=== PATIENT | female | born 1950 | race African-American/Black ===

== ENCOUNTER 2016-10-31 17:34 | Emergency (ER) | payer OTHER ==
[2016-10-31 17:48] VITALS: BMI 34.9
[2016-10-31] MEDS ORDERED: diphenhydrAMINE HCL 12.5 MG/5 ML UNIT-DOSE CUPS PO ONE (18:37)
[2016-10-31] MEDS ORDERED: LIDOCAINE VISCOUS 2% ORAL/TOP 20 ML UNIT-DOSE CUP MM ONE (18:37)
[2016-10-31] MEDS ORDERED: MAG HYDROX/AL HYDROX/SIMETH 30 ML UNIT-DOSE CUP PO ONE (18:37)
[2016-10-31] MEDS ORDERED: FAMOTIDINE 20 MG/50 ML IVPB 50 ML IVPB ONE ×3 (18:38→19:04)
--- NOTE | 2016-10-31 18:49 | PDOC ---
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 She states the burning was localized to the substernal region and denies radiation of the pain. She denies any pain at this time. She denies eating prior to the onset of her pain. She denies chest pain, shortness of breath, headache and dizziness. She denies fever, chills, nausea, vomit, diarrhea and constipation. She denies dysuria, frequency, urgency and hematuria. Allergies: NKDA <Parisa Jj - Last Filed: 10/31/16 19:05> - General Chief Complaint: Chest Pain Stated Complaint: FALL Time Seen by Provider: 10/31/16 17:38 Past History - Past Medical History COPD: Yes DVT: Yes (AND PE) Diabetes: Yes (border line) HTN: Yes Liver Disease: Yes (HEP C) Psychiatric Problems: Yes (anxiety, tremors) Suicide Attempt (Hx): No Seizures: Yes Thyroid Disease: Yes - Surgical History Cholecystectomy: Yes - Immunization History Immunization Up to Date: Yes - Psycho/Social/Smoking Cessation Hx Anxiety: No Suicidal Ideation: No Smoking Status: No Smoking History: Former smoker Have you smoked in the past 12 months: No Number of Cigarettes Smoked Daily: 0 If you are a former smoker, when did you quit?: 2003 Information on smoking cessation initiated: No 'Breaking Loose' booklet given: 09/06/13 Hx Alcohol Use: Yes Drug/Substance Use Hx: No Substance Use Type: None Hx Substance Use Treatment: Yes <Benny Duke - Last Filed: 10/31/16 18:49> <Parisa Jj - Last Filed: 10/31/16 19:05> - Past Medical History Allergies/Adverse Reactions: Allergies Allergy/AdvReac Type Severity Reaction Status Date / Time aspirin Allergy Hives Verified 10/31/16 17:48 Penicillins Allergy Hives Verified 10/31/16 17:48 Shellfish Allergy Hives Verified 10/31/16 17:48 venom-honey bee Allergy Verified 10/31/16 17:48 [bee venom (honey bee)] egg AdvReac Vomiting Verified 10/31/16 17:48 Home Medications: Ambulatory Orders Docusate Sodium [Colace -] 100 mg PO TID 04/03/14 Levothyroxine [Synthroid -] 125 mcg PO DAILY 04/03/14 Metformin HCl [Glucophage -] 500 mg PO BID 04/03/14 Albuterol Sulfate Inhaler - [Ventolin HFA Inhaler -] 2 inh PO Q4H PRN #1 inh 12/16 Budesonide/Formeterol Fumarate [SYMBICORT 160/4.5mcg -] 1 inh PO BID 08/08/14 Calcium 250Mg/Vit-D 125 Units [Oscal 250 mg+D -] 500 combo PO BID 08/08/14 Metoprolol Tartrate [Lopressor] 50 mg PO BID 08/08/14 Olanzapine [Zyprexa] 10 mg PO HS 08/08/14 Phenytoin Na Extended [Dilantin -] 300 mg PO HS 08/08/14 Trazodone HCl [Desyrel -] 50 mg PO HS 08/08/14 Ledipasvir/Sofosbuvir [Harvoni 90-400 mg Tablet] 1 each PO DAILY 08/14/15 Amlodipine Besylate 10 mg PO DAILY 01/16/16 Divalproex *ER* [Depakote *ER* -] 1,000 mg PO HS 01/16/16 Gabapentin Enacarbil [Horizant] 600 mg PO DAILY 01/16/16 Nebivolol HCl [Bystolic] 10 mg PO DAILY 01/16/16 Venlafaxine HCl ER [Effexor Xr -] 150 mg PO DAILY 01/16/16 Divalproex [Depakote -] 250 mg PO BID #28 tablet.ec 03/09/16 Albuterol Sulfate Inhaler - [Ventolin Hfa Inhaler -] 1 - 2 inh PO Q4H #1 inhaler 05/07/16 Methylprednisolone [Medrol Dose Dennys] 4 mg PO ASDIR #21 tablet 05/07/16 Review of Systems - Review of Systems Able to Perform ROS?: Yes Comments:: 10/31/16 19:04 GENERAL/CONSTITUTIONAL: No fever or chills. No weakness. HEAD, EYES, EARS, NOSE AND THROAT: No change in vision. No ear pain or discharge. No sore throat. CARDIOVASCULAR: No chest pain or shortness of breath. RESPIRATORY: No cough, wheezing, or hemoptysis. GASTROINTESTINAL: (+) substernal burning. No nausea, vomiting, diarrhea or constipation. GENITOURINARY: No dysuria, frequency, or change in urination. MUSCULOSKELETAL: No joint or muscle swelling or pain. No neck or back pain. SKIN: No rash NEUROLOGIC: No headache, vertigo, loss of consciousness, or change in strength/ sensation. ENDOCRINE: No increased thirst. No abnormal weight change. HEMATOLOGIC/LYMPHATIC: No anemia, easy bleeding, or history of blood clots. ALLERGIC/IMMUNOLOGIC: No hives or skin allergy. <Parisa Jj - Last Filed: 10/31/16 19:05> *Physical Exam - Vital Signs Last Vital Signs Temp Pulse Resp BP Pulse Ox 97.9 F 85 20 136/96 95 10/31/16 17:44 10/31/16 17:44 10/31/16 17:44 10/31/16 17:44 10/31/16 17:44 <Benny Duke - Last Filed: 10/31/16 18:49> - Vital Signs Last Vital Signs Temp Pulse Resp BP Pulse Ox 97.9 F 85 20 136/96 95 10/31/16 17:44 10/31/16 17:44 10/31/16 17:44 10/31/16 17:44 10/31/16 17:44 - Physical Exam Comments: 10/31/16 19:04 GENERAL: Awake, alert, and fully oriented, in no acute distress HEAD: No signs of trauma EYES: PERRLA, EOMI, sclera anicteric, conjunctiva clear ENT: Auricles normal inspection, hearing grossly normal, nares patent, oropharynx clear without exudates. Moist mucosa NECK: Normal ROM, supple, no lymphadenopathy, JVD, or masses LUNGS: Breath sounds equal, clear to auscultation bilaterally. No wheezes, and no crackles HEART: Regular rate and rhythm, normal S1 and S2, no murmurs, rubs or gallops ABDOMEN: Soft, nontender, normoactive bowel sounds. No guarding, no rebound. No masses EXTREMITIES: Normal range of motion, no edema. No clubbing or cyanosis. No cords, erythema, or tenderness NEUROLOGICAL: Cranial nerves II through XII grossly intact. Normal speech, normal gait SKIN: Warm, Dry, normal turgor, no rashes or lesions noted. <Parisa Jj - Last Filed: 10/31/16 19:05> Heart Score/ECG Review - ECG Intrepretation Comment:: 10/31/16 19:04 EKG was read by Dr. Duke at 17:53 Impression: Normal sinus rhythm. Possible left atrial enlargement. <Parisa Jj - Last Filed: 10/31/16 19:05> ED Treatment Course - RADIOLOGY Radiology Studies Ordered: Category Date Time Status CHEST X-RAY PORTABLE* [RAD] Stat Radiology 10/31/16 18:36 Ordered <Benny Duke - Last Filed: 10/31/16 18:49> Medical Decision Making - Medical Decision Making 10/31/16 19:03 The patient is a 66 year old female who presents to the ED with substernal burning which lasted 5 minutes today. The patient has a significant past medical history of liver cirrhosis (20 years , alcohol induced), hypertension, hyperlipidemia, diabetes, and post-Hepatitis C (s/p Harvoni treatment). <Parisa Jj - Last Filed: 10/31/16 19:05> *DC/Admit/Observation/Transfer - Attestations Physician Attestion: 10/31/16 18:49 I, Dr. Benny Dkue, attest that this document has been prepared under my direction and personally reviewed by me in its entirety. I further attest, that it accurately reflects all work, treatment, procedures and medical decision -making performed by me. <Benny Duke - Last Filed: 10/31/16 18:49> - Attestations Scribe Attestion: 10/31/16 19:05 Documentation prepared by Parisa Jj, acting as director medical science for Benny Duke DO <Parisa Jj - Last Filed: 10/31/16 19:05> - Referrals Referrals: Reuben Esparza MD [Primary Care Provider] -
[2016-10-31 19:48] LABS: BASOPHIL 0.4 % (0-2.0); EOSINOPHIL 3.2 % (0-4.5); MCH 28.8 pg (25.7-33.7); MCHC 32.2 g/dl (32.0-36.0); MEAN CELL VOLUME 89.5 fl (80-96); PLATELET COUNT 171 K/MM3 (134-434); RDW 13.1 % (11.6-15.6); WHITE BLOOD COUNT 6.2 K/mm3 (4.0-10.0)
[2016-10-31 20:09] LABS: INR 1.07 (0.82-1.09); PROTHROMBIN TIME (PATIENT) 11.8 SEC (9.98-11.88)
[2016-10-31 20:21] LABS: ALBUMIN 3.3 g/dl (3.4-5.0); ANION GAP 9 (8-16); CALCIUM 8.4 mg/dL (8.5-10.1); CO2 26 mmol/L (21-32); CREATININE 0.8 mg/dL (0.55-1.02); GLUCOSE,RANDOM 89 mg/dL (74-106); SGOT/AST 50 U/L (15-37); SGPT/ALT 65 U/L (12-78)
[2016-10-31] MEDS ORDERED: diphenhydrAMINE HCL 25 MG CAPSULE (FP) PO ONE (20:23)
[2016-10-31] MEDS ORDERED: MAG HYDROX/AL HYDROX/SIMETH 30 ML UNIT-DOSE CUP ONE (20:24)
[2016-10-31 20:26] LABS: ALK PHOS 127 U/L (45-117); BILIRUBIN,TOTAL 0.1 mg/dL (0.2-1.0); TOT PROT 7.1 g/dl (6.4-8.2); TROPONIN I < 0.02 ng/ml (0.00-0.05)
--- NOTE | 2016-10-31 23:28 | PDOC ---
*Physical Exam - Vital Signs Last Vital Signs Temp Pulse Resp BP Pulse Ox 97.9 F 85 20 136/96 96 10/31/16 17:44 10/31/16 17:44 10/31/16 17:44 10/31/16 17:44 10/31/16 19:20 ED Treatment Course - LABORATORY CBC & Chemistry Diagram: 10/31/16 18:33 10/31/16 18:33 - ADDITIONAL ORDERS Additional order review: Laboratory Results 10/31/16 10/31/16 10/31/16 18:50 18:50 18:33 INR Sodium Potassium Chloride Carbon Dioxide Anion Gap BUN Creatinine Creat Clearance w eGFR Random Glucose Lactic Acid 1.0 Calcium Total Bilirubin AST ALT Alkaline Phosphatase Ammonia 43.09 H Creatine Kinase Troponin I Total Protein Albumin Lipase 227 10/31/16 10/31/16 18:33 18:33 INR 1.07 Sodium 140 Potassium 4.3 Chloride 105 Carbon Dioxide 26 Anion Gap 9 BUN 17 Creatinine 0.8 Creat Clearance w eGFR > 60 Random Glucose 89 Lactic Acid Calcium 8.4 L Total Bilirubin 0.1 L AST 50 H ALT 65 D Alkaline Phosphatase 127 H Ammonia Creatine Kinase 104 Troponin I < 0.02 Total Protein 7.1 Albumin 3.3 L Lipase 10/31/16 18:33 RBC 3.86 MCV 89.5 MCHC 32.2 RDW 13.1 MPV 9.0 D Neutrophils % 51.0 Lymphocytes % 38.3 D Monocytes % 7.1 Eosinophils % 3.2 Basophils % 0.4 - Medications Given in the ED: ED Medications Discontinued Medications Generic Name Dose Route Start Last Admin Trade Name Freq PRN Reason Stop Dose Admin Al Hydroxide/Mg Hydroxide 30 ml 10/31/16 18:37 10/31/16 19:35 Mylanta Oral Suspension - PO 10/31/16 18:38 30 ml ONCE ONE Administration Diphenhydramine HCl 25 mg 10/31/16 18:37 10/31/16 19:35 Benadryl Oral Solution - PO 10/31/16 18:38 25 mg ONCE ONE Administration Famotidine/Sodium Chloride 50 mls @ 100 mls/hr 10/31/16 18:38 10/31/16 19:06 Pepcid 20 Mg Premixed Ivpb - IVPB 10/31/16 19:07 100 mls/hr ONCE ONE Administration Lidocaine HCl 20 ml 10/31/16 18:37 10/31/16 19:30 Xylocaine 2% Viscous Oral - MM 10/31/16 18:38 20 ml ONCE ONE Administration Medical Decision Making - Medical Decision Making 10/31/16 23:30 Abd/pelvis CT scan shows signs of cirrhosis, however no other overt pathology. Pt to follow up with her pcp and her scheduled appointments. *DC/Admit/Observation/Transfer Diagnosis at time of Disposition: Cirrhosis Qualifiers: Hepatic cirrhosis type: unspecified hepatic cirrhosis Ascites presence: without ascites Qualified Code(s): K74.60 - Unspecified cirrhosis of liver - Discharge Dispostion Disposition: HOME Condition at time of disposition: Stable Admit: No - Referrals Referrals: Reuben Esparza MD [Primary Care Provider] - - Patient Instructions Printed Discharge Instructions: DI for Cirrhosis Additional Instructions: Don't take your Metformin for one day. Follow up with your doctor and your other scheduled appointments. - Post Discharge Activity
[2016-10-31 23:43] VITALS: BP 128/89; PULSE 80; TEMP 98
--- NOTE | 2016-11-01 12:15 | EKG ---
Test Reason : Blood Pressure : / mmHG Vent. Rate : 080 BPM Atrial Rate : 080 BPM P-R Int : 192 ms QRS Dur : 084 ms QT Int : 360 ms P-R-T Axes : 067 -01 049 degrees QTc Int : 415 ms POOR DATA QUALITY, INTERPRETATION MAY BE ADVERSELY AFFECTED NORMAL SINUS RHYTHM POSSIBLE LEFT ATRIAL ENLARGEMENT LEFT VENTRICULAR HYPERTROPHY ABNORMAL ECG WHEN COMPARED WITH ECG OF 09-MAR-2016 16:05, NO SIGNIFICANT CHANGE WAS FOUND Confirmed by DWAIN WISEMAN MD ([id number]) on 11/01/2016 12:14:31 PM Referred By: Confirmed By:DWAIN WISEMAN MD
== END 2016-10-31 23:44 | disposition home or self-care (01) ==
LOC: JER 17:34
PROC: 3E033GC Introduction of Other Therapeutic Substance into Peripheral Vein, Percutaneous Approach (ICD-10-PCS; principal; 2016-10-31)
DX: K70.30 Alcoholic cirrhosis of liver without ascites (principal); I10 Essential (primary) hypertension; E78.00 Pure hypercholesterolemia, unspecified; E11.9 Type 2 diabetes mellitus without complications; Z79.84 Long term (current) use of oral hypoglycemic drugs; Z86.718 Personal history of other venous thrombosis and embolism; Z86.711 Personal history of pulmonary embolism
CPT/HCPCS: 36415; 71010-TC; 71260-TC; 74177-TC; 80053; 82140; 82550; 83605; 83690; 84484; 85025; 85610; 93005; 93010; 96365; 99285-25

== ENCOUNTER 2016-12-21 11:31 | Emergency (ER) | payer OTHER ==
[2016-12-21 12:04] VITALS: BMI 36.6
--- NOTE | 2016-12-21 13:31 | PDOC ---
History of Present Illness - General Chief Complaint: Weakness Stated Complaint: FALL/ TREMORS Time Seen by Provider: 12/21/16 12:59 History Source: Patient Exam Limitations: No Limitations - History of Present Illness Initial Comments: 12/21/16 13:24 This is a 66 yo female with h/o HCV cirrhosis (treated in 2016 with Radu), Parkinson's disease (dx about 4 months ago), NIDDM, HTN, and HLD who presents with generalized weakness, dyspnea on exertion, urinary urgency, foot swelling, and multiple falls from bed over the past two weeks. She notes that the course of her symptoms actually started two weeks ago with cough, sore throat, and runny nose which required her sister to her home to care for her at that time. She began having episodes of falling from bed while sleeping during the night at this time, and cannot count the number of episodes. She describes shortness of breath on exertion as inability to walk even one block without stopping, which is worse for her in the past month. She additionally notes awakening gasping for air in the middle of the night which is new for her. She has always used 2-3 pillows at night without any recent change. She notes foot swelling worsening over the past month, and also notes significant weight gain recently ( went from size 16 to size 20 in the past year). Past History - Past Medical History Allergies/Adverse Reactions: Allergies Allergy/AdvReac Type Severity Reaction Status Date / Time aspirin Allergy Hives Verified 12/21/16 12:04 Penicillins Allergy Hives Verified 12/21/16 12:04 Shellfish Allergy Hives Verified 12/21/16 12:04 venom-honey bee Allergy Verified 12/21/16 12:04 [bee venom (honey bee)] egg AdvReac Vomiting Verified 12/21/16 12:04 Home Medications: Ambulatory Orders Levothyroxine [Synthroid -] 175 mcg PO DAILY 04/03/14 Metformin HCl [Glucophage -] 500 mg PO DAILY 04/03/14 Metoprolol Tartrate [Lopressor] 25 mg PO DAILY 08/08/14 Olanzapine [Zyprexa] 10 mg PO HS 08/08/14 Phenytoin Na Extended [Dilantin -] 300 mg PO HS 08/08/14 Amlodipine Besylate 10 mg PO DAILY 01/16/16 Gabapentin Enacarbil [Horizant] 300 mg PO TID 01/16/16 Divalproex [Depakote -] 500 mg PO HS 12/21/16 Tramadol HCl 50 mg PO PRN PRN #20 tablet MDD 4 12/21/16 COPD: Yes DVT: Yes (AND PE) Diabetes: Yes (border line) HTN: Yes Liver Disease: Yes (HEP C) Psychiatric Problems: Yes (anxiety, tremors) Suicide Attempt (Hx): No Seizures: Yes Thyroid Disease: Yes - Surgical History Cholecystectomy: Yes - Immunization History Immunization Up to Date: Yes - Psycho/Social/Smoking Cessation Hx Anxiety: No Suicidal Ideation: No Smoking Status: No Smoking History: Never smoked Have you smoked in the past 12 months: No Number of Cigarettes Smoked Daily: 0 If you are a former smoker, when did you quit?: 2003 Information on smoking cessation initiated: No 'Breaking Loose' booklet given: 09/06/13 Hx Alcohol Use: No Drug/Substance Use Hx: No Substance Use Type: None Hx Substance Use Treatment: Yes Review of Systems - Review of Systems Able to Perform ROS?: Yes Is the patient limited [place] proficient: Yes Constitutional: Yes: Other (weight gain). No: Chills, Fever HEENTM: Yes: Nose Congestion, Throat Pain Respiratory: Yes: Cough, SOB with Exertion. No: Orthopnea, SOB at Rest Cardiac (ROS): Yes: Edema. No: Chest Pain, Palpitations ABD/GI: No: Constipated, Diarrhea, Nausea, Vomiting : Yes: Urgency. No: Burning, Dysuria Musculoskeletal: Yes: Muscle Pain (right thigh and hip). No: Back Pain, Neck Pain Integumentary: Yes: Other (right abdominal mild bruising). No: Bruising, Rash Neurological: Yes: Tremors, Unsteady Gait. No: Headache, Numbness, Tingling, Weakness, Dizziness Endocrine: Yes: Unexplained Weight Gain. No: Unexplained Weight Loss *Physical Exam - Vital Signs Last Vital Signs Temp Pulse Resp BP Pulse Ox 76 F L 77 18 114/75 99 12/21/16 12:02 12/21/16 12:02 12/21/16 12:02 12/21/16 12:12/21/16 12:02 - Physical Exam General Appearance: Yes: Nourished, Appropriately Dressed, Other (nontoxic, alert, oriented, conversive, obvious resting tremor BUE and mandible). No: Apparent Distress HEENT: positive: EOMI, Normal Voice, Hearing Grossly Normal. negative: Scleral Icterus (R), Scleral Icterus (L) Neck: positive: Trachea midline, Supple. negative: Tender, Rigid Respiratory/Chest: positive: Lungs Clear, Normal Breath Sounds. negative: Respiratory Distress, Crackles, Rhonchi, Stridor, Wheezing Cardiovascular: positive: Regular Rhythm, Regular Rate, Edema (trace pedal). negative: Murmur Gastrointestinal/Abdominal: positive: Normal Bowel Sounds, Protuberent, Other ( old ecchymoses to right quadrants which appear to be healing well). negative: Tender, Organomegaly, Pulsatile Mass, Guarding Musculoskeletal: positive: Normal Inspection. negative: Decreased Range of Motion, Vertebral Tenderness Extremity: positive: Normal Capillary Refill, Normal Inspection, Normal Range of Motion, Tender (right lateral hip and right thigh in the distribution of the IT band, but no focal tenderness, normal ROM hip and knee, no medial hip tenderness), Pelvis Stable, Pedal Edema. negative: Coldness, Cyanosis, Delayed Capillary Refill, Calf Tenderness, Erythema, Inflammation Integumentary: positive: Normal Color, Dry, Warm. negative: Erythema, Rash, Bruising Neurologic: positive: compliance engineer products II-XII NML intact, Fully Oriented, Alert, Normal Mood/ Affect, Normal Response, Motor Strength 5/5 ED Treatment Course - LABORATORY CBC & Chemistry Diagram: 12/21/16 14:00 12/21/16 14:00 - ADDITIONAL ORDERS Additional order review: X-ray hip/pelvic right - no e/o fracture, acute bony abnormalities, dislocation , join effusion, or other deformity. X-ray knee right - possible e/o CPPD but no acute fracture, bony abnormality, dislocation, or other deformity. Medical Decision Making - Medical Decision Making 12/21/16 13:59 66 yo female with h/o cirrhosis, NIDDM, HTN, HLD, new dx Parkinsons who presents c/o HICKS and generalizes weakness. Considered on the ddx are CHF exacerbation, PNA, UTI, ACS. Workup is ordered including CBC, CMP, BNP, UA with culture, CXR, EKG. Workup is non-directive, no acute cardiopulmonary processes on CXR. BNP is wnl and CXR without e/o CHF exacerbation or PNA, lung exam wnl. UA without e/o UTI, no abdominal tenderness to palpation. EKG without ischemic changes and troponin is negative, cardiac exam unremarkable. On hip and LE exam after patient is moved into a private room, she has tenderness from lateral right hip to knee. Xray right hip/pelvis and right knee are not suggestive for bony pathology or other cause of pain. Her pain is well-controlled here in the ED. She is comfortable with discharge home with Rx for Tramadol and with outpatient f/u with PCP and Neuro. *DC/Admit/Observation/Transfer Diagnosis at time of Disposition: Fall from bed Qualifiers: Encounter type: initial encounter Qualified Code(s): W06.XXXA - Fall from bed, initial encounter Hip pain Qualifiers: Laterality: right Qualified Code(s): M25.551 - Pain in right hip - Discharge Dispostion Disposition: HOME Condition at time of disposition: Stable Admit: No - Prescriptions Prescriptions: Tramadol HCl 50 mg PO PRN PRN #20 tablet MDD 4 PRN Reason: Pain - Referrals Referrals: Reuben Esparza MD [Primary Care Provider] - - Patient Instructions Printed Discharge Instructions: Help for Hip Pain, DI for Leg Pain Additional Instructions: You were seen in the ED today for right hip pain and right thigh pain. We did an x-ray of the hip/pelvis which was negative, and an x-ray of the knee which did not show any fractures or obvious injuries. You also have been having generalized weakness. We checked a chest x-ray to make sure your bronchitis had not turned into pneumonia. The chest x-ray showed no signs of pneumonia. Your lab work was not concerning, and your urine did not show signs of infection. Please take tramadol for your hip and leg pain if you need it. This is a prescription that we sent to your pharmacy. It is important that you follow up with your regular doctor and also with your neurologist to discuss your Parkinson's disease. That may be contributing to your weakness and your recent falls. Please return to the ED for any further emergency concerns. - Attestations Physician Attestion: I, Dr. Yudith Chau, attest that this document has been prepared under my direction and personally reviewed by me in its entirety. I further attest, that it accurately reflects all work, treatment, procedures and medical decision -making performed by me.
--- NOTE | 2016-12-21 13:57 | PDOC ---
Attending Attestation - Resident Resident Name: Yudith Chau - ED Attending Attestation I have performed the following: I have examined & evaluated the patient, The case was reviewed & discussed with the resident, I agree w/resident's findings & plan, Exceptions are as noted - HPI HPI: 12/21/16 17:03 66 yo F presenting to the ER with a complaint of 2 weeks of cough and weakness No fevers or chills No nausea or vomiting or diarrhea No chest pain Pt reports generalized weakness - Physicial Exam PE: 12/21/16 17:04 RRR CTA B/L No abd tenderness to palpation Thigh pain and tenderness - Medical Decision Making 12/21/16 17:05 Will do labs Will do EKG Will do CXR Will re assess Laboratory Tests 12/21/16 12/21/16 12/21/16 14:00 14:00 16:00 WBC 6.4 Hgb 12.5 D Hct 38.3 Plt Count 215 D Creatine Kinase 179 D CK-MB (CK-2) < 1.000 Troponin I < 0.02 B-Natriuretic Peptide 30.26 Urine Nitrite Negative Ur Leukocyte Esterase Negative CXR: nml Will discharge to home Follow up with your pmd Return to the ER for any other concerns or complaints Heart Score/ECG Review #1 ECG reviewed & interpreted by me at: 17:05 General ECG Interpretation: Sinus Rhythm, Normal Rate, Normal Intervals, No acute ischemic changes
[2016-12-21 14:48] LABS: BASOPHIL 0.7 % (0-2.0); MCH 29.2 pg (25.7-33.7); MCHC 32.6 g/dl (32.0-36.0); MEAN CELL VOLUME 89.4 fl (80-96); MEAN PLT VOLUME 8.2 fl (7.5-11.1); NEUTROPHILS 50.8 % (42.8-82.8); PLATELET COUNT 215 K/MM3 (134-434); RDW 13.8 % (11.6-15.6); WHITE BLOOD COUNT 6.4 K/mm3 (4.0-10.0)
[2016-12-21 15:14] LABS: ALBUMIN 3.6 g/dl (3.4-5.0); ANION GAP 8 (8-16); BILIRUBIN,TOTAL 0.3 mg/dL (0.2-1.0); CALCIUM 8.7 mg/dL (8.5-10.1); CO2 26 mmol/L (21-32); CREATININE 0.9 mg/dL (0.55-1.02); GLUCOSE,RANDOM 80 mg/dL (74-106); SGPT/ALT 67 U/L (12-78)
[2016-12-21 15:17] LABS: ALK PHOS 128 U/L (45-117); TROPONIN I < 0.02 ng/ml (0.00-0.05)
[2016-12-21 15:18] LABS: SGOT/AST 62 U/L (15-37)
[2016-12-21 16:20] LABS: URINE APPEARANCE CLEAR; URINE BILIRUBIN NEGATIVE (NEGATIVE); URINE BLOOD NEGATIVE (NEGATIVE); URINE COLOR YELLOW; URINE GLUCOSE (UA) NEGATIVE (NEGATIVE); URINE KETONE NEGATIVE (NEGATIVE); URINE LEUK ESTERASE NEGATIVE (NEGATIVE); URINE NITRITE NEGATIVE (NEGATIVE); URINE PROTEIN NEGATIVE (NEGATIVE); URINE UROBILINOGEN NEGATIVE mg/dL (0.2-1.0)
[2016-12-21 18:51] VITALS: BP 157/98; PULSE 96
[2016-12-21 18:55] VITALS: TEMP 97.9
--- NOTE | 2016-12-22 10:19 | EKG ---
Test Reason : Blood Pressure : / mmHG Vent. Rate : 075 BPM Atrial Rate : 075 BPM P-R Int : 194 ms QRS Dur : 082 ms QT Int : 390 ms P-R-T Axes : 082 004 029 degrees QTc Int : 435 ms NORMAL SINUS RHYTHM NORMAL ECG Confirmed by MD ANDRIA, YULISA ([id number]) on 12/22/2016 10:19:16 AM Referred By: Confirmed By:YULISA AYERS MD
== END 2016-12-21 18:59 | disposition home or self-care (01) ==
LOC: JER 11:31
DX: M25.551 Pain in right hip (principal); W06.XXXA Fall from bed, initial encounter; Z91.81 History of falling; Y93.89 Activity, other specified; Y92.032 Bedroom in apartment as the place of occurrence of the external cause; Y99.8 Other external cause status; I10 Essential (primary) hypertension; E11.9 Type 2 diabetes mellitus without complications; Z79.84 Long term (current) use of oral hypoglycemic drugs; E78.5 Hyperlipidemia, unspecified; E78.00 Pure hypercholesterolemia, unspecified; J44.9 Chronic obstructive pulmonary disease, unspecified; E03.9 Hypothyroidism, unspecified; F41.9 Anxiety disorder, unspecified; G20 Parkinson's disease; Z86.19 Personal history of other infectious and parasitic diseases; Z86.718 Personal history of other venous thrombosis and embolism; Z86.711 Personal history of pulmonary embolism
CPT/HCPCS: 36415; 71010-TC; 73523-TC; 73562-TC-RT; 80053; 81003; 82550; 82553; 83880; 84484; 85025; 87086; 93005; 93010; 99283-25

== ENCOUNTER 2017-02-22 01:07 | Emergency (ER) | payer OTHER ==
[2017-02-22 01:31] VITALS: BP 151/100; PULSE 96; TEMP 98.2; BMI 32.5
--- NOTE | 2017-02-22 01:41 | PDOC ---
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 Patient states she was awake when she thought she was having a seizure. Patient reports everything was foggy. Patient denies any focal weakness, headache or neurological deficits. She denies chest pain, headache or dizziness. She denies fever, chills, abdominal pain, nausea, vomit, diarrhea or constipation. She denies dysuria, frequency, urgency or hematuria. . <Heather Morgan - Last Filed: 02/22/17 01:52> - General History Source: Patient <Darshan Blue - Last Filed: 02/22/17 04:30> - General Chief Complaint: Seizure Stated Complaint: POSSIBLE SEIZURE Time Seen by Provider: 02/22/17 01:37 Past History <Heather Morgan - Last Filed: 02/22/17 01:52> - Past Medical History COPD: Yes DVT: Yes (AND PE) Diabetes: Yes (border line) HTN: Yes Liver Disease: Yes (HEP C) Psychiatric Problems: Yes (anxiety, tremors) Seizures: Yes Thyroid Disease: Yes - Surgical History Cholecystectomy: Yes - Immunization History Immunization Up to Date: Yes - Suicide/Smoking/Psychosocial Hx Smoking Status: No Smoking History: Never smoked Have you smoked in the past 12 months: No Number of Cigarettes Smoked Daily: 0 If you are a former smoker, when did you quit?: 2003 Information on smoking cessation initiated: No 'Breaking Loose' booklet given: 09/06/13 Hx Alcohol Use: No Drug/Substance Use Hx: No Substance Use Type: None Hx Substance Use Treatment: Yes <Darshan Blue - Last Filed: 02/22/17 04:30> - Past Medical History Allergies/Adverse Reactions: Allergies Allergy/AdvReac Type Severity Reaction Status Date / Time aspirin Allergy Hives Verified 02/22/17 01:26 Penicillins Allergy Hives Verified 02/22/17 01:26 Shellfish Allergy Hives Verified 02/22/17 01:26 venom-honey bee Allergy Verified 02/22/17 01:26 [bee venom (honey bee)] egg AdvReac Vomiting Verified 02/22/17 01:26 Home Medications: Ambulatory Orders Levothyroxine [Synthroid -] 175 mcg PO DAILY 04/03/14 Metformin HCl [Glucophage -] 500 mg PO DAILY 04/03/14 Metoprolol Tartrate [Lopressor] 25 mg PO DAILY 08/08/14 Olanzapine [Zyprexa] 10 mg PO HS 08/08/14 Phenytoin Na Extended [Dilantin -] 300 mg PO HS 08/08/14 Amlodipine Besylate 10 mg PO DAILY 01/16/16 Gabapentin Enacarbil [Horizant] 300 mg PO TID 01/16/16 Divalproex [Depakote -] 500 mg PO HS 12/21/16 Tramadol HCl 50 mg PO PRN PRN #20 tablet MDD 4 12/21/16 Review of Systems - Review of Systems Able to Perform ROS?: Yes Comments:: 02/22/17 01:52 GENERAL/CONSTITUTIONAL: No fever or chills. No weakness. HEAD, EYES, EARS, NOSE AND THROAT: No change in vision. No ear pain or discharge. No sore throat. GASTROINTESTINAL: No nausea, vomiting, diarrhea or constipation. GENITOURINARY: No dysuria, frequency, or change in urination. CARDIOVASCULAR: No chest pain or shortness of breath. RESPIRATORY: No cough, wheezing, or hemoptysis. MUSCULOSKELETAL: No joint or muscle swelling or pain. No neck or back pain. SKIN: No rash NEUROLOGIC: No headache, vertigo, loss of consciousness, or change in strength/ sensation. ENDOCRINE: No increased thirst. No abnormal weight change. HEMATOLOGIC/LYMPHATIC: No anemia, easy bleeding, or history of blood clots. ALLERGIC/IMMUNOLOGIC: No hives or skin allergy. <Heather Morgan - Last Filed: 02/22/17 01:52> *Physical Exam - Vital Signs Last Vital Signs Temp Pulse Resp BP Pulse Ox 98.2 F 96 H 14 151/100 96 02/22/17 01:26 02/22/17 01:26 02/22/17 01:26 02/22/17 01:02/22/17 01:26 - Physical Exam Comments: 02/22/17 01:53 GENERAL: Awake, alert, and fully oriented, in no acute distress HEAD: No signs of trauma EYES: PERRLA, EOMI, sclera anicteric, conjunctiva clear ENT: Auricles normal inspection, hearing grossly normal, nares patent, oropharynx clear without exudates. Moist mucosa NECK: Normal ROM, supple, no lymphadenopathy, JVD, or masses LUNGS: Breath sounds equal, clear to auscultation bilaterally. No wheezes, and no crackles HEART: Regular rate and rhythm, normal S1 and S2, no murmurs, rubs or gallops ABDOMEN: +Obese. Soft, nontender, normoactive bowel sounds. No guarding, no rebound. No masses EXTREMITIES: Normal range of motion, no edema. No clubbing or cyanosis. No cords, erythema, or tenderness NEUROLOGICAL: Cranial nerves II through XII grossly intact. Normal speech, normal gait SKIN: Warm, Dry, normal turgor, no rashes or lesions noted. <Heather Morgan - Last Filed: 02/22/17 01:52> - Vital Signs Last Vital Signs Temp Pulse Resp BP Pulse Ox 98.2 F 96 H 14 151/100 96 02/22/17 01:26 02/22/17 01:26 02/22/17 01:26 02/22/17 01:26 02/22/17 01:26 <Darshan Blue - Last Filed: 02/22/17 04:30> ED Treatment Course - LABORATORY CBC & Chemistry Diagram: 02/22/17 02:23 02/22/17 02:23 <Darshan Blue - Last Filed: 02/22/17 04:30> Medical Decision Making - Medical Decision Making 02/22/17 04:29 Dr. Blue: The scribe's documentation has been prepared under my direction and personally reviewed by me in its entirery. I confirm that the note above accurately reflects all work, treatment, procedures, and medical decision making performed by me. <Darshan Blue - Last Filed: 02/22/17 04:30> *DC/Admit/Observation/Transfer - Attestations Scribe Attestion: 02/22/17 01:53 Documentation prepared by Heather Morgan, acting as medical data analyst for Darshan Blue DO. <Heather Morgan - Last Filed: 02/22/17 01:52> - Discharge Dispostion Admit: No <Darshan Blue - Last Filed: 02/22/17 04:30> Diagnosis at time of Disposition: Seizure disorder - Discharge Dispostion Disposition: HOME Condition at time of disposition: Stable - Referrals Referrals: Reuben Esparza MD [Primary Care Provider] - - Patient Instructions Printed Discharge Instructions: DI for Seizure Disorder -- Adult Additional Instructions: Please follow up with [facility] neurologist as soon as possible
[2017-02-22 02:29] LABS: BASOPHIL 0.4 % (0-2.0); EOSINOPHIL 4.4 % (0-4.5); MCH 29.2 pg (25.7-33.7); MEAN CELL VOLUME 88.3 fl (80-96); MEAN PLT VOLUME 7.7 fl (7.5-11.1); NEUTROPHILS 45.9 % (42.8-82.8); PLATELET COUNT 175 K/MM3 (134-434); RDW 13.7 % (11.6-15.6); WHITE BLOOD COUNT 6.4 K/mm3 (4.0-10.0)
[2017-02-22 02:42] LABS: INR 1.07 (0.82-1.09); PROTHROMBIN TIME (PATIENT) 11.8 SEC (9.98-11.88)
[2017-02-22 02:52] LABS: ALBUMIN 3.3 g/dl (3.4-5.0); ANION GAP 10 (8-16); CALCIUM 8.6 mg/dL (8.5-10.1); CO2 27 mmol/L (21-32); CREATININE 0.9 mg/dL (0.55-1.02); GLUCOSE,RANDOM 92 mg/dL (74-106); MAGNESIUM 2.4 mg/dL (1.8-2.4); SGOT/AST 37 U/L (15-37); SGPT/ALT 65 U/L (12-78); TOT PROT 7.3 g/dl (6.4-8.2)
[2017-02-22 02:53] LABS: ALK PHOS 113 U/L (45-117); BILIRUBIN,TOTAL 0.4 mg/dL (0.2-1.0)
--- NOTE | 2017-02-22 10:25 | EKG ---
Test Reason : Blood Pressure : / mmHG Vent. Rate : 093 BPM Atrial Rate : 093 BPM P-R Int : 186 ms QRS Dur : 074 ms QT Int : 346 ms P-R-T Axes : 066 004 003 degrees QTc Int : 430 ms POOR DATA QUALITY, INTERPRETATION MAY BE ADVERSELY AFFECTED NORMAL SINUS RHYTHM MINIMAL VOLTAGE CRITERIA FOR LVH, MAY BE NORMAL VARIANT CANNOT RULE OUT ANTERIOR INFARCT , AGE UNDETERMINED ABNORMAL ECG WHEN COMPARED WITH ECG OF 21-DEC-2016 15:35, NO SIGNIFICANT CHANGE WAS FOUND Confirmed by STEPHANIE GONCALVES MD ([id number]) on 02/22/2017 10:25:29 AM Referred By: Confirmed By:STEPHANIE GONCALEVS MD
== END 2017-02-22 04:33 | disposition home or self-care (01) ==
LOC: JER 01:07
DX: G40.909 Epilepsy, unspecified, not intractable, without status epilepticus (principal); I10 Essential (primary) hypertension; E11.9 Type 2 diabetes mellitus without complications; Z79.84 Long term (current) use of oral hypoglycemic drugs; E78.00 Pure hypercholesterolemia, unspecified; K70.30 Alcoholic cirrhosis of liver without ascites; G20 Parkinson's disease; E03.9 Hypothyroidism, unspecified; Z86.19 Personal history of other infectious and parasitic diseases
CPT/HCPCS: 36415; 70450-TC; 71010-TC; 80053; 83735; 85025; 85610; 86850; 86900; 86901; 93005; 93010; 99282-25

== ENCOUNTER 2017-06-27 17:10 | Emergency (ER) | payer OTHER ==
[2017-06-27 17:21] VITALS: TEMP 98.3; BMI 39.9
--- NOTE | 2017-06-27 17:22 | PDOC ---
Rapid Medical Evaluation Time Seen by Provider: 06/27/17 17:17 Medical Evaluation: Allergies Allergy/AdvReac Type Severity Reaction Status Date / Time aspirin Allergy Hives Verified 02/22/17 01:26 Penicillins Allergy Hives Verified 02/22/17 01:26 Shellfish Allergy Hives Verified 02/22/17 01:26 venom-honey bee Allergy Verified 02/22/17 01:26 [bee venom (honey bee)] egg AdvReac Vomiting Verified 02/22/17 01:26 I have performed a brief in-person evaluation of this patient. The patient presents with a chief complaint of: high BP; slight headache. Dr. Esparza sent her in. Pt is compliant with her BP meds. Pertinent physical exam findings: BP 198/92 I have ordered the following: labs, EKG The patient will proceed to the ED for further evaluation.
[2017-06-27 18:09] LABS: BASO % 0.2 % (0-2.0); EOS % 2.6 % (0-4.5); HEMOGLOBIN 12.6 GM/dL (10.7-15.3); LYMPH % 29.2 % (8-40); MCH 29.2 pg (25.7-33.7); MCHC 33.1 g/dl (32.0-36.0); MEAN CELL VOLUME 88.3 fl (80-96); MONO % 5.8 % (3.8-10.2); NEUT % 62.2 % (42.8-82.8); PLATELET COUNT 226 K/MM3 (134-434); RBC 4.31 M/mm3 (3.60-5.2); WHITE BLOOD COUNT 10.5 K/mm3 (4.0-10.0)
[2017-06-27 19:29] LABS: ALBUMIN 3.6 g/dl (3.4-5.0); ANION GAP 10 (8-16); BILIRUBIN,TOTAL 0.3 mg/dL (0.2-1.0); BLOOD UREA NITROGEN 13 mg/dL (7-18); CALCIUM 8.3 mg/dL (8.5-10.1); CHLORIDE 104 mmol/L (98-107); CO2 25 mmol/L (21-32); CREATININE 0.9 mg/dL (0.55-1.02); GLUCOSE,RANDOM 88 mg/dL (74-106); POTASSIUM 4.2 mmol/L (3.5-5.1); SGOT/AST 27 U/L (15-37); SGPT/ALT 55 U/L (12-78); SODIUM 139 mmol/L (136-145); TOT PROT 8.1 g/dl (6.4-8.2)
[2017-06-27 19:33] LABS: ALK PHOS 94 U/L (45-117)
--- NOTE | 2017-06-27 19:52 | PDOC ---
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 Patient states that she has been feeling short of breath, having headaches and nasal congestion since yesterday. She also reports that she has been coughing up phlegm. Patient states she has been using a nasal spray to help with the congestion that has been prescribed for her allergies. She denies chest pain or dizziness. She denies fever, chills, abdominal pain, nausea, vomit, diarrhea or constipation. She denies dysuria, frequency, urgency or hematuria. PCP: Reuben Esparza Allergies: penicillins, aspirin. <Charlotte Batista - Last Filed: 06/27/17 20:44> - General History Source: Patient <Darshan Blue - Last Filed: 06/27/17 22:37> - General Chief Complaint: Blood Pressure Problem Stated Complaint: HIGH BP Time Seen by Provider: 06/27/17 17:17 Past History <Charlotte Batista - Last Filed: 06/27/17 20:44> - Past Medical History COPD: Yes DVT: Yes (AND PE) Diabetes: Yes (border line) HTN: Yes Liver Disease: Yes (HEP C) Psychiatric Problems: Yes (anxiety, tremors) Seizures: Yes Thyroid Disease: Yes - Surgical History Cholecystectomy: Yes - Immunization History Immunization Up to Date: Yes - Suicide/Smoking/Psychosocial Hx Smoking Status: No Smoking History: Never smoked Have you smoked in the past 12 months: No Number of Cigarettes Smoked Daily: 0 If you are a former smoker, when did you quit?: 2003 Information on smoking cessation initiated: No 'Breaking Loose' booklet given: 09/06/13 Hx Alcohol Use: No Drug/Substance Use Hx: No Substance Use Type: None Hx Substance Use Treatment: Yes <Darshan Blue - Last Filed: 06/27/17 22:37> - Past Medical History Allergies/Adverse Reactions: Allergies Allergy/AdvReac Type Severity Reaction Status Date / Time aspirin Allergy Hives Verified 06/27/17 17:21 Penicillins Allergy Hives Verified 06/27/17 17:21 Shellfish Allergy Hives Verified 06/27/17 17:21 venom-honey bee Allergy Verified 06/27/17 17:21 [bee venom (honey bee)] egg AdvReac Vomiting Verified 06/27/17 17:21 Home Medications: Ambulatory Orders Levothyroxine [Synthroid -] 125 mcg PO DAILY 04/03/14 Metformin HCl [Glucophage -] 500 mg PO DAILY 04/03/14 Metoprolol Tartrate [Lopressor] 25 mg PO DAILY 08/08/14 Olanzapine [Zyprexa] 10 mg PO HS 08/08/14 Phenytoin Na Extended [Dilantin -] 300 mg PO HS 08/08/14 Divalproex [Depakote -] 500 mg PO HS 12/21/16 Famotidine [Pepcid -] 40 mg PO HS 06/27/17 Pantoprazole Sodium 40 mg PO DAILY 06/27/17 Venlafaxine HCl ER [Effexor Xr -] 150 mg PO DAILY 06/27/17 Review of Systems - Review of Systems Comments:: 06/27/17 20:04 CONSTITUTIONAL: Present: headache Absent: fever, no chills, no fatigue EYES: Absent: visual changes ENT: Present: nasal congestion Absent: ear pain, no sore throat CARDIOVASCULAR: Absent: chest pain, no palpitations RESPIRATORY: Present: productive cough, SOB GI: Absent: abdominal pain, no nausea, no vomiting, no constipation, no diarrhea GENITOURINARY: Absent: dysuria, no frequency, no hematuria MUSCULOSKELETAL: Absent: back pain, no arthralgia, no myalgia SKIN: Absent: rash <Charlotte Batista - Last Filed: 06/27/17 20:44> *Physical Exam - Vital Signs Last Vital Signs Temp Pulse Resp BP Pulse Ox 98.3 F 80 16 166/90 97 06/27/17 17:17 06/27/17 20:01 06/27/17 19:12 06/27/17 20:01 06/27/17 20:01 - Physical Exam Comments: 06/27/17 20:04 GENERAL: Well-appearing, well-nourished. No apparent distress. Morbidly obese. HEENT: Normocephalic, atraumatic. PERRL, EOM intact. CARDIOVASCULAR: Normal S1, S2. Regular rate and rhythm. PULMONARY: Clear to auscultation bilaterally. ABDOMEN: Soft, non-distended, non-tender. EXTREMITIES: Normal ROM in all four extremities. No gross deformities. SKIN: Warm, dry. No rash NEUROLOGICAL: No focal neurological deficits. <Charlotte Batista - Last Filed: 06/27/17 20:44> - Vital Signs Last Vital Signs Temp Pulse Resp BP Pulse Ox 98.3 F 83 16 169/96 96 06/27/17 17:17 06/27/17 19:12 06/27/17 19:12 06/27/17 19:12 06/27/17 19:12 <Darshan Blue - Last Filed: 06/27/17 22:37> Heart Score/ECG Review - ECG Impressions Comment:: 06/27/17 20:45 EKG Interpretation: Normal sinus rhythm Moderate voltage criteria for LVH, may be normal variant Vent. rate: 79 bpm <Charlotte Batista - Last Filed: 06/27/17 20:44> ED Treatment Course - LABORATORY CBC & Chemistry Diagram: 06/27/17 17:44 06/27/17 17:43 - ADDITIONAL ORDERS Additional order review: 06/27/17 17:44 RBC 4.31 MCV 88.3 MCHC 33.1 RDW 14.0 MPV 8.0 Neutrophils % 62.2 D Lymphocytes % 29.2 D Monocytes % 5.8 Eosinophils % 2.6 Basophils % 0.2 <Charlotte Batista - Last Filed: 06/27/17 20:44> - LABORATORY CBC & Chemistry Diagram: 06/27/17 17:44 06/27/17 17:43 - ADDITIONAL ORDERS Additional order review: 06/27/17 17:44 RBC 4.31 MCV 88.3 MCHC 33.1 RDW 14.0 MPV 8.0 Neutrophils % 62.2 D Lymphocytes % 29.2 D Monocytes % 5.8 Eosinophils % 2.6 Basophils % 0.2 <Darshan Blue - Last Filed: 06/27/17 22:37> Medical Decision Making - Medical Decision Making 06/27/17 22:35 Dr. Blue: The scribe's documentation has been prepared under my direction and personally reviewed by me in its entirery. I confirm that the note above accurately reflects all work, treatment, procedures, and medical decision making performed by me. Patient feeling better despite blood pressure still being elevated. Pt will go to her scheduled appointment tomorrow. Advised to continue taking her own medication. <Darshan Blue - Last Filed: 06/27/17 22:37> *DC/Admit/Observation/Transfer - Attestations Scribe Attestion: 06/27/17 20:05 Documentation prepared by Charlotte Batista, acting as medical data analyst for Darshan Blue MD. <Charlotte Batista - Last Filed: 06/27/17 20:44> - Discharge Dispostion Admit: No <Darshan Blue - Last Filed: 06/27/17 22:37> Diagnosis at time of Disposition: Hypertension - Discharge Dispostion Disposition: HOME Condition at time of disposition: Stable - Referrals Referrals: Reuben Esparza MD [Primary Care Provider] - - Patient Instructions Printed Discharge Instructions: DI for High Blood Pressure, How to Monitor Your Blood Pressure at Home Additional Instructions: Please follow up with your scheduled appointment tomorrow morning. Continue taking your medication as usual. REturn if any problems. - Post Discharge Activity
[2017-06-27 20:08] LABS: URINE APPEARANCE SLCLOUDY; URINE BILIRUBIN NEGATIVE (NEGATIVE); URINE BLOOD NEGATIVE (NEGATIVE); URINE COLOR YELLOW; URINE GLUCOSE (UA) NEGATIVE (NEGATIVE); URINE KETONE TRACE (NEGATIVE); URINE LEUK ESTERASE TRACE (NEGATIVE); URINE NITRITE NEGATIVE (NEGATIVE)
[2017-06-27] MEDS ORDERED: hydrALAZINE HCL 20 MG/ML VIAL IVPUSH ONE (20:11)
[2017-06-27 20:12] LABS: URINE PROTEIN 1+ (NEGATIVE)
[2017-06-27 20:13] LABS: EPI CELLS MODERATE /HPF (FEW); URINE BACTERIA MODERATE /hpf (NONE SEEN); URINE HYALINE CAST 1 /lpf; URINE MUCUS RARE
[2017-06-27] MEDS ORDERED: hydrALAZINE HCL 20 MG/ML VIAL ONE (20:24)
[2017-06-27] MEDS ORDERED: hydrALAZINE HCL 10 MG TABLET PO ONE (20:31)
[2017-06-27 22:20] VITALS: BP 176/92; PULSE 86
--- NOTE | 2017-06-28 10:33 | EKG ---
Test Reason : Blood Pressure : / mmHG Vent. Rate : 079 BPM Atrial Rate : 079 BPM P-R Int : 192 ms QRS Dur : 080 ms QT Int : 376 ms P-R-T Axes : 064 -10 028 degrees QTc Int : 431 ms NORMAL SINUS RHYTHM MODERATE VOLTAGE CRITERIA FOR LVH, MAY BE NORMAL VARIANT BORDERLINE ECG WHEN COMPARED WITH ECG OF 22-FEB-2017 01:45, NONSPECIFIC T WAVE ABNORMALITY NO LONGER EVIDENT IN ANTERIOR LEADS Confirmed by IVANNA MALDONADO, STEPHANIE ([id number]) on 06/28/2017 10:32:49 AM Referred By: Confirmed By:STEPHANIE GONCALVES MD
== END 2017-06-27 23:01 | disposition home or self-care (01) ==
LOC: JER 17:10
DX: I10 Essential (primary) hypertension (principal); Z79.84 Long term (current) use of oral hypoglycemic drugs
CPT/HCPCS: 36415; 80053; 81003; 81015; 82550; 84484; 85025; 93005; 93010; 99283-25

== ENCOUNTER 2017-07-12 14:56 | Inpatient (IN) | payer OTHER ==
--- NOTE | 2017-07-12 16:28 | PDOC ---
History of Present Illness - General History Source: Patient Exam Limitations: No Limitations - History of Present Illness Initial Comments: 07/12/17 17:07 The patient is a 66 year old female with a significant PMH of HTN, seizures, COPD, borderline diabetes, and depression who presents to the emergency department with dizziness and headache that began approximately 2 weeks ago. The patient states the headache was of sudden onset and is worsened by loud sounds. The patient denies any photophobia. The patient reports she has not taken any medications for her headache. The patient reports her dizziness is worsened when standing. The patient states she is experiencing generalized fatigue but denies shortness of breath or palpitations. The patient was seen at our facility on 06/27/17 but had a negative workup at the time. The patient followed up with her PCP who increased the metaprolol to 50mg BID and placed her on amlodipine. The patient denies chest pain and shortness of breath. Denies fever, chills, nausea, vomit, diarrhea and constipation. Denies dysuria, frequency, urgency and hematuria. Allergies: NKA Past surgical history: None reported. Social history: No reported alcohol, cigarette or drug use. PCP: Dr. Jones <Elodia Rubin - Last Filed: 07/12/17 17:07> <Angely Hoffman - Last Filed: 07/12/17 21:41> - General Chief Complaint: Blood Pressure Problem Stated Complaint: Blood Pressure Problem Time Seen by Provider: 07/12/17 16:07 Past History <Elodia Rubin - Last Filed: 07/12/17 17:07> - Past Medical History COPD: Yes DVT: Yes (AND PE) Diabetes: Yes (border line) HTN: Yes Liver Disease: Yes (HEP C) Psychiatric Problems: Yes (anxiety, tremors) Seizures: Yes Thyroid Disease: Yes - Surgical History Cholecystectomy: Yes - Immunization History Immunization Up to Date: Yes - Suicide/Smoking/Psychosocial Hx Smoking Status: No Smoking History: Former smoker Have you smoked in the past 12 months: No Number of Cigarettes Smoked Daily: 0 If you are a former smoker, when did you quit?: 2003 Information on smoking cessation initiated: No 'Breaking Loose' booklet given: 09/06/13 Hx Alcohol Use: No Drug/Substance Use Hx: No Substance Use Type: None Hx Substance Use Treatment: Yes <Angely Hoffman - Last Filed: 07/12/17 21:41> - Past Medical History Allergies/Adverse Reactions: Allergies Allergy/AdvReac Type Severity Reaction Status Date / Time aspirin Allergy Hives Verified 07/12/17 15:26 Penicillins Allergy Hives Verified 07/12/17 15:26 Shellfish Allergy Hives Verified 07/12/17 15:26 venom-honey bee Allergy Verified 07/12/17 15:26 [bee venom (honey bee)] egg AdvReac Vomiting Verified 07/12/17 15:26 Home Medications: Ambulatory Orders Levothyroxine [Synthroid -] 125 mcg PO DAILY 04/03/14 metFORMIN HCL [Glucophage -] 500 mg PO DAILY 04/03/14 Metoprolol Tartrate [Lopressor] 50 mg PO BID 08/08/14 Olanzapine [Zyprexa] 10 mg PO HS 08/08/14 Phenytoin Na Extended [Dilantin -] 300 mg PO HS 08/08/14 Divalproex [Depakote -] 500 mg PO HS 12/21/16 Famotidine [Pepcid -] 40 mg PO HS 06/27/17 Pantoprazole Sodium 40 mg PO DAILY 06/27/17 Venlafaxine HCl ER [Effexor Xr -] 150 mg PO DAILY 06/27/17 Amlodipine Besylate [Norvasc -] 10 mg PO DAILY 07/12/17 Review of Systems - Review of Systems Able to Perform ROS?: Yes Comments:: 07/12/17 17:43 Constitutional: Awake, alert, oriented. No acute distress. Head: Normocephalic. Atraumatic Eyes: PERRL. EOMI. Conjunctivae are not pale. ENT: Mucous membranes are moist and intact. Posterior pharynx without exudates or erythema. Uvula midline. Neck: Supple. Full ROM. No lymphadenopathy. Cardiovascular: Regular rate. Regular rhythm. S1, S2 regular. Distal pulses are 2+ and symmetric. Pulmonary/Chest: No evidence of respiratory distress. Clear to auscultation bilaterally No wheezing, rales or rhonchi. Abdominal: Soft and non-distended. There is no tenderness. No rebound, guarding or rigidity. No organomegaly. No palpable masses. Good bowel sounds. Back: No CVA tenderness. Musculoskeletal: No edema. No cyanosis. No clubbing. Full range of motion in all extremities. Nocalf tenderness. Radial/pedal pulses are intact and 2+ bilaterally Skin: Skin is warm and dry. No petechiae. No purpura. Neurological: (+) Dizziness. (+) Headache. Alert and oriented to person, place, and time. Cranial nerves II-XII are grossly intact. Normal speech. Strength is grossly symmetric. No sensory deficits. Psychiatric: Good eye contact. Normal interaction, affect and behavior. <Elodia Rubin - Last Filed: 07/12/17 17:07> *Physical Exam - Vital Signs Last Vital Signs Temp Pulse Resp BP Pulse Ox 98.3 F 71 20 190/91 97 07/12/17 15:27 07/12/17 15:27 07/12/17 15:27 07/12/17 15:27 07/12/17 15:27 - Physical Exam Comments: 07/12/17 17:40 Constitutional: (+) Sleepy but arousable. Alert and oriented. No acute distress. Head: Normocephalic. Atraumatic Eyes: PERRL. EOMI. Conjunctivae are not pale. ENT: Mucous membranes are moist and intact. Posterior pharynx without exudates or erythema. Uvula midline. Neck: Supple. Full ROM. No lymphadenopathy. Cardiovascular: Regular rate. Regular rhythm. S1, S2 regular. Distal pulses are 2+ and symmetric. Pulmonary/Chest: (+) Diminished breath sounds bilaterally. No evidence of respiratory distress. No wheezing, rales or rhonchi. Abdominal: Soft and non-distended. There is no tenderness. No rebound, guarding or rigidity. No organomegaly. No palpable masses. Good bowel sounds. Back: No CVA tenderness. Musculoskeletal: (+) Trace edema bilaterally. No cyanosis. No clubbing. Full range of motion in all extremities. No calf tenderness. Radial/pedal pulses are intact and 2+ bilaterally Skin: Skin is warm and dry. No petechiae. No purpura. Neurological: Alert and oriented to person, place, and time. Cranial nerves II -XII are grossly intact. Normal speech. Strength is grossly symmetric. No sensory deficits. Psychiatric: Good eye contact. Normal interaction, affect and behavior. <Elodia Rubin - Last Filed: 07/12/17 17:07> - Vital Signs Last Vital Signs Temp Pulse Resp BP Pulse Ox 98.3 F 71 20 190/91 97 07/12/17 15:27 07/12/17 15:27 07/12/17 15:27 07/12/17 15:27 07/12/17 15:27 <Angely Hoffman - Last Filed: 07/12/17 21:41> ED Treatment Course - LABORATORY CBC & Chemistry Diagram: 07/12/17 17:30 07/12/17 17:05 <Angely Hoffman - Last Filed: 07/12/17 21:41> Medical Decision Making - Medical Decision Making 07/12/17 17:46 a/p: 66yo female with elevated bp and hayes/lightheadedness -hayes x 2 weeks hasn't tried meds at home last ED visit - told she had elevated bp, PMD increased metoprolol to 50bid and norvasc 5 daily still with elevated bp saw pmd yesterday - no change in meds today frontal hayes and lightheaded will check labs, ekg, cxr, head ct meds for hayes and pain control will monitor and reassess no focal neuro deficits ambulatory with a slow steady gait 07/12/17 20:10 re-eval: still with hayes discussed lab and imaging results will remedicate and monitor and reassess repeat bp 160/90 07/12/17 21:[address] Mcallister pt still with a hayes despite meds will keep in obs will place consult to Dr. Johnson 07/12/17 21:41 pt up-dated on the plan and agrees to stay for further eval <Angely Hoffman - Last Filed: 07/12/17 21:41> *DC/Admit/Observation/Transfer - Attestations Scribe Attestion: 07/12/17 17:43 Documentation prepared by Elodia Rubin, acting as medical office asst for Angely Hoffman DO. <Elodia Rubin - Last Filed: 07/12/17 17:07> - Discharge Dispostion Admit: Yes - Attestations Physician Attestion: 07/12/17 21:28 I, Dr. Angely Hoffman DO, attest that this document has been prepared under my direction and personally reviewed by me in its entirety. I further attest, that it accurately reflects all work, treatment, procedures and medical decision -making performed by me. <Angely Hoffman - Last Filed: 07/12/17 21:41> Diagnosis at time of Disposition: Asthma exacerbation, Intractable headache - Discharge Dispostion Condition at time of disposition: Fair - Referrals Referrals: Anup Jones MD [Non Staff, Medical] - - Patient Instructions - Post Discharge Activity
[2017-07-12] MEDS ORDERED: METOCLOPRAMIDE HCL INJECTION 10 MG/2 ML VIAL IVPUSH ONE (16:48)
[2017-07-12] MEDS ORDERED: SODIUM CHLORIDE 0.9% 1000 ML INFUS.BAG IV ONE (16:48)
[2017-07-12] MEDS ORDERED: ALBUTEROL SO4 2.5/IPRATROPIUM 0.5 INH SOL 3 ML VIAL.NEB. NEB ONE ×2 (16:59→18:02)
[2017-07-12 17:43] LABS: BASO % 0.4 % (0-2.0); EOS % 4.5 % (0-4.5); HEMATOCRIT 35.9 % (32.4-45.2); HEMOGLOBIN 11.7 GM/dL (10.7-15.3); LYMPH % 48.5 % (8-40); MCH 29.1 pg (25.7-33.7); MCHC 32.6 g/dl (32.0-36.0); MEAN CELL VOLUME 89.2 fl (80-96); MEAN PLT VOLUME 7.8 fl (7.5-11.1); NEUT % 40.6 % (42.8-82.8); PLATELET COUNT 205 K/MM3 (134-434); RBC 4.02 M/mm3 (3.60-5.2)
[2017-07-12 17:50] LABS: VENOUS PC02 33.3 mmHg (38-52); VENOUS PH 7.48 (7.32-7.42)
[2017-07-12] MEDS ORDERED: METOCLOPRAMIDE HCL INJECTION 10 MG/2 ML VIAL ONE (18:02)
[2017-07-12 18:05] LABS: ARTERIAL BLD GAS O2 SATURATION 98.3 % (90-98.9); ARTERIAL BLOOD GAS BASE EXCESS 2.3 meq/l (-2-2); ARTERIAL BLOOD GAS pH 7.41 (7.35-7.45); CARBOXYHEMOGLOBIN 0.9 gm% (0.5-2.0)
[2017-07-12 18:06] LABS: ALLENS TEST POSITIVE
[2017-07-12 18:08] LABS: ALBUMIN 3.3 g/dl (3.4-5.0); ANION GAP 9 (8-16); BILIRUBIN,TOTAL 0.1 mg/dL (0.2-1.0); BLOOD UREA NITROGEN 11 mg/dL (7-18); CALCIUM 7.7 mg/dL (8.5-10.1); CHLORIDE 106 mmol/L (98-107); CO2 26 mmol/L (21-32); CREATININE 0.8 mg/dL (0.55-1.02); GLUCOSE,RANDOM 78 mg/dL (74-106); MAGNESIUM 1.9 mg/dL (1.8-2.4); POTASSIUM 3.9 mmol/L (3.5-5.1); SGOT/AST 25 U/L (15-37); SGPT/ALT 53 U/L (12-78); SODIUM 141 mmol/L (136-145); TOT PROT 7.5 g/dl (6.4-8.2)
[2017-07-12 18:11] LABS: ALK PHOS 85 U/L (45-117)
[2017-07-12] MEDS ORDERED: ACETAMINOPHEN 325 MG TABLET (FP) PO ONE (20:09)
[2017-07-12] MEDS ORDERED: KETOROLAC TROMETHAMINE 15 MG/ML VIAL IVPUSH ONE (20:09)
[2017-07-12] MEDS ORDERED: DEXAMETHASONE SOD PHOSPHATE 10 MG/1 ML VIAL IVPUSH ONE (20:10)
[2017-07-12] MEDS ORDERED: METOPROLOL TARTRATE 50 MG TABLET (FP) PO ONE (20:11)
[2017-07-12] MEDS ORDERED: MAGNESIUM SULF 50% (8.12 MEQ/2 ML-1 GM VIAL) IVPB ONE (20:12)
[2017-07-12] MEDS ORDERED: DEXAMETHASONE SOD PHOSPHATE 10 MG/1 ML VIAL ONE (20:19)
[2017-07-12] MEDS ORDERED: METOPROLOL TARTRATE 50 MG TABLET (FP) ONE (20:19)
[2017-07-12] MEDS ORDERED: KETOROLAC TROMETHAMINE 15 MG/ML VIAL ONE (20:19)
[2017-07-12] MEDS ORDERED: MAGNESIUM SULF 50% (8.12 MEQ/2 ML-1 GM VIAL) ONE (20:19)
[2017-07-12] MEDS ORDERED: ACETAMINOPHEN 325 MG TABLET (FP) ONE (20:19)
[2017-07-12] MEDS: HEPARIN NA (PORCINE) 5,000 UNITS/ML 1ML VIAL SQ SCH (23:45)
--- NOTE | 2017-07-12 23:52 | PN ---
Teaching Attending Note Name of Resident: Luis Torres ATTENDING PHYSICIAN STATEMENT I saw and evaluated the patient. I reviewed the resident's note and discussed the case with the resident. I agree with the resident's findings and plan as documented. SUBJECTIVE: This is a 66 year old woman with a history of HTN, seizures, hepatitis C, COPD, cirrhosis, alcohol abuse, depression, anxiety who was sent to the ED by Dr. Menjivar for evaluation of uncontrolled HTN. She reports having frontal headaches with blurred vision over the last month. During this time, she has been found to have SBP in 190s several times. On arrival to the ED , BP was 190/91 and she was treated with Lopressor, magnesium, Reglan, Decadron , Toradol, Tylenol without improvement. OBJECTIVE: Vital Signs Period Temp Pulse Resp BP Sys/Thornton Pulse Ox Last 24 Hr 98.3 F-98.6 F 68-78 16-20 159-190/63-91 97-100 HEART: S1S2, RRR LUNGS: Clear ABDOMEN: Obese, soft, non-tender, non-distended, normal BS EXTREMITIES: Trace edema NEUROLOGICAL: Alert, oriented, CN intact, (+) resting tremor Laboratory Tests 07/12/17 07/12/17 07/12/17 17:05 17:05 17:05 WBC RBC Hgb Hct MCV MCH MCHC RDW Plt Count MPV Neutrophils % Lymphocytes % Monocytes % Eosinophils % Basophils % Anticoagulation Therapy Puncture Site ABG pH ABG pCO2 at Pt Temp ABG pO2 at Pt Temp ABG HCO3 ABG O2 Sat (Measured) ABG O2 Content ABG Base Excess Bang Test VBG pH 7.48 H POC VBG pCO2 33.3 L POC VBG pO2 191.0 H* Mixed VBG HCO3 25.0 Carboxyhemoglobin Methemoglobin O2 Delivery Device Oxygen Flow Rate Vent Mode Vent Rate Mechanical Rate Pressure Support Vent Sodium 141 Potassium 3.9 Chloride 106 Carbon Dioxide 26 Anion Gap 9 BUN 11 Creatinine 0.8 Creat Clearance w eGFR > 60 Random Glucose 78 Calcium 7.7 L Magnesium 1.9 Total Bilirubin 0.1 L D AST 25 ALT 53 Alkaline Phosphatase 85 Creatine Kinase 382 H Creatine Kinase Index 0.3 CK-MB (CK-2) 1.178 Troponin I < 0.02 B-Natriuretic Peptide Total Protein 7.5 Albumin 3.3 L TSH Phenytoin 7.9 L D 0207/12/17 07/12/17 17:05 17:30 17:30 WBC 6.0 D RBC 4.02 Hgb 11.7 Hct 35.9 MCV 89.2 MCH 29.1 MCHC 32.6 RDW 14.0 Plt Count 205 MPV 7.8 Neutrophils % 40.6 L D Lymphocytes % 48.5 H D Monocytes % 6.0 Eosinophils % 4.5 Basophils % 0.4 Anticoagulation Therapy Puncture Site ABG pH ABG pCO2 at Pt Temp ABG pO2 at Pt Temp ABG HCO3 ABG O2 Sat (Measured) ABG O2 Content ABG Base Excess Bang Test VBG pH POC VBG pCO2 POC VBG pO2 Mixed VBG HCO3 Carboxyhemoglobin Methemoglobin O2 Delivery Device Oxygen Flow Rate Vent Mode Vent Rate Mechanical Rate Pressure Support Vent Sodium Potassium Chloride Carbon Dioxide Anion Gap BUN Creatinine Creat Clearance w eGFR Random Glucose Calcium Magnesium Total Bilirubin AST ALT Alkaline Phosphatase Creatine Kinase Creatine Kinase Index CK-MB (CK-2) Troponin I B-Natriuretic Peptide 105.60 Total Protein Albumin TSH 4.79 H Phenytoin 07/12/17 17:30 WBC RBC Hgb Hct MCV MCH MCHC RDW Plt Count MPV Neutrophils % Lymphocytes % Monocytes % Eosinophils % Basophils % Anticoagulation Therapy No Result Required. Puncture Site Left radial ABG pH 7.41 ABG pCO2 at Pt Temp 43.0 ABG pO2 at Pt Temp 112.0 H ABG HCO3 26.7 H ABG O2 Sat (Measured) 98.3 ABG O2 Content 16.3 ABG Base Excess 2.3 H Bang Test Positive VBG pH POC VBG pCO2 POC VBG pO2 Mixed VBG HCO3 Carboxyhemoglobin 0.9 Methemoglobin 0.9 O2 Delivery Device No Result Required. Oxygen Flow Rate None Vent Mode No Result Required. Vent Rate No Result Required. Mechanical Rate No Result Required. Pressure Support Vent No Result Required. Sodium Potassium Chloride Carbon Dioxide Anion Gap BUN Creatinine Creat Clearance w eGFR Random Glucose Calcium Magnesium Total Bilirubin AST ALT Alkaline Phosphatase Creatine Kinase Creatine Kinase Index CK-MB (CK-2) Troponin I B-Natriuretic Peptide Total Protein Albumin TSH Phenytoin Home Medications Medication Instructions Recorded Levothyroxine [Synthroid -] 125 mcg PO DAILY 04/03/14 metFORMIN HCL [Glucophage -] 500 mg PO DAILY 04/03/14 Metoprolol Tartrate [Lopressor] 50 mg PO BID 08/08/14 Olanzapine [Zyprexa] 10 mg PO HS 08/08/14 Phenytoin Na Extended [Dilantin -] 300 mg PO HS 08/08/14 Divalproex [Depakote -] 500 mg PO HS 12/21/16 Famotidine [Pepcid -] 40 mg PO HS 06/27/17 Pantoprazole Sodium 40 mg PO DAILY 06/27/17 Venlafaxine HCl ER [Effexor Xr -] 150 mg PO DAILY 06/27/17 Amlodipine Besylate [Norvasc -] 10 mg PO DAILY 07/12/17 ASSESSMENT AND PLAN: This is a 66 year old woman with a history of HTN, seizures, hepatitis C, COPD, cirrhosis, alcohol abuse, depression, anxiety, hypothyroidism who was sent to the ED by Dr. Menjivar for evaluation of uncontrolled HTN. 1. Headache - Possible secondary to hypertensive urgency/uncontrolled HTN - BP control - Resume Elvira Mitchell - Neurology consult 2. Hypertensive urgency/uncontrolled HTN - BP improved with Elvira in ED - Continue Stephen Felix 3. Seizure disorder - Continue Dilantin, Depakote 4. Hypothyroidism - Continue Synthroid - TSH is high so will check T4 5. COPD - Stable 6. Cirrhosis secondary to alcohol abuse, hepatitis C 7. Depression/anxiety - Continue Effexor
--- NOTE | 2017-07-13 00:14 | HP ---
CHIEF COMPLAINT: Headache, dizziness PCP: Seth Neuro: Alex Pulm: Patrick Psych: Savani HISTORY OF PRESENT ILLNESS: Pt accompanied by sister who aided in giving history. Pt is a 66 y/o F with PMH HTN, seizures, Depression Anxiety, Tremors, thyroid disorder who presented to ED sent from Dr. Nguyen's office because of high blood pressure. Pt states she has been having symptoms for the last few weeks. She has been having episodes of frontal pounding headache associated with blurry vision, difficulty moving alleviated only by sleep. Sister states that pt 's BP has been in the 190's over the same time period at multiple office visits. Pt also describes decreased appetite without notable weight loss over the last few weeks. She also has longstanding dyspnea on exertion which has been worse over the same time period. In addition, pt has been having urinary urgency and pilo urinary incontinence without burning or blood in the urine. Pt states that today, she was at Dr. Nguyen's office and developed a sever headache like the ones she's been having but was having difficulty moving. Dr. Nguyen became concerned and called 911 to transport pt to hospital. Pt has a known history of seizures for which she sees Dr. Johnson. In the past the seizures have consistently involved generalized body shaking and have been preceded by an aura. Pt did not feel any aura today, and sister denies that the pt had any shaking. Pt denies history brain bleed or infection. Pt denies photophobia, phonophobia, fever, chills, nausea, vomiting, diarrhea, bloody stools. Note that pt has numerous hospital visits for similar complaints of headache and blurry vision with several head CTs. ER course was notable for: (1) initial BP 190/91 reduced to 163/61, TSH 4.79, Phenytoin 7.9 (2) head CT showing hydrocephalus (chronic), CXR unremarkabl (3) tylenol, decadron, reglan, toradol, mag sulfate, duoneb, lopressor Recent Travel: denies PAST MEDICAL HISTORY: HTN, seizures, Dpression Anxiety, Tremors, thyroid disorder, Cirrhosis 2/2 EtOH , Hep C (completed course of meds), COPD PAST SURGICAL HISTORY: Social History: Smoking: former smoker. 1.5ppd from age 18. Quit 11 years ago Alcohol: 4-5 drinks daily since 5 years old. Stopped at 26. Drugs: denies Family History: Aortic dissection 2/2 HTN in mother Allergies aspirin Allergy (Verified 07/12/17 15:26) Hives Penicillins Allergy (Verified 07/12/17 15:26) Hives Shellfish Allergy (Verified 07/12/17 15:) Hives venom-honey bee [bee venom (honey bee)] Allergy (Verified 07/12/17 15:) egg Adverse Reaction (Verified 07/12/17 15:) Vomiting HOME MEDICATIONS: Home Medications Medication Instructions Recorded Levothyroxine [Synthroid -] 125 mcg PO DAILY 04/03/14 metFORMIN HCL [Glucophage -] 500 mg PO DAILY 04/03/14 Metoprolol Tartrate [Lopressor] 50 mg PO BID 08/08/14 Olanzapine [Zyprexa] 10 mg PO HS 08/08/14 Phenytoin Na Extended [Dilantin -] 300 mg PO HS 08/08/14 Divalproex [Depakote -] 500 mg PO HS 12/21/16 Famotidine [Pepcid -] 40 mg PO HS 06/27/17 Pantoprazole Sodium 40 mg PO DAILY 06/27/17 Venlafaxine HCl ER [Effexor Xr -] 150 mg PO DAILY 06/27/17 Amlodipine Besylate [Norvasc -] 10 mg PO DAILY 07/12/17 REVIEW OF SYSTEMS CONSTITUTIONAL: loss of appetite Absent: fever, chills, diaphoresis, generalized weakness, malaise, , weight change HEENT: visual changes Absent: rhinorrhea, nasal congestion, throat pain, throat swelling, difficulty swallowing, mouth swelling, ear pain, eye pain, CARDIOVASCULAR: lightheadedness Absent: chest pain, syncope, palpitations, irregular heart rate, , peripheral edema RESPIRATORY: Absent: cough, shortness of breath, dyspnea with exertion, orthopnea, wheezing, stridor, hemoptysis GASTROINTESTINAL: Absent: abdominal pain, abdominal distension, nausea, vomiting, diarrhea, constipation, melena, hematochezia GENITOURINARY: Absent: dysuria, frequency, urgency, hesitancy, hematuria, flank pain, genital pain MUSCULOSKELETAL: Absent: myalgia, arthralgia, joint swelling, back pain, neck pain SKIN: Absent: rash, itching, pallor HEMATOLOGIC/IMMUNOLOGIC: Absent: easy bleeding, easy bruising, lymphadenopathy, frequent infections ENDOCRINE: Absent: unexplained weight gain, unexplained weight loss, heat intolerance, cold intolerance NEUROLOGIC: headache, dizziness, seizure, focal weakness Absent: or paresthesias, unsteady gait, mental status changes, bladder or bowel incontinence PSYCHIATRIC: anxiety, depression Absent: , suicidal or homicidal ideation, hallucinations. PHYSICAL EXAMINATION Vital Signs - 24 hr 07/12/17 07/12/17 07/12/17 15:27 16:29 19:00 Temperature 98.3 F 98.3 F 98.6 F Pulse Rate 71 68 Pulse Rate [ 78 73 Left Apical] Respiratory 20 16 16 Rate Blood Pressure 190/91 Blood Pressure 159/83 163/63 [Right Arm] O2 Sat by Pulse 97 98 100 Oximetry (%) GENERAL: Awake, alert, and fully oriented, in no acute distress. HEAD: Normal with no signs of trauma. EYES: Pupils equal, round and reactive to light, extraocular movements intact very mild nystagmus with left horizontal gaze, sclera anicteric, conjunctiva clear. No lid lag. EARS, NOSE, THROAT: oropharynx clear without exudates. Moist mucous membranes. NECK: Normal range of motion, supple without lymphadenopathy, JVD, or masses. LUNGS: Breath sounds equal, clear to auscultation bilaterally. No wheezes, and no crackles. No accessory muscle use. HEART: Regular rate and rhythm, normal S1 and S2 with 3/6 cresc-decresc murmur at LUSB, no rub or gallop. ABDOMEN: Soft, nontender, not distended, normoactive bowel sounds, no guarding, no rebound, no masses. No hepatomegaly or splenomegaly. MUSCULOSKELETAL: Normal range of motion at all joints. No bony deformities or tenderness. No CVA tenderness. UPPER EXTREMITIES: 2+ pulses, warm, well-perfused. No cyanosis. No clubbing. No peripheral edema. LOWER EXTREMITIES: 2+ pulses, warm, well-perfused. No calf tenderness. 1+ peripheral edema. NEUROLOGICAL: Cranial nerves II-XII intact. Normal slow speech. resting tremor b/l hands and feet. Strength 5/5 throughout. decreased sensation LLE up to the level of the upper thigh. No pronator drift. finger to nose intact. PSYCHIATRIC: Cooperative. Good eye contact. Appropriate mood and affect. SKIN: Warm, dry, normal turgor, no rashes or lesions noted, normal capillary refill. Laboratory Results - last 24 hr 07/12/17 07/12/17 07/12/17 17:05 17:05 17:05 WBC RBC Hgb Hct MCV MCH MCHC RDW Plt Count MPV Neutrophils % Lymphocytes % Monocytes % Eosinophils % Basophils % Anticoagulation Therapy Puncture Site ABG pH ABG pCO2 at Pt Temp ABG pO2 at Pt Temp ABG HCO3 ABG O2 Sat (Measured) ABG O2 Content ABG Base Excess Bang Test VBG pH 7.48 H POC VBG pCO2 33.3 L POC VBG pO2 191.0 H* Mixed VBG HCO3 25.0 Carboxyhemoglobin Methemoglobin O2 Delivery Device Oxygen Flow Rate Vent Mode Vent Rate Mechanical Rate Pressure Support Vent Sodium 141 Potassium 3.9 Chloride 106 Carbon Dioxide 26 Anion Gap 9 BUN 11 Creatinine 0.8 Creat Clearance w eGFR > 60 Random Glucose 78 Calcium 7.7 L Magnesium 1.9 Total Bilirubin 0.1 L D AST 25 ALT 53 Alkaline Phosphatase 85 Creatine Kinase 382 H Creatine Kinase Index 0.3 CK-MB (CK-2) 1.178 Troponin I < 0.02 B-Natriuretic Peptide Total Protein 7.5 Albumin 3.3 L TSH Phenytoin 7.9 L D 07/12/17 07/12/17 07/12/17 17:05 17:30 17:30 WBC 6.0 D RBC 4.02 Hgb 11.7 Hct 35.9 MCV 89.2 MCH 29.1 MCHC 32.6 RDW 14.0 Plt Count 205 MPV 7.8 Neutrophils % 40.6 L D Lymphocytes % 48.5 H D Monocytes % 6.0 Eosinophils % 4.5 Basophils % 0.4 Anticoagulation Therapy Puncture Site ABG pH ABG pCO2 at Pt Temp ABG pO2 at Pt Temp ABG HCO3 ABG O2 Sat (Measured) ABG O2 Content ABG Base Excess Bang Test VBG pH POC VBG pCO2 POC VBG pO2 Mixed VBG HCO3 Carboxyhemoglobin Methemoglobin O2 Delivery Device Oxygen Flow Rate Vent Mode Vent Rate Mechanical Rate Pressure Support Vent Sodium Potassium Chloride Carbon Dioxide Anion Gap BUN Creatinine Creat Clearance w eGFR Random Glucose Calcium Magnesium Total Bilirubin AST ALT Alkaline Phosphatase Creatine Kinase Creatine Kinase Index CK-MB (CK-2) Troponin I B-Natriuretic Peptide 105.60 Total Protein Albumin TSH 4.79 H Phenytoin 02/08/18 17:30 WBC RBC Hgb Hct MCV MCH MCHC RDW Plt Count MPV Neutrophils % Lymphocytes % Monocytes % Eosinophils % Basophils % Anticoagulation Therapy No Result Required. Puncture Site Left radial ABG pH 7.41 ABG pCO2 at Pt Temp 43.0 ABG pO2 at Pt Temp 112.0 H ABG HCO3 26.7 H ABG O2 Sat (Measured) 98.3 ABG O2 Content 16.3 ABG Base Excess 2.3 H Bang Test Positive VBG pH POC VBG pCO2 POC VBG pO2 Mixed VBG HCO3 Carboxyhemoglobin 0.9 Methemoglobin 0.9 O2 Delivery Device No Result Required. Oxygen Flow Rate None Vent Mode No Result Required. Vent Rate No Result Required. Mechanical Rate No Result Required. Pressure Support Vent No Result Required. Sodium Potassium Chloride Carbon Dioxide Anion Gap BUN Creatinine Creat Clearance w eGFR Random Glucose Calcium Magnesium Total Bilirubin AST ALT Alkaline Phosphatase Creatine Kinase Creatine Kinase Index CK-MB (CK-2) Troponin I B-Natriuretic Peptide Total Protein Albumin TSH Phenytoin ASSESSMENT/PLAN: PT is a 66 y/o F with PMH HTN, seizures, hydrocephalus (on prior and current CTs ) who presented to ED with complaint of 3 weeks of high blood pressure, headache , urinary frequency/incontinence. Pt is being admitted for hypertensive urgency. #Hypertensive urgency w/ headache -BP controlled in ED with Lopressor -Resume home meds in am -target BP in 160s overnight -will give labetalol or lopressor IV for HTN overnigh -headache controlled currently -hydrocephalus -Neuro consult (Dr. Johnson) #Seizures -denies seizure like activity this episode -Phenytoin level low 7.9 -resume home dose in am -to be seen by Neuro #COPD -nebs in ED -currently controlled #Depression/Anxiety -c/w effexor #hypothyroid -TSH 4.79 -Synthroid -may need dose adjustment as out pt #FEN -not on fluid -lytes wnl -DM Na controlled diet #PPx -Hep Sub Q #Dispo -Med/Surg for hypertensive urgency Luis Torres MD PGY-1 IM Visit type - Emergency Visit Emergency Visit: Yes ED Registration Date: 07/12/17 Care time: The patient presented to the Emergency Department on the above date and was hospitalized for further evaluation of their emergent condition. - New Patient This patient is new to me today: Yes Date on this admission: 07/13/17 - Critical Care Critical Care patient: No
[2017-07-13 01:06] VITALS: BMI 37.8
[2017-07-13] MEDS: metFORMIN HCL 500 MG TABLET (FP) PO SCH (06:07)
[2017-07-13] MEDS: LEVOTHYROXINE NA 125 MCG TABLET (FP) PO SCH (06:07)
[2017-07-13] MEDS: HEPARIN NA (PORCINE) 5,000 UNITS/ML 1ML VIAL SQ SCH ×3 (06:07→22:24)
[2017-07-13 08:10] LABS: ALBUMIN 3.1 g/dl (3.4-5.0); ANION GAP 7 (8-16); BASO % 0.2 % (0-2.0); BLOOD UREA NITROGEN 16 mg/dL (7-18); CALCIUM 7.8 mg/dL (8.5-10.1); CHLORIDE 107 mmol/L (98-107); CO2 27 mmol/L (21-32); CREATININE 0.9 mg/dL (0.55-1.02); EOS % 0.4 % (0-4.5); GLUCOSE,RANDOM 109 mg/dL (74-106); HEMATOCRIT 36.5 % (32.4-45.2); HEMOGLOBIN 11.7 GM/dL (10.7-15.3); LYMPH % 27.9 % (8-40); MCH 28.8 pg (25.7-33.7); MCHC 32.1 g/dl (32.0-36.0); MEAN CELL VOLUME 89.5 fl (80-96); MONO % 4.3 % (3.8-10.2); NEUT % 67.2 % (42.8-82.8); PHOSPHOROUS 3.5 mg/dL (2.5-4.9); PLATELET COUNT 210 K/MM3 (134-434); POTASSIUM 4.3 mmol/L (3.5-5.1); RBC 4.07 M/mm3 (3.60-5.2); RDW 14.3 % (11.6-15.6); SGOT/AST 24 U/L (15-37); SGPT/ALT 48 U/L (12-78); SODIUM 141 mmol/L (136-145); WHITE BLOOD COUNT 5.3 K/mm3 (4.0-10.0)
[2017-07-13 08:12] LABS: ALK PHOS 82 U/L (45-117); BILIRUBIN,TOTAL 0.5 mg/dL (0.2-1.0)
[2017-07-13] MEDS ORDERED: PT OWN MED DRAWER 7, Y5N ONE ×2 (09:26→14:26)
[2017-07-13] MEDS: PANTOPRAZOLE 40 MG TABLET (FP) PO SCH (09:30)
[2017-07-13] MEDS ORDERED: METOPROLOL TARTRATE 50 MG TABLET (FP) PO SCH (10:00)
[2017-07-13] MEDS ORDERED: amLODIPine BESYLATE 10 MG TABLET (FP) PO SCH (10:00)
--- NOTE | 2017-07-13 11:06 | CONSULT ---
Consult - text type - Consultation Consultation Note: NEUROLOGY CONSULTATION is greatly appreciated: This 66 yo RH woman with h/o HTN, DM, Hypothyroidism and Schizophrenia is well- known to me over many years for the treatment of seizures, migraine headaches and neuroleptic-induced Parkinsonism. She is maintained on amlodipine, L-thyroxin, metoprolol (50 BID), metformin, olanzepine (10 mg), phenytoin (300 mg), famotidine, venlofaxine and depakote for migraine prophylaxis (500 mg BID, but is apparently taking only qd). Last seen by me 07/05/17 and had c/o headache 2-3/week but was unsure if she was taking depakote. BP was 170/100 at that time but patient had run out of amlodipine. Now admitted after 2-3 of recurrent throbbing MIRAMONTES with nausea and photophobia. Now resolved. CT of head (reviewed): moderate, difuse atrophy with ex vaxcuo hydrocephalus and diffuse microvascular changes. AWAIS: Obese. Neck supple. No bruits. Cor reg NEURO: Awake, alert. Ox3. Sl hypophonic, sparse speech. CN II_XII: masked facies. Gag OK Motor: Coarse, B/L rest tremors. Normal strength. ++Cogwheel rigidity. Normal reflexes except absent AJ's. Toes downgoing. Coord: No FTN dystaxia Sensory: Decreased vibration in feet. IMP: Non-focal exam. 1. 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 2. Diabetic peripheral neuropathy. 3. Seizure [id number]. 4. Migraine headaches, Status migrainosis. Suggest: Increase depakote ER to 500 mg BID Increase metoprolol ER to 100 BID Reduce Olanzapine to 7.5 mg QHS Resume amlodipine. Continue Dilantin 300 q hS, gabapentine 300 TID. Neuro f/u as out patient. Thank you very much, Edinson Johnson MD
--- NOTE | 2017-07-13 14:16 | EKG ---
Test Reason : Blood Pressure : / mmHG Vent. Rate : 068 BPM Atrial Rate : 068 BPM P-R Int : 212 ms QRS Dur : 084 ms QT Int : 408 ms P-R-T Axes : 069 -03 028 degrees QTc Int : 433 ms SINUS RHYTHM WITH 1ST DEGREE A-V BLOCK POSSIBLE LEFT ATRIAL ENLARGEMENT LEFT VENTRICULAR HYPERTROPHY ABNORMAL ECG WHEN COMPARED WITH ECG OF 27-JUN-2017 19:51, NONSPECIFIC T WAVE ABNORMALITY NOW EVIDENT IN ANTERIOR LEADS Confirmed by ARMIDA WHITNEY MD ([id number]) on 07/13/2017 2:15:53 PM Referred By: Confirmed By:ARMIDA WHITNEY MD
[2017-07-13] MEDS: VENLAFAXINE HCL 75 MG E.R. CAPSULES (FP) PO SCH (14:31)
[2017-07-13] MEDS ORDERED: ACETAMINOPHEN 325 MG TABLET (FP) PO PRN (15:05)
--- NOTE | 2017-07-13 15:15 | PN ---
Physical Exam: SUBJECTIVE: Patient seen and examined at bedside. headache has improved with pain meds. blood pressure better controlled. denies any headache, blurry vision , N/V/D/C. she reports lightheadedness when she stand up. she denies nay chest pain or sob. no urinary symptoms. OBJECTIVE: Vital Signs Period Temp Pulse Resp BP Sys/Thornton Pulse Ox Last 24 Hr 97.6 F-98.6 F 68-80 16-20 144-190/63-91 97-100 GENERAL: AAOx3 in NAD , obese, with resting tremor in hand and face . HEAD: NC/AT EYES: PERRL,EOMI, , sclera anicteric, conjunctiva clear. No ptosis. ENT: Ears normal, nares patent, oropharynx clear without exudates, moist mucous membranes. NECK: Trachea midline, full range of motion, supple. no JVD LUNGS: Breath sounds equal, clear to auscultation bilaterally, no wheezes, no crackles, no accessory muscle use. HEART: Regular rate and rhythm, S1, S2 without murmur, rub or gallop. ABDOMEN: Obese, Soft, nontender, nondistended, normoactive bowel sounds, no guarding, no rebound, EXTREMITIES: 2+ pulses, warm, well-perfused, no edema. NEUROLOGICAL: masked face,Coarse, B/L rest tremors,++Cogwheel rigidity, Normal reflexes, Toes downgoing.Cranial nerves II through XII grossly intact. slow slurry homophonic spare speech, steady gait. Upper EXT : strength 5/5 B/L , sensation decreased in left arm LE : stregth 5/5 in LE , sensation decreased in left leg B/L peripheral neuropathy mainly in the big toes of the feet. no dystaxia. PSYCH: Normal mood, normal affect. SKIN: Warm, dry, normal turgor, Laboratory Results - last 24 hr 07/12/17 07/12/17 07/12/17 17:05 17:05 17:05 WBC RBC Hgb Hct MCV MCH MCHC RDW Plt Count MPV Neutrophils % Lymphocytes % Monocytes % Eosinophils % Basophils % Anticoagulation Therapy Puncture Site ABG pH ABG pCO2 at Pt Temp ABG pO2 at Pt Temp ABG HCO3 ABG O2 Sat (Measured) ABG O2 Content ABG Base Excess Bang Test VBG pH 7.48 H POC VBG pCO2 33.3 L POC VBG pO2 191.0 H* Mixed VBG HCO3 25.0 Carboxyhemoglobin Methemoglobin O2 Delivery Device Oxygen Flow Rate Vent Mode Vent Rate Mechanical Rate Pressure Support Vent Sodium 141 Potassium 3.9 Chloride 106 Carbon Dioxide 26 Anion Gap 9 BUN 11 Creatinine 0.8 Creat Clearance w eGFR > 60 POC Glucometer Random Glucose 78 Calcium 7.7 L Phosphorus Magnesium 1.9 Total Bilirubin 0.1 L D AST 25 ALT 53 Alkaline Phosphatase 85 Creatine Kinase 382 H Creatine Kinase Index 0.3 CK-MB (CK-2) 1.178 Troponin I < 0.02 B-Natriuretic Peptide Total Protein 7.5 Albumin 3.3 L TSH Free T4 Phenytoin 7.9 L D 07/12/17 07/12/17 07/12/17 17:05 17:30 17:30 WBC 6.0 D RBC 4.02 Hgb 11.7 Hct 35.9 MCV 89.2 MCH 29.1 MCHC 32.6 RDW 14.0 Plt Count 205 MPV 7.8 Neutrophils % 40.6 L D Lymphocytes % 48.5 H D Monocytes % 6.0 Eosinophils % 4.5 Basophils % 0.4 Anticoagulation Therapy Puncture Site ABG pH ABG pCO2 at Pt Temp ABG pO2 at Pt Temp ABG HCO3 ABG O2 Sat (Measured) ABG O2 Content ABG Base Excess Bang Test VBG pH POC VBG pCO2 POC VBG pO2 Mixed VBG HCO3 Carboxyhemoglobin Methemoglobin O2 Delivery Device Oxygen Flow Rate Vent Mode Vent Rate Mechanical Rate Pressure Support Vent Sodium Potassium Chloride Carbon Dioxide Anion Gap BUN Creatinine Creat Clearance w eGFR POC Glucometer Random Glucose Calcium Phosphorus Magnesium Total Bilirubin AST ALT Alkaline Phosphatase Creatine Kinase Creatine Kinase Index CK-MB (CK-2) Troponin I B-Natriuretic Peptide 105.60 Total Protein Albumin TSH 4.79 H Free T4 Phenytoin 07/12/17 07/13/17 07/13/17 17:30 01:23 05:49 WBC RBC Hgb Hct MCV MCH MCHC RDW Plt Count MPV Neutrophils % Lymphocytes % Monocytes % Eosinophils % Basophils % Anticoagulation Therapy No Result Required. Puncture Site Left radial ABG pH 7.41 ABG pCO2 at Pt Temp 43.0 ABG pO2 at Pt Temp 112.0 H ABG HCO3 26.7 H ABG O2 Sat (Measured) 98.3 ABG O2 Content 16.3 ABG Base Excess 2.3 H Bang Test Positive VBG pH POC VBG pCO2 POC VBG pO2 Mixed VBG HCO3 Carboxyhemoglobin 0.9 Methemoglobin 0.9 O2 Delivery Device No Result Required. Oxygen Flow Rate None Vent Mode No Result Required. Vent Rate No Result Required. Mechanical Rate No Result Required. Pressure Support Vent No Result Required. Sodium Potassium Chloride Carbon Dioxide Anion Gap BUN Creatinine Creat Clearance w eGFR POC Glucometer 120 95 Random Glucose Calcium Phosphorus Magnesium Total Bilirubin AST ALT Alkaline Phosphatase Creatine Kinase Creatine Kinase Index CK-MB (CK-2) Troponin I B-Natriuretic Peptide Total Protein Albumin TSH Free T4 Phenytoin 07/13/17 07/13/17 07/13/17 06:30 06:30 06:30 WBC 5.3 RBC 4.07 Hgb 11.7 Hct 36.5 MCV 89.5 MCH 28.8 MCHC 32.1 RDW 14.3 Plt Count 210 MPV 8.0 Neutrophils % 67.2 D Lymphocytes % 27.9 D Monocytes % 4.3 Eosinophils % 0.4 D Basophils % 0.2 Anticoagulation Therapy Puncture Site ABG pH ABG pCO2 at Pt Temp ABG pO2 at Pt Temp ABG HCO3 ABG O2 Sat (Measured) ABG O2 Content ABG Base Excess Bang Test VBG pH POC VBG pCO2 POC VBG pO2 Mixed VBG HCO3 Carboxyhemoglobin Methemoglobin O2 Delivery Device Oxygen Flow Rate Vent Mode Vent Rate Mechanical Rate Pressure Support Vent Sodium 141 Potassium 4.3 Chloride 107 Carbon Dioxide 27 Anion Gap 7 L BUN 16 Creatinine 0.9 Creat Clearance w eGFR > 60 POC Glucometer Random Glucose 109 H Calcium 7.8 L Phosphorus 3.5 Magnesium 2.0 Total Bilirubin 0.5 D AST 24 ALT 48 Alkaline Phosphatase 82 Creatine Kinase Creatine Kinase Index CK-MB (CK-2) Troponin I B-Natriuretic Peptide Total Protein 7.0 Albumin 3.1 L TSH Free T4 0.96 Phenytoin 07/13/17 12:09 WBC RBC Hgb Hct MCV MCH MCHC RDW Plt Count MPV Neutrophils % Lymphocytes % Monocytes % Eosinophils % Basophils % Anticoagulation Therapy Puncture Site ABG pH ABG pCO2 at Pt Temp ABG pO2 at Pt Temp ABG HCO3 ABG O2 Sat (Measured) ABG O2 Content ABG Base Excess Bang Test VBG pH POC VBG pCO2 POC VBG pO2 Mixed VBG HCO3 Carboxyhemoglobin Methemoglobin O2 Delivery Device Oxygen Flow Rate Vent Mode Vent Rate Mechanical Rate Pressure Support Vent Sodium Potassium Chloride Carbon Dioxide Anion Gap BUN Creatinine Creat Clearance w eGFR POC Glucometer 74 Random Glucose Calcium Phosphorus Magnesium Total Bilirubin AST ALT Alkaline Phosphatase Creatine Kinase Creatine Kinase Index CK-MB (CK-2) Troponin I B-Natriuretic Peptide Total Protein Albumin TSH Free T4 Phenytoin Home Medications Medication Instructions Recorded Levothyroxine [Synthroid -] 125 mcg PO DAILY 04/03/14 metFORMIN HCL [Glucophage -] 500 mg PO DAILY 04/03/14 Metoprolol Tartrate [Lopressor] 50 mg PO BID 08/08/14 Olanzapine [Zyprexa] 10 mg PO HS 08/08/14 Phenytoin Na Extended [Dilantin -] 300 mg PO HS 08/08/14 Divalproex [Depakote -] 500 mg PO HS 12/21/16 Famotidine [Pepcid -] 40 mg PO HS 06/27/17 Pantoprazole Sodium 40 mg PO DAILY 06/27/17 Venlafaxine HCl ER [Effexor Xr -] 150 mg PO DAILY 06/27/17 Amlodipine Besylate [Norvasc -] 5 mg PO DAILY 07/12/17 Gabapentin [Neurontin] 300 mg PO TID 07/13/17 Active Medications Generic Name Dose Route Start Last Admin Trade Name Freq PRN Reason Stop Dose Admin Acetaminophen 650 mg 07/13/17 15:05 Tylenol - PO Q4H PRN HEADACHE Amlodipine Besylate 5 mg 07/13/17 15:12 Norvasc - PO DAILY ZENY Divalproex Sodium 500 mg 07/13/17 22:00 Depakote *Er* - PO BID [facility] Heparin Sodium (Porcine) 5,000 unit 07/12/17 23:30 07/13/17 14:31 Heparin - SQ 5,000 unit TID ZENY Administration Levothyroxine Sodium 125 mcg 07/13/17 07:00 07/13/17 06:07 Synthroid - PO 125 mcg DAILY@0700 ZENY Administration Metformin HCl 500 mg 07/13/17 07:00 07/13/17 06:07 Glucophage - PO 500 mg DAILY@0700 ZENY Administration Metoprolol Succinate 100 mg 07/13/17 22:00 Toprol Xl - PO BID [facility] Olanzapine 7.5 mg 07/13/17 22:00 Zyprexa - PO HS ZENY Pantoprazole Sodium 40 mg 07/13/17 10:00 07/13/17 09:30 Protonix - PO 40 mg DAILY ZENY Administration Phenytoin Sodium 300 mg 07/13/17 22:00 Dilantin - PO HS ZENY Ranitidine HCl 150 mg 07/13/17 22:00 Zantac - PO HS ZENY Venlafaxine HCl 150 mg 07/13/17 10:00 07/13/17 14:31 Effexor Xr - PO 150 mg DAILY ZENY Administration CBC, BMP 07/13/17 06:30 07/13/17 06:30 CT of head : moderate, difuse atrophy with ex vaxcuo hydrocephalus and diffuse microvascular changes. ASSESSMENT/PLAN: PT is a 66 y/o F with PMH HTN, seizures, hydrocephalus (on prior and current CTs ) who presented to ED with complaint of 3 weeks of high blood pressure, headache , urinary frequency/incontinence. Pt is being admitted for hypertensive urgency. #Hypertensive urgency, resolved * BP controlled in ED with Lopressor * resume home meds norvasc 5 mg po daily ,Increase metoprolol ER to 100 BID help BP and migraine headache # Migrain headache , status Migrainosis * headache controlled currently. pt was non compliant with her meds * Tylenol 650 mg po q6hr for pain * Neuro consult (Dr. 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 * continue BB with new dose * F/U out pt #COPD, stable * in no acute exacerbation * Duoneb as needed #Depression/Anxiety/ * Reduce Olanzapine to 7.5 mg QHS * effexor 150 mg po daily # Peripheral diabetic neuropathy * continu gababentin 300 mg po TID * HgA1c * resume Metformin 500 mg po daily * diabetic diet , pt education #hypothyroid * TSH 4.79, FT4 0.96 * Synthroid 125 mcg po daily * f/u as out pt #FEN * not on fluid * lytes wnl * DM ,Na controlled diet #PPx * DVT: Hep SQ TID * GI: Ranitidine 150 mg po HS , protonix 40 mg po daily #Dispo * Med/Surg * F/U brain MRI w/contrast in AM Visit type - Emergency Visit Emergency Visit: Yes ED Registration Date: 07/12/17 Care time: The patient presented to the Emergency Department on the above date and was hospitalized for further evaluation of their emergent condition. - New Patient This patient is new to me today: Yes Date on this admission: 07/13/17 - Critical Care Critical Care patient: No
--- NOTE | 2017-07-13 17:57 | PN ---
Teaching Attending Note Name of Resident: Nicholas Lang ATTENDING PHYSICIAN STATEMENT I saw and evaluated the patient. I reviewed the resident's note and discussed the case with the resident. I agree with the resident's findings and plan as documented. SUBJECTIVE: No fever or chills , has no abd pain , when seen at 10:30 am was still having MIRAMONTES . No visual changes. she told me MIRAMONTES started 2 days ago, but told the resident the MIRAMONTES was there for days-week OBJECTIVE: NAD , arcus senalis b/l, no facial droop, MMM. mandible tremor Cv: RRR, Lungs: CTAB ext: no edema , or erythema , resting tremor in hands and shoulders Neuro: EOMi, round equal pupils , reactive to light , no facial droop, strength 5/5 in upper and lower ext proximally and distally . sensatio to light touch decreases in plantar aspect of the feet , L dorsal foot and RUE . reflexes 2+ knee jerk, biceps and triceps b/l . nose to finger Nl. gait steady . ASSESSMENT AND PLAN: 66 y/o lady with h/o DM , HTN, seizure, Hep C, cirrhosis , h/o alcohol abuse, anxiety and migraine who presented with worsening MIRAMONTES. She was found to have HTN urgency . 1- HTN urgency :resolvd . - placd back on her norvasc . - metoprolol was increased for migraine prophylaxis and it will help with BP 2- MIRAMONTES : appreciate Neuro help. status migrainosis or form HTN urgency this afternoon MIRAMONTES has resolved . - meds changes for her migrin prophylaxis : depakote to 500 BID ( was taking it once daily instead of BID ) toprol to 100 BID cont venlafaxine decrease olanzapine f/u with neuro as outpt 3- h/o Seizure . cont dilantin 300 daily ( level low but no seizure in 1 yr ). no dose change recommended by neuro 4- Numbness in feet: likely diabetic neuropathy decreased sensation in RUE , will obtain MRI unless Neuro recommends against it Dispo :pending MRI .
[2017-07-13] MEDS ORDERED: LISINOPRIL 10 MG TABLET (FP) PO ONE (18:36)
[2017-07-13] MEDS ORDERED: OLANZapine 10 MG TABLET PO SCH (22:00)
[2017-07-13] MEDS ORDERED: DIVALPROEX SODIUM 500 MG TABLET E.C. PO SCH (22:00)
[2017-07-13] MEDS: DIVALPROEX NA *ER* EXTEND REL 500 MG TABLET.SA (FP) PO SCH (22:23)
[2017-07-13] MEDS: PHENYTOIN NA EXTENDED 100 MG CAPSULE (FP) PO SCH (22:24)
[2017-07-13] MEDS: RANITIDINE HCL 150 MG TABLET (FP) PO SCH (22:25)
[2017-07-13] MEDS: OLANZapine 7.5 MG TABLET PO SCH (22:25)
[2017-07-14] MEDS: metFORMIN HCL 500 MG TABLET (FP) PO SCH (06:12)
[2017-07-14] MEDS: HEPARIN NA (PORCINE) 5,000 UNITS/ML 1ML VIAL SQ SCH ×3 (06:12→22:34)
[2017-07-14] MEDS ORDERED: PT OWN MED DRAWER 7, Y5N ONE ×2 (06:15→10:55)
[2017-07-14] MEDS: LEVOTHYROXINE NA 125 MCG TABLET (FP) PO SCH (06:16)
--- NOTE | 2017-07-14 08:37 | PN ---
Physical Exam: SUBJECTIVE: Patient seen and examined at bedside, denies any headache or blurry vision, blood pressure elevated this morning 182/92 , will increased norvasc to 10 mg po daily.pending MRI official reading. denies any N/V/D/C. OBJECTIVE: Vital Signs Period Temp Pulse Resp BP Sys/Thornton Pulse Ox Last 24 Hr 97.6 F-98.4 F 66-84 18-20 144-175/75-92 99 GENERAL: AAOx3 in NAD , obese, with resting tremor in hand and face . HEAD: NC/AT EYES: PERRL,EOMI, , sclera anicteric, conjunctiva clear. No ptosis. ENT: Ears normal, nares patent, oropharynx clear without exudates, moist mucous membranes. NECK: Trachea midline, full range of motion, supple. no JVD LUNGS: Breath sounds equal, clear to auscultation bilaterally, no wheezes, no crackles, no accessory muscle use. HEART: Regular rate and rhythm, S1, S2 without murmur, rub or gallop. ABDOMEN: Obese, Soft, nontender, nondistended, normoactive bowel sounds, no guarding, no rebound, EXTREMITIES: 2+ pulses, warm, well-perfused, no edema. NEUROLOGICAL: masked face,Coarse, B/L rest tremors,++Cogwheel rigidity, Normal reflexes, Toes downgoing.Cranial nerves II through XII grossly intact. slow slurry homophonic spare speech, steady gait. Upper EXT : strength 5/5 B/L , sensation decreased in left arm LE : stregth 5/5 in LE , sensation decreased in left leg B/L peripheral neuropathy mainly in the big toes of the feet. no dystaxia. PSYCH: Normal mood, normal affect. SKIN: Warm, dry, normal turgor, Laboratory Results - last 24 hr 07/13/17 07/13/17 07/13/17 12:09 16:20 22:22 POC Glucometer 74 82 93 07/14/17 06:10 POC Glucometer 87 Active Medications Generic Name Dose Route Start Last Admin Trade Name Freq PRN Reason Stop Dose Admin Acetaminophen 650 mg 07/13/17 15:05 07/13/17 19:23 Tylenol - PO 650 mg Q4H PRN Administration HEADACHE Amlodipine Besylate 5 mg 07/14/17 10:00 Norvasc - PO DAILY ZENY Divalproex Sodium 500 mg 07/13/17 22:00 07/13/17 22:23 Depakote *Er* - PO 500 mg BID ZENY Administration Heparin Sodium (Porcine) 5,000 unit 07/12/17 23:30 07/14/17 06:12 Heparin - SQ 5,000 unit TID ZENY Administration Levothyroxine Sodium 125 mcg 07/13/17 07:00 07/14/17 06:16 Synthroid - PO 125 mcg DAILY@0700 ZENY Administration Lisinopril 10 mg 07/14/17 08:36 Prinivil PO 07/14/17 08:37 ONCE ONE Metformin HCl 500 mg 07/13/17 07:00 07/14/17 06:12 Glucophage - PO 500 mg DAILY@0700 ZENY Administration Metoprolol Succinate 100 mg 07/14/17 10:00 Toprol Xl - PO BID ZENY Olanzapine 7.5 mg 07/13/17 22:00 07/13/17 22:25 Zyprexa - PO 7.5 mg HS ZENY Administration Pantoprazole Sodium 40 mg 07/13/17 10:00 07/13/17 09:30 Protonix - PO 40 mg DAILY ZENY Administration Phenytoin Sodium 300 mg 07/13/17 22:00 07/13/17 22:24 Dilantin - PO 300 mg HS ZENY Administration Ranitidine HCl 150 mg 07/13/17 22:00 07/13/17 22:25 Zantac - PO 150 mg HS ZENY Administration Venlafaxine HCl 150 mg 07/13/17 10:00 07/13/17 14:31 Effexor Xr - PO 150 mg DAILY ZENY Administration CBC, BMP 07/14/17 07:45 07/14/17 07:45 CT of head : moderate, difuse atrophy with ex vaxcuo hydrocephalus and diffuse microvascular changes. ASSESSMENT/PLAN: PT is a 66 y/o F with PMH HTN, seizures, hydrocephalus (on prior and current CTs ) who presented to ED with complaint of 3 weeks of high blood pressure, headache , urinary frequency/incontinence. Pt is being admitted for hypertensive urgency. #Hypertensive urgency, resolved * BP controlled in ED with Lopressor * elevated this morning 182/92 and had one levation last night * increased home meds norvasc to 10 mg po daily ,Increase metoprolol ER to 100 BID help BP and migraine headache * continue to monitor # Migrain headache , status Migrainosis * headache controlled currently. pt was non compliant with her meds * Tylenol 650 mg po q6hr for pain * Neuro consult (Dr. 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 * continue BB with new dose * F/U out pt #COPD, stable * in no acute exacerbation * Duoneb as needed #Depression/Anxiety/ * Reduce Olanzapine to 7.5 mg QHS * effexor 150 mg po daily # Peripheral diabetic neuropathy * continue gababentin 300 mg po TID * HgA1c 6 % * resume Metformin 500 ER mg po daily * diabetic diet , pt education * asymmetric loss of sensation in UE and LE , MRI ordered pending official reading. #hypothyroid , chronic * TSH 4.79, FT4 0.96 * continue Synthroid 125 mcg po daily * f/u as out pt #FEN * not on fluid * lytes wnl * DM ,Na controlled diet #PPx * DVT: Hep SQ TID * GI: Ranitidine 150 mg po HS , protonix 40 mg po daily #Dispo * Med/Surg * F/U brain MRI w/contrast in AM pending official reading Visit type - Emergency Visit Emergency Visit: Yes ED Registration Date: 07/12/17 Care time: The patient presented to the Emergency Department on the above date and was hospitalized for further evaluation of their emergent condition. - New Patient This patient is new to me today: No - Critical Care Critical Care patient: No - Discharge Referral Referred to [facility] Med P.C.: No
[2017-07-14] MEDS ORDERED: LISINOPRIL 10 MG TABLET (FP) PO ONE (08:45)
[2017-07-14 08:48] LABS: HEMATOCRIT 35.1 % (32.4-45.2); HEMOGLOBIN 11.1 GM/dL (10.7-15.3); MCH 28.5 pg (25.7-33.7); MCHC 31.7 g/dl (32.0-36.0); MEAN CELL VOLUME 89.8 fl (80-96); MEAN PLT VOLUME 7.9 fl (7.5-11.1); PLATELET COUNT 195 K/MM3 (134-434); RBC 3.91 M/mm3 (3.60-5.2); WHITE BLOOD COUNT 5.6 K/mm3 (4.0-10.0)
[2017-07-14 08:50] LABS: CHLORIDE 106 mmol/L (98-107); SODIUM 143 mmol/L (136-145)
[2017-07-14 08:56] LABS: ALBUMIN 3.1 g/dl (3.4-5.0); ALK PHOS 73 U/L (45-117); ANION GAP 7 (8-16); BILIRUBIN,TOTAL 0.1 mg/dL (0.2-1.0); BLOOD UREA NITROGEN 15 mg/dL (7-18); CALCIUM 8.8 mg/dL (8.5-10.1); CO2 30 mmol/L (21-32); CREATININE 0.8 mg/dL (0.55-1.02); GLUCOSE,RANDOM 88 mg/dL (74-106); SGOT/AST 30 U/L (15-37); SGPT/ALT 51 U/L (12-78); TOT PROT 6.9 g/dl (6.4-8.2)
[2017-07-14] MEDS ORDERED: amLODIPine BESYLATE 5 MG TABLET (FP) PO SCH ×2 (10:00→13:46)
[2017-07-14 10:09] LABS: PLATELET ESTIMATE ADEQUATE
[2017-07-14] MEDS: PANTOPRAZOLE 40 MG TABLET (FP) PO SCH (11:00)
[2017-07-14] MEDS: DIVALPROEX NA *ER* EXTEND REL 500 MG TABLET.SA (FP) PO SCH ×2 (11:01→22:36)
[2017-07-14] MEDS: VENLAFAXINE HCL 75 MG E.R. CAPSULES (FP) PO SCH (11:01)
--- NOTE | 2017-07-14 17:43 | PN ---
Teaching Attending Note Name of Resident: Nicholas Lang ATTENDING PHYSICIAN STATEMENT I saw and evaluated the patient. I reviewed the resident's note and discussed the case with the resident. I agree with the resident's findings and plan as documented. SUBJECTIVE: mild MIRAMONTES , no visual changes , has no fever or chills. has no pain . no weakness OBJECTIVE: NAD , arcus senalis b/l, no facial droop, MMM. mandible tremor Cv: RRR, Lungs: CTAB ext: no edema , or erythema , resting tremor in hands and shoulders Neuro: EOMi, round equal pupils , reactive to light , no facial droop, strength 5/5 in upper and lower ext proximally and distally . sensation to light touch decreases in plantar aspect of the feet , L dorsal foot and today LUE and whole RLE reflexes 2+ knee jerk, biceps and triceps b/l . nose to finger Nl. ASSESSMENT AND PLAN: 66 y/o lady with h/o DM , HTN, seizure, Hep C, cirrhosis , h/o alcohol abuse, anxiety and migraine who presented with worsening MIRAMONTES. She was found to have HTN urgency . 1- HTN urgency :Bp is not controlled yet with MIRAMONTES . - received a dose of lisinopril this am . - for tomorrow , increase norvasc to 10 daily - cont increased dose of metoprolol 2- MIRAMONTES : appreciate Neuro help. depakote 500 BID toprol 100 BID cont venlafaxine cont dereased dose olanzapine f/u with neuro as outpt MRI of brain done pending read 3- h/o Seizure . cont dilantin 300 daily ( level low but no seizure in 1 yr ). no dose change recommended by neuro 4- Numbness in feet: likely diabetic neuropathy . Neuro exam findings have changed today MRI pending Dispo :BP is not controlled . possible dc tomorrow
[2017-07-14] MEDS: RANITIDINE HCL 150 MG TABLET (FP) PO SCH (22:36)
[2017-07-14] MEDS: PHENYTOIN NA EXTENDED 100 MG CAPSULE (FP) PO SCH (22:36)
[2017-07-14] MEDS: OLANZapine 7.5 MG TABLET PO SCH (22:37)
[2017-07-15] MEDS: HEPARIN NA (PORCINE) 5,000 UNITS/ML 1ML VIAL SQ SCH (06:13)
[2017-07-15] MEDS: LEVOTHYROXINE NA 125 MCG TABLET (FP) PO SCH (06:14)
[2017-07-15] MEDS: metFORMIN HCL 500 MG TABLET (FP) PO SCH (06:14)
[2017-07-15 08:29] VITALS: TEMP 98.2
[2017-07-15] MEDS: VENLAFAXINE HCL 75 MG E.R. CAPSULES (FP) PO SCH (10:12)
[2017-07-15] MEDS: PANTOPRAZOLE 40 MG TABLET (FP) PO SCH (10:12)
[2017-07-15] MEDS: DIVALPROEX NA *ER* EXTEND REL 500 MG TABLET.SA (FP) PO SCH (10:13)
[2017-07-15 12:49] VITALS: BP 137/86; PULSE 74
--- NOTE | 2017-07-15 13:06 | PN ---
Progress Note (short form) - Note Progress Note: Subjective: no fever or chills, has no abd pain. no weakness, NO MIRAMONTES . no events over night Objective: Vital Signs: Last Vital Signs Temp Pulse Resp BP Pulse Ox 98.2 F 74 20 137/86 97 07/15/17 08:28 07/15/17 12:49 07/15/17 08:28 07/15/17 12:49 07/15/17 09:00 Laboratory Results - last 24 hr 07/14/17 07/14/17 07/15/17 11:20 16:58 06:12 POC Glucometer 98 114 101 Physical Exam: NAD , arcus senalis b/l, no facial droop, MMM. mandible tremor Cv: RRR, Lungs: CTAB ext: no edema , or erythema , resting tremor in hands and shoulders Neuro: EOMI, round equal pupils , reactive to light , no facial droop, strength 5/5 in upper and lower ext proximally and distally. sensation to light touch decreases in plantar aspect of the feet , L dorsal foot and LUE and LLE reflexes 2+ knee jerk, biceps and triceps b/l . nose to finger Nl. ASSESSMENT AND PLAN: 66 y/o lady with h/o DM , HTN, seizure, Hep C, cirrhosis , h/o alcohol abuse, anxiety and migraine who presented with worsening MIRAMONTES. She was found to have HTN urgency . 1- HTN urgency :BP is better controlled today - today staretd new dose of norvasc ( 10 mg ) and cont increased dose of lopressor 100 BID . -cont same dose 2- MIRAMONTES : appreciate Neuro help. depakote 500 BID toprol 100 BID cont venlafaxine cont dereased dose olanzapine f/u with neuro as outpt MRI of brain with no acute findings . hydrocephalus ex cavcu seen on CT scan , and Dr. Johnson aware 3- h/o Seizure . cont dilantin 300 daily ( level low but no seizure in 1 yr ). no dose change recommended by neuro 4- Numbness in feet: likely diabetic neuropathy . Neuro exam sensory findings change every day . ? true MRI as above Dispo :ia home with VNS Visit type - Emergency Visit Emergency Visit: Yes ED Registration Date: 07/12/17 Care time: The patient presented to the Emergency Department on the above date and was hospitalized for further evaluation of their emergent condition. - New Patient This patient is new to me today: No - Critical Care Critical Care patient: No
--- NOTE | 2017-07-15 16:19 | DS ---
Physical Exam: SUBJECTIVE: Patient seen and examined at bed side. denies any headach, BP better controlled , hemodynamicaly stable and asking to go home. OBJECTIVE: Vital Signs Period Temp Pulse Resp BP Sys/Thornton Pulse Ox Last 24 Hr 97.4 F-98.8 F 61-74 18-20 134-185/70-88 97 PHYSICAL EXAM GENERAL: AAOx3 in NAD , obese, with resting tremor in hand and face . HEAD: NC/AT EYES: PERRL,EOMI, , sclera anicteric, conjunctiva clear. No ptosis. ENT: Ears normal, nares patent, oropharynx clear without exudates, moist mucous membranes. NECK: Trachea midline, full range of motion, supple. no JVD LUNGS: Breath sounds equal, clear to auscultation bilaterally, no wheezes, no crackles, no accessory muscle use. HEART: Regular rate and rhythm, S1, S2 without murmur, rub or gallop. ABDOMEN: Obese, Soft, nontender, nondistended, normoactive bowel sounds, no guarding, no rebound, EXTREMITIES: 2+ pulses, warm, well-perfused, no edema. NEUROLOGICAL: masked face,Coarse, B/L rest tremors,++Cogwheel rigidity, Normal reflexes, Toes downgoing.Cranial nerves II through XII grossly intact. slow slurry homophonic spare speech, steady gait. Upper EXT : strength 5/5 B/L , sensation decreased in left arm LE : stregth 5/5 in LE , sensation decreased in left leg B/L peripheral neuropathy mainly in the big toes of the feet. no dystaxia. PSYCH: Normal mood, normal affect. SKIN: Warm, dry, normal turgor, LABS Laboratory Results - last 24 hr 07/14/17 07/14/17 07/15/17 11:20 16:58 06:12 POC Glucometer [address] of head : moderate, difuse atrophy with ex vaxcuo hydrocephalus and diffuse microvascular changes. MRI brain : 1. No evidence of acute infarction, extra-axial collection or intracranial mass. No abnormal intracranial enhancement. 2. Moderate ventriculomegaly of the lateral and third ventricles is most likely exvacuo, rather than a mild communicating hydrocephalus. 3. Otherwise, age-appropriate volume loss with mild chronic microvascular ischemic changes in the cerebral white matter as above. HOSPITAL COURSE: Date of Admission:07/12/17 Date of Discharge: 07/15/17 is a 66 y/o F with PMH HTN, seizures, hydrocephalus (on prior and current CTs) who presented to ED with complaint of 3 weeks of high blood pressure, headache, urinary frequency/incontinence. Pt is being admitted for hypertensive urgency. for Hypertensive urgency, resolved ,BP controlled in ED with Lopressor. home meds was increased to norvasc to 10 mg po daily ,Increase metoprolol ER to 100 BID help BP and migraine headache.pt has Migrain headache/ status Migrainosis ,headache controlled with meds, pt was non compliant with her meds , she can use Tylenol 650 mg po q6hr for pain Neurology was consulted (Dr. Johnson) recommended:Increase metoprolol ER to 100 BID, Continue Dilantin 300 q hS , head MRI was performed was negative for acute pathology. pt has a h.o Seizures disorder, well controlled ,last seizure one year ago tonic clonic generalized ,Phenytoin level low 7.9,Neurologist recommend Increase depakote ER to 500 mg BID.Continue Dilantin 300qhs and F/U with neurology as out pt. for Parkinson presumed due to chronic neuroleptic exposure.continue BB with new dose and F/U out pt pt has COPD, stable ,in no acute exacerbation can use Duoneb as needed. for Depression/Anxiety Reduce Olanzapine to 7.5 mg QHS, cont effexor 150 mg po daily pt has Peripheral diabetic neuropathy continue gababentin 300 mg po TID,HgA1c was 6 %, will resume Metformin 500 ER mg po daily , follow diabetic diet , pt was educated about diet and life style modification.in term of hypothyroid , chronic ,TSH 4.79, FT4 0.96,continue Synthroid 125 mcg po daily and f/u as out pt. Minutes to complete discharge: 40 Discharge Summary Reason For Visit: INTRACTABLE HEADACHE Condition: Improved - Instructions Diet, Activity, Other Instructions: - please follow with your primary care doctor in 1 week - follow with your neurologist, Dr. Johnson in 2 weeks - some change were done to you medications : norvasc( amlodipine ) was increased to 10 mg daily metoprolol was increased to 100 mg twice daily depakote increased to 500 twice a day olanzapine dose was decreased to 7.5 mg - continue the rest of your medications as prescribed. - prescriptions were sent to your pharmacy - use your walker all the time while walking - report any severe headaches , fever , chills, weakness or other complaints to your doctors Referrals: Edinson Johnson MD [Staff Physician] - 2 Weeks Anup Jones MD [Non Staff, Medical] - 1 Week Disposition: VNS/HOME HEALTH CARE - Home Medications Comprehensive Discharge Medication List: Ambulatory Orders Levothyroxine [Synthroid -] 125 mcg PO DAILY 04/03/14 metFORMIN HCL [Glucophage -] 500 mg PO DAILY 04/03/14 Phenytoin Na Extended [Dilantin -] 300 mg PO HS 08/08/14 Pantoprazole Sodium 40 mg PO DAILY 06/27/17 Venlafaxine HCl ER [Effexor Xr -] 150 mg PO DAILY 06/27/17 Gabapentin [Neurontin] 300 mg PO TID 07/13/17 Amlodipine Besylate [Norvasc -] 10 mg PO DAILY #30 tablet 07/15/17 Divalproex *ER* [Depakote *ER* -] 500 mg PO BID #60 tablet.sa 07/15/17 Metoprolol Succinate [Toprol XL -] 100 mg PO BID #60 tab.sr.24h 07/15/17 Olanzapine [Zyprexa -] 7.5 mg PO HS #60 tablet 07/15/17 This patient is new to me today: No Emergency Visit: Yes ED Registration Date: 07/12/17 Care time: The patient presented to the Emergency Department on the above date and was hospitalized for further evaluation of their emergent condition. Critical Care patient: No - Discharge Referral Referred to [facility] Med P.C.: No
== END 2017-07-15 15:07 | disposition home health service (06) | DRG 199 ==
LOC: JER 14:56 → JERBED 21:28 → OBSVTOIN 23:26 → J7W 07-13 00:53
PROVIDERS: ADMIT Internal Medicine; ATTEND Internal Medicine
DX: I16.0 Hypertensive urgency (principal); J44.9 Chronic obstructive pulmonary disease, unspecified; F41.8 Other specified anxiety disorders; G91.8 Other hydrocephalus; E11.42 Type 2 diabetes mellitus with diabetic polyneuropathy; B18.2 Chronic viral hepatitis C; G40.802 Other epilepsy, not intractable, without status epilepticus; G43.901 Migraine, unspecified, not intractable, with status migrainosus; N39.498 Other specified urinary incontinence; G21.11 Neuroleptic induced parkinsonism; K70.30 Alcoholic cirrhosis of liver without ascites; F20.89 Other schizophrenia; H53.149 Visual discomfort, unspecified; E66.8 Other obesity; Z68.37 Body mass index [BMI] 37.0-37.9, adult; E03.9 Hypothyroidism, unspecified; Z87.891 Personal history of nicotine dependence; Z86.711 Personal history of pulmonary embolism; Z86.718 Personal history of other venous thrombosis and embolism
CPT/HCPCS: 36415; 36600; 70450-TC; 70552-TC; 71045-TC; 80053; 80185; 82375; 82550; 82553; 82803; 82962; 83036; 83050; 83735; 83880; 84100; 84436; 84439; 84443; 84484; 85025; 93005; 93010; 99285-25; G0378; J1100; J1644

== ENCOUNTER 2017-08-10 10:24 | Emergency (ER) | payer OTHER ==
[2017-08-10 10:31] VITALS: BMI 35.2
--- NOTE | 2017-08-10 11:07 | PDOC ---
History of Present Illness - General Chief Complaint: Lightheaded Stated Complaint: FALL Time Seen by Provider: 08/10/17 11:01 - History of Present Illness Initial Comments: 08/10/17 12:30 The patient is a 66 year old female with a history of HTN, HLD, DM, who presents for evaluation of dizziness and a fall. The patient reports that she became dizzy yesterday evening resulting in a fall where she struck her head against a wall. She states that her dizziness has continued into this morning with associated headache prompting her presentation to the ED for evaluation. She describes her dizziness as the room moving around herself. She otherwise denies fevers, chills, vision changes, SOB, chest pain, nausea, vomiting, abdominal pain, or changes with urination or bowel movements. Past History - Past Medical History Allergies/Adverse Reactions: Allergies Allergy/AdvReac Type Severity Reaction Status Date / Time aspirin Allergy Hives Verified 08/10/17 10:44 Penicillins Allergy Hives Verified 08/10/17 10:44 Shellfish Allergy Hives Verified 08/10/17 10:44 venom-honey bee Allergy Verified 08/10/17 10:44 [bee venom (honey bee)] egg AdvReac Vomiting Verified 08/10/17 10:44 Home Medications: Ambulatory Orders Levothyroxine [Synthroid -] 125 mcg PO DAILY 04/03/14 metFORMIN HCL [Glucophage -] 500 mg PO DAILY 04/03/14 Phenytoin Na Extended [Dilantin -] 300 mg PO HS 08/08/14 Pantoprazole Sodium 40 mg PO DAILY 06/27/17 Venlafaxine HCl ER [Effexor Xr -] 75 mg PO DAILY 06/27/17 Gabapentin [Neurontin] 300 mg PO TID 07/13/17 Amlodipine Besylate [Norvasc -] 10 mg PO DAILY #30 tablet 07/15/17 Divalproex *ER* [Depakote *ER* -] 500 mg PO BID #60 tablet.sa 07/15/17 Metoprolol Tartrate [Lopressor] 100 mg PO BID 08/10/17 Olanzapine [Zyprexa -] 5 mg PO HS 08/10/17 Sulfamethoxazole/Trimethoprim [Bactrim Ds -] 1 tab PO BID #14 tablet 08/10/17 Cancer: No CVA: No COPD: Yes DVT: Yes (AND PE) Diabetes: Yes (border line) HTN: Yes Hypercholesterolemia: Yes Liver Disease: Yes (HEP C) Psychiatric Problems: Yes (anxiety, tremors) Seizures: Yes Thyroid Disease: Yes - Surgical History Cholecystectomy: Yes - Immunization History Immunization Up to Date: Yes - Suicide/Smoking/Psychosocial Hx Smoking Status: No Smoking History: Former smoker Have you smoked in the past 12 months: No Number of Cigarettes Smoked Daily: 0 If you are a former smoker, when did you quit?: 2003 Information on smoking cessation initiated: No 'Breaking Loose' booklet given: 09/06/13 Hx Alcohol Use: No Drug/Substance Use Hx: No Substance Use Type: None Hx Substance Use Treatment: Yes Review of Systems - Review of Systems Comments:: 08/10/17 12:34 Constitutional: No fevers, chills, fatigue, malaise HEENT: Neck pain. No Rhinorrhea, nasal congestion, visual changes Cardiovascular: No chest pain, syncope, palpitations, lightheadedness Respiratory: No Cough, SOB, Hemoptysis, Gastrointestinal: No Abdominal pain, Nausea, Vomiting, Constipation, Diarrhea, Melena Genitourinary: No Dysuria, Frequency, Urgency, Hesitancy, Hematuria, Flank pain Musculoskeletal: No Myalgia, arthralgia Skin: No rashes, itching, bruising, pallor Neurologic: Headache, Dizziness No Numbness, Weakness, or Tingling Psychiatric: No Hallucinations. No SI or HI *Physical Exam - Vital Signs Last Vital Signs Temp Pulse Resp BP Pulse Ox 98.6 F 66 20 158/79 95 08/10/17 10:29 08/10/17 10:29 08/10/17 10:29 08/10/17 10:29 08/10/17 10:29 - Physical Exam Comments: 08/10/17 12:34 General Appearance: Nourished. No Apparent Distress HEENT: EOMI, MARCUS. No Pharyngeal Erythema, Tonsillar Exudate, Tonsillar Erythema Neck: No Cervical Lymphadenopathy Respiratory/Chest: Lungs Clear, Normal Breath Sounds. No Crackles, Rales, Rhonchi, Wheezing Cardiovascular: Regular Rhythm, Regular Rate. No Murmur, Gallops, Rubs Gastrointestinal/Abdominal: Normal Bowel Sounds, Soft. No Guarding, Rebound, Tenderness Musculoskeletal: No CVA Tenderness Extremity: Normal Capillary Refill Integumentary: Normal Color, Dry, Warm Neurologic: automobile sales consultant II-XII NML intact, Fully Oriented, Alert, Normal Mood/Affect, Normal Response, Motor Strength 5/5. Normal Finger to Nose and Heel to Baxter Heart Score/ECG Review #1 ECG reviewed & interpreted by me at: 11:41 (1st Degree AV Block) General ECG Interpretation: Sinus Rhythm, Normal Rate, No acute ischemic changes ED Treatment Course - LABORATORY CBC & Chemistry Diagram: 08/10/17 11:44 08/10/17 14:50 Medical Decision Making - Medical Decision Making 08/10/17 12:35 The patient is a 66 year old female with a history of HTN, HLD, DM, who presents for evaluation of dizziness and a fall. Differential includes but is not limited to: Vertigo, ACS, Arrhythmia, Intracranial process, infectious, metabolic derangement. Given the patient's history and physical exam, it is likely her dizziness is due to a peripheral vertigo. It is less likely that an intracranial process is occurring given her normal neurological exam. However, we will obtain a cbc, cmp, troponin, ekg, head and neck ct to evaluate further. We will treat with meclazine in the meantime and continue to monitor and reassess. 08/10/17 17:13 CBC, cmp, troponin are unremarkable. Head CT is unremarkable as read by our radiologist. UA demonstrates positive leak esterase with wbc concerning for a UTI. The patient reports improvement in her symptoms at this time. We are comfortable discharging the patient home at this time on antibiotics with primary care provider follow up. We discussed the results and the plan with the patient who voiced understanding and is agreeable with the plan. *DC/Admit/Observation/Transfer Diagnosis at time of Disposition: UTI (urinary tract infection) Qualifiers: Urinary tract infection type: site unspecified Hematuria presence: without hematuria Qualified Code(s): N39.0 - Urinary tract infection, site not specified - Discharge Dispostion Disposition: HOME Condition at time of disposition: Good Admit: No - Prescriptions Prescriptions: Sulfamethoxazole/Trimethoprim [Bactrim Ds -] 1 tab PO BID #14 tablet - Referrals Referrals: Reuben Esparza MD [Primary Care Provider] - - Patient Instructions Printed Discharge Instructions: DI for Urinary Tract Infection (UTI) Additional Instructions: Please return to the ER if you experience concerning or worsening symptoms including worsening dizziness, fevers, vomiting, or chest pain. Your lab results showed a urinary tract infection today. We have sent a prescription for an antibiotic to your pharmacy that you should take twice a day for the next 7 days. Please call to schedule a follow up appointment with your primary care provider within 2-3 days to further discuss management of your symptoms. - Post Discharge Activity
[2017-08-10] MEDS ORDERED: MECLIZINE HCL 25 MG TABLET (FP) PO ONE (11:12)
--- NOTE | 2017-08-10 11:15 | PDOC ---
Attending Attestation - HPI HPI: 08/10/17 12:40 The patient is a 66 year old female with history of hypertension, hyperlipidemia , DM who presents to the ED for 1 day of dizziness. She states she fell and hit her head yesterday prior to the onset of her symptoms. Since then she has been experiencing persistent dizziness. She also complains of mild neck pain. No LOC. No headache, numbness or tingling. No chest pain or shortness of breath. Documentation prepared by Rosa Myles, acting as biomedical service engineer for Cristiane Celaya MD, /DO. <Rosa Myles - Last Filed: 08/10/17 12:40> - Resident Resident Name: Eddie Geronimo - ED Attending Attestation I have performed the following: I have examined & evaluated the patient, The case was reviewed & discussed with the resident, I agree w/resident's findings & plan, Exceptions are as noted - Physicial Exam PE: GENERAL: Awake, alert, and fully oriented, in no acute distress HEAD: No signs of trauma EYES: PERRLA, EOMI, sclera anicteric, conjunctiva clear ENT: Auricles normal inspection, hearing grossly normal, nares patent, oropharynx clear without exudates. Moist mucosa NECK: Normal ROM, supple, no lymphadenopathy, JVD, or masses LUNGS: Breath sounds equal, clear to auscultation bilaterally. No wheezes, and no crackles HEART: Regular rate and rhythm, normal S1 and S2, no murmurs, rubs or gallops ABDOMEN: Soft, nontender, normoactive bowel sounds. No guarding, no rebound. No masses EXTREMITIES: Normal range of motion, no edema. No clubbing or cyanosis. No cords, erythema, or tenderness NEUROLOGICAL: Cranial nerves II through XII grossly intact. Normal speech, normal gait. Motor and sensation intact. SKIN: Warm, Dry, normal turgor, no rashes or lesions noted. - Medical Decision Making Pt presents with dizziness, fall yesterday. Will obtain labs including basics and CE, CTH/c-spine (due to fall), and UA to r/o UTI. PT is well-appearing, potential DC home. <Cristiane Celaya - Last Filed: 08/12/17 09:53>
[2017-08-10] MEDS ORDERED: MECLIZINE HCL 25 MG TABLET (FP) ONE (11:36)
[2017-08-10 11:54] LABS: BASO % 0.4 % (0-2.0); EOS % 4.5 % (0-4.5); HEMATOCRIT 35.9 % (32.4-45.2); HEMOGLOBIN 12.2 GM/dL (10.7-15.3); LYMPH % 35.8 % (8-40); MCH 30.6 pg (25.7-33.7); MCHC 33.9 g/dl (32.0-36.0); MEAN CELL VOLUME 90.3 fl (80-96); MEAN PLT VOLUME 7.6 fl (7.5-11.1); MONO % 8.4 % (3.8-10.2); NEUT % 50.9 % (42.8-82.8); PLATELET COUNT 183 K/MM3 (134-434); RBC 3.98 M/mm3 (3.60-5.2); RDW 13.9 % (11.6-15.6); WHITE BLOOD COUNT 5.1 K/mm3 (4.0-10.0)
--- NOTE | 2017-08-10 14:04 | EKG ---
Test Reason : Blood Pressure : / mmHG Vent. Rate : 063 BPM Atrial Rate : 063 BPM P-R Int : 214 ms QRS Dur : 080 ms QT Int : 426 ms P-R-T Axes : 063 001 -01 degrees QTc Int : 435 ms SINUS RHYTHM WITH 1ST DEGREE A-V BLOCK MINIMAL VOLTAGE CRITERIA FOR LVH, MAY BE NORMAL VARIANT CANNOT RULE OUT ANTERIOR INFARCT , AGE UNDETERMINED ABNORMAL ECG WHEN COMPARED WITH ECG OF 12-JUL-2017 15:40, NONSPECIFIC T WAVE ABNORMALITY NOW EVIDENT IN LATERAL LEADS Confirmed by BOWEN MALDONADO, DWAIN ([id number]) on 08/10/2017 2:04:13 PM Referred By: Confirmed By:DWAIN WISEMAN MD
[2017-08-10 15:32] LABS: ALBUMIN 3.5 g/dl (3.4-5.0); ANION GAP 8 (8-16); BLOOD UREA NITROGEN 11 mg/dL (7-18); CALCIUM 8.2 mg/dL (8.5-10.1); CHLORIDE 106 mmol/L (98-107); CO2 26 mmol/L (21-32); GLUCOSE,RANDOM 88 mg/dL (74-106); POTASSIUM 4.1 mmol/L (3.5-5.1); SODIUM 140 mmol/L (136-145)
[2017-08-10 15:38] LABS: ALK PHOS 85 U/L (45-117); BILIRUBIN,TOTAL 0.3 mg/dL (0.2-1.0); CREATININE 0.8 mg/dL (0.55-1.02); SGOT/AST 31 U/L (15-37); SGPT/ALT 68 U/L (12-78); TOT PROT 7.8 g/dl (6.4-8.2)
[2017-08-10 16:38] LABS: URINE APPEARANCE CLEAR; URINE BILIRUBIN NEGATIVE (NEGATIVE); URINE BLOOD NEGATIVE (NEGATIVE); URINE COLOR STRAW; URINE GLUCOSE (UA) NEGATIVE (NEGATIVE); URINE KETONE NEGATIVE (NEGATIVE); URINE NITRITE NEGATIVE (NEGATIVE); URINE PROTEIN NEGATIVE (NEGATIVE); URINE UROBILINOGEN NEGATIVE mg/dL (0.2-1.0)
[2017-08-10 16:55] LABS: URINE LEUK ESTERASE 1+ (NEGATIVE)
[2017-08-10 17:02] LABS: EPI CELLS RARE /HPF (FEW); URINE MUCUS RARE
[2017-08-10 17:32] VITALS: BP 138/72; PULSE 68; TEMP 98.8
== END 2017-08-10 17:33 | disposition home or self-care (01) ==
LOC: JER 10:24
DX: N39.0 Urinary tract infection, site not specified (principal); W01.198A Fall on same level from slipping, tripping and stumbling with subsequent striking against other object, initial encounter; Y93.89 Activity, other specified; Y92.018 Other place in single-family (private) house as the place of occurrence of the external cause; I10 Essential (primary) hypertension; E78.00 Pure hypercholesterolemia, unspecified; E11.9 Type 2 diabetes mellitus without complications; E03.9 Hypothyroidism, unspecified; F41.8 Other specified anxiety disorders; B18.2 Chronic viral hepatitis C; Z86.711 Personal history of pulmonary embolism; Z86.718 Personal history of other venous thrombosis and embolism; Z87.891 Personal history of nicotine dependence
CPT/HCPCS: 36415; 70450-TC; 72125-TC; 80053; 81003; 81015; 82550; 82553; 84484; 85025; 87086; 93005; 93010; 99283-25

== ENCOUNTER 2017-09-08 20:07 | Emergency (ER) | payer OTHER ==
--- NOTE | 2017-09-08 20:12 | PDOC ---
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 Patient reports one week of an intermittent non productive cough. She states she has difficulty swallowing and holding down her food secondary to cough. Patient also reports shortness of breath and redness in her left eye secondary to her cough. She also reports a week of subjective fever, loss of appetite, cold sweats, sore throat, nausea, headache, and myalgia. Patient states 3 days ago she was walking at home when she suddenly became weak and fell onto her right side. She reports right sided knee pain and right hip pain after her fall. Patient notes her right hip pain wakes her up from her sleep at night. Patient comes into the ED tonight secondary to an onset of coughing and choking while she was eating dinner. She reports taking cough syrup and tylenol with slight relief of present symptoms earlier today. Patient walks with a walker at baseline. Denies abdominal pain, vomiting or diarrhea. Denies chest pain or palpitations. Denies dysuria or changes in urinary output. Denies any other symptoms. <Maynor Reeves - Last Filed: 09/08/17 22:35> <Nora Jacques - Last Filed: 09/09/17 22:39> - General Stated Complaint: FLU SYMPTOMS Time Seen by Provider: 09/08/17 20:12 Past History <Maynor Reeves - Last Filed: 09/08/17 22:35> - Past Medical History Cancer: No CVA: No COPD: Yes DVT: Yes (AND PE) Diabetes: Yes (border line) HTN: Yes Hypercholesterolemia: Yes Liver Disease: Yes (HEP C) Psychiatric Problems: Yes (anxiety, tremors) Seizures: Yes Thyroid Disease: Yes - Surgical History Cholecystectomy: Yes - Immunization History Immunization Up to Date: Yes - Suicide/Smoking/Psychosocial Hx Smoking Status: No Smoking History: Former smoker Have you smoked in the past 12 months: No Number of Cigarettes Smoked Daily: 0 If you are a former smoker, when did you quit?: 2003 'Breaking Loose' booklet given: 09/06/13 Hx Alcohol Use: No Drug/Substance Use Hx: No Substance Use Type: None Hx Substance Use Treatment: Yes <Nora Jacques - Last Filed: 09/09/17 22:39> - Past Medical History Allergies/Adverse Reactions: Allergies Allergy/AdvReac Type Severity Reaction Status Date / Time aspirin Allergy Hives Verified 09/08/17 20:36 Penicillins Allergy Hives Verified 09/08/17 20:36 Shellfish Allergy Hives Verified 09/08/17 20:36 venom-honey bee Allergy Verified 09/08/17 20:36 [bee venom (honey bee)] egg AdvReac Vomiting Verified 09/08/17 20:36 Home Medications: Ambulatory Orders Levothyroxine [Synthroid -] 125 mcg PO DAILY 04/03/14 metFORMIN HCL [Glucophage -] 500 mg PO DAILY 04/03/14 Phenytoin Na Extended [Dilantin -] 300 mg PO HS 08/08/14 Pantoprazole Sodium 40 mg PO DAILY 06/27/17 Venlafaxine HCl ER [Effexor Xr -] 75 mg PO DAILY 06/27/17 Gabapentin [Neurontin] 300 mg PO TID 07/13/17 Amlodipine Besylate [Norvasc -] 10 mg PO DAILY #30 tablet 07/15/17 Divalproex *ER* [Depakote *ER* -] 500 mg PO BID #60 tablet.sa 07/15/17 Metoprolol Tartrate [Lopressor] 100 mg PO BID 08/10/17 Olanzapine [Zyprexa -] 5 mg PO HS 08/10/17 Sulfamethoxazole/Trimethoprim [Bactrim Ds -] 1 tab PO BID #14 tablet 08/10/17 Azithromycin [Zithromax Tri-Dennys (3 DAYS) -] 500 mg PO DAILY #3 tablet 09/08/17 Review of Systems - Review of Systems Able to Perform ROS?: Yes Comments:: 09/08/17 22:35 CONSTITUTIONAL: + fever, malaise, generalized weakness, loss of appetite, cold sweats. HEENT: + throat pain Absent: rhinorrhea, nasal congestion, throat swelling, mouth swelling, ear pain , eye pain, visual Changes CARDIOVASCULAR: Absent: chest pain, syncope, palpitations, irregular heart rate, lightheadedness , peripheral edema RESPIRATORY: + cough, shortness of breath Absent: dyspnea with exertion, orthopnea, wheezing, stridor, hemoptysis GASTROINTESTINAL: + nausea Absent: abdominal pain, abdominal distension, vomiting, diarrhea, constipation, melena, hematochezia GENITOURINARY: Absent: dysuria, frequency, urgency, hesitancy, hematuria, flank pain, genital pain MUSCULOSKELETAL: + myalgia, knee pain, hip Absent: arthralgia SKIN: Absent: rash, itching, pallor HEMATOLOGIC/IMMUNOLOGIC: Absent: easy bleeding, easy bruising, lymphadenopathy, frequent infections ENDOCRINE: Absent: unexplained weight gain, unexplained weight loss, heat intolerance, cold intolerance NEUROLOGIC: + headache Absent: focal weakness or paresthesias, dizziness, unsteady gait, seizure, mental status changes, bladder or bowel incontinence PSYCHIATRIC: Absent: anxiety, depression, suicidal or homicidal ideation, hallucinations. All Other Systems: Reviewed and Negative <Maynor Reeves - Last Filed: 09/08/17 22:35> *Physical Exam - Vital Signs Last Vital Signs Temp Pulse Resp BP Pulse Ox 98.1 F 67 22 151/75 97 09/08/17 20:31 09/08/17 20:31 09/08/17 20:31 09/08/17 20:31 09/08/17 20:31 - Physical Exam Comments: 09/08/17 22:35 GENERAL: Well developed, well nourished. Awake and alert. No acute distress. HEENT:+ right sided pharyngeal erythema, sore throat redness in left eye Normocephalic, atraumatic. PERRLA, EOMI. No conjunctival pallor. Sclera are non- icteric. Moist mucous membranes. Oropharynx is clear. NECK: Supple. Full ROM. No JVD. Carotid pulses 2+ and symmetric, without bruits. No thyromegaly. NCo lymphadenopathy. CARDIOVASCULAR: Regular rate and rhythm. No murmurs, rubs, or gallops. Distal pulses are 2+ and symmetric. PULMONARY: + Right base, wheezing vs rales. Lungs clear to auscultation bilaterally. No rhonchi. ABDOMINAL: Soft. Non-tender. Non-distended. No rebound or guarding. No organomegaly. Normoactive bowel sounds. MUSCULOSKELETAL Normal range of motion at all joints. No bony deformities or tenderness. No CVA tenderness. EXTREMITIES: + abrasion on left knee and minimal swelling on right knee No cyanosis. No clubbing. No calf tenderness. SKIN: Warm and dry. Normal capillary refill. No rashes. No jaundice. NEUROLOGICAL: Alert, awake, appropriate. Cranial nerves 2-12 intact. No deficits to light touch and temperature in face, upper extremities and lower extremities. No motor deficits in the in face, upper extremities and lower extremities. Normoreflexic in the upper and lower extremities. Normal speech. Toes are down- going bilaterally. Gait is normal without ataxia. PSYCHIATRIC: Cooperative. Good eye contact. Appropriate mood and affect. <Maynor Reeves - Last Filed: 09/08/17 22:35> ED Treatment Course - LABORATORY CBC & Chemistry Diagram: 09/08/17 22:27 09/08/17 22:27 <Maynor Reeves - Last Filed: 09/08/17 22:35> - LABORATORY CBC & Chemistry Diagram: 09/08/17 22:27 09/08/17 22:27 <Nora Jacques - Last Filed: 09/09/17 22:39> Medical Decision Making - Medical Decision Making 09/09/17 22:37 Pt comes with complaints of weakness and feeling unwell. She was feverish and lightheaded at home. 09/09/17 22:38 Pt found to have strp throat. Labs normal. Ammonia 51. It has been elevated to mid 40s in the past. Pt has a known hx of hepatitis. <Nora Jacques - Last Filed: 09/09/17 22:39> *DC/Admit/Observation/Transfer - Attestations Scribe Attestion: 09/08/17 22:36 Documentation prepared by Maynor Reeves, acting as medical laboratory technician for Nora Jacques MD <Maynor Reeves - Last Filed: 09/08/17 22:35> - Discharge Dispostion Admit: No <Nora Jacques - Last Filed: 09/09/17 22:39> Diagnosis at time of Disposition: Strep throat - Discharge Dispostion Disposition: HOME Condition at time of disposition: Improved - Prescriptions Prescriptions: Azithromycin [Zithromax Tri-Dennys (3 DAYS) -] 500 mg PO DAILY #3 tablet - Patient Instructions Printed Discharge Instructions: DI for Strep Throat
[2017-09-08 21:43] VITALS: BP 151/75; PULSE 67; TEMP 98.1; BMI 46.5
[2017-09-08] MEDS ORDERED: AZITHROMYCIN 250 MG TABLET PO ONE (22:29)
[2017-09-08 22:38] LABS: BASO % 0.4 % (0-2.0); EOS % 5.4 % (0-4.5); HEMATOCRIT 35.3 % (32.4-45.2); HEMOGLOBIN 11.7 GM/dL (10.7-15.3); LYMPH % 34.9 % (8-40); MCH 29.7 pg (25.7-33.7); MCHC 33.1 g/dl (32.0-36.0); MEAN CELL VOLUME 89.8 fl (80-96); MEAN PLT VOLUME 7.3 fl (7.5-11.1); MONO % 9.3 % (3.8-10.2); PLATELET COUNT 264 K/MM3 (134-434); RBC 3.93 M/mm3 (3.60-5.2); RDW 13.7 % (11.6-15.6); WHITE BLOOD COUNT 6.8 K/mm3 (4.0-10.0)
[2017-09-08 23:01] LABS: ALBUMIN 3.2 g/dl (3.4-5.0); ANION GAP 9 (8-16); BLOOD UREA NITROGEN 6 mg/dL (7-18); CALCIUM 8.4 mg/dL (8.5-10.1); CHLORIDE 108 mmol/L (98-107); CO2 26 mmol/L (21-32); CREATININE 0.8 mg/dL (0.55-1.02); GLUCOSE,RANDOM 82 mg/dL (74-106); POTASSIUM 3.8 mmol/L (3.5-5.1); SGOT/AST 35 U/L (15-37); SGPT/ALT 55 U/L (12-78); SODIUM 143 mmol/L (136-145)
[2017-09-08 23:03] LABS: ALK PHOS 97 U/L (45-117); TOT PROT 7.9 g/dl (6.4-8.2)
[2017-09-08 23:06] LABS: BILIRUBIN,TOTAL < 0.1 mg/dL (0.2-1.0)
[2017-09-09] MEDS ORDERED: GENTAMICIN SULFATE 0.3% OPHTHALMIC (EYE DROPS) 5ML BOTTLE OS ONE (00:08)
== END 2017-09-08 23:55 | disposition home or self-care (01) ==
LOC: JER 20:07
DX: J02.0 Streptococcal pharyngitis (principal); B95.5 Unspecified streptococcus as the cause of diseases classified elsewhere; I10 Essential (primary) hypertension; E78.5 Hyperlipidemia, unspecified; E11.9 Type 2 diabetes mellitus without complications; F69 Unspecified disorder of adult personality and behavior; F41.9 Anxiety disorder, unspecified; K70.30 Alcoholic cirrhosis of liver without ascites; Z87.891 Personal history of nicotine dependence; Z86.718 Personal history of other venous thrombosis and embolism; Z86.711 Personal history of pulmonary embolism; Z79.84 Long term (current) use of oral hypoglycemic drugs
CPT/HCPCS: 36415; 80053; 80164; 82140; 85025; 87040; 87070; 87430; 99283-25

== ENCOUNTER 2018-02-06 21:01 | Inpatient (IN) | payer OTHER ==
--- NOTE | 2018-02-06 21:50 | PDOC ---
History of Present Illness - General Chief Complaint: Injury Stated Complaint: FALL Time Seen by Provider: 02/06/18 21:12 History Source: Patient Exam Limitations: No Limitations - History of Present Illness Initial Comments: 02/06/18 21:49 Pt is a 67yo F with PMH of Parkinson's, seizures, htn, hld, dm, copd, hypothyroid BIBA to ED s/p fall 1 hour prior to arrival. Pt said she was using her walker when she tripped and fell. She thinks she lost consciousness because she does not recall the fall and is unsure whether she hit her head or not. She felt confused after the episode. Fall was unwitnessed. She did not lose bowel/ bladder control. Last seizure was 1 week ago. She admits to R forearm pain. She denies chest pain, SOB, headache, dizziness, lightheadedness, abdominal pain , n/v/d. PMH: see hpi PSH: Meds: Gabapentin 300, Effexor 150, Effexor 75, Depakote 500, Depakote 250, Zyprexa 25, Zyprexa 5, Levothyroxine 175, Celebrex 200, Dilantin 100, Metoprolol Allergies: OCN, ASA Social: quit tobacco 12 years ago. PCP: Vilma Neurologist: Alex Past History - Past Medical History Allergies/Adverse Reactions: Allergies Allergy/AdvReac Type Severity Reaction Status Date / Time aspirin Allergy Hives Verified 02/06/18 21:34 Penicillins Allergy Hives Verified 02/06/18 21:34 Shellfish Allergy Hives Verified 02/06/18 21:34 venom-honey bee Allergy Verified 02/06/18 21:34 [bee venom (honey bee)] egg AdvReac Vomiting Verified 02/06/18 21:34 Home Medications: Ambulatory Orders Levothyroxine [Synthroid -] 175 mcg PO DAILY 04/03/14 Phenytoin Na Extended [Dilantin -] 400 mg PO HS 08/08/14 Venlafaxine HCl ER [Effexor Xr -] 75 mg PO DAILY 06/27/17 Gabapentin [Neurontin] 300 mg PO TID 07/13/17 Metoprolol Tartrate [Lopressor] 100 mg PO DAILY 08/10/17 Olanzapine [Zyprexa -] 5 mg PO HS 03/09/18 Celecoxib 200 mg PO DAILY 12/10/17 Divalproex *ER* [Depakote *ER* -] 1,000 mg PO HS 12/10/17 Phenytoin Na Extended [Dilantin -] 200 mg PO BID #28 capsule 01/17/18 Divalproex *ER* [Depakote *ER* -] 1,250 mg PO BID 02/07/18 Olanzapine 2.5 mg PO DAILY 02/07/18 Venlafaxine HCl ER [Effexor Xr -] 150 mg PO DAILY 02/07/18 Anemia: No Asthma: No Cancer: No Cardiac Disorders: No CVA: No COPD: Yes CHF: No DVT: Yes (AND PE) Dementia: No Diabetes: Yes (border line) Dialysis: No GI Disorders: No Disorders: No HTN: Yes Hypercholesterolemia: Yes Liver Disease: Yes (HEP C, TREATED NATALYA KELLER, CURED 2017) Psychiatric Problems: Yes (anxiety, tremors) Seizures: Yes (GRAND MAL, LAST SEIZURE 1 YEAR AGO) Thyroid Disease: Yes (HYPOACTIVE) - Surgical History Abdominal Surgery: No Appendectomy: No Cardiac Surgery: No Cholecystectomy: Yes Lung Surgery: No Neurologic Surgery: No Orthopedic Surgery: No - Immunization History Immunization Up to Date: Yes - Suicide/Smoking/Psychosocial Hx Smoking Status: No Smoking History: Never smoked Have you smoked in the past 12 months: No Number of Cigarettes Smoked Daily: 0 If you are a former smoker, when did you quit?: 2003 Information on smoking cessation initiated: No 'Breaking Loose' booklet given: 09/06/13 Hx Alcohol Use: No Drug/Substance Use Hx: No Substance Use Type: None Hx Substance Use Treatment: Yes Review of Systems - Review of Systems Constitutional: No: Chills, Fever HEENTM: No: Recent change in vision Respiratory: Yes: Cough. No: Shortness of Breath Cardiac (ROS): Yes: Syncope. No: Chest Pain, Palpitations ABD/GI: No: Constipated, Diarrhea, Nausea, Vomiting, Abdominal cramping : Yes: Burning. No: Dysuria Musculoskeletal: Yes: Other (R forearm pain) Neurological: No: Headache, Numbness, Tingling, Tremors *Physical Exam - Vital Signs Last Vital Signs Temp Pulse Resp BP Pulse Ox 98.1 F 94 H 19 153/88 100 02/06/18 21:05 02/06/18 21:05 02/06/18 21:05 02/06/18 21:05 02/06/18 21:05 - Physical Exam General Appearance: Yes: Nourished, Appropriately Dressed. No: Apparent Distress HEENT: positive: EOMI, MARCUS, Scleral Icterus (R), Scleral Icterus (L), Hearing Grossly Normal. negative: Pale Conjunctivae, Pharyngeal Erythema Neck: positive: Trachea midline, Supple. negative: Tender, Carotid bruit, Lymphadenopathy (R), Lymphadenopathy (L) Respiratory/Chest: positive: Lungs Clear, Normal Breath Sounds. negative: Crackles, Rales, Rhonchi, Stridor Cardiovascular: positive: Regular Rhythm, Regular Rate, S1, S2. negative: JVD, Murmur Vascular Pulses: Carotid (R): 2+, Carotid (L): 2+, Dorsalis-Pedis (R): 2+, Doralis-Pedis (L): 2+ Gastrointestinal/Abdominal: positive: Normal Bowel Sounds, Soft, Protuberent. negative: Guarding, Rebound, Tenderness Musculoskeletal: positive: Other (Full ROM of forearm, wrist, fingers). negative: CVA Tenderness, Decreased Range of Motion Extremity: positive: Normal Capillary Refill. negative: Coldness, Cyanosis, Pedal Edema, Swelling, Calf Tenderness Integumentary: positive: Normal Color, Dry, Warm. negative: Ecchymosis Neurologic: positive: maintenance machinist II-XII NML intact, Fully Oriented, Alert, Normal Mood/ Affect, Normal Response, Motor Strength 5/5, Sensory Deficit (Chronic sensory deficit in left extremities. No new deficit. ), Finger to Nose, Other (pill rolling tremor and mouth tremor). negative: Numbness, Confused ED Treatment Course - LABORATORY CBC & Chemistry Diagram: 02/06/18 23:08 02/06/18 23:08 - RADIOLOGY Radiology Studies Ordered: Category Date Time Status HEAD CT WITHOUT CONTRAST [CT] Stat CT Scan 02/06/18 21:40 Ordered CHEST X-RAY PORTABLE* [RAD] Stat Radiology 02/06/18 21:38 Ordered Medical Decision Making - Medical Decision Making 02/06/18 21:49 -most likely mechanical fall because pt states she lost her balance. However she does not recall the fall and felt confused afterward. Syncope v. seizure v. stroke. No bowel/bladder incontinence, no tongue biting. lower suspicion for seizure. -labs, ekg, ct, cxr, xray R forearm, wrist. (Full rom of forearm, wrist and digits, tender to palpation in wrist and along forearm) neurovascularly intact. previous depakote and phenytoin levels low. will reorder. 02/06/18 23:[address] Hoffman, pt revealed 7 falls within the past. Labs: wnl. phenytoin and depakote levels therapeutic. low suspicion for seizure. UA revelaed UTI. Pt started on Cipro. CT head negative for acute changes. CXR no acute changes. Will admit for syncope and uti *DC/Admit/Observation/Transfer Diagnosis at time of Disposition: Syncope Qualifiers: Syncope type: unspecified Qualified Code(s): R55 - Syncope and collapse UTI (urinary tract infection) Qualifiers: Urinary tract infection type: site unspecified Hematuria presence: without hematuria Qualified Code(s): N39.0 - Urinary tract infection, site not specified - Discharge Dispostion Condition at time of disposition: Fair Decision to Admit order: Yes - Referrals - Patient Instructions - Post Discharge Activity
[2018-02-06 23:16] LABS: BASO % 0.1 % (0-2.0); EOS % 4.5 % (0-4.5); HEMATOCRIT 35.6 % (32.4-45.2); HEMOGLOBIN 11.7 GM/dL (10.7-15.3); LYMPH % 40.5 % (8-40); MCH 29.7 pg (25.7-33.7); MCHC 32.8 g/dl (32.0-36.0); MEAN CELL VOLUME 90.5 fl (80-96); MEAN PLT VOLUME 7.8 fl (7.5-11.1); MONO % 7.3 % (3.8-10.2); NEUT % 47.6 % (42.8-82.8); PLATELET COUNT 187 K/MM3 (134-434); RBC 3.94 M/mm3 (3.60-5.2); RDW 14.1 % (11.6-15.6); WHITE BLOOD COUNT 4.9 K/mm3 (4.0-10.0)
--- NOTE | 2018-02-06 23:22 | PDOC ---
Attending Attestation - [facility] HPI: 02/06/18 23:24 The patient is a 67 year old female brought via EMS, with a significant past medical history of Parkinson's, seizures (last seizure 1 week ago), htn, hld, dm , copd, hypothyroid, who presents to the ED with right forearm pain after a fall an hour prior to arriving to the ED. She notes that she was ambulating with her walker when she tripped and fell. She notes that she is not aware if she hit her head and is also not sure if she lost consciousness. The fall itself was unwitnessed. She denies any other kinds of injuries. The patient denies chest pain, shortness of breath, headache and dizziness. Denies fever, chills, nausea, vomiting, diarrhea or constipation. Denies dysuria , frequency, urgency and hematuria. Allergies: Aspirin, penicillin, shellfish, egg Past surgical history: Cholecystectomy Social History: Former smoker. No alcohol ot drug use reported PCP: Vilma Neurologist: Alex - Physicial Exam PE: 02/06/18 23:24 Constitutional: Awake, alert, oriented. No acute distress. Head: Normocephalic. Atraumatic Eyes: PERRL. EOMI. Conjunctivae are not pale. ENT: Mucous membranes are moist and intact. Posterior pharynx without exudates or erythema. Uvula midline. Neck: Supple. Full ROM. No lymphadenopathy. Cardiovascular: Regular rate. Regular rhythm. S1, S2 regular. Distal pulses are 2+ and symmetric. Pulmonary/Chest: No evidence of respiratory distress. Clear to auscultation bilaterally No wheezing, rales or rhonchi. Abdominal: Soft and non-distended. There is no tenderness. No rebound, guarding or rigidity. No organomegaly. No palpable masses. Good bowel sounds. Back: No CVA tenderness. Musculoskeletal: No edema. No cyanosis. No clubbing. Full range of motion in all extremities. Nocalf tenderness. Radial/pedal pulses are intact and 2+ bilaterally Skin: Skin is warm and dry. No petechiae. No purpura. Neurological: (+) Right upper and lower extremity weakness (old). (+) Tremor of the tongue. Alert and oriented to person, place, and time. Cranial nerves II -XII are grossly intact. Normal speech. No sensory deficits. Psychiatric: Good eye contact. Normal interaction, affect and behavior. <Darshan Marquez - Last Filed: 02/06/18 23:24> - Resident Resident Name: Kamila Yao - ED Attending Attestation I have performed the following: I have examined & evaluated the patient, The case was reviewed & discussed with the resident, I agree w/resident's findings & plan, Exceptions are as noted - Medical Decision Making 02/06/18 23:22 I, Dr. Angely Hoffman, DO, attest that this document has been prepared under my direction and personally reviewed by me in its entirety. I further attest, that it accurately reflects all work, treatment, procedures and medical decision -making performed by me. 02/06/18 23:22 a/p: 67yo female with multiple falls over the last few weeks -hx of parkinsons, walks with a walker -pt with hx of seizures -unwitnessed fall today - unsure if she had LOC -no loss of control of bowel or bladder, no shaking, no tongue biting -concern for poss syncope today -pt confused after the episode, concern for closed head injury -will send labs, ekg, cxr, head ct -pt also with dysuria - will send UA -will most likely require obs placement for syncope eval and freq falls 02/07/18 00:59 pt with a UTI - will start iv abx resident discussed the case with ERIC who accepts pt to service <Angely Hoffman - Last Filed: 02/07/18 00:59> Heart Score/ECG Review - ECG Intrepretation Comment:: 02/07/18 00:03 sinus at 84, nl axis, nl interval, q waves septally that are age indeterminate, no acute st/t wave findings <Angely Hoffman - Last Filed: 02/07/18 00:59>
[2018-02-06 23:26] LABS: INR 1.06 (0.83-1.09)
[2018-02-06 23:36] LABS: PHOSPHOROUS 3.8 mg/dL (2.5-4.9)
[2018-02-06 23:37] LABS: URINE APPEARANCE CLOUDY; URINE BILIRUBIN NEGATIVE (<2.0 mg/dL); URINE COLOR DKYELLOW; URINE GLUCOSE (UA) NEGATIVE (NEGATIVE); URINE KETONE TRACE (NEGATIVE); URINE NITRITE POSITIVE (NEGATIVE); URINE UROBILINOGEN NEGATIVE mg/dL (0.2-1.0)
[2018-02-06 23:38] LABS: PHENYTOIN (DILANTIN) 16.6 ug/ml (10.0-20.0); VALPROIC ACID DEPAKOTE DEPAKAN 78.7 ug/ml (50-100)
[2018-02-06 23:39] LABS: ALBUMIN 3.5 g/dl (3.4-5.0); ALK PHOS 64 U/L (45-117); ANION GAP 6 MMOL/L (8-16); BILIRUBIN,TOTAL 0.1 mg/dL (0.2-1.0); BLOOD UREA NITROGEN 21 mg/dL (7-18); CALCIUM 8.5 mg/dL (8.5-10.1); CHLORIDE 108 mmol/L (98-107); CO2 32 mmol/L (21-32); GLUCOSE,RANDOM 87 mg/dL (74-106); POTASSIUM 4.2 mmol/L (3.5-5.1); SGOT/AST 20 U/L (15-37); SGPT/ALT 30 U/L (12-78); SODIUM 146 mmol/L (136-145); TOT PROT 7.3 g/dl (6.4-8.2)
[2018-02-06 23:57] LABS: URINE LEUK ESTERASE 3+ (NEGATIVE); URINE PROTEIN 2+ (NEGATIVE)
[2018-02-06 23:59] LABS: EPI CELLS RARE /HPF (FEW); URINE BACTERIA RARE /hpf (NONE SEEN); URINE HYALINE CAST 2 /lpf; URINE MUCUS RARE
[2018-02-07] MEDS ORDERED: CIPROFLOXACIN 400 MG/D5W 400 MG/200 ML IVPB IVPB ONE (00:25)
--- NOTE | 2018-02-07 01:23 | HP ---
CHIEF COMPLAINT: Syncope PCP: Dr. Alvarado Neuro: Dr. Johnson HISTORY OF PRESENT ILLNESS: 67 y/o F with PMHx of Parkinsons Disease, Grand Mal Seizures, HTN, HLD, NIDDM, COPD, SUSANA on Home CPAP, Hypothyroidism, DVT & PE, Hepatitis C and Anxiety presents s/p unwitnessed mechanical fall today. Patient says she was home alone and began walking with her walker from her bed and tripped over her feet. She tried break her fall by trying to reach for her couch with her right hand but was not successful and ended up hitting her head. She then remembers waking up, confused, and on her right side. She was unsure of how long she was unconscious. While on the floor, she called EMS from her cell phone. She denies any biting of her tongue, loss of bowel or bladder control. Currently she denies any pain when laying still. Patient has a hx of multiple falls, her most recent of which is 1 week ago. Patient visited [facility] on 01/[address] for a witnessed seizure. Dr. Johnson suggested adjusting her Dilantin and Depakote doses and patient was discharged from the ED. She admits to decreased PO Intake today, with her last meal being dinner on 02/05. She additionally complains of dysuria shes experienced for the past 2 weeks and feelings of extensive thirst. She has also been experiencing watery, brown diarrhea (multiple times daily) for the past 1 week; She does not note any cramping abdominal pain nor odd stool smells. 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, due to ) Hepatitis C Anxiety PAST SURGICAL HISTORY: Cholecystectomy Tubal Ligation Social History: Smokin-1.5 ppd x 38 years (Quit in 2005) Alcohol: Stopped 25 years ago, Heavy Drinker prior to Drugs: Stoppped 25 years ago, "Did Everything" prior to Occupation: Unemployed Residence: Lives at home alone Ambulates: With Walker Worship: [employer] Family History: Allergies aspirin Allergy (Verified 02/06/18 21:34) Hives Penicillins Allergy (Verified 02/06/18 21:34) Hives Shellfish Allergy (Verified 02/06/18 21:34) Hives venom-honey bee [bee venom (honey bee)] Allergy (Verified 02/06/18 21:34) SWELLING egg Adverse Reaction (Verified 02/06/18 21:34) Vomiting HOME MEDICATIONS: Home Medications Medication Instructions Recorded Levothyroxine [Synthroid -] 175 mcg PO DAILY 04/03/14 Phenytoin Na Extended [Dilantin -] 300 mg PO HS 08/08/14 Venlafaxine HCl ER [Effexor Xr -] 75 mg PO DAILY 06/27/17 Gabapentin [Neurontin] 300 mg PO TID 07/13/17 Amlodipine Besylate [Norvasc -] 10 mg PO DAILY #30 tablet 07/15/17 Metoprolol Tartrate [Lopressor] 100 mg PO BID 08/10/17 Olanzapine [Zyprexa -] 5 mg PO HS 08/10/17 Celecoxib 200 mg PO DAILY 12/10/17 Divalproex *ER* [Depakote *ER* -] 1,000 mg PO HS 12/10/17 Divalproex *ER* [Depakote *ER* -] 1,250 mg PO BID 30 Days #28 01/17/18 tablet.sa Phenytoin Na Extended [Dilantin -] 200 mg PO BID #28 capsule 01/17/18 REVIEW OF SYSTEMS CONSTITUTIONAL: Absent: fever, chills, diaphoresis, generalized weakness, malaise, loss of appetite, weight change HEENT: Absent: rhinorrhea, nasal congestion, throat pain, throat swelling, difficulty swallowing, mouth swelling, ear pain, eye pain, visual changes CARDIOVASCULAR: Present: lightheadedness Absent: chest pain, syncope, palpitations, irregular heart rate, peripheral edema RESPIRATORY: Present: Cough Absent: shortness of breath, dyspnea with exertion, orthopnea, wheezing, stridor , hemoptysis GASTROINTESTINAL: Present: diarrhea, Absent: abdominal pain, abdominal distension, nausea, vomiting, constipation, melena, hematochezia GENITOURINARY: Present: Dysuria Absent: frequency, urgency, hesitancy, hematuria, flank pain, genital pain MUSCULOSKELETAL: Absent: myalgia, arthralgia, joint swelling, back pain, neck pain SKIN: Absent: rash, itching, pallor HEMATOLOGIC/IMMUNOLOGIC: Absent: easy bleeding, easy bruising, lymphadenopathy, frequent infections ENDOCRINE: Absent: unexplained weight gain, unexplained weight loss, heat intolerance, cold intolerance NEUROLOGIC: Absent: headache, focal weakness or paresthesias, dizziness, unsteady gait, seizure, mental status changes, bladder or bowel incontinence PSYCHIATRIC: Absent: anxiety, depression, suicidal or homicidal ideation, hallucinations. PHYSICAL EXAMINATION Vital Signs - 24 hr 02/06/18 21:05 Temperature 98.1 F Pulse Rate 94 H Respiratory 19 Rate Blood Pressure 153/88 O2 Sat by Pulse 100 Oximetry (%) Orthostatic BP: Supine 156/75 HR 92, Sitting 144/83 HR 94 GENERAL: Awake, alert, and fully oriented, in no acute distress. HEAD: NCAT EYES: PERRL, EOMI THROAT: Oropharynx clear without exudates. Moist mucous membranes. NECK: No JVD LUNGS: Breath sounds equal, clear to auscultation bilaterally. No wheezes, and no crackles. HEART: Regular rate and rhythm, normal S1 and S2 without murmur ABDOMEN: Soft, nontender, Distended, Tympanic normoactive bowel sounds, no guarding BACK: No Sacral decubitus ulcers present, Tenderness to palpation at the Paraspinal Lower Thoracic Spine MUSCULOSKELETAL: Normal range of motion at all joints. No bony deformities or tenderness. UPPER EXTREMITIES: 2+ pulses, warm, Tender to palpation of the Right shoulder and Right wrist, 5/5 Muscle strength to Elbow flexion/extension, Gross Sensation intact LOWER EXTREMITIES: 2+ pulses, Trace peripheral edema. 5/5 Muscle strength to Hip flexion/extension, Gross Sensation intact NEUROLOGICAL: Cranial nerves II-XII intact. Tremor present in all 4 extremities and tongue Laboratory Results - last 24 hr 02/06/18 02/06/18 02/06/18 23:08 23:08 23:08 WBC 4.9 RBC 3.94 Hgb 11.7 Hct 35.6 MCV 90.5 MCH 29.7 MCHC 32.8 RDW 14.1 Plt Count 187 MPV 7.8 D Absolute Neuts (auto) 2.3 Neutrophils % 47.6 Lymphocytes % 40.5 H Monocytes % 7.3 Eosinophils % 4.5 Basophils % 0.1 Nucleated RBC % 0 PT with INR INR Sodium 146 H Potassium 4.2 Chloride 108 H Carbon Dioxide 32 Anion Gap 6 L BUN 21 H Creatinine 1.0 Creat Clearance w eGFR 55.30 Random Glucose 87 Calcium 8.5 Phosphorus 3.8 Magnesium 2.0 Total Bilirubin 0.1 L AST 20 ALT 30 Alkaline Phosphatase 64 D Troponin I Total Protein 7.3 Albumin 3.5 Urine Color Urine Appearance Urine pH Ur Specific [place] Urine Protein Urine Glucose (UA) Urine Ketones Urine Blood Urine Nitrite Urine Bilirubin Urine Urobilinogen Ur Leukocyte Esterase Urine WBC (Auto) Urine RBC (Auto) Ur Epithelial Cells Urine Bacteria Hyaline Casts Urine Mucus Phenytoin Valproic Acid 02/06/18 02/06/18 02/06/18 23:08 23:08 23:08 WBC RBC Hgb Hct MCV MCH MCHC RDW Plt Count MPV Absolute Neuts (auto) Neutrophils % Lymphocytes % Monocytes % Eosinophils % Basophils % Nucleated RBC % PT with INR 12.00 INR 1.06 Sodium Potassium Chloride Carbon Dioxide Anion Gap BUN Creatinine Creat Clearance w eGFR Random Glucose Calcium Phosphorus Magnesium Total Bilirubin AST ALT Alkaline Phosphatase Troponin I 0.02 Total Protein Albumin Urine Color Urine Appearance Urine pH Ur Specific [place] Urine Protein Urine Glucose (UA) Urine Ketones Urine Blood Urine Nitrite Urine Bilirubin Urine Urobilinogen Ur Leukocyte Esterase Urine WBC (Auto) Urine RBC (Auto) Ur Epithelial Cells Urine Bacteria Hyaline Casts Urine Mucus Phenytoin 16.6 D Valproic Acid 78.7 02/06/18 23:29 WBC RBC Hgb Hct MCV MCH MCHC RDW Plt Count MPV Absolute Neuts (auto) Neutrophils % Lymphocytes % Monocytes % Eosinophils % Basophils % Nucleated RBC % PT with INR INR Sodium Potassium Chloride Carbon Dioxide Anion Gap BUN Creatinine Creat Clearance w eGFR Random Glucose Calcium Phosphorus Magnesium Total Bilirubin AST ALT Alkaline Phosphatase Troponin I Total Protein Albumin Urine Color Dkyellow Urine Appearance Cloudy Urine pH 5.0 Ur Specific [place] 1.026 Urine Protein 2+ H Urine Glucose (UA) Negative Urine Ketones Trace H Urine Blood 1+ H Urine Nitrite Positive Urine Bilirubin Negative Urine Urobilinogen Negative Ur Leukocyte Esterase 3+ H Urine WBC (Auto) 540 Urine RBC (Auto) 6 Ur Epithelial Cells Rare Urine Bacteria Rare Hyaline Casts 2 Urine Mucus Rare Phenytoin Valproic Acid ASSESSMENT/PLAN: 67 y/o F with PMHx of Parkinsons Disease, Grand Mal Seizures, HTN, HLD, NIDDM, COPD, SUSANA on Home CPAP, Hypothyroidism, DVT & PE, Hepatitis C and Anxiety presents s/p unwitnessed mechanical Fall today and was found to have UTI will be observed on Tele. 1. UTI - Complains of Dysuria x 2 weeks - UA: Positive Nitrites, 3+ Leukocyte Esterase, 540 WBCs - Given one dose Cipro 400mg IV - Will Start Levaquin 750mg PO Daily x 3 days 2. S/p Unwitnessed Mechanical fall - Likely due to decreased mobility, Instability, dehydration; Less likely syncope - CT Head, R Forearm and R Wrist plain films pending official read - Fall Precautions, BRP and Shower with Assist - PT Requested - Echo ordered for today - Can restart her home meds once reconciled 3. FEN - PO Fluids - Continue to monitor, replete as needed - Diabetic, Low sodium, low cholesterol diet 4. PPx - DVT: Heparin TID Dispo: Tele Obs Visit type - Emergency Visit Emergency Visit: Yes ED Registration Date: 02/07/18 Care time: The patient presented to the Emergency Department on the above date and was hospitalized for further evaluation of their emergent condition. - New Patient This patient is new to me today: Yes Date on this admission: 02/07/18 - Critical Care Critical Care patient: No Hospitalist Screening - Colonoscopy Questionnaire Colonoscopy Questionnaire: Colonoscopy Questionnaire - Patient: 50 - 75 years old and never had a screening colonoscopy: Unknown History of colon or rectal polyps, or CA: Unknown History of IBD, Crohn's disease or UC: Unknown History of abdominal radiation therapy as a child: Unknown - Relative: 1 with colon or rectal CA, or polyps at age 60 or younger: Unknown Colon or rectal CA diagnosed at age 45 or younger: Unknown Multiple relatives with colon or rectal CA: Unknown - Outcome: Screening Result: Negative Screen
--- NOTE | 2018-02-07 03:17 | PN ---
Teaching Attending Note Name of Resident: Anel Lee ATTENDING PHYSICIAN STATEMENT I saw and evaluated the patient. Chart, data, imaging reviewed. I reviewed the resident's note and discussed the case with the resident. I agree with the resident's findings and plan as documented. SUBJECTIVE: 67 y/o F with PMHx of Parkinsons Dz, seizure d/o, HTN, HLD, NIDDM, COPD, SUSANA, Hypothyroidism, DVT & PE, Hep C and anxiety was brought to hospital after unwitnessed mechanical fall on 02/06 when she was walking with her walker. Patient recalls falling on right arm and possibly hitting her head. She lost consciousness for uncertain period of time. No tongue biting, convulsions, loss of bladder, or bowel control was reported. Pt currently with no complaints. OBJECTIVE: Last Vital Signs Temp Pulse Resp BP Pulse Ox 98.5 F 89 19 165/85 100 02/07/18 02:50 02/07/18 02:50 02/07/18 02:50 02/07/18 02:50 02/06/18 21:05 general - nad, aaox3 heent -no signs of trauma, EOMI neck - no posterior tenderness cv -s1+s2+ rrr chest -cta b/l abdomen -soft, nt, bs+ ext -no major areas of tenderness Abnormal Lab Results 02/06/18 02/06/18 02/06/18 23:08 23:08 23:29 Lymphocytes % 40.5 H Sodium 146 H Chloride 108 H Anion Gap 6 L BUN 21 H Total Bilirubin 0.1 L Urine Protein 2+ H Urine Ketones Trace H Urine Blood 1+ H Ur Leukocyte Esterase 3+ H Head CT reviewed, no acute fractures or bleeds right forearm xray reviewed, pending official read ekg -nsr ASSESSMENT AND PLAN: 67yo woman w/ multiple comorbidities including Parkinson dz and seizure d/o s/p mechanical fall with syncope likely from trauma to head. History is not suggestive of breakthrough seizure. Physical exam is benign. Head CT neg. -tele-observation -bed rest -fall precautions -orthostatics -f/u official read of right wrist/ forearm xray - physical therapy -transthoracic echo -Vitamin D level -restart home medications -heparin sc for dvt ppx -see resident note for details
[2018-02-07 05:28] VITALS: BMI 42.6
[2018-02-07] MEDS ORDERED: LEVOTHYROXINE NA 100 MCG TABLET (FP) ONE (06:03)
[2018-02-07] MEDS ORDERED: LEVOTHYROXINE NA 75 MCG TABLET (FP) ONE (06:03)
[2018-02-07] MEDS: LEVOTHYROXINE 100 MCG, LEVOTHYROXINE 75 MCG PO SCH (06:06)
[2018-02-07] MEDS: GABAPENTIN 300 MG CAPSULE (FP) PO SCH ×3 (06:06→21:09)
[2018-02-07] MEDS ORDERED: INSULIN SLIDING SCALE (NOVOLOG) 1 VIAL SQ SCH (07:00)
[2018-02-07] MEDS ORDERED: PT OWN MED DRAWER 7, Y5N ONE (09:29)
[2018-02-07 09:57] LABS: BASO % 0.4 % (0-2.0); EOS % 5.9 % (0-4.5); HEMATOCRIT 34.1 % (32.4-45.2); LYMPH % 45.9 % (8-40); MCH 29.3 pg (25.7-33.7); MCHC 32.2 g/dl (32.0-36.0); MEAN CELL VOLUME 90.7 fl (80-96); MONO % 7.6 % (3.8-10.2); NEUT % 40.2 % (42.8-82.8); PLATELET COUNT 170 K/MM3 (134-434); RBC 3.76 M/mm3 (3.60-5.2); RDW 14.1 % (11.6-15.6); WHITE BLOOD COUNT 5.1 K/mm3 (4.0-10.0)
[2018-02-07] MEDS ORDERED: PHENYTOIN NA EXTENDED 100 MG CAPSULE (FP) PO SCH ×2 (10:00→22:00)
[2018-02-07] MEDS ORDERED: ENOXAPARIN NA (PORCINE) 40 MG/0.4 ML DISP.SYRIN SQ SCH (10:00)
[2018-02-07] MEDS ORDERED: DIVALPROEX NA *ER* EXTEND REL 500 MG TABLET.SA (FP) PO SCH ×2 (10:00→22:00)
[2018-02-07] MEDS ORDERED: VENLAFAXINE HCL 150 MG E.R. CAPSULE PO SCH ×2 (10:00)
[2018-02-07] MEDS ORDERED: LEVOTHYROXINE NA 125 MCG TABLET (FP) PO SCH (10:00)
[2018-02-07] MEDS ORDERED: OLANZapine 2.5 MG TABLET PO SCH (10:00)
[2018-02-07] MEDS: CELECOXIB 200 MG CAPSULE PO SCH (10:11)
[2018-02-07] MEDS: METOPROLOL TARTRATE 50 MG TABLET (FP) PO SCH (10:11)
[2018-02-07 11:06] LABS: ALBUMIN 3.1 g/dl (3.4-5.0); ANION GAP 9 MMOL/L (8-16); BILIRUBIN,TOTAL 0.3 mg/dL (0.2-1.0); BLOOD UREA NITROGEN 20 mg/dL (7-18); CALCIUM 8.3 mg/dL (8.5-10.1); CHLORIDE 109 mmol/L (98-107); CO2 28 mmol/L (21-32); CREATININE 0.9 mg/dL (0.55-1.02); GLUCOSE,RANDOM 122 mg/dL (74-106); MAGNESIUM 2.1 mg/dL (1.8-2.4); PHOSPHOROUS 4.2 mg/dL (2.5-4.9); POTASSIUM 3.8 mmol/L (3.5-5.1); SGOT/AST 19 U/L (15-37); SGPT/ALT 27 U/L (12-78); SODIUM 146 mmol/L (136-145); TOT PROT 6.5 g/dl (6.4-8.2)
[2018-02-07 11:07] LABS: ALK PHOS 57 U/L (45-117)
--- NOTE | 2018-02-07 11:25 | ECHO ---
Name: TINO SEVERINO Exam:Adult Echocardiogram Study Date: 02/07/2018 07:45 AM Age: 67 yrs Reason For Study: R/O SYNCOPE Height: 59 in Weight: 150 lb BSA: 1.6 m2 MMode/2D Measurements & Calculations IVSd: 1.5 cm Ao root diam: 2.7 cm LVIDd: 3.7 cm LA dimension: 2.5 cm LVIDs: 2.3 cm LVPWd: 1.2 cm EDV(Teich): 58.4 ml ESV(Teich): 17.9 ml Doppler Measurements & Calculations MV E max joshua: 64.0 cm/sec TR max joshua: 223.3 cm/sec MV A max joshua: 107.2 cm/sec TR max P.9 mmHg MV E/A: 0.60 MV dec time: 0.20 sec Med Peak E' Joshua: 7.5 cm/sec Med E/e': 8.5 Lat Peak E' Joshua: 7.3 cm/sec Lat E/e': 8.8 Procedure A complete two-dimensional transthoracic echocardiogram was performed (2D, M-mode, Doppler and color flow Doppler). Left Ventricle There is mild concentric left ventricular hypertrophy. The left ventricular ejection fraction is norm al. Ejection Fraction = 60-65%. The left ventricular wall motion is normal. Right Ventricle The right ventricle is normal in size and function. Atria Normal left and right atrial size and function. Mitral Valve There is no mitral regurgitation noted. Tricuspid Valve There is trace tricuspid regurgitation. There was insufficient TR detected to calculate RV systolic p ressure. Aortic Valve No hemodynamically significant valvular aortic stenosis. No aortic regurgitation is present. Pulmonic Valve There is no pulmonic valvular regurgitation. Great Vessels The aortic root is normal size. Pericardium/Pleura There is no pericardial effusion. Interpretation Summary There is mild concentric left ventricular hypertrophy. The left ventricular ejection fraction is normal. The right ventricle is normal in size and function. There is trace tricuspid regurgitation. MD Emmett Mcmahon 02/07/2018 11:24 AM
[2018-02-07] MEDS: INSULIN SLIDING SCALE (NOVOLOG) 1 VIAL SQ SCH ×3 (13:07→21:17)
--- NOTE | 2018-02-07 13:44 | EKG ---
Test Reason : Blood Pressure : / mmHG Vent. Rate : 084 BPM Atrial Rate : 084 BPM P-R Int : 178 ms QRS Dur : 080 ms QT Int : 382 ms P-R-T Axes : 074 -07 026 degrees QTc Int : 451 ms NORMAL SINUS RHYTHM POSSIBLE LEFT ATRIAL ENLARGEMENT BORDERLINE ECG WHEN COMPARED WITH ECG OF 17-JAN-2018 12:53, NO SIGNIFICANT CHANGE WAS FOUND Confirmed by STEPHANIE GONCALVES MD ([id number]) on 02/07/2018 1:44:19 PM Referred By: Confirmed By:STEPHANIE GONCALVES MD
[2018-02-07] MEDS: HEPARIN NA (PORCINE) 5,000 UNITS/ML 1ML VIAL SQ SCH ×3 (14:22→21:10)
--- NOTE | 2018-02-07 17:16 | PN ---
Teaching Attending Note Name of Resident: iKa Clement ATTENDING PHYSICIAN STATEMENT I saw and evaluated the patient. I reviewed the resident's note and discussed the case with the resident. I agree with the resident's findings and plan as documented. SUBJECTIVE:asymptomatic. denies Cp, SOb, fever, chills, N/V/C/D OBJECTIVE: Last Vital Signs Temp Pulse Resp BP Pulse Ox 98.1 F 78 20 140/79 98 02/07/18 15:15 02/07/18 15:15 02/07/18 15:15 02/07/18 15:15 02/07/18 11:06 General NAD CV S1 S2 + abdomen soft NT/ND obese ASSESSMENT AND PLAN: 67yo F wtih PMH parkinson, seizure, HTN, dyslipidemia, DM, COPD, SUSANA and hypothyroid presented to the ER after mechanical fall. was found to be dehydrated with a UTI on presentation 1. mechanical fall- unwitnessed. denies LOC. Head CT and XR negative for acute pathology. PT assessment 2. UTI- +symptomatic. start levaquin 500mg. (PCN allergy noted). f/u cx 3. Dehydration- now resolved. tolerating diet. d/c IVF 4. spoke with SW about [facility]. spoke with and patient at bedside. agreeable to [facility]
--- NOTE | 2018-02-07 17:17 | PN ---
Physical Exam: SUBJECTIVE: Patient seen and examined at bedside this morning. Patient has no new complaints. No acute events overnight. OBJECTIVE: Vital Signs Period Temp Pulse Resp BP Sys/Thornton Pulse Ox Last 24 Hr 98 F-98.5 F 78-94 19-20 136-165/70-88 98-100 GENERAL: The patient is awake, alert, and fully oriented, in no acute distress. HEAD: Normal with no signs of trauma. EYES: PERRLA, EOMI, sclera anicteric, conjunctiva clear. ENT: Ears normal, nares patent, oropharynx clear without exudates, moist mucous membranes. NECK: Trachea midline, full range of motion, supple. LUNGS: Breath sounds equal, clear to auscultation bilaterally. HEART: Regular rate and rhythm, S1, S2 without murmur, rub or gallop. ABDOMEN: Soft, nontender, nondistended, normoactive bowel sounds. EXTREMITIES: 2+ pulses, warm, well-perfused, no edema. NEUROLOGICAL: Cranial nerves II through XII grossly intact. Normal speech, gait not observed. PSYCH: Normal mood, normal affect. SKIN: Warm, dry, normal turgor, no rashes or lesions noted Laboratory Results - last 24 hr 02/06/18 02/06/18 02/06/18 23:08 23:08 23:08 WBC 4.9 RBC 3.94 Hgb 11.7 Hct 35.6 MCV 90.5 MCH 29.7 MCHC 32.8 RDW 14.1 Plt Count 187 MPV 7.8 D Absolute Neuts (auto) 2.3 Neutrophils % 47.6 Lymphocytes % 40.5 H Monocytes % 7.3 Eosinophils % 4.5 Basophils % 0.1 Nucleated RBC % 0 PT with INR INR Sodium 146 H Potassium 4.2 Chloride 108 H Carbon Dioxide 32 Anion Gap 6 L BUN 21 H Creatinine 1.0 Creat Clearance w eGFR 55.30 POC Glucometer Random Glucose 87 Calcium 8.5 Phosphorus 3.8 Magnesium 2.0 Total Bilirubin 0.1 L AST 20 ALT 30 Alkaline Phosphatase 64 D Troponin I Total Protein 7.3 Albumin 3.5 Urine Color Urine Appearance Urine pH Ur Specific [place] Urine Protein Urine Glucose (UA) Urine Ketones Urine Blood Urine Nitrite Urine Bilirubin Urine Urobilinogen Ur Leukocyte Esterase Urine WBC (Auto) Urine RBC (Auto) Ur Epithelial Cells Urine Bacteria Hyaline Casts Urine Mucus Phenytoin Valproic Acid 02/06/18 02/06/18 02/06/18 23:08 23:08 23:08 WBC RBC Hgb Hct MCV MCH MCHC RDW Plt Count MPV Absolute Neuts (auto) Neutrophils % Lymphocytes % Monocytes % Eosinophils % Basophils % Nucleated RBC % PT with INR 12.00 INR 1.06 Sodium Potassium Chloride Carbon Dioxide Anion Gap BUN Creatinine Creat Clearance w eGFR POC Glucometer Random Glucose Calcium Phosphorus Magnesium Total Bilirubin AST ALT Alkaline Phosphatase Troponin I 0.02 Total Protein Albumin Urine Color Urine Appearance Urine pH Ur Specific [place] Urine Protein Urine Glucose (UA) Urine Ketones Urine Blood Urine Nitrite Urine Bilirubin Urine Urobilinogen Ur Leukocyte Esterase Urine WBC (Auto) Urine RBC (Auto) Ur Epithelial Cells Urine Bacteria Hyaline Casts Urine Mucus Phenytoin 16.6 D Valproic Acid 78.7 02/06/18 02/07/18 02/07/18 23:29 06:04 09:30 WBC 5.1 RBC 3.76 Hgb 11.0 Hct 34.1 MCV 90.7 MCH 29.3 MCHC 32.2 RDW 14.1 Plt Count 170 MPV 8.0 Absolute Neuts (auto) 2.1 Neutrophils % 40.2 L Lymphocytes % 45.9 H Monocytes % 7.6 Eosinophils % 5.9 H Basophils % 0.4 D Nucleated RBC % 0 PT with INR INR Sodium Potassium Chloride Carbon Dioxide Anion Gap BUN Creatinine Creat Clearance w eGFR POC Glucometer 96 Random Glucose Calcium Phosphorus Magnesium Total Bilirubin AST ALT Alkaline Phosphatase Troponin I Total Protein Albumin Urine Color Dkyellow Urine Appearance Cloudy Urine pH 5.0 Ur Specific [place] 1.026 Urine Protein 2+ H Urine Glucose (UA) Negative Urine Ketones Trace H Urine Blood 1+ H Urine Nitrite Positive Urine Bilirubin Negative Urine Urobilinogen Negative Ur Leukocyte Esterase 3+ H Urine WBC (Auto) 540 Urine RBC (Auto) 6 Ur Epithelial Cells Rare Urine Bacteria Rare Hyaline Casts 2 Urine Mucus Rare Phenytoin Valproic Acid 02/07/18 02/07/18 09:30 12:15 WBC RBC Hgb Hct MCV MCH MCHC RDW Plt Count MPV Absolute Neuts (auto) Neutrophils % Lymphocytes % Monocytes % Eosinophils % Basophils % Nucleated RBC % PT with INR INR Sodium 146 H Potassium 3.8 Chloride 109 H Carbon Dioxide 28 Anion Gap 9 BUN 20 H Creatinine 0.9 Creat Clearance w eGFR > 60 POC Glucometer 86 Random Glucose 122 H Calcium 8.3 L Phosphorus 4.2 Magnesium 2.1 Total Bilirubin 0.3 AST 19 ALT 27 Alkaline Phosphatase 57 Troponin I Total Protein 6.5 Albumin 3.1 L Urine Color Urine Appearance Urine pH Ur Specific [place] Urine Protein Urine Glucose (UA) Urine Ketones Urine Blood Urine Nitrite Urine Bilirubin Urine Urobilinogen Ur Leukocyte Esterase Urine WBC (Auto) Urine RBC (Auto) Ur Epithelial Cells Urine Bacteria Hyaline Casts Urine Mucus Phenytoin Valproic Acid Active Medications Generic Name Dose Route Start Last Admin Trade Name Jim PRN Reason Stop Dose Admin Celecoxib 200 mg 02/07/18 10:00 02/07/18 10:11 Celebrex - PO 200 mg DAILY ZENY Administration Gabapentin 300 mg 02/07/18 06:00 02/07/18 14:38 Neurontin - PO 300 mg TID ZENY Administration Heparin Sodium (Porcine) 5,000 unit 02/07/18 06:45 02/07/18 14:38 Heparin - SQ 5,000 unit TID ZENY Administration Insulin Aspart 1 vial 02/07/18 11:00 02/07/18 13:07 Novolog Vial Sliding Scale - SQ Not Given ACHS [facility] Protocol Levofloxacin 500 mg 02/07/18 10:00 02/07/18 10:11 Levaquin - PO 500 mg DAILY@0600 [facility] Administration Levothyroxine Sodium 100 mcg/ 175 mcg 02/07/18 07:00 02/07/18 06:06 Levothyroxine Sodium 75 mcg PO 175 mcg DAILY@0700 [facility] Administration Metoprolol Tartrate 100 mg 02/07/18 10:00 02/07/18 10:11 Lopressor - PO 100 mg DAILY ZENY Administration Imaging CXR - No acute pathology. No significant change. Xray of right forearm - No acute bony abnormalities seen. Head CT -No evidence of acute intracranial hemorrhage, edema, midline shift, mass effect, or skull fracture Echo -There is mild concentric left ventricular hypertrophy. LVEF is normal. The right ventricle is normal in size and function. There is trace tricuspid regurgitation. ASSESSMENT/PLAN: 67 y/o F with PMHx of Parkinsons Disease, Grand Mal Seizures, HTN, HLD, NIDDM, COPD, SUSANA on Home CPAP, Hypothyroidism, DVT & PE, Hepatitis C and Anxiety presents s/p unwitnessed mechanical Fall. #UTI - Complains of Dysuria x 2 weeks - UA: Positive Nitrites, 3+ Leukocyte Esterase, 540 WBCs - urine culture pending - Given one dose Cipro 400mg IV at the ED - Levaquin 500mg daily on day 1 #S/p Unwitnessed Mechanical fall - Likely due to decreased mobility, Instability, dehydration - CT Head revealed no evidence of acute intracranial hemorrhage, edema, midline shift, mass effect, or skull fracture. - R Forearm and R Wrist plain films revealed no acute bony abnormalities - Fall Precautions, BRP and Shower with Assist - Echo revealed trace tricuspid regurgitation - Restarted home medications - PT evaluation and assessment. #FEN - Not on any standing fluids - Encourage increased oral fluid intake - Continue to monitor, replete as needed - Diabetic, Low sodium, low cholesterol diet #PPx - DVT: Heparin TID #Dispo: - admit to med-surg - pt and agreeable for discharge to [facility]. Visit type - Emergency Visit Emergency Visit: Yes ED Registration Date: 02/07/18 Care time: The patient presented to the Emergency Department on the above date and was hospitalized for further evaluation of their emergent condition. - New Patient This patient is new to me today: Yes Date on this admission: 02/07/18 - Critical Care Critical Care patient: No
[2018-02-07] MEDS ORDERED: OLANZapine 7.5 MG TABLET PO SCH (22:00)
[2018-02-08] MEDS ORDERED: METOPROLOL TARTRATE 5 MG/5 ML VIAL IVPUSH ONE (02:00)
[2018-02-08] MEDS ORDERED: LISINOPRIL 10 MG TABLET (FP) PO ONE (03:07)
[2018-02-08 06:17] LABS: BASO % 0.3 % (0-2.0); EOS % 5.6 % (0-4.5); HEMATOCRIT 32.5 % (32.4-45.2); HEMOGLOBIN 10.7 GM/dL (10.7-15.3); LYMPH % 56.3 % (8-40); MCH 29.7 pg (25.7-33.7); MCHC 32.9 g/dl (32.0-36.0); MEAN CELL VOLUME 90.4 fl (80-96); MEAN PLT VOLUME 8.1 fl (7.5-11.1); MONO % 7.8 % (3.8-10.2); PLATELET COUNT 173 K/MM3 (134-434); RDW 13.6 % (11.6-15.6); WHITE BLOOD COUNT 5.6 K/mm3 (4.0-10.0)
[2018-02-08] MEDS ORDERED: LEVOTHYROXINE NA 75 MCG TABLET (FP) ONE (06:30)
[2018-02-08] MEDS ORDERED: LEVOTHYROXINE NA 100 MCG TABLET (FP) ONE (06:30)
[2018-02-08] MEDS: GABAPENTIN 300 MG CAPSULE (FP) PO SCH ×3 (06:40→21:24)
[2018-02-08] MEDS: LEVOTHYROXINE 100 MCG, LEVOTHYROXINE 75 MCG PO SCH (06:40)
[2018-02-08] MEDS: HEPARIN NA (PORCINE) 5,000 UNITS/ML 1ML VIAL SQ SCH ×3 (06:41→21:28)
[2018-02-08] MEDS: INSULIN SLIDING SCALE (NOVOLOG) 1 VIAL SQ SCH (06:41)
[2018-02-08 06:47] LABS: ALBUMIN 2.9 g/dl (3.4-5.0); ANION GAP 6 MMOL/L (8-16); BLOOD UREA NITROGEN 22 mg/dL (7-18); CHLORIDE 107 mmol/L (98-107); CO2 29 mmol/L (21-32); CREATININE 0.9 mg/dL (0.55-1.02); GLUCOSE,RANDOM 81 mg/dL (74-106); SGOT/AST 21 U/L (15-37); SGPT/ALT 26 U/L (12-78); SODIUM 142 mmol/L (136-145)
[2018-02-08 06:49] LABS: ALK PHOS 54 U/L (45-117); BILIRUBIN,TOTAL 0.1 mg/dL (0.2-1.0); TOT PROT 6.3 g/dl (6.4-8.2)
[2018-02-08] MEDS ORDERED: amLODIPine BESYLATE 2.5 MG TABLET (FP) PO SCH (10:00)
[2018-02-08] MEDS: CELECOXIB 200 MG CAPSULE PO SCH (10:29)
[2018-02-08] MEDS: METOPROLOL TARTRATE 50 MG TABLET (FP) PO SCH ×2 (10:29→21:24)
[2018-02-08] MEDS ORDERED: DIVALPROEX NA *ER* EXTEND REL 500 MG TABLET.SA (FP) PO ONE (10:53)
--- NOTE | 2018-02-08 11:03 | PN ---
Teaching Attending Note Name of Resident: Kia Clement ATTENDING PHYSICIAN STATEMENT I saw and evaluated the patient. I reviewed the resident's note and discussed the case with the resident. I agree with the resident's findings and plan as documented. SUBJECTIVE:asymptomatic. denies Cp, SOB, fever, chills, N/v/C/D OBJECTIVE: Last Vital Signs Temp Pulse Resp BP Pulse Ox 98 F 78 18 141/72 98 02/08/18 08:56 02/08/18 08:56 02/08/18 08:56 02/08/18 08:56 02/07/18 21:00 General NAD CV S1 S2 + abdomen soft NT/ND obese ASSESSMENT AND PLAN: 67yo F wtih PMH parkinson, seizure, HTN, dyslipidemia, DM, COPD, SUSANA and hypothyroid presented to the ER after mechanical fall. was found to be dehydrated with a UTI on presentation 1. mechanical fall- unwitnessed. denies LOC. Head CT and XR negative for acute pathology. only ambulated 25Ft with PT. agreeable to [facility] 2. UTI- +symptomatic. cont levaquin day 2. (PCN allergy noted). f/u cx 3. Dehydration- now resolved. tolerating diet. 4. DM- controlled. can resume metformin on discharge. cont iss and bgm 5. HTN- above goal. will start norvasc. titrate to optimize control. 6. Seizure- no seizure like activity. cont home medications 7. Parkinsons 8. DVT ppx- hep sq 9. Awaiting insurance auth for [facility] placement
[2018-02-08] MEDS ORDERED: amLODIPine BESYLATE 10 MG TABLET (FP) PO ONE (11:38)
[2018-02-08] MEDS ORDERED: AMLODIPINE BESYLATE 5 MG, AMLODIPINE BESYLATE 2.5 MG PO ONE (12:00)
[2018-02-08] MEDS ORDERED: amLODIPine BESYLATE 5 MG TABLET (FP) ONE (12:48)
[2018-02-08] MEDS ORDERED: amLODIPine BESYLATE 2.5 MG TABLET (FP) ONE (12:48)
[2018-02-08] MEDS: VENLAFAXINE HCL 75 MG E.R. CAPSULES (FP) PO SCH (13:54)
--- NOTE | 2018-02-08 16:32 | PN ---
Physical Exam: SUBJECTIVE: Patient seen and examined at bedside this morning. No acute events overnight. Patient has no new complaints. OBJECTIVE: Vital Signs Period Temp Pulse Resp BP Sys/Thornton Pulse Ox Last 24 Hr 97.8 F-98.7 F 70-78 18-20 129-183/64-87 98 GENERAL: The patient is awake, alert, and fully oriented, in no acute distress. HEAD: Normal with no signs of trauma. EYES: PERRLA, extraocular movements intact, sclera anicteric, conjunctiva clear. NECK: Trachea midline, full range of motion, supple. LUNGS: Breath sounds equal, clear to auscultation bilaterally. HEART: Regular rate and rhythm, S1, S2 without murmur, rub or gallop. ABDOMEN: Soft, nontender, nondistended, normoactive bowel sounds. EXTREMITIES: 2+ pulses, warm, well-perfused, no edema. NEUROLOGICAL: Cranial nerves II through XII grossly intact. PSYCH: Normal mood, normal affect. SKIN: Warm, dry, normal turgor, no rashes or lesions noted Laboratory Results - last 24 hr 02/07/18 02/07/18 02/08/18 16:42 20:48 05:30 WBC 5.6 RBC 3.60 Hgb 10.7 Hct 32.5 MCV 90.4 MCH 29.7 MCHC 32.9 RDW 13.6 Plt Count 173 MPV 8.1 Absolute Neuts (auto) 1.7 Neutrophils % 30.0 L D Lymphocytes % 56.3 H D Monocytes % 7.8 Eosinophils % 5.6 H Basophils % 0.3 Nucleated RBC % 0 Sodium Potassium Chloride Carbon Dioxide Anion Gap BUN Creatinine Creat Clearance w eGFR POC Glucometer 107 148 Random Glucose Calcium Total Bilirubin AST ALT Alkaline Phosphatase Total Protein Albumin 02/08/18 02/08/18 05:30 06:39 WBC RBC Hgb Hct MCV MCH MCHC RDW Plt Count MPV Absolute Neuts (auto) Neutrophils % Lymphocytes % Monocytes % Eosinophils % Basophils % Nucleated RBC % Sodium 142 Potassium 4.0 Chloride 107 Carbon Dioxide 29 Anion Gap 6 L BUN 22 H Creatinine 0.9 Creat Clearance w eGFR > 60 POC Glucometer 81 Random Glucose 81 Calcium 8.0 L Total Bilirubin 0.1 L AST 21 ALT 26 Alkaline Phosphatase 54 Total Protein 6.3 L Albumin 2.9 L Active Medications Generic Name Dose Route Start Last Admin Trade Name Freq PRN Reason Stop Dose Admin Amlodipine Besylate 10 mg 02/09/18 10:00 Norvasc - PO DAILY ZENY Celecoxib 200 mg 02/07/18 10:00 02/08/18 10:29 Celebrex - PO 200 mg DAILY ZENY Administration Divalproex Sodium 1,000 mg/ 1,250 mg 02/08/18 22:00 Divalproex Sodium 250 mg PO HS ZENY Gabapentin 300 mg 02/07/18 06:00 02/08/18 13:55 Neurontin - PO 300 mg TID ZENY Administration Heparin Sodium (Porcine) 5,000 unit 02/07/18 06:45 02/08/18 13:54 Heparin - SQ 5,000 unit TID ZENY Administration Levofloxacin 500 mg 02/07/18 10:00 02/08/18 06:41 Levaquin - PO 500 mg DAILY@0600 ZENY Administration Levothyroxine Sodium 100 mcg/ 175 mcg 02/07/18 07:00 02/08/18 06:40 Levothyroxine Sodium 75 mcg PO 175 mcg DAILY@0700 [facility] Administration Metoprolol Tartrate 100 mg 02/08/18 22:00 Lopressor - PO BID ZENY Olanzapine 5 mg 02/08/18 22:00 Zyprexa - PO HS ZENY Phenytoin Sodium 400 mg 02/08/18 22:00 Dilantin - PO HS ZENY Venlafaxine HCl 75 mg 02/08/18 11:00 02/08/18 13:54 Effexor Xr - PO 75 mg DAILY ZENY Administration ASSESSMENT/PLAN: Imaging CXR - No acute pathology. No significant change. Xray of right forearm - No acute bony abnormalities seen. Head CT -No evidence of acute intracranial hemorrhage, edema, midline shift, mass effect, or skull fracture Echo -There is mild concentric left ventricular hypertrophy. LVEF is normal. The right ventricle is normal in size and function. There is trace tricuspid regurgitation. ASSESSMENT/PLAN: 67 y/o F with PMHx of Parkinsons Disease, Grand Mal Seizures, HTN, HLD, NIDDM, COPD, SUSANA on Home CPAP, Hypothyroidism, DVT & PE, Hepatitis C and Anxiety presents s/p unwitnessed mechanical Fall. #UTI - UA: Positie Nitrites, 3+ Leukocyte Esterase, 540 WBCs - urine culture - Lactose fermenting gram negative bacilli - Given one dose Cipro 400mg IV at the ED - Levaquin 500mg daily on day 2 #S/p Unwitnessed Mechanical fall - Likely due to decreased mobility, Instability, dehydration - CT Head revealed no evidence of acute intracranial hemorrhage, edema, midline shift, mass effect, or skull fracture. - R Forearm and R Wrist plain films revealed no acute bony abnormalities - Fall Precautions, BRP and Shower with Assist - Echo revealed trace tricuspid regurgitation - Restarted home medications - PT evaluation and assessment. #FEN - Not on any standing fluids - Encourage increased oral fluid intake - Continue to monitor, replete as needed - Diabetic, Low sodium, low cholesterol diet #PPx - DVT: Heparin TID #Dispo: - admit to med-surg - pending SNF placement Visit type - Emergency Visit Emergency Visit: Yes ED Registration Date: 02/07/18 Care time: The patient presented to the Emergency Department on the above date and was hospitalized for further evaluation of their emergent condition. - New Patient This patient is new to me today: Yes Date on this admission: 02/08/18 - Critical Care Critical Care patient: No - Discharge Referral Referred to [facility] Med P.C.: No
[2018-02-08] MEDS: OLANZapine 5 MG TABLET PO SCH (21:25)
[2018-02-08] MEDS: DIVALPROEX PO SCH (21:25)
[2018-02-08] MEDS: PHENYTOIN NA EXTENDED 100 MG CAPSULE (FP) PO SCH (21:27)
[2018-02-09] MEDS: HEPARIN NA (PORCINE) 5,000 UNITS/ML 1ML VIAL SQ SCH ×3 (05:38→22:07)
[2018-02-09] MEDS: GABAPENTIN 300 MG CAPSULE (FP) PO SCH ×3 (05:39→22:07)
[2018-02-09] MEDS ORDERED: LEVOTHYROXINE NA 75 MCG TABLET (FP) ONE (07:42)
[2018-02-09] MEDS ORDERED: LEVOTHYROXINE NA 100 MCG TABLET (FP) ONE (07:42)
[2018-02-09] MEDS: LEVOTHYROXINE 100 MCG, LEVOTHYROXINE 75 MCG PO SCH (07:48)
[2018-02-09] MEDS ORDERED: PT OWN MED DRAWER 7, Y5N ONE ×2 (09:22→21:19)
[2018-02-09] MEDS: CELECOXIB 200 MG CAPSULE PO SCH (09:58)
[2018-02-09] MEDS: amLODIPine BESYLATE 10 MG TABLET (FP) PO SCH (09:58)
[2018-02-09] MEDS: METOPROLOL TARTRATE 50 MG TABLET (FP) PO SCH ×2 (09:58→22:07)
--- NOTE | 2018-02-09 11:37 | PN ---
Progress Note (short form) - Note Progress Note: asymptomatic. denies Cp, SOB, fever, chills, N/V/C/D Current Medications Generic Name Dose Route Start Last Admin Trade Name Jim PRN Reason Stop Dose Admin Amlodipine Besylate 10 mg 02/09/18 10:00 02/09/18 09:58 Norvasc - PO 10 mg DAILY ZENY Administration Celecoxib 200 mg 02/07/18 10:00 02/09/18 09:58 Celebrex - PO 200 mg DAILY ZENY Administration Divalproex Sodium 1,000 mg/ 1,250 mg 02/08/18 22:00 02/08/18 21:25 Divalproex Sodium 250 mg PO 1,250 mg HS ZENY Administration Gabapentin 300 mg 02/07/18 06:00 02/09/18 05:39 Neurontin - PO 300 mg TID ZENY Administration Heparin Sodium (Porcine) 5,000 unit 02/07/18 06:45 02/09/18 05:38 Heparin - SQ 5,000 unit TID ZENY Administration Levofloxacin 500 mg 02/07/18 10:00 02/09/18 05:39 Levaquin - PO 500 mg DAILY@0600 ZENY Administration Levothyroxine Sodium 100 mcg/ 175 mcg 02/07/18 07:00 02/09/18 07:48 Levothyroxine Sodium 75 mcg PO 175 mcg DAILY@0700 ZENY Administration Metoprolol Tartrate 100 mg 02/08/18 22:00 02/09/18 09:58 Lopressor - PO 100 mg BID ZENY Administration Olanzapine 5 mg 02/08/18 22:00 02/08/18 21:25 Zyprexa - PO 5 mg HS ZENY Administration Phenytoin Sodium 400 mg 02/08/18 22:00 02/08/18 21:27 Dilantin - PO 400 mg HS ZENY Administration Venlafaxine HCl 75 mg 02/08/18 11:00 02/08/18 13:54 Effexor Xr - PO 75 mg DAILY ZENY Administration Last Vital Signs Temp Pulse Resp BP Pulse Ox 97.5 F L 63 18 144/79 99 02/09/18 10:00 02/09/18 10:00 02/09/18 10:00 02/09/18 10:00 02/09/18 09:00 General NAD CV S1 S2 + abdomen soft NT/ND obese Microbiology 02/07/18 00:40 Urine Culture - Preliminary Urine - Urine Clean Catch Lactose Fermenting Neg Bacilli ASSESSMENT AND PLAN: 67yo F wtih PMH parkinson, seizure, HTN, dyslipidemia, DM, COPD, SUSANA and hypothyroid presented to the ER after mechanical fall. was found to be dehydrated with a UTI on presentation 1. mechanical fall- unwitnessed. denies LOC. Head CT and XR negative for acute pathology. only ambulated 25Ft with PT. agreeable to [facility] 2. UTI- +symptomatic. cont levaquin day 3. (PCN allergy noted). fCX with GNR. await official cx report 3. Dehydration- now resolved. tolerating diet. 4. DM- controlled. can resume metformin on discharge. cont iss and bgm 5. HTN- improved. cont current management 6. Seizure- no seizure like activity. cont home medications 7. Parkinsons 8. DVT ppx- hep sq 9. Awaiting insurance auth for [facility] placement Visit type - Emergency Visit Emergency Visit: Yes ED Registration Date: 02/07/18 Care time: The patient presented to the Emergency Department on the above date and was hospitalized for further evaluation of their emergent condition. - New Patient This patient is new to me today: No - Critical Care Critical Care patient: No - Discharge Referral Referred to [facility] Med P.C.: No
[2018-02-09] MEDS: VENLAFAXINE HCL 75 MG E.R. CAPSULES (FP) PO SCH (11:48)
[2018-02-09] MEDS ORDERED: SENNOSIDES/DOCUSATE COMBO (SENNA PLUS) TABLET (UD) PO PRN (21:07)
[2018-02-09] MEDS: DIVALPROEX PO SCH (22:06)
[2018-02-09] MEDS: OLANZapine 5 MG TABLET PO SCH (22:06)
[2018-02-09] MEDS: PHENYTOIN NA EXTENDED 100 MG CAPSULE (FP) PO SCH (22:06)
[2018-02-10] MEDS ORDERED: LEVOTHYROXINE NA 100 MCG TABLET (FP) ONE (05:58)
[2018-02-10] MEDS ORDERED: LEVOTHYROXINE NA 75 MCG TABLET (FP) ONE (05:59)
[2018-02-10] MEDS: LEVOTHYROXINE 100 MCG, LEVOTHYROXINE 75 MCG PO SCH (06:13)
[2018-02-10] MEDS: GABAPENTIN 300 MG CAPSULE (FP) PO SCH ×3 (06:13→21:12)
[2018-02-10] MEDS: HEPARIN NA (PORCINE) 5,000 UNITS/ML 1ML VIAL SQ SCH ×3 (06:13→21:12)
--- NOTE | 2018-02-10 09:07 | PN ---
Teaching Attending Note Name of Resident: Luis Torres ATTENDING PHYSICIAN STATEMENT I saw and evaluated the patient. I reviewed the resident's note and discussed the case with the resident. I agree with the resident's findings and plan as documented. SUBJECTIVE:asymptomatic. denies CP, SOB, fever, chills, N/V/C/D OBJECTIVE: Last Vital Signs Temp Pulse Resp BP Pulse Ox 97.7 F 62 20 156/90 95 02/10/18 06:30 02/10/18 06:30 02/10/18 06:30 02/10/18 06:30 02/09/18 20:27 General NAD CV S1 S2 + abdomen soft NT/ND obese ASSESSMENT AND PLAN: 67yo F wtih PMH parkinson, seizure, HTN, dyslipidemia, DM, COPD, SUSANA and hypothyroid presented to the ER after mechanical fall. was found to be dehydrated with a UTI on presentation 1. mechanical fall- unwitnessed. denies LOC. Head CT and XR negative for acute pathology. only ambulated 25Ft with PT. agreeable to [facility]ON[facility] 2. E. Coli UTI- pansensitive. cont levaquin day 4. (PCN allergy noted). 3. Dehydration- now resolved. tolerating diet. 4. DM- controlled. can resume metformin on discharge. cont iss and bgm 5. HTN- above goal. will start lisinopril 5mg. titrate to optimize control 6. Seizure- no seizure like activity. cont home medications 7. Parkinsons 8. DVT ppx- hep sq 9. Awaiting insurance auth for [facility] placement
[2018-02-10] MEDS ORDERED: PT OWN MED DRAWER 7, Y5N ONE ×3 (09:10→21:01)
[2018-02-10] MEDS: CELECOXIB 200 MG CAPSULE PO SCH (09:23)
[2018-02-10] MEDS: METOPROLOL TARTRATE 50 MG TABLET (FP) PO SCH ×2 (09:23→21:12)
[2018-02-10] MEDS: amLODIPine BESYLATE 10 MG TABLET (FP) PO SCH (09:23)
[2018-02-10] MEDS: VENLAFAXINE HCL 75 MG E.R. CAPSULES (FP) PO SCH (09:23)
[2018-02-10] MEDS: LISINOPRIL 5 MG TABLET (FP) PO SCH (11:28)
--- NOTE | 2018-02-10 12:44 | PN ---
Physical Exam: SUBJECTIVE: Patient seen and examined at bedside. Ate breakfast. No complaints OBJECTIVE: Vital Signs Period Temp Pulse Resp BP Sys/Thornton Pulse Ox Last 24 Hr 97.6 F-98.7 F 62-71 18-20 141-160/77-90 95-97 GENERAL: The patient is awake, alert, in no acute distress. HEAD: Normal with no signs of trauma. EYES: extraocular movements intact, sclera anicteric, conjunctiva clear. No ptosis. ENT: oropharynx clear without exudates, moist mucous membranes. NECK: Trachea midline, full range of motion, supple. LUNGS: Breath sounds equal, clear to auscultation bilaterally HEART: Regular rate and rhythm, S1, S2 without murmur, rub or gallop. ABDOMEN: Soft, nontender, nondistended, normoactive bowel sounds, no guarding, no rebound, no hepatosplenomegaly, no masses. EXTREMITIES: 2+ pulses, warm, well-perfused, no edema. Active Medications Generic Name Dose Route Start Last Admin Trade Name Joeq PRN Reason Stop Dose Admin Amlodipine Besylate 10 mg 02/09/18 10:00 02/10/18 09:23 Norvasc - PO 10 mg DAILY ZENY Administration Celecoxib 200 mg 02/07/18 10:00 02/10/18 09:23 Celebrex - PO 200 mg DAILY ZENY Administration Divalproex Sodium 1,000 mg/ 1,250 mg 02/08/18 22:00 02/09/18 22:06 Divalproex Sodium 250 mg PO 1,250 mg HS ZENY Administration Gabapentin 300 mg 02/07/18 06:00 02/10/18 06:13 Neurontin - PO 300 mg TID ZENY Administration Heparin Sodium (Porcine) 5,000 unit 02/07/18 06:45 02/10/18 06:13 Heparin - SQ 5,000 unit TID ZENY Administration Levothyroxine Sodium 100 mcg/ 175 mcg 02/07/18 07:00 02/10/18 06:13 Levothyroxine Sodium 75 mcg PO 175 mcg DAILY@0700 ZENY Administration Lisinopril 5 mg 02/10/18 10:00 02/10/18 11:28 Prinivil PO 5 mg DAILY ZENY Administration Metoprolol Tartrate 100 mg 02/08/18 22:00 02/10/18 09:23 Lopressor - PO 100 mg BID ZENY Administration Olanzapine 5 mg 02/08/18 22:00 02/09/18 22:06 Zyprexa - PO 5 mg HS ZENY Administration Phenytoin Sodium 400 mg 02/08/18 22:00 02/09/18 22:06 Dilantin - PO 400 mg HS ZENY Administration Senna/Docusate Sodium 2 tablet 02/09/18 21:07 02/09/18 22:07 Pericolace - PO 2 tablet HS PRN Administration CONSTIPATION Venlafaxine HCl 75 mg 02/08/18 11:00 02/10/18 09:23 Effexor Xr - PO 75 mg DAILY ZENY Administration Imaging CXR - No acute pathology. No significant change. Xray of right forearm - No acute bony abnormalities seen. Head CT -No evidence of acute intracranial hemorrhage, edema, midline shift, mass effect, or skull fracture Echo -There is mild concentric left ventricular hypertrophy. LVEF is normal. The right ventricle is normal in size and function. There is trace tricuspid regurgitation. ASSESSMENT/PLAN: 67 y/o F with PMHx of Parkinsons Disease, Grand Mal Seizures, HTN, HLD, NIDDM, COPD, SUSANA on Home CPAP, Hypothyroidism, DVT & PE, Hepatitis C and Anxiety presents s/p unwitnessed mechanical Fall. #UTI - UA: Positie Nitrites, 3+ Leukocyte Esterase, 540 WBCs - urine culture - Morrissey sensitive E. coli - Given one dose Cipro 400mg IV at the ED - Levaquin 500mg daily on from 02/07/2018. To complete 5 day course #S/p Unwitnessed Mechanical fall - Likely due to decreased mobility, Instability, dehydration - CT Head revealed no evidence of acute intracranial hemorrhage, edema, midline shift, mass effect, or skull fracture. - R Forearm and R Wrist plain films revealed no acute bony abnormalities - Fall Precautions, BRP and Shower with Assist - Echo revealed trace tricuspid regurgitation - Restarted home medications - PT evaluation and assessment. #FEN - Not on any standing fluids - Encourage increased oral fluid intake - Continue to monitor, replete as needed - Diabetic, Low sodium, low cholesterol diet #PPx - DVT: Heparin TID #Dispo: - admit to med-surg - pending SNF placement Luis Torres MD PGY-2 IM Visit type - Emergency Visit Emergency Visit: No - New Patient This patient is new to me today: No - Critical Care Critical Care patient: No - Discharge Referral Referred to [facility] Med P.C.: No
[2018-02-10] MEDS: DIVALPROEX PO SCH (21:11)
[2018-02-10] MEDS: PHENYTOIN NA EXTENDED 100 MG CAPSULE (FP) PO SCH (21:12)
[2018-02-10] MEDS: OLANZapine 5 MG TABLET PO SCH (21:12)
[2018-02-11] MEDS ORDERED: LEVOTHYROXINE NA 100 MCG TABLET (FP) ONE (06:21)
[2018-02-11] MEDS ORDERED: LEVOTHYROXINE NA 75 MCG TABLET (FP) ONE (06:22)
[2018-02-11] MEDS: GABAPENTIN 300 MG CAPSULE (FP) PO SCH ×3 (06:26→22:26)
[2018-02-11] MEDS: HEPARIN NA (PORCINE) 5,000 UNITS/ML 1ML VIAL SQ SCH ×3 (06:26→22:26)
[2018-02-11] MEDS: LEVOTHYROXINE 100 MCG, LEVOTHYROXINE 75 MCG PO SCH (06:26)
[2018-02-11] MEDS: amLODIPine BESYLATE 10 MG TABLET (FP) PO SCH (10:17)
[2018-02-11] MEDS: METOPROLOL TARTRATE 50 MG TABLET (FP) PO SCH ×2 (10:17→22:26)
[2018-02-11] MEDS: CELECOXIB 200 MG CAPSULE PO SCH (10:17)
[2018-02-11] MEDS: LISINOPRIL 5 MG TABLET (FP) PO SCH (10:17)
[2018-02-11] MEDS: VENLAFAXINE HCL 75 MG E.R. CAPSULES (FP) PO SCH (10:18)
--- NOTE | 2018-02-11 11:17 | PN ---
Teaching Attending Note Name of Resident: Kia Clement ATTENDING PHYSICIAN STATEMENT I saw and evaluated the patient. I reviewed the resident's note and discussed the case with the resident. I agree with the resident's findings and plan as documented. SUBJECTIVE:asymptomatic. denies Cp, SOB, fever, cihlls, n/V/C/D OBJECTIVE: Last Vital Signs Temp Pulse Resp BP Pulse Ox 98 F 60 18 148/73 96 02/11/18 05:16 02/11/18 05:16 02/11/18 05:16 02/11/18 05:16 02/10/18 20:27 General NAD ASSESSMENT AND PLAN: 67yo F wtih PMH parkinson, seizure, HTN, dyslipidemia, DM, COPD, SUSANA and hypothyroid presented to the ER after mechanical fall. was found to be dehydrated with a UTI on presentation 1. mechanical fall- unwitnessed. denies LOC. Head CT and XR negative for acute pathology. only ambulated 25Ft with PT. agreeable to [facility] 2. E. Coli UTI- pansensitive. cont levaquin day 5. will d/c after todays dose ( PCN allergy noted). 3. Dehydration- now resolved. tolerating diet. 4. DM- controlled. can resume metformin on discharge. cont iss and bgm 5. HTN- improved. cont lisinopril. titrate to optimize control 6. Seizure- no seizure like activity. cont home medications 7. Parkinsons 8. DVT ppx- hep sq 9. Awaiting insurance auth for [facility] placement. will f/u with SW today for placement
--- NOTE | 2018-02-11 16:35 | PN ---
Physical Exam: SUBJECTIVE: Patient seen and examined OBJECTIVE: Vital Signs Period Temp Pulse Resp BP Sys/Thornton Pulse Ox Last 24 Hr 97.8 F-98.5 F 60-72 18-20 117-148/53-78 96-96 GENERAL: The patient is awake, alert, and fully oriented, in no acute distress. HEAD: Normal with no signs of trauma. EYES: PERRL, extraocular movements intact, sclera anicteric, conjunctiva clear. No ptosis. ENT: Ears normal, nares patent, oropharynx clear without exudates, moist mucous membranes. NECK: Trachea midline, full range of motion, supple. LUNGS: Breath sounds equal, clear to auscultation bilaterally, no wheezes, no crackles, no accessory muscle use. HEART: Regular rate and rhythm, S1, S2 without murmur, rub or gallop. ABDOMEN: Soft, nontender, nondistended, normoactive bowel sounds, no guarding, no rebound, no hepatosplenomegaly, no masses. EXTREMITIES: 2+ pulses, warm, well-perfused, no edema. NEUROLOGICAL: Cranial nerves II through XII grossly intact. Normal speech, gait not observed. PSYCH: Normal mood, normal affect. SKIN: Warm, dry, normal turgor, no rashes or lesions noted Active Medications Generic Name Dose Route Start Last Admin Trade Name Jim PRN Reason Stop Dose Admin Amlodipine Besylate 10 mg 02/09/18 10:00 02/11/18 10:17 Norvasc - PO 10 mg DAILY ZENY Administration Celecoxib 200 mg 02/07/18 10:00 02/11/18 10:17 Celebrex - PO 200 mg DAILY ZENY Administration Divalproex Sodium 1,000 mg/ 1,250 mg 02/08/18 22:00 02/10/18 21:11 Divalproex Sodium 250 mg PO 1,250 mg HS ZENY Administration Gabapentin 300 mg 02/07/18 06:00 02/11/18 14:52 Neurontin - PO 300 mg TID ZENY Administration Heparin Sodium (Porcine) 5,000 unit 02/07/18 06:45 02/11/18 14:52 Heparin - SQ 5,000 unit TID ZENY Administration Levothyroxine Sodium 100 mcg/ 175 mcg 02/07/18 07:00 02/11/18 06:26 Levothyroxine Sodium 75 mcg PO 175 mcg DAILY@0700 ZENY Administration Lisinopril 5 mg 02/10/18 10:00 02/11/18 10:17 Prinivil PO 5 mg DAILY ZENY Administration Metoprolol Tartrate 100 mg 02/08/18 22:00 02/11/18 10:17 Lopressor - PO 100 mg BID ZENY Administration Olanzapine 5 mg 02/08/18 22:00 02/10/18 21:12 Zyprexa - PO 5 mg HS ZENY Administration Phenytoin Sodium 400 mg 02/08/18 22:00 02/10/18 21:12 Dilantin - PO 400 mg HS ZENY Administration Senna/Docusate Sodium 2 tablet 02/09/18 21:07 02/09/18 22:07 Pericolace - PO 2 tablet HS PRN Administration CONSTIPATION Venlafaxine HCl 75 mg 02/08/18 11:00 02/11/18 10:18 Effexor Xr - PO 75 mg DAILY ZENY Administration Imaging CXR - No acute pathology. No significant change. Xray of right forearm - No acute bony abnormalities seen. Head CT -No evidence of acute intracranial hemorrhage, edema, midline shift, mass effect, or skull fracture Echo -There is mild concentric left ventricular hypertrophy. LVEF is normal. The right ventricle is normal in size and function. There is trace tricuspid regurgitation. ASSESSMENT/PLAN: 67 y/o F with PMHx of Parkinsons Disease, Grand Mal Seizures, HTN, HLD, NIDDM, COPD, SUSANA on Home CPAP, Hypothyroidism, DVT & PE, Hepatitis C and Anxiety presents s/p unwitnessed mechanical Fall. #UTI - UA: Positie Nitrites, 3+ Leukocyte Esterase, 540 WBCs - urine culture - Morrissey-sensitive E. coli - Given one dose Cipro 400mg IV at the ED - Discontinued Levaquin 500mg daily - completed for 5 days. #S/p Unwitnessed Mechanical fall - Likely due to decreased mobility, Instability, dehydration - CT Head revealed no evidence of acute intracranial hemorrhage, edema, midline shift, mass effect, or skull fracture. - R Forearm and R Wrist plain films revealed no acute bony abnormalities - Fall Precautions, BRP and Shower with Assist - Echo revealed trace tricuspid regurgitation - Restarted home medications - PT evaluation and assessment. #Hypertension: chronic -Patient on Amlodipine 10mg daily, Lopressor 100mg BID -Lisinopril 5mg daily added. BP controlled. -will continue Lisinopril at home. #FEN - Not on any standing fluids - Encourage increased oral fluid intake - Continue to monitor, replete as needed - Diabetic, Low sodium, low cholesterol diet #PPx - DVT: Heparin TID #Dispo: - admit to med-surg - pending SNF placement Visit type - Emergency Visit Emergency Visit: Yes ED Registration Date: 02/07/18 Care time: The patient presented to the Emergency Department on the above date and was hospitalized for further evaluation of their emergent condition. - New Patient This patient is new to me today: Yes Date on this admission: 02/11/18 - Critical Care Critical Care patient: No
[2018-02-11] MEDS ORDERED: PT OWN MED DRAWER 7, Y5N ONE (22:13)
[2018-02-11] MEDS: PHENYTOIN NA EXTENDED 100 MG CAPSULE (FP) PO SCH (22:24)
[2018-02-11] MEDS: DIVALPROEX PO SCH (22:25)
[2018-02-11] MEDS: OLANZapine 5 MG TABLET PO SCH (22:27)
[2018-02-12] MEDS ORDERED: ACETAMINOPHEN 325 MG TABLET (FP) PO PRN (01:21)
[2018-02-12] MEDS ORDERED: LEVOTHYROXINE NA 100 MCG TABLET (FP) ONE (05:07)
[2018-02-12] MEDS ORDERED: LEVOTHYROXINE NA 75 MCG TABLET (FP) ONE (05:08)
[2018-02-12] MEDS: HEPARIN NA (PORCINE) 5,000 UNITS/ML 1ML VIAL SQ SCH (05:21)
[2018-02-12] MEDS: GABAPENTIN 300 MG CAPSULE (FP) PO SCH (05:22)
[2018-02-12] MEDS: LEVOTHYROXINE 100 MCG, LEVOTHYROXINE 75 MCG PO SCH (06:10)
--- NOTE | 2018-02-12 08:27 | PN ---
Teaching Attending Note Name of Resident: Kia Clement ATTENDING PHYSICIAN STATEMENT I saw and evaluated the patient. I reviewed the resident's note and discussed the case with the resident. I agree with the resident's findings and plan as documented with exceptions below. SUBJECTIVE: Patient seen and examined. Still with some dysuria, no complaints otherwise. OBJECTIVE: Vital Signs Period Temp Pulse Resp BP Sys/Thornton Pulse Ox Last 24 Hr 97.8 F-98.4 F 62-73 18-20 117-155/55-95 96-96 Intake & Output 02/09/18 02/10/18 02/11/18 02/12/18 23:59 23:59 23:59 23:59 Intake Total 600 750 750 Balance 600 750 750 Weight 211 lb General: sitting in bed in no acute distress Chest: CTAB, no rales or wheezing Abdomen: soft, obese, NT, no suprapubic or CVA tenderness Extremities: no edema Home Medications Medication Instructions Recorded Levothyroxine [Synthroid -] 175 mcg PO DAILY 04/03/14 Phenytoin Na Extended [Dilantin -] 400 mg PO HS 08/08/14 Venlafaxine HCl ER [Effexor Xr -] 75 mg PO DAILY 06/27/17 Gabapentin [Neurontin] 300 mg PO TID 07/13/17 Olanzapine [Zyprexa -] 5 mg PO HS 08/10/17 Celecoxib 200 mg PO DAILY 12/10/17 Divalproex *ER* [Depakote *ER* -] 1,250 mg PO BID 02/07/18 Olanzapine 2.5 mg PO DAILY 02/07/18 Amlodipine Besylate [Norvasc -] 10 mg PO DAILY tablet 02/08/18 Metoprolol Tartrate [Lopressor -] 100 mg PO BID tablet 02/08/18 metFORMIN HCL [Metformin HCl] 500 mg PO BID 02/08/18 Lisinopril [Prinivil] 5 mg PO DAILY tablet 02/11/18 Sennosides/Docusate Sodium 2 tablet PO HS PRN tablet 02/11/18 [Pericolace -] Active Medications Acetaminophen (Tylenol -) 650 mg PO Q6H PRN PRN Reason: Fever Or Pain 1-5 Amlodipine Besylate (Norvasc -) 10 mg PO DAILY ZENY Last Admin: 02/11/18 10:17 Dose: 10 mg Celecoxib (Celebrex -) 200 mg PO DAILY [facility] Divalproex Sodium 1,000 mg/ (Divalproex Sodium 250 mg) 1,250 mg PO [facility] Last Admin: 02/11/18 22:25 Dose: 1,250 mg Gabapentin (Neurontin -) 300 mg PO TID [facility] Heparin Sodium (Porcine) (Heparin -) 5,000 unit SQ TID [facility] Levothyroxine Sodium 100 mcg/ (Levothyroxine Sodium 75 mcg) 175 mcg PO DAILY@ 0700 [facility] Lisinopril (Prinivil) 5 mg PO DAILY [facility] Last Admin: 02/11/18 10:17 Dose: 5 mg Metoprolol Tartrate (Lopressor -) 100 mg PO BID [facility] Last Admin: 02/11/18 22:26 Dose: 100 mg Olanzapine (Zyprexa -) 5 mg PO HS [facility] Last Admin: 02/11/18 22:27 Dose: 5 mg Phenytoin Sodium (Dilantin -) 400 mg PO [facility] Last Admin: 02/11/18 22:24 Dose: 400 mg Senna/Docusate Sodium (Pericolace -) 2 tablet PO HS PRN PRN Reason: CONSTIPATION Last Admin: 02/09/18 22:07 Dose: 2 tablet Venlafaxine HCl (Effexor Xr -) 75 mg PO DAILY [facility] Last Admin: 02/11/18 10:18 Dose: 75 mg Microbiology 02/07/18 00:40 Urine - Urine Clean Catch Urine Culture - Final Escherichia Coli ASSESSMENT AND PLAN: 67yo F wtih PMH parkinson, seizure, HTN, dyslipidemia, DM, COPD, SUSANA and hypothyroid presented to the ER after unwitnessed mechanical fall. was found to be dehydrated with a UTI on presentation -Mechanical fall, unwitnessed -E. Coli UTI -Dehydration -NIDDM -HTN -Seizure disorder -Parkinson's disease Plan: Trauma w/u in ED neg. 2D echo noted. PT eval noted, agreable to [facility]. s/p 5 days of levaquin, will finish 7-8 day course as still with symptoms. OFf IVF, tolerating diet. Resume metformin on d.c Continue lisinopril/metoprolol/Amlodipine. COntinue home seizure medications DVTPPx heparin Dispo D/c to [facility] today. PLan discussed with patient and all questions answered.
[2018-02-12] MEDS ORDERED: PT OWN MED DRAWER 7, Y5N ONE (09:10)
[2018-02-12] MEDS: amLODIPine BESYLATE 10 MG TABLET (FP) PO SCH (09:30)
[2018-02-12] MEDS: LISINOPRIL 5 MG TABLET (FP) PO SCH (09:30)
[2018-02-12] MEDS: METOPROLOL TARTRATE 50 MG TABLET (FP) PO SCH (09:31)
[2018-02-12] MEDS: VENLAFAXINE HCL 75 MG E.R. CAPSULES (FP) PO SCH (09:32)
[2018-02-12] MEDS ORDERED: CELECOXIB 200 MG CAPSULE PO SCH (10:00)
[2018-02-12] MEDS ORDERED: levoFLOXacin 750 MG TABLET PO SCH (12:15)
[2018-02-12] MEDS ORDERED: GABAPENTIN 300 MG CAPSULE (FP) PO SCH (14:00)
[2018-02-12] MEDS ORDERED: HEPARIN NA (PORCINE) 5,000 UNITS/ML 1ML VIAL SQ SCH (14:00)
[2018-02-12 14:53] VITALS: BP 144/85; PULSE 73; TEMP 98.3
--- NOTE | 2018-02-12 22:07 | DS ---
Physical Exam: SUBJECTIVE: Patient seen and examined at bedside this morning. No acute events overnight. Patient as no new complaints. OBJECTIVE: Vital Signs Period Temp Pulse Resp BP Sys/Thornton Pulse Ox Last 24 Hr 97.8 F-98.4 F 62-73 18-20 123-152/65-85 97 PHYSICAL EXAM GENERAL: The patient is awake, alert, and fully oriented, in no acute distress. HEAD: Normal with no signs of trauma. EYES: PERRLA, EOMI, sclera anicteric, conjunctiva clear. NECK: Trachea midline, full range of motion, supple. LUNGS: Breath sounds equal, clear to auscultation bilaterally. HEART: Regular rate and rhythm, S1, S2 without murmur, rub or gallop. ABDOMEN: Soft, nontender, nondistended, normoactive bowel sounds. EXTREMITIES: 2+ pulses, warm, well-perfused, no edema. SKIN: Warm, dry, normal turgor, no rashes or lesions noted. LABS CBC,CMP WBC 5.6 K/mm3 (4.0-10.0) 02/08/18 05:30 RBC 3.60 M/mm3 (3.60-5.2) 02/08/18 05:30 Hgb 10.7 GM/dL (10.7-15.3) 02/08/18 05:30 Hct 32.5 % (32.4-45.2) 02/08/18 05:30 MCV 90.4 fl (80-96) 02/08/18 05:30 MCH 29.7 pg (25.7-33.7) 02/08/18 05:30 MCHC 32.9 g/dl (32.0-36.0) 02/08/18 05:30 RDW 13.6 % (11.6-15.6) 02/08/18 05:30 Plt Count 173 K/MM3 (134-434) 02/08/18 05:30 MPV 8.1 fl (7.5-11.1) 02/08/18 05:30 Absolute Neuts (auto) 1.7 K/mm3 (1.5-8.0) 02/08/18 05:30 Neutrophils % 30.0 % (42.8-82.8) L D 02/08/18 05:30 Lymphocytes % 56.3 % (8-40) H D 02/08/18 05:30 Monocytes % 7.8 % (3.8-10.2) 02/08/18 05:30 Eosinophils % 5.6 % (0-4.5) H 02/08/18 05:30 Basophils % 0.3 % (0-2.0) 02/08/18 05:30 Nucleated RBC % 0 % (0-0) 02/08/18 05:30 Sodium 142 mmol/L (136-145) 02/08/18 05:30 Potassium 4.0 mmol/L (3.5-5.1) 02/08/18 05:30 Chloride 107 mmol/L (98-107) 02/08/18 05:30 Carbon Dioxide 29 mmol/L (21-32) 02/08/18 05:30 Anion Gap 6 MMOL/L (8-16) L 02/08/18 05:30 BUN 22 mg/dL (7-18) H 02/08/18 05:30 Creatinine 0.9 mg/dL (0.55-1.02) 02/08/18 05:30 Creat Clearance w eGFR > 60 (>60) 02/08/18 05:30 POC Glucometer 81 UNITS (80-120) 02/08/18 06:39 Random Glucose 81 mg/dL (74-106) 02/08/18 05:30 Calcium 8.0 mg/dL (8.5-10.1) L 02/08/18 05:30 Phosphorus 4.2 mg/dL (2.5-4.9) 02/07/18 09:30 Magnesium 2.1 mg/dL (1.8-2.4) 02/07/18 09:30 Total Bilirubin 0.1 mg/dL (0.2-1.0) L 02/08/18 05:30 AST 21 U/L (15-37) 02/08/18 05:30 ALT 26 U/L (12-78) 02/08/18 05:30 Alkaline Phosphatase 54 U/L (45-117) 02/08/18 05:30 Troponin I 0.02 ng/ml (0.00-0.05) 02/06/18 23:08 Total Protein 6.3 g/dl (6.4-8.2) L 02/08/18 05:30 Albumin 2.9 g/dl (3.4-5.0) L 02/08/18 05:30 Imaging CXR - No acute pathology. No significant change. Xray of right forearm - No acute bony abnormalities seen. Head CT -No evidence of acute intracranial hemorrhage, edema, midline shift, mass effect, or skull fracture Echo -There is mild concentric left ventricular hypertrophy. LVEF is normal. The right ventricle is normal in size and function. There is trace tricuspid regurgitation. HOSPITAL COURSE: Date of Admission:02/07/18 Date of Discharge: 02/12/18 Patient is 67 y/o F with PMHx of Parkinsons Disease, Grand Mal Seizures, HTN, HLD, NIDDM, COPD, SUSANA on Home CPAP, Hypothyroidism, DVT & PE, Hepatitis C and Anxiety presents s/p unwitnessed mechanical fall today. Patient says she was home alone and began walking with her walker from her bed and tripped over her feet. She tried break her fall by trying to reach for her couch with her right hand but was not successful and ended up hitting her head. She then remembers waking up, confused, and on her right side. She was unsure of how long she was unconscious. While on the floor, she called EMS from her cell phone. She denies any biting of her tongue, loss of bowel or bladder control. Patient was admitted for further evaluation of fall. Head CT done revealed no evidence of acute intracranial pathology. X-ray of right forearm showed no fractures. Urinalysis revealed UTI. Patient was started on Levaquin 500mg daily to complete for 8 days. Patient was also noted to have elevated blood pressure. Lisinopril 5mg was added to her medications, which showed improvement of BP. Physical therapy was requested and it was noted that patient would need further rehab. She was discharged to SNF. Minutes to complete discharge: 45 Discharge Summary Reason For Visit: URINARY TRACT INFECTION,RECURRENT FALLS Condition: Stable - Instructions Diet, Activity, Other Instructions: You were admitted because you had an unwitnessed fall. You also complained of pain while urinating. CT scan of the head was done which did not reveal any bleeding and Xray of your right arm and hand did not show any fractures. On urinalysis, you were found to have a Urinary tract infection. You were treated with Levaquin for the UTI. You are advised additional 2 days of levaquin starting tomorrow. You were also noted to have elevated blood pressure. Lisinopril 5mg daily was added and your BP has been controlled. You will continue taking this medication at home. Continue the rest of your medications as prescribed. Use your walker at all times while walking. Please follow up with your primary care doctor in 1 week. You will be sent to a detention to continue with rehab. Please call 911 or go to the ED if you have any headaches, fever, chills, or weakness or any new concerns noted. Disposition: [facility] FACILITY - Home Medications Comprehensive Discharge Medication List: Ambulatory Orders Levothyroxine [Synthroid -] 175 mcg PO DAILY 04/03/14 Phenytoin Na Extended [Dilantin -] 400 mg PO HS 08/08/14 Venlafaxine HCl ER [Effexor Xr -] 75 mg PO DAILY 06/27/17 Gabapentin [Neurontin] 300 mg PO TID 07/13/17 Olanzapine [Zyprexa -] 5 mg PO HS 08/10/17 Celecoxib 200 mg PO DAILY 12/10/17 Divalproex *ER* [Depakote *ER* -] 1,250 mg PO BID 02/07/18 Olanzapine 2.5 mg PO DAILY 02/07/18 Amlodipine Besylate [Norvasc -] 10 mg PO DAILY tablet 02/08/18 Metoprolol Tartrate [Lopressor -] 100 mg PO BID tablet 02/08/18 metFORMIN HCL [Metformin HCl] 500 mg PO BID 02/08/18 Lisinopril [Prinivil] 5 mg PO DAILY tablet 02/11/18 Sennosides/Docusate Sodium [Pericolace -] 2 tablet PO HS PRN tablet 02/11/18 Acetaminophen [Tylenol .Regular Strength -] 650 mg PO Q6H PRN tablet 02/12/18 Levofloxacin [Levaquin] 500 mg PO DAILY #2 tablet 02/12/18 This patient is new to me today: Yes Date on this admission: 02/13/18 Emergency Visit: Yes ED Registration Date: 02/07/18 Care time: The patient presented to the Emergency Department on the above date and was hospitalized for further evaluation of their emergent condition. Critical Care patient: No - Discharge Referral Referred to [facility] Med P.C.: No
[2018-02-13] MEDS ORDERED: LEVOTHYROXINE 100 MCG, LEVOTHYROXINE 75 MCG PO SCH (07:00)
== END 2018-02-12 17:50 | DRG 463 ==
LOC: JER 21:01 → JERBED 02-07 00:33 → J5S 02-07 03:41 → J4W 02-07 04:58 → OBSVTOIN 02-07 15:17 → J7W 02-09 06:43
PROVIDERS: ADMIT Internal Medicine; ATTEND Hospitalist
DX: N39.0 Urinary tract infection, site not specified (principal); R55 Syncope and collapse; G20 Parkinson's disease; I10 Essential (primary) hypertension; E03.9 Hypothyroidism, unspecified; E11.9 Type 2 diabetes mellitus without complications; J44.9 Chronic obstructive pulmonary disease, unspecified; E78.5 Hyperlipidemia, unspecified; B96.20 Unspecified Escherichia coli [E. coli] as the cause of diseases classified elsewhere; R56.9 Unspecified convulsions; F41.9 Anxiety disorder, unspecified; E66.9 Obesity, unspecified; G47.33 Obstructive sleep apnea (adult) (pediatric); E86.0 Dehydration; R29.6 Repeated falls; W01.0XXA Fall on same level from slipping, tripping and stumbling without subsequent striking against object, initial encounter; Y92.098 Other place in other non-institutional residence as the place of occurrence of the external cause; Z88.0 Allergy status to penicillin; Z86.718 Personal history of other venous thrombosis and embolism; Z86.711 Personal history of pulmonary embolism; Z86.19 Personal history of other infectious and parasitic diseases; Z68.41 Body mass index [BMI] 40.0-44.9, adult
CPT/HCPCS: 36415; 70450-TC; 71045-TC-FY; 73090-TC-RT-FY; 73110-TC-RT-FY; 73130-TC-RT-FY; 80053; 80164; 80185; 81003; 81015; 82962; 83735; 84100; 84484; 85025; 85610; 87086; 87186; 93005; 93010; 93306-TC; 97116-GP; 97161-GP; 99283-25; G0378; J1644

== ENCOUNTER 2018-04-25 10:22 | Emergency (ER) | payer OTHER ==
[2018-04-25 10:33] VITALS: TEMP 98.3; BMI 43.6
--- NOTE | 2018-04-25 11:23 | PDOC ---
Attending Attestation - Resident Resident Name: Kia Clement - ED Attending Attestation I have performed the following: I have examined & evaluated the patient, The case was reviewed & discussed with the resident, I agree w/resident's findings & plan, Exceptions are as noted - HPI HPI: 04/25/18 11:23 67 yo F h/o HIV/ hep C copd, htn here s/p fall. c/o loss of consciousness, lives alone. states fell out of bed. was at the residential and was getting up to go to the bathroom and fell. states she hit her head. denies seizure or any other complaints. pt is poor historian, son at bedside provides addtional history. 04/25/18 11:59 - Physicial Exam PE: 04/25/18 12:01 awake alert head is atraumatic. lungs clear bilaterally heart rrr no mrg abd soft nt nd. ext atraumatic . skin intact. - Medical Decision Making 04/25/18 12:[address] head r/o traumatic injury from fall. labs ua r/o uti as pt has had similar presentation in the past with uti. tyelenol for pain. 04/25/18 14:36 ct head unremarkable. ua with mild uti, review last ecoli, sensitive to all. given bactrim. pt difficult stick, multiple attempts including us guided, unsuccessful. pt refusing further attempts. will dc to [facility] for bactrim afebrile in ed. Heart Score/ECG Review #1 General ECG Interpretation: Sinus Rhythm, Normal Rate (87), Normal Intervals, No acute ischemic changes
[2018-04-25] MEDS ORDERED: ACETAMINOPHEN 1000 MG/100 ML VIAL (NON FORMULARY) IVPB ONE (11:26)
--- NOTE | 2018-04-25 11:52 | PDOC ---
History of Present Illness - General Chief Complaint: Injury Stated Complaint: FALL Time Seen by Provider: 04/25/18 10:40 History Source: Patient - History of Present Illness Initial Comments: 04/25/18 11:53 Patient is 67 year old female with past medical history of Parkinsons Disease, Grand Mal Seizures, HTN, HLD, NIDDM, COPD, SUSANA on Home CPAP, Hypothyroidism, DVT & PE, Hepatitis C and Anxiety presents with unwitnessed mechanical fall today. Patient says she was at home with her son and tried to get out of bed to go the bathroom. She then reported to fall down the bed, hitting her head and lost consciousness. She reports waking up confused with EMS trying to wake her up on the floor. Patient reports headache, denies any biting of her tongue, loss of bowel or bladder control. Denies chest pain, SOB, palpitations, abdominal pain, or urinary symptoms. Past History - Past Medical History Allergies/Adverse Reactions: Allergies Allergy/AdvReac Type Severity Reaction Status Date / Time aspirin Allergy Hives Verified 04/25/18 10:33 milk Allergy Verified 04/25/18 10:33 Penicillins Allergy Hives Verified 04/25/18 10:33 procaine Allergy Verified 04/25/18 10:33 Shellfish Allergy Hives Verified 04/25/18 10:33 venom-honey bee Allergy Verified 04/25/18 10:33 [bee venom (honey bee)] egg AdvReac Vomiting Verified 04/25/18 10:33 Home Medications: Ambulatory Orders Levothyroxine [Synthroid -] 175 mcg PO DAILY 04/03/14 Phenytoin Na Extended [Dilantin -] 300 mg PO HS 08/08/14 Venlafaxine HCl ER [Effexor Xr -] 75 mg PO DAILY 06/27/17 Gabapentin [Neurontin] 300 mg PO TID 07/13/17 Olanzapine [Zyprexa -] 2.5 mg PO HS 08/10/17 Celecoxib 200 mg PO DAILY 12/10/17 Divalproex *ER* [Depakote *ER* -] 1,000 mg PO BID 02/07/18 Amlodipine Besylate [Norvasc -] 10 mg PO DAILY tablet 02/08/18 Metoprolol Tartrate [Lopressor -] 100 mg PO BID tablet 02/08/18 metFORMIN HCL [Metformin HCl] 500 mg PO BID 02/08/18 Lisinopril [Prinivil] 5 mg PO DAILY tablet 02/11/18 Sennosides/Docusate Sodium [Pericolace -] 2 tablet PO HS PRN tablet 02/11/18 Acetaminophen [Tylenol .Regular Strength -] 650 mg PO Q6H PRN tablet 02/12/18 Sulfamethoxazole/Trimethoprim [Bactrim Ds Tablet] 1 each PO BID 3 Days #6 tablet 04/25/18 Anemia: No Asthma: No Cancer: No Cardiac Disorders: No CVA: No COPD: Yes CHF: No DVT: Yes (AND PE) Dementia: No Diabetes: Yes (border line) Dialysis: No GI Disorders: No Disorders: No HTN: Yes Hypercholesterolemia: Yes Liver Disease: Yes (HEP C, TREATED NATALYA KELLER, CURED 2017) Psychiatric Problems: Yes (anxiety, tremors) Seizures: Yes (GRAND MAL, LAST SEIZURE 1 YEAR AGO) Thyroid Disease: Yes (HYPOACTIVE) Lung CA: Yes (bipolar, depression) - Surgical History Abdominal Surgery: No Appendectomy: No Cardiac Surgery: No Cholecystectomy: Yes Lung Surgery: No Neurologic Surgery: No Orthopedic Surgery: No - Immunization History Immunization Up to Date: Yes - Suicide/Smoking/Psychosocial Hx Smoking Status: No Smoking History: Unknown if ever smoked Have you smoked in the past 12 months: No Number of Cigarettes Smoked Daily: 0 If you are a former smoker, when did you quit?: 2003 'Breaking Loose' booklet given: 09/06/13 Hx Alcohol Use: No Drug/Substance Use Hx: No Substance Use Type: None Hx Substance Use Treatment: Yes Review of Systems - Review of Systems Constitutional: No: Chills, Fever, Weakness HEENTM: No: Blurred Vision, Double Vision Respiratory: No: Cough, Shortness of Breath Cardiac (ROS): No: Chest Pain, Edema, Lightheadedness ABD/GI: No: Abdominal Distended, Constipated, Diarrhea : No: Burning, Dysuria, Discharge Neurological: Yes: Headache. No: Numbness, Tingling, Weakness *Physical Exam - Vital Signs Last Vital Signs Temp Pulse Resp BP Pulse Ox 98.3 F 61 16 114/75 96 04/25/18 10:31 04/25/18 10:31 04/25/18 10:31 04/25/18 10:31 04/25/18 10:31 - Physical Exam General Appearance: Yes: Nourished, Appropriately Dressed HEENT: positive: EOMI, MARCUS, Normal ENT Inspection, Symmetrical, Pharynx Normal Neck: positive: Trachea midline, Normal Thyroid, Supple Respiratory/Chest: positive: Lungs Clear, Normal Breath Sounds Cardiovascular: positive: Regular Rhythm, Regular Rate, S1, S2. negative: Murmur Gastrointestinal/Abdominal: positive: Normal Bowel Sounds, Soft. 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 Patient says she was at home with her son and tried to get out of bed to go the bathroom. She then reported to fall down the bed, hitting her head and lost consciousness. She reports waking up confused with EMS trying to wake her up on the floor. Patient reports headache, denies any biting of her tongue, loss of bowel or bladder control. General: awake, alert, oriented x3, not in acute distress HEENT: PERRLA, EOMI, sclerae anicteric, no nasal discharge, no oral wounds/ bleeding, moist mucous membranes Neck: supple, trachea midline Lungs: clear to auscultation bilaterally Heart: regular rate and rhythm, normal S1/S2, no m,r,g Abdomen: soft, nontender, nondistended, NABS Ext: +2 pulses, warm, CBC, CMP UA Head CT *DC/Admit/Observation/Transfer Diagnosis at time of Disposition: UTI (urinary tract infection) Qualifiers: Urinary tract infection type: site unspecified Hematuria presence: without hematuria Qualified Code(s): N39.0 - Urinary tract infection, site not specified - Discharge Dispostion Disposition: [facility] Condition at time of disposition: Stable Decision to Admit order: No - Prescriptions Prescriptions: Sulfamethoxazole/Trimethoprim [Bactrim Ds Tablet] 1 each PO BID 3 Days #6 tablet - Referrals Referrals: Benson Dao MD [Primary Care Provider] - - Patient Instructions Printed Discharge Instructions: DI for Urinary Tract Infection (UTI), How to Prevent Falls Additional Instructions: You were seen because you had a fall. CAT scan of head did not show any bleeding. You were also noted to have a urinary tract infection on urinalysis. You will be sent back to [facility] with an antibiotic, Bactrim DS, which you will take twice a day for 3 days. Use your walker at all times while walking. Please follow up with your primary care doctor. Call 911 or go to the ED if with any headaches, confusion, weakness, SOB, fever , chills, or any new concerns noted. - Post Discharge Activity
[2018-04-25 13:27] VITALS: PULSE 74
[2018-04-25 13:33] LABS: URINE APPEARANCE CLEAR; URINE BILIRUBIN NEGATIVE (<2.0 mg/dL); URINE COLOR STRAW; URINE GLUCOSE (UA) NEGATIVE (NEGATIVE); URINE KETONE TRACE (NEGATIVE); URINE LEUK ESTERASE 2+ (NEGATIVE); URINE NITRITE NEGATIVE (NEGATIVE); URINE PROTEIN NEGATIVE (NEGATIVE); URINE UROBILINOGEN NEGATIVE mg/dL (0.2-1.0)
[2018-04-25 13:55] LABS: EPI CELLS RARE /HPF (FEW); URINE BACTERIA RARE /hpf (NONE SEEN)
[2018-04-25 18:03] VITALS: BP 122/68
--- NOTE | 2018-04-27 12:10 | EKG ---
Test Reason : Blood Pressure : / mmHG Vent. Rate : 087 BPM Atrial Rate : 087 BPM P-R Int : 160 ms QRS Dur : 070 ms QT Int : 364 ms P-R-T Axes : 077 -06 035 degrees QTc Int : 438 ms POOR DATA QUALITY, INTERPRETATION MAY BE ADVERSELY AFFECTED SINUS RHYTHM WITH FUSION COMPLEXES POSSIBLE LEFT ATRIAL ENLARGEMENT LEFT VENTRICULAR HYPERTROPHY NONSPECIFIC T WAVE ABNORMALITY ABNORMAL ECG WHEN COMPARED WITH ECG OF 06-FEB-2018 23:50, FUSION COMPLEXES ARE NOW PRESENT NONSPECIFIC T WAVE ABNORMALITY, WORSE IN LATERAL LEADS Confirmed by KRIS GUSMAN MD ([id number]) on 04/27/2018 12:09:58 PM Referred By: Confirmed By:KRIS GUSMAN MD
== END 2018-04-25 18:03 | disposition home or self-care (01) ==
LOC: JER 10:22
DX: R55 Syncope and collapse (principal); S09.8XXA Other specified injuries of head, initial encounter; R51 Headache; W06.XXXA Fall from bed, initial encounter; Y93.89 Activity, other specified; Y92.031 Bathroom in apartment as the place of occurrence of the external cause; Y99.8 Other external cause status; I10 Essential (primary) hypertension; E11.9 Type 2 diabetes mellitus without complications; Z79.84 Long term (current) use of oral hypoglycemic drugs; G40.909 Epilepsy, unspecified, not intractable, without status epilepticus; J44.9 Chronic obstructive pulmonary disease, unspecified; G20 Parkinson's disease; E03.9 Hypothyroidism, unspecified; F41.9 Anxiety disorder, unspecified; F31.9 Bipolar disorder, unspecified; Z86.711 Personal history of pulmonary embolism; Z86.718 Personal history of other venous thrombosis and embolism; G47.33 Obstructive sleep apnea (adult) (pediatric); Z99.89 Dependence on other enabling machines and devices; B18.2 Chronic viral hepatitis C
CPT/HCPCS: 70450-TC; 81003; 81015; 87086; 87186; 93005; 93010; 99283-25

== ENCOUNTER 2018-07-08 16:46 | Observation (INO) | payer OTHER ==
[2018-07-08 17:17] VITALS: BMI 48.4
[2018-07-08 19:40] LABS: URINE APPEARANCE SLCLOUDY; URINE BILIRUBIN NEGATIVE (<2.0 mg/dL); URINE COLOR YELLOW; URINE GLUCOSE (UA) NEGATIVE (NEGATIVE); URINE KETONE NEGATIVE (NEGATIVE); URINE LEUK ESTERASE TRACE (NEGATIVE); URINE NITRITE POSITIVE (NEGATIVE); URINE PROTEIN NEGATIVE (NEGATIVE); URINE UROBILINOGEN NEGATIVE mg/dL (0.2-1.0)
[2018-07-08 19:48] LABS: EPI CELLS RARE /HPF (FEW); URINE BACTERIA RARE /hpf (NONE SEEN); URINE MUCUS RARE
--- NOTE | 2018-07-08 19:51 | PDOC ---
History of Present Illness - General Chief Complaint: Pain Stated Complaint: Pain Time Seen by Provider: 07/08/18 18:41 History Source: Patient, Spouse Exam Limitations: No Limitations - History of Present Illness Initial Comments: 07/08/18 19:48 The patient is a 67F with a PMH of Parkinsons Disease, Grand Mal Seizures, HTN, HLD, NIDDM, COPD, SUSANA on Home CPAP, Hypothyroidism, DVT & PE, Hepatitis C and Anxiety who presents to the ER for abdominal pain. The patient states that she "feels woozy" but cannot describe any other sensation. She states that it started this morning, is not associated with abdominal pain, nausea, vomiting, fever, chills, CP, SOB, dysuria, hematuria, hematochezia, melena. Past History - Past Medical History Allergies/Adverse Reactions: Allergies Allergy/AdvReac Type Severity Reaction Status Date / Time aspirin Allergy Hives Verified 04/25/18 10:33 milk Allergy Verified 04/25/18 10:33 Penicillins Allergy Hives Verified 04/25/18 10:33 procaine Allergy Verified 04/25/18 10:33 Shellfish Allergy Hives Verified 04/25/18 10:33 venom-honey bee Allergy Verified 04/25/18 10:33 [bee venom (honey bee)] egg AdvReac Vomiting Verified 04/25/18 10:33 Home Medications: Ambulatory Orders RX: Levothyroxine [Synthroid -] 175 mcg PO DAILY 04/03/14 RX: Phenytoin Na Extended [Dilantin -] 300 mg PO HS 08/08/14 RX: Venlafaxine HCl ER [Effexor Xr -] 75 mg PO DAILY 06/27/17 RX: Gabapentin [Neurontin] 300 mg PO TID 07/13/17 RX: Olanzapine [Zyprexa -] 2.5 mg PO HS 08/10/17 RX: Celecoxib 200 mg PO DAILY 12/10/17 RX: Divalproex *ER* [Depakote *ER* -] 1,000 mg PO BID 02/07/18 RX: Amlodipine Besylate [Norvasc -] 10 mg PO DAILY tablet 02/08/18 RX: Metoprolol Tartrate [Lopressor -] 100 mg PO BID tablet 02/08/18 RX: metFORMIN HCL [Metformin HCl] 500 mg PO BID 02/08/18 RX: Lisinopril [Prinivil] 5 mg PO DAILY tablet 02/11/18 RX: Sennosides/Docusate Sodium [Pericolace -] 2 tablet PO HS PRN tablet RX: Acetaminophen [Tylenol .Regular Strength -] 650 mg PO Q6H PRN tablet Sulfamethoxazole/Trimethoprim [Bactrim Ds Tablet] 1 each PO BID 3 Days #6 tablet 04/25/18 Anemia: No Asthma: No Cancer: No Cardiac Disorders: No CVA: No COPD: Yes CHF: No DVT: Yes (AND PE) Dementia: No Diabetes: Yes (border line) Dialysis: No GI Disorders: No Disorders: No HTN: Yes Hypercholesterolemia: Yes Liver Disease: Yes (HEP C, TREATED NATALYA KELLER, CURED 2017) Psychiatric Problems: Yes (anxiety, tremors) Seizures: Yes (GRAND MAL, LAST SEIZURE 1 YEAR AGO) Thyroid Disease: Yes (HYPOACTIVE) Lung CA: Yes (bipolar, depression) - Surgical History Abdominal Surgery: No Appendectomy: No Cardiac Surgery: No Cholecystectomy: Yes Lung Surgery: No Neurologic Surgery: No Orthopedic Surgery: No - Immunization History Immunization Up to Date: Yes - Suicide/Smoking/Psychosocial Hx Smoking Status: No Smoking History: Never smoked Have you smoked in the past 12 months: No Number of Cigarettes Smoked Daily: 0 If you are a former smoker, when did you quit?: 2003 Information on smoking cessation initiated: No 'Breaking Loose' booklet given: 09/06/13 Hx Alcohol Use: No Drug/Substance Use Hx: No Substance Use Type: None Hx Substance Use Treatment: Yes Review of Systems - Review of Systems Able to Perform ROS?: Yes Comments:: 07/08/18 19:51 GENERAL/CONSTITUTIONAL: No fever or chills. No weakness. HEAD, EYES, EARS, NOSE AND THROAT: No change in vision. No ear pain or discharge. No sore throat. CARDIOVASCULAR: No chest pain, palpitations, or lightheadedness. RESPIRATORY: No cough, wheezing, shortness of breath, or hemoptysis. GASTROINTESTINAL: Positive for "feeling woozy". No nausea, vomiting, diarrhea, constipation, or abdominal pain. GENITOURINARY: No dysuria, frequency, hematuria, or change in urination. MUSCULOSKELETAL: No joint or muscle swelling or pain. No neck or back pain. SKIN: No rash or lesions. NEUROLOGIC: No headache, numbness, tingling, focal weakness, loss of consciousness, or change in strength/sensation. Is the patient limited Turkish proficient: No *Physical Exam - Vital Signs Last Vital Signs Temp Pulse Resp BP Pulse Ox 98.3 F 90 16 131/68 94 L 07/08/18 17:00 07/08/18 17:00 07/08/18 17:00 07/08/18 17:00 07/08/18 17:00 - Physical Exam Comments: 07/08/18 20:16 GENERAL: Well developed, well nourished. Awake and alert. No acute distress. HEENT: Normocephalic, atraumatic. Hearing grossly normal. Moist mucous membranes. PERRLA, EOMI. No conjunctival pallor. Sclera are non-icteric. NECK: Supple. Full ROM. No JVD. CARDIOVASCULAR: Regular rate and rhythm. No murmurs, rubs, or gallops. PULMONARY: No evidence of respiratory distress. Lungs clear to auscultation bilaterally. No wheezing, rales or rhonchi. ABDOMINAL: Soft. Non-tender. Non-distended. No rebound or guarding. GENITOURINARY: L CVA tenderness. MUSCULOSKELETAL: Normal range of motion at all joints. No bony deformities or tenderness. EXTREMITIES: No cyanosis. No clubbing. No edema. No calf tenderness or swelling. SKIN: Warm and dry. Normal capillary refill. No rashes. No jaundice. NEUROLOGICAL: Alert, awake, appropriate. Cranial nerves 2-12 grossly intact. Normal speech. PSYCHIATRIC: Cooperative. Good eye contact. Appropriate mood and affect. Moderate Sedation - Procedure Monitoring Vital Signs: Procedure Monitoring Vital Signs Temperature 98.3 F 07/08/18 17:00 Pulse Rate 90 07/08/18 17:00 Respiratory Rate 16 07/08/18 17:00 Blood Pressure 131/68 07/08/18 17:00 O2 Sat by Pulse Oximetry (%) 94 L 07/08/18 17:00 ED Treatment Course - LABORATORY CBC & Chemistry Diagram: 07/08/18 20:09 07/08/18 20:09 - ADDITIONAL ORDERS Additional order review: Laboratory Results 07/08/18 19:20 Urine Color Yellow Urine Appearance Slcloudy Urine pH 6.0 Ur Specific Wilson 1.012 Urine Protein Negative Urine Glucose (UA) Negative Urine Ketones Negative Urine Blood Negative Urine Nitrite Positive Urine Bilirubin Negative Urine Urobilinogen Negative Ur Leukocyte Esterase Trace Medical Decision Making - Medical Decision Making 07/08/18 20:17 The patient is a 67F with MMP who presents to the ER with 1 day of "feeling woozy" with L CVA tenderness concerning for UTI vs pyelo. UA indicates UTI, in combination with L flank pain, concerning for pyelo. Due to her MMP, will give IV abx after EKG and admit for IV abx. 07/08/18 21:06 Contact information for : [phone] Omero Velez 07/08/18 21:12 CBC, CMP WNL. Hospitalist microblogged for admission. 07/08/18 22:18 I have endorsed the patient to Dr. Bennett for admission under Dr. Crowder. *DC/Admit/Observation/Transfer Diagnosis at time of Disposition: UTI (urinary tract infection) Qualifiers: Urinary tract infection type: site unspecified Hematuria presence: without hematuria Qualified Code(s): N39.0 - Urinary tract infection, site not specified - Discharge Dispostion Condition at time of disposition: Guarded Decision to Admit order: Yes - Referrals Referrals: Reuben Esparza MD [Primary Care Provider] - - Patient Instructions - Post Discharge Activity
--- NOTE | 2018-07-08 20:22 | PDOC ---
Attending Attestation - HPI HPI: 07/08/18 20:22 The patient is a 67F with a PMH of Parkinsons Disease, Grand Mal Seizures, HTN, HLD, NIDDM, COPD, SUSANA on Home CPAP, Hypothyroidism, DVT & PE, Hepatitis C and anxiety who presents to the ER complaining that she feels woozy," tired and fatigued. Patient is unable to describe her symptoms in any further details. Patient is a poor historian and unable to provide any further history. Patient denies vertigo, cp, sob, abd pain, N/V/D/C, urinary or bowel problems. Allergies: NKA Past surgical history: None reported. Social history: No reported alcohol, drug or cigarette use. PCP: Dr. Esparza <Elodia Rubin - Last Filed: 07/08/18 20:22> - Resident Resident Name: Jamie Fowler - ED Attending Attestation I have performed the following: I have examined & evaluated the patient, The case was reviewed & discussed with the resident, I agree w/resident's findings & plan, Exceptions are as noted - Physicial Exam PE: 07/08/18 20:19 awake alert lungs clear bilaterally heart rrr no mrg abd soft mild suprapubic ttp . ext wwp no edema. no calf nuero alert oriented x 3. - Medical Decision Making 07/08/18 20:20 67 yo F with h/o copd parkinsons, siezures, prior dvt/ pe multiple uti, DM here with c/o feeling blah. poor historian. denies vomiting but nauseas, fatigued and tired. denies cp or sob. differential infection such as uti or pna, atypical acs, anemia, renal failure, dehydration. plan labs ekg cxr ua. cardiac workup. ua positive for uti, will admit. pt pcn allergic, h/o staph in urine, plan vanco and levaquin. <Christy Ruth - Last Filed: 07/08/18 22:51> Heart Score/ECG Review #1 General ECG Interpretation: Sinus Rhythm, Normal Rate (87), Normal Intervals, No acute ischemic changes <hCristy Ruth - Last Filed: 07/08/18 22:51>
[2018-07-08 20:25] LABS: RBC 3.74 M/mm3 (3.60-5.2); WHITE BLOOD COUNT 7.8 K/mm3 (4.0-10.0)
[2018-07-08 20:26] LABS: BASO % 0.2 % (0-2.0); EOS % 2.9 % (0-4.5); HEMATOCRIT 35.2 % (32.4-45.2); LYMPH % 22.5 % (8-40); MCH 32.2 pg (25.7-33.7); MCHC 34.1 g/dl (32.0-36.0); MEAN CELL VOLUME 94.2 fl (80-96); MEAN PLT VOLUME 8.6 fl (7.5-11.1); MONO % 5.6 % (3.8-10.2); NEUT % 68.8 % (42.8-82.8); PLATELET COUNT 179 K/MM3 (134-434); RDW 12.7 % (11.6-15.6)
[2018-07-08 20:59] LABS: ALBUMIN 3.2 g/dl (3.4-5.0); ALK PHOS 61 U/L (45-117); ANION GAP 10 MMOL/L (8-16); BILIRUBIN,TOTAL 0.2 mg/dL (0.2-1); BLOOD UREA NITROGEN 23 mg/dL (7-18); CALCIUM 9.1 mg/dL (8.5-10.1); CHLORIDE 105 mmol/L (98-107); CO2 26 mmol/L (21-32); CREATININE 0.9 mg/dL (0.55-1.3); GLUCOSE,RANDOM 94 mg/dL (74-106); POTASSIUM 4.2 mmol/L (3.5-5.1); SGOT/AST 17 U/L (15-37); SGPT/ALT 24 U/L (13-61); SODIUM 140 mmol/L (136-145)
--- NOTE | 2018-07-08 21:50 | PN ---
Teaching Attending Note Name of Resident: Salome Chacon ATTENDING PHYSICIAN STATEMENT I saw and evaluated the patient. I reviewed the resident's note and discussed the case with the resident. I agree with the resident's findings and plan as documented. SUBJECTIVE: Patient is a 67 year old woman with a PMH of Parkinsons Disease, Grand Mal Seizures, HTN, HLD, NIDDM, COPD, SUSANA on Home CPAP, Hypothyroidism, DVT & PE, Hepatitis C, penicilin allergy and anxiety who presents to the ER complaining that she feels woozy," tired and fatigued. Has nausea and dysuria. Patient is unable to describe her symptoms in any further details. Patient is a poor historian and unable to provide any further history. Patient denies vertigo, chest pain, SOB, vomiting or changes in bowel habits. OBJECTIVE: Alert, not orthostatic Vital Signs Period Temp Pulse Resp BP Sys/Thornton Pulse Ox Last 24 Hr 98.3 F 90 16 131/68 94 HEENT: No Jaundice, eye redness or discharge, PERRLA, EOMI. Normocephalic, atraumatic. External ears are normal and hearing is grossly intact. No nasal discharge. Neck: Supple, nontender. No palpable adenopathy or thyromegaly. No JVD Chest: Good effort. Clear to auscultation and percussion. Heart: Regular. No S3, rub or murmur Abdomen: Not distended, soft, suprapubic tenderness and left CVAT; no HSM. No rebound or guarding. Normoactive bowel sounds. Ext: Peripheral pulses intact. No leg edema. Skin: Warm and dry. No petechiae, rash or ecchymosis. Neuro: Alert. Oriented x3. sluggish and withdrawn; CN 2-12 grossly intact. Sensation grossly intact in all four extremities and DTR are symmetric. Very poor gait - unable to ambulate without her walker. Current Medications Generic Name Dose Route Start Last Admin Trade Name Freq PRN Reason Stop Dose Admin Levofloxacin 500 mg in 100 mls @ 100 mls/hr 07/08/18 21:16 Levaquin 500 Mg Premixed Ivpb - IVPB 07/08/18 22:15 ONCE ONE Protocol Home Medications Medication Instructions Recorded Levothyroxine [Synthroid -] 175 mcg PO DAILY 04/03/14 Phenytoin Na Extended [Dilantin -] 300 mg PO HS 08/08/14 Venlafaxine HCl ER [Effexor Xr -] 75 mg PO DAILY 06/27/17 Gabapentin [Neurontin] 300 mg PO TID 07/13/17 Olanzapine [Zyprexa -] 2.5 mg PO HS 08/10/17 Celecoxib 200 mg PO DAILY 12/10/17 Divalproex *ER* [Depakote *ER* -] 1,000 mg PO BID 02/07/18 Amlodipine Besylate [Norvasc -] 10 mg PO DAILY tablet 02/08/18 Metoprolol Tartrate [Lopressor -] 100 mg PO BID tablet 02/08/18 metFORMIN HCL [Metformin HCl] 500 mg PO BID 02/08/18 Lisinopril [Prinivil] 5 mg PO DAILY tablet 02/11/18 Sennosides/Docusate Sodium 2 tablet PO HS PRN tablet 02/11/18 [Pericolace -] Acetaminophen [Tylenol .Regular 650 mg PO Q6H PRN tablet 02/12/18 Strength -] Sulfamethoxazole/Trimethoprim 1 each PO BID 3 Days #6 tablet 04/25/18 [Bactrim Ds Tablet] Abnormal Lab Results 07/08/18 20:09 BUN 23 H Albumin 3.2 L ASSESSMENT AND PLAN: 1. Altered mental status - She had recent MRSA as well as E. Coli ?"UTI", but the evidence for UTI at this time is soft. Likely culprits include medication side/adverse effects, drug interactions or [employer] pathology. No significant new abnormality on EKG. Will hold zyprexa and neurontin; check dilantin and depakote levels, get head CT scan, urine toxicology and CXR. Will hydrate her gently and continue vancomycin and levofloxacin pending urine culture report. Consult PT. Consult neurology for possible reduction/streamlining of her [employer] medications. 2. DM For now, we will hold the home diabetes drugs and implement sliding scale insulin regimen. Provide comprehensive diabetes care with patient teaching and counseling about the importance of adherence to prescribed diabetes regimen, euglycemia, eye care and foot care. 3. Obesity - Will provide patient all the necessary assistance, counseling and positive reinforcement to facilitate weight loss. Consult assistant director of admissions. 4. Hypertension - Restart outpatient antihypertensive drugs and revise regimen to ensure smooth [id number] good BP control. Nonpharmacologic measures to control hypertension like weight loss, salt restriction and exercise discussed. 5. DVT prophylaxis - Lovenox 40 mg SQ q 12 hours. 6. Advance directives - Full code
[2018-07-08] MEDS ORDERED: SODIUM CHLORIDE 1,000 ML IV SCH (22:45)
--- NOTE | 2018-07-08 22:56 | HP ---
CHIEF COMPLAINT: "feeling woozy" PCP: Dr Esparza; neuro is Dr. Johnson HISTORY OF PRESENT ILLNESS: 67 y/o female with PMH of parkinsons, seizures, HTN, HLD, DM, COPD, SUSANA, hypothyroidism, Hep C (treated in 2017) previous history of DVT/PE presented to the ED with vague complaints of feeling "yucky" - patient states that for the past day she just has not been feeling herself- she denies any sick contacts or recent travel. of note she also is complaining of slight burning on urination and has had previous history of MRSA in the past . unclear of what her baseline is; however, she did seem slightly lethargic and somnolent on exam. of note she lives at home with her , uses a walker to get around and ER course was notable for: (1) vitals wnl; negative orthostatics; cbc/cmp wnl (2)u/a trace leuk esterase; 12 WBC; + nitrite (3)given 500 levaquin Recent Travel: none PAST MEDICAL HISTORY: see above PAST SURGICAL HISTORY: cholecystectomy in the past Social History: Smoking:former smoker; 38 year pack history quit 2005 Alcohol: former drinker; extensive history quit 25 years ago Drugs: denies Family History: DM/HTN on both sides Allergies aspirin Allergy (Verified 04/25/18 10:33) Hives milk Allergy (Verified 04/25/18 10:33) Penicillins Allergy (Verified 04/25/18 10:33) Hives procaine Allergy (Verified 04/25/18 10:33) Shellfish Allergy (Verified 04/25/18 10:33) Hives venom-honey bee [bee venom (honey bee)] Allergy (Verified 04/25/18 10:33) SWELLING egg Adverse Reaction (Verified 04/25/18 10:33) Vomiting HOME MEDICATIONS: Home Medications Medication Instructions Recorded Levothyroxine [Synthroid -] 175 mcg PO DAILY 04/03/14 Phenytoin Na Extended [Dilantin -] 300 mg PO HS 08/08/14 Venlafaxine HCl ER [Effexor Xr -] 75 mg PO DAILY 06/27/17 Gabapentin [Neurontin] 300 mg PO TID 07/13/17 Olanzapine [Zyprexa -] 2.5 mg PO HS 08/10/17 Celecoxib 200 mg PO DAILY 12/10/17 Divalproex *ER* [Depakote *ER* -] 1,000 mg PO BID 02/07/18 Amlodipine Besylate [Norvasc -] 10 mg PO DAILY tablet 02/08/18 Metoprolol Tartrate [Lopressor -] 100 mg PO BID tablet 02/08/18 metFORMIN HCL [Metformin HCl] 500 mg PO BID 02/08/18 Lisinopril [Prinivil] 5 mg PO DAILY tablet 02/11/18 Sennosides/Docusate Sodium 2 tablet PO HS PRN tablet 02/11/18 [Pericolace -] Acetaminophen [Tylenol .Regular 650 mg PO Q6H PRN tablet 02/12/18 Strength -] Sulfamethoxazole/Trimethoprim 1 each PO BID 3 Days #6 tablet 04/25/18 [Bactrim Ds Tablet] REVIEW OF SYSTEMS CONSTITUTIONAL: Present:generalized weakness, malaise Absent: fever, chills, diaphoresis, loss of appetite, weight change HEENT: Absent: rhinorrhea, nasal congestion, throat pain, throat swelling, difficulty swallowing, mouth swelling, ear pain, eye pain, visual changes CARDIOVASCULAR: Absent: chest pain, syncope, palpitations, irregular heart rate, lightheadedness , peripheral edema RESPIRATORY: Absent: cough, shortness of breath, dyspnea with exertion, orthopnea, wheezing, stridor, hemoptysis GASTROINTESTINAL: Absent: abdominal pain, abdominal distension, nausea, vomiting, diarrhea, constipation, melena, hematochezia GENITOURINARY: Present: dysuria, flank pain, Absent: frequency, urgency, hesitancy, hematuria , genital pain MUSCULOSKELETAL: Absent: myalgia, arthralgia, joint swelling, back pain, neck pain SKIN: Absent: rash, itching, pallor HEMATOLOGIC/IMMUNOLOGIC: Absent: easy bleeding, easy bruising, lymphadenopathy, frequent infections ENDOCRINE: Absent: unexplained weight gain, unexplained weight loss, heat intolerance, cold intolerance NEUROLOGIC: Absent: headache, focal weakness or paresthesias, dizziness, unsteady gait, seizure, mental status changes, bladder or bowel incontinence PSYCHIATRIC: Absent: anxiety, depression, suicidal or homicidal ideation, hallucinations. PHYSICAL EXAMINATION Vital Signs - 24 hr 07/08/18 17:00 Temperature 98.3 F Pulse Rate 90 Respiratory 16 Rate Blood Pressure 131/68 O2 Sat by Pulse 94 L Oximetry (%) GENERAL: Awake, slightly lethargic and somnolent; however, following commands. EYES: EOMI; PEERLA: no scleral icterus. NECK:no JVD, no lymphadenopathy LUNGS: CTA B/L; no rales, rhonchi or wheezing HEART: Regular rate and rhythm, normal S1 and S2 without murmur, rub or gallop. ABDOMEN: Soft, slight suprapubic tenderness upon palpation; +BS in all 4 quadrants . MUSCULOSKELETAL: Normal range of motion at all joints. No bony deformities or tenderness. No CVA tenderness. EXTREMITIES: warm; well perfused; no clubbing/cyanosis or edema NEUROLOGICAL: Cranial nerves II-XII intact. Normal speech. weakness with gait; could only observe a few steps PSYCHIATRIC: Cooperative. Good eye contact. Appropriate mood and affect. SKIN: Warm, dry, normal turgor, no rashes or lesions noted, normal capillary refill. Laboratory Results - last 24 hr 07/08/18 07/08/18 07/08/18 19:20 20:09 20:09 WBC 7.8 RBC 3.74 Hgb 12.0 Hct 35.2 MCV 94.2 MCH 32.2 MCHC 34.1 RDW 12.7 Plt Count 179 MPV 8.6 Absolute Neuts (auto) 5.4 Neutrophils % 68.8 D Lymphocytes % 22.5 D Monocytes % 5.6 Eosinophils % 2.9 Basophils % 0.2 Nucleated RBC % 0 Sodium 140 Potassium 4.2 Chloride 105 Carbon Dioxide 26 Anion Gap 10 BUN 23 H Creatinine 0.9 Creat Clearance w eGFR > 60 Random Glucose 94 Calcium 9.1 Total Bilirubin 0.2 AST 17 ALT 24 Alkaline Phosphatase 61 Total Protein 7.0 Albumin 3.2 L Urine Color Yellow Urine Appearance Slcloudy Urine pH 6.0 Ur Specific [place] 1.012 Urine Protein Negative Urine Glucose (UA) Negative Urine Ketones Negative Urine Blood Negative Urine Nitrite Positive Urine Bilirubin Negative Urine Urobilinogen Negative Ur Leukocyte Esterase Trace Urine WBC (Auto) 12 Urine RBC (Auto) None Ur Epithelial Cells Rare Urine Bacteria Rare Urine Mucus Rare ASSESSMENT/PLAN: 67 y/o female with an extensive PMH presents to the ED with a one day history of not feeling herself incidentally found to have a positive U/A #? Altered mental status possibly due to medication side effects/interactions v. UTI? -given history of MRSA in past will treat with levaquin/vanco until cx come back -check dilantin and depakote levels -holding zyprexa and neurontin -non-contrast head CT -f/u urine tox screen -Dr Johnson consulted #HTN -c/w home medications #DM -holding patients Metformin - ISS -BGMS ACHS #Hypothyroidism - c/w synthroid -f/u TSH and free T4 F/E/N NS @50mls/hr monitor electrolytes Diabetic Diet DVT PPX: lovenox Problem List - Problem (1) Hypertension Code(s): I10 - ESSENTIAL (PRIMARY) HYPERTENSION (2) UTI (urinary tract infection) Code(s): N39.0 - URINARY TRACT INFECTION, SITE NOT SPECIFIED Qualifiers: Urinary tract infection type: site unspecified Hematuria presence: without hematuria Qualified Code(s): N39.0 - Urinary tract infection, site not specified (3) Hypothyroid Code(s): E03.9 - HYPOTHYROIDISM, UNSPECIFIED (4) Seizure disorder Code(s): G40.909 - EPILEPSY, UNSP, NOT INTRACTABLE, WITHOUT STATUS EPILEPTICUS (5) Diabetes Code(s): E11.9 - TYPE 2 DIABETES MELLITUS WITHOUT COMPLICATIONS Visit type - Emergency Visit Emergency Visit: Yes ED Registration Date: 07/08/18 Care time: The patient presented to the Emergency Department on the above date and was hospitalized for further evaluation of their emergent condition. - New Patient This patient is new to me today: Yes Date on this admission: 07/08/18 - Critical Care Critical Care patient: No
[2018-07-08] MEDS ORDERED: VANCOMYCIN 1,250 MG in DEXTROSE 5%-WATER - 250 ML IVPB ONE (23:45)
[2018-07-09 00:17] LABS: VALPROIC ACID DEPAKOTE DEPAKAN 76.6 ug/ml (50-100)
[2018-07-09] MEDS: INSULIN SLIDING SCALE (NOVOLOG) 1 VIAL SQ SCH ×4 (06:38→22:19)
[2018-07-09] MEDS ORDERED: LEVOTHYROXINE NA 75 MCG TABLET (FP) ONE (06:39)
[2018-07-09] MEDS ORDERED: LEVOTHYROXINE NA 100 MCG TABLET (FP) ONE (06:39)
[2018-07-09] MEDS: LEVOTHYROXINE 100 MCG, LEVOTHYROXINE 75 MCG PO SCH (06:42)
[2018-07-09 08:02] LABS: BASO % 0.2 % (0-2.0); HEMATOCRIT 32.7 % (32.4-45.2); HEMOGLOBIN 11.2 GM/dL (10.7-15.3); LYMPH % 30.8 % (8-40); MCH 31.7 pg (25.7-33.7); MCHC 34.3 g/dl (32.0-36.0); MEAN CELL VOLUME 92.6 fl (80-96); MONO % 8.4 % (3.8-10.2); NEUT % 57.6 % (42.8-82.8); PLATELET COUNT 165 K/MM3 (134-434); RBC 3.53 M/mm3 (3.60-5.2); RDW 12.6 % (11.6-15.6); WHITE BLOOD COUNT 6.4 K/mm3 (4.0-10.0)
[2018-07-09] MEDS ORDERED: PT OWN MED DRAWER 7, Y5N ONE ×4 (08:05→21:26)
[2018-07-09 08:34] LABS: ALBUMIN 2.9 g/dl (3.4-5.0); ALK PHOS 54 U/L (45-117); ANION GAP 7 MMOL/L (8-16); BILIRUBIN,TOTAL 0.2 mg/dL (0.2-1); BLOOD UREA NITROGEN 23 mg/dL (7-18); CALCIUM 8.5 mg/dL (8.5-10.1); CHLORIDE 106 mmol/L (98-107); CO2 26 mmol/L (21-32); CREATININE 0.8 mg/dL (0.55-1.3); GLUCOSE,RANDOM 85 mg/dL (74-106); MAGNESIUM 1.6 mg/dL (1.8-2.4); PHOSPHOROUS 4.4 mg/dL (2.5-4.9); POTASSIUM 3.8 mmol/L (3.5-5.1); SGOT/AST 14 U/L (15-37); SGPT/ALT 21 U/L (13-61); SODIUM 140 mmol/L (136-145); TOT PROT 6.2 g/dl (6.4-8.2)
[2018-07-09] MEDS ORDERED: MAGNESIUM OXIDE 400 MG TABLET (FP) PO ONE (08:46)
[2018-07-09] MEDS ORDERED: LEVOTHYROXINE NA 125 MCG TABLET (FP) PO SCH (10:00)
[2018-07-09] MEDS: amLODIPine BESYLATE 10 MG TABLET (FP) PO SCH (10:45)
[2018-07-09] MEDS: METOPROLOL TARTRATE 50 MG TABLET (FP) PO SCH ×2 (10:45→22:18)
[2018-07-09] MEDS: LISINOPRIL 5 MG TABLET (FP) PO SCH (10:45)
[2018-07-09] MEDS: VENLAFAXINE HCL 75 MG E.R. CAPSULES (FP) PO SCH (10:47)
[2018-07-09] MEDS: DIVALPROEX NA *ER* EXTEND REL 500 MG TABLET.SA (FP) PO SCH ×2 (10:47→22:52)
[2018-07-09] MEDS: ENOXAPARIN NA (PORCINE) 40 MG/0.4 ML DISP.SYRIN SQ SCH (10:48)
[2018-07-09] MEDS ORDERED: VANCOMYCIN 1,250 MG in DEXTROSE 5%-WATER - 250 ML IVPB SCH (11:15)
--- NOTE | 2018-07-09 13:19 | PN ---
Physical Exam: SUBJECTIVE: Patient seen and examined at bedside this morning. She denies any diarrhea, abdominal pain, nausea, vomiting overnight. She dos not endorse dysuria, hematuria, or urinary frequency. Patient denies subjective fevers, chills. OBJECTIVE: Vital Signs Period Temp Pulse Resp BP Sys/Thornton Pulse Ox Last 24 Hr 97.6 F-98.4 F 85-90 16-85 131-155/68-89 94-97 GENERAL: The patient is awake, alert, oriented to person, place in no acute distress. HEAD: Normocephalic, atraumatic. EYES: PERRL, extraocular movements intact, sclera anicteric. ENT: Oropharynx clear without exudates, moist mucous membranes. NECK: Trachea midline, supple without lymphadenopathy LUNGS: Breath sounds equal, clear to auscultation bilaterally. No wheezes, no crackles. No accessory muscle use. HEART: Regular rate and rhythm, S1, S2 without murmur, rub or gallop. ABDOMEN: Soft, nontender, nondistended. Normoactive bowel sounds. No guarding, no rebound tenderness. No hepatosplenomegaly. EXTREMITIES: 2+ pulses, warm, well-perfused, no edema. NEUROLOGICAL: Patient freely moves al 4 extremities. Slight bilateral upper extremity tremor noted. PSYCH: Normal mood, normal affect. SKIN: Warm, dry. Laboratory Results - last 24 hr 07/08/18 07/08/18 07/08/18 19:20 20:09 20:09 WBC 7.8 RBC 3.74 Hgb 12.0 Hct 35.2 MCV 94.2 MCH 32.2 MCHC 34.1 RDW 12.7 Plt Count 179 MPV 8.6 Absolute Neuts (auto) 5.4 Neutrophils % 68.8 D Lymphocytes % 22.5 D Monocytes % 5.6 Eosinophils % 2.9 Basophils % 0.2 Nucleated RBC % 0 Sodium 140 Potassium 4.2 Chloride 105 Carbon Dioxide 26 Anion Gap 10 BUN 23 H Creatinine 0.9 Creat Clearance w eGFR > 60 POC Glucometer Random Glucose 94 Calcium 9.1 Phosphorus Magnesium Total Bilirubin 0.2 AST 17 ALT 24 Alkaline Phosphatase 61 Total Protein 7.0 Albumin 3.2 L TSH Free T4 Urine Color Yellow Urine Appearance Slcloudy Urine pH 6.0 Ur Specific [place] 1.012 Urine Protein Negative Urine Glucose (UA) Negative Urine Ketones Negative Urine Blood Negative Urine Nitrite Positive Urine Bilirubin Negative Urine Urobilinogen Negative Ur Leukocyte Esterase Trace Urine WBC (Auto) 12 Urine RBC (Auto) None Ur Epithelial Cells Rare Urine Bacteria Rare Urine Mucus Rare Phenytoin Valproic Acid 07/08/18 07/09/18 07/09/18 20:09 06:18 06:45 WBC 6.4 RBC 3.53 L Hgb 11.2 Hct 32.7 MCV 92.6 MCH 31.7 MCHC 34.3 RDW 12.6 Plt Count 165 MPV 8.0 Absolute Neuts (auto) 3.7 Neutrophils % 57.6 Lymphocytes % 30.8 D Monocytes % 8.4 Eosinophils % 3.0 Basophils % 0.2 Nucleated RBC % 0 Sodium Potassium Chloride Carbon Dioxide Anion Gap BUN Creatinine Creat Clearance w eGFR POC Glucometer 87 Random Glucose Calcium Phosphorus Magnesium Total Bilirubin AST ALT Alkaline Phosphatase Total Protein Albumin TSH Free T4 Urine Color Urine Appearance Urine pH Ur Specific [place] Urine Protein Urine Glucose (UA) Urine Ketones Urine Blood Urine Nitrite Urine Bilirubin Urine Urobilinogen Ur Leukocyte Esterase Urine WBC (Auto) Urine RBC (Auto) Ur Epithelial Cells Urine Bacteria Urine Mucus Phenytoin 8.0 L Valproic Acid 76.6 07/09/18 07/09/18 07/09/18 06:45 06:45 11:17 WBC RBC Hgb Hct MCV MCH MCHC RDW Plt Count MPV Absolute Neuts (auto) Neutrophils % Lymphocytes % Monocytes % Eosinophils % Basophils % Nucleated RBC % Sodium 140 Potassium 3.8 Chloride 106 Carbon Dioxide 26 Anion Gap 7 L BUN 23 H Creatinine 0.8 Creat Clearance w eGFR > 60 POC Glucometer 92 Random Glucose 85 Calcium 8.5 Phosphorus 4.4 Magnesium 1.6 L Total Bilirubin 0.2 AST 14 L ALT 21 Alkaline Phosphatase 54 Total Protein 6.2 L Albumin 2.9 L TSH 0.04 L Free T4 1.12 Urine Color Urine Appearance Urine pH Ur Specific [place] Urine Protein Urine Glucose (UA) Urine Ketones Urine Blood Urine Nitrite Urine Bilirubin Urine Urobilinogen Ur Leukocyte Esterase Urine WBC (Auto) Urine RBC (Auto) Ur Epithelial Cells Urine Bacteria Urine Mucus Phenytoin Valproic Acid Active Medications Generic Name Dose Route Start Last Admin Trade Name Freq PRN Reason Stop Dose Admin Amlodipine Besylate 10 mg 07/09/18 10:00 07/09/18 10:45 Norvasc - PO 10 mg DAILY ZENY Administration Divalproex Sodium 1,000 mg 07/09/18 10:00 07/09/18 10:47 Depakote *Er* - PO 1,000 mg BID ZENY Administration Enoxaparin Sodium 40 mg 07/09/18 10:00 07/09/18 10:48 Lovenox - SQ 40 mg DAILY ZENY Administration Levofloxacin 250 mg in 50 mls @ 50 mls/hr 07/09/18 10:00 Levaquin 250 Mg Premixed Ivpb - IVPB DAILY [facility] Protocol Sodium Chloride 1,000 mls @ 50 mls/hr 07/08/18 22:45 07/09/18 00:17 Normal Saline - IV 07/09/18 22:41 50 mls/hr ASDIR ZENY Administration Vancomycin HCl 1,250 mg/ 250 mls @ 166.667 mls/hr 07/09/18 11:15 Dextrose IVPB Q12H [facility] Protocol Insulin Aspart 1 vial 07/09/18 07:00 07/09/18 11:19 Novolog Vial Sliding Scale - SQ Not Given ACHS [facility] Protocol Levothyroxine Sodium 100 mcg/ 175 mcg 07/09/18 07:00 07/09/18 06:42 Levothyroxine Sodium 75 mcg PO 175 mcg DAILY@0700 ZENY Administration Lisinopril 5 mg 07/09/18 10:00 07/09/18 10:45 Prinivil PO 5 mg DAILY ZENY Administration Metoprolol Tartrate 100 mg 07/09/18 10:00 07/09/18 10:45 Lopressor - PO 100 mg BID ZENY Administration Phenytoin Sodium 300 mg 07/09/18 22:00 Dilantin - PO HS [facility] Venlafaxine HCl 75 mg 07/09/18 08:00 07/09/18 10:47 Effexor Xr - PO 75 mg DAILY@0800 ZENY Administration ASSESSMENT/PLAN: Patient is a 67 year old female with history of Parkinson's disease, seizure disorder, hypertension, hyperlipidemia, COPD, SUSANA on home CPAP, hypothyroidism, previous DVT and PE presents with complaint of diarrhea, and dysuria. Acute metabolic encephalopathy -May be secondary to viral gastroenteritis, vs. urinary tract infection. Considering medication as possible etiology as Depakote level was recently increased. -CT head (noncontrast) shows no acute intracranial pathology. -UA positive for nitrites, trace leukocyte esterace, WBC 12, rare bacteria, mucus, epithelial cells. -Valproic acid level 76.6, Phenytoin level 8 -Depakote 1000mg PO BID -Dilantin 300mg PO HS -Venlafaxine 75mg PO daily -Levaquin 250mg IV daily -Vancomycin 1250mg IV BID -Neurology consult (Dr. Johnson) Right lung base density -Noted incidentally on chest radiography -Will follow up CT chest, low dose Hypertension -Norvasc 10mg PO daily -Lisinopril 5mg PO dialy -Lopresor 100mg PO BID -Follow vital signs closely Hypothyroidism -TSH 0.04, Free T4 1.12 -Synthroid 175mcg PO daily -Will attempt to obtain records from primary care physician. Diabetes Mellitus, non insulin dependent -Holding home Metformin -Insulin sliding scale ACHS -Fingerstick blood glucose monitoring ACHS History of DVT, PE -Will contact primary care physician, Dr. Ann regarding why patient is not on anticoagulation. FEN -IV normal saline at 50mL/ hour -Within normal limits, follow CMP -Diabetic diet Prophylaxis -Lovenox 40mg subq daily Disposition -Continue care in medical-surgical floor. Visit type - Emergency Visit Emergency Visit: Yes ED Registration Date: 07/08/18 Care time: The patient presented to the Emergency Department on the above date and was hospitalized for further evaluation of their emergent condition. - New Patient This patient is new to me today: Yes Date on this admission: 07/09/18 - Critical Care Critical Care patient: No - Discharge Referral Referred to [facility] Med P.C.: No
--- NOTE | 2018-07-09 15:06 | EKG ---
Test Reason : Blood Pressure : / mmHG Vent. Rate : 087 BPM Atrial Rate : 087 BPM P-R Int : 182 ms QRS Dur : 072 ms QT Int : 370 ms P-R-T Axes : 055 -02 006 degrees QTc Int : 445 ms NORMAL SINUS RHYTHM POSSIBLE LEFT ATRIAL ENLARGEMENT LEFT VENTRICULAR HYPERTROPHY ABNORMAL ECG Confirmed by Jason Aldana MD ([id number]) on 07/09/2018 3:05:56 PM Referred By: Confirmed By:Jason Aldana MD
--- NOTE | 2018-07-09 15:55 | PN ---
Teaching Attending Note Name of Resident: Pedro Rock ATTENDING PHYSICIAN STATEMENT I saw and evaluated the patient. I reviewed the resident's note and discussed the case with the resident. I agree with the resident's findings and plan as documented. SUBJECTIVE:c/o dysuria and generalized fatigue. denies Cp, SOB, fever, chills, N /V/C/D OBJECTIVE: Last Vital Signs Temp Pulse Resp BP Pulse Ox 98.1 F 73 20 139/65 97 07/09/18 14:32 07/09/18 14:32 07/09/18 09:00 07/09/18 14:32 07/09/18 09:00 General NAD CV S1 S2 RRR lungs CTA B/L no wheezing/rales/rhonchi Abdomen soft NT/ND ASSESSMENT AND PLAN: 67yo F wtih PMH parkinson, seizure, HTN, SUSANA on CPAP, DM, COPD, hypothyroid, HCV s/p tx with past hx of MRSA UTI presented to the ER with generalized fatigue with nausea and dysuria. 1. Altered mental status - possible UTI vs drug side effect. seems like her dilantin was increased 6 months ago and has been fatigued since but worsened over the past 2 days. started on levaquin/Vanco day 2. PCN allergy noted. imaging all negative. dilantin and depakote level pending. neuro consulted. 2. R base lung density- f/u with CT chest 3. Low TSH- seems like she was on lower dose of LT4 several months ago and now on 175mcg. and in the past TSH was high. will call PMD to inquire when medication was adjusted and last TSH ordered. will adjust medications pending information 4. DM- hold oral agents. iss and BGM 5. DVT- unclear why she was not on treatment at home or if was completed. pt is poor historian 6. DVT ppx- lovenox
--- NOTE | 2018-07-09 21:17 | CONSULT ---
Consult - text type - Consultation Consultation Note: NEUROLOGY CONSULTATION is greatly appreciated: This 67 yo RH woman lives with her son. PMH sig for Hypothyroidism, HTN, DM, OA and Chronic paranoid Schizophrenia. 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 Also Seizure disorder and migraine headaches well controlled on Dilantin 300 qd , depakote ER 1000 q 12 hrs and Gabapentin 300 TID Other meds include: lisinopril, amlodipine, metoprolol 100 mg BID (also for migraines) , lisinopril, Venlafaxine, and celebrex. Recently tapered off Zyprexa but redeveloped auditory hallucinations which she denied when seen in my office on 06/20/18. Now admitted with abdominal pains. On antibiotics. Exam: Neck supple. No bruits. Cor reg. Abd. Non-tender. NEURO: Staring, paranoid. Hallucinating? Ox "[place]", August 2019 but recalls [facility], Jul and 2018 after 5 mins. CN: Masked facies, Rythmic jaw tremor Motor: Normal strength. Rhythmic tremors of feet >> arms. + Cogwheeling. Reflexes reduced at the knees and absent at the ankles. Toes downgoing. Coord: No FTN dystaxia Sensory: Reduced vibration in feet. Gait: Deferred. IMP: 1. Parkinsonism, persisting off Neuroleptics. Probably Parkinson's Disease 2. Diabetic Peripheral neuropathy 3. Seizure disorder- well-controlled on meds. 4. Migraine Headaches 5. Encephalopathy- Probably recurrent Paranoid Schizophrenia. SUGGEST: Continue Depakote ER 1 gm q 12 hrs and Dilantin 300 hs. Check VPA and DPH levels, B12, TSH, RPR Psychiatry consultation Resume Zyprexa 2.5 q HS- first dose tonight. Update MRI of the brain (C-) Continue Sinemet CR 25/100 PO TID @ 7, 15 and 5 Begin bedside PT then PT for gait with walker. Thank you very much, Edinson Johnson MD
[2018-07-09] MEDS: PHENYTOIN NA EXTENDED 100 MG CAPSULE (FP) PO SCH (22:19)
[2018-07-09] MEDS: OLANZapine 2.5 MG TABLET PO SCH (22:24)
[2018-07-10] MEDS ORDERED: LEVOTHYROXINE NA 100 MCG TABLET (FP) ONE (05:45)
[2018-07-10] MEDS ORDERED: LEVOTHYROXINE NA 75 MCG TABLET (FP) ONE (05:45)
[2018-07-10] MEDS: INSULIN SLIDING SCALE (NOVOLOG) 1 VIAL SQ SCH ×4 (06:07→22:13)
[2018-07-10] MEDS: LEVOTHYROXINE 100 MCG, LEVOTHYROXINE 75 MCG PO SCH (06:09)
[2018-07-10 08:16] LABS: HEMATOCRIT 32.7 % (32.4-45.2); HEMOGLOBIN 11.2 GM/dL (10.7-15.3); MCH 31.8 pg (25.7-33.7); MCHC 34.2 g/dl (32.0-36.0); MEAN PLT VOLUME 7.9 fl (7.5-11.1); PLATELET COUNT 151 K/MM3 (134-434); RBC 3.51 M/mm3 (3.60-5.2); RDW 12.2 % (11.6-15.6); WHITE BLOOD COUNT 4.8 K/mm3 (4.0-10.0)
[2018-07-10] MEDS ORDERED: PT OWN MED DRAWER 7, Y5N ONE (08:16)
[2018-07-10 09:36] LABS: BLOOD UREA NITROGEN 15 mg/dL (7-18); CREATININE 0.8 mg/dL (0.55-1.3); GLUCOSE,RANDOM 86 mg/dL (74-106)
[2018-07-10 09:37] LABS: ALBUMIN 2.7 g/dl (3.4-5.0); ALK PHOS 52 U/L (45-117); ANION GAP 7 MMOL/L (8-16); BILIRUBIN,TOTAL 0.1 mg/dL (0.2-1); CALCIUM 8.4 mg/dL (8.5-10.1); CHLORIDE 108 mmol/L (98-107); CO2 28 mmol/L (21-32); POTASSIUM 3.9 mmol/L (3.5-5.1); SGOT/AST 16 U/L (15-37); SGPT/ALT 21 U/L (13-61); SODIUM 143 mmol/L (136-145); TOT PROT 6.1 g/dl (6.4-8.2)
[2018-07-10 09:47] LABS: PHENYTOIN (DILANTIN) 7.8 ug/ml (10.0-20.0); VALPROIC ACID DEPAKOTE DEPAKAN 66.5 ug/ml (50-100)
[2018-07-10] MEDS: LISINOPRIL 5 MG TABLET (FP) PO SCH (11:00)
[2018-07-10] MEDS: amLODIPine BESYLATE 10 MG TABLET (FP) PO SCH (11:00)
[2018-07-10] MEDS: VENLAFAXINE HCL 75 MG E.R. CAPSULES (FP) PO SCH (11:00)
[2018-07-10] MEDS: DIVALPROEX NA *ER* EXTEND REL 500 MG TABLET.SA (FP) PO SCH ×2 (11:00→22:12)
[2018-07-10] MEDS: ENOXAPARIN NA (PORCINE) 40 MG/0.4 ML DISP.SYRIN SQ SCH (11:00)
[2018-07-10] MEDS: METOPROLOL TARTRATE 50 MG TABLET (FP) PO SCH ×2 (11:00→22:13)
--- NOTE | 2018-07-10 11:57 | PN ---
Teaching Attending Note Name of Resident: Pedro Rock ATTENDING PHYSICIAN STATEMENT I saw and evaluated the patient. I reviewed the resident's note and discussed the case with the resident. I agree with the resident's findings and plan as documented. SUBJECTIVE:states she feels better today. states she is having auditory hallucinations. states it sounds like someone is having a conversation next to her when no one is there. states they are not giving her instructions to do things/to hurt herself or others. does not know when it started. denies Cp, SOB , fever, chills, N/V/C/D OBJECTIVE: Last Vital Signs Temp Pulse Resp BP Pulse Ox 98.1 F 76 20 158/73 97 07/10/18 06:30 07/10/18 06:30 07/10/18 06:30 07/10/18 06:30 07/10/18 04:00 General NAD, A&O x2 (self and location) CV S1 S2 RRR lungs CTA B/L no wheezing/rales/rhonchi Abdomen soft NT/ND no suprapubic tenderness/distention ASSESSMENT AND PLAN: 67yo F wtih PMH parkinson, seizure, HTN, SUSANA on CPAP, DM, COPD, hypothyroid, HCV s/p tx with past hx of MRSA UTI presented to the ER with generalized fatigue with nausea and dysuria. 1. Altered mental status - possible UTI vs drug side effect. clinically improved and appears to be at baseline. correction from yesterday her depakote was increased last year and dilantin has not been adjusted. zyprexa started last night. MRI brain pending and pysch consult placed for hallucinations. brief review of previous charts seem this is a new symptom. neuro on board 2. GNR UTI- will d/c vanco. on levaquin day 08/06. d.c contact precautions 3. R base lung density- not appreciated on CT chest. likely exterior to body 4. Pulmonary HTN- can f/u with cardio as outpatient. 5. Low TSH- last TSH was WNL 6 months ago. will reduce LT4 to 150mcg. will need repeat TSH in 6 weeks. notified PMD to check 6. DM- hold oral agents. iss and BGM 7. hx of DVT- as per PMD was provoked DVT and completed treatment. no indication for termite control representative anticoagulation. 8. DVT ppx- lovenox
--- NOTE | 2018-07-10 16:11 | PN ---
Physical Exam: SUBJECTIVE: Patient seen and examined at bedside this morning. She endorses complaints of auditory hallucinations that occur as conversations within her head. She denies suicidal, homicidal ideation. She denies subjective fevers, chills. OBJECTIVE: Vital Signs Period Temp Pulse Resp BP Sys/Thornton Pulse Ox Last 24 Hr 98.1 F-98.5 F 72-76 20-20 146-159/73-82 97-97 GENERAL: The patient is awake, alert, oriented to person, place in no acute distress. HEAD: Normocephalic, atraumatic. EYES: PERRL, extraocular movements intact, sclera anicteric. ENT: Oropharynx clear without exudates, moist mucous membranes. NECK: Trachea midline, supple without lymphadenopathy LUNGS: Breath sounds equal, clear to auscultation bilaterally. No wheezes, no crackles. No accessory muscle use. HEART: Regular rate and rhythm, S1, S2 without murmur, rub or gallop. ABDOMEN: Soft, nontender, nondistended. Normoactive bowel sounds. No guarding, no rebound tenderness. No hepatosplenomegaly. EXTREMITIES: 2+ pulses, warm, well-perfused, no edema. NEUROLOGICAL: Patient freely moves al 4 extremities. Slight bilateral upper extremity tremor noted. PSYCH: Normal mood, normal affect. SKIN: Warm, dry. Laboratory Results - last 24 hr 07/09/18 07/09/18 07/10/18 16:55 22:17 05:55 WBC RBC Hgb Hct MCV MCH MCHC RDW Plt Count MPV Sodium Potassium Chloride Carbon Dioxide Anion Gap BUN Creatinine Creat Clearance w eGFR POC Glucometer 109 173 79 Random Glucose Calcium Total Bilirubin AST ALT Alkaline Phosphatase Total Protein Albumin Vitamin B12 TSH Phenytoin Valproic Acid RPR Titer 07/10/18 07/10/18 07/10/18 07:00 07:00 07:00 WBC 4.8 RBC 3.51 L Hgb 11.2 Hct 32.7 MCV 93.0 MCH 31.8 MCHC 34.2 RDW 12.2 Plt Count 151 MPV 7.9 Sodium 143 Potassium 3.9 Chloride 108 H Carbon Dioxide 28 Anion Gap 7 L BUN 15 Creatinine 0.8 Creat Clearance w eGFR > 60 POC Glucometer Random Glucose 86 Calcium 8.4 L Total Bilirubin 0.1 L AST 16 ALT 21 Alkaline Phosphatase 52 Total Protein 6.1 L Albumin 2.7 L Vitamin B12 TSH 0.07 L Phenytoin 7.8 L Valproic Acid 66.5 RPR Titer 07/10/18 07/10/18 07/10/18 07:00 07:00 11:27 WBC RBC Hgb Hct MCV MCH MCHC RDW Plt Count MPV Sodium Potassium Chloride Carbon Dioxide Anion Gap BUN Creatinine Creat Clearance w eGFR POC Glucometer 97 Random Glucose Calcium Total Bilirubin AST ALT Alkaline Phosphatase Total Protein Albumin Vitamin B12 1437 H TSH Phenytoin Valproic Acid RPR Titer Nonreactive Active Medications Generic Name Dose Route Start Last Admin Trade Name Freq PRN Reason Stop Dose Admin Amlodipine Besylate 10 mg 07/09/18 10:00 07/10/18 11:00 Norvasc - PO 10 mg DAILY ZENY Administration Carbidopa/Levodopa 0.5 combo 07/10/18 08:00 07/10/18 13:31 Sinemet *Cr* 25/100 - PO 07/12/18 17:31 0.5 combo TIDCM ZENY Administration Carbidopa/Levodopa 1 combo 07/13/18 08:00 Sinemet *Cr* 25/100 - PO [facility]CM [facility] Divalproex Sodium 1,000 mg 07/09/18 10:00 07/10/18 11:00 Depakote *Er* - PO 1,000 mg BID [facility] Administration Enoxaparin Sodium 40 mg 07/09/18 10:00 07/10/18 11:00 Lovenox - SQ 40 mg DAILY ZENY Administration Insulin Aspart 1 vial 07/09/18 07:00 07/10/18 11:32 Novolog Vial Sliding Scale - SQ Not Given [facility] Protocol Levofloxacin 250 mg 07/10/18 10:00 07/10/18 11:00 Levaquin - PO 250 mg DAILY@0600 ZENY Administration Levothyroxine Sodium 150 mcg 07/11/18 07:00 Synthroid - PO DAILY@0700 [facility] Lisinopril 5 mg 07/09/18 10:00 07/10/18 11:00 Prinivil PO 5 mg DAILY [facility] Administration Metoprolol Tartrate 100 mg 07/09/18 10:00 07/10/18 11:00 Lopressor - PO 100 mg BID ZENY Administration Olanzapine 2.5 mg 07/09/18 22:00 07/09/18 22:24 Zyprexa - PO 2.5 mg HS ZENY Administration Phenytoin Sodium 300 mg 07/09/18 22:00 07/09/18 22:19 Dilantin - PO 300 mg HS ZENY Administration Venlafaxine HCl 75 mg 07/09/18 08:00 07/10/18 11:00 Effexor Xr - PO 75 mg DAILY@0800 [facility] Administration ASSESSMENT/PLAN: Patient is a 67 year old female with history of Parkinson's disease, seizure disorder, hypertension, hyperlipidemia, COPD, SUSANA on home CPAP, hypothyroidism, previous DVT and PE presents with complaint of diarrhea, and dysuria. Acute metabolic encephalopathy -May be secondary to viral gastroenteritis, vs. urinary tract infection. Considering medication as possible etiology as Depakote level was recently increased. -CT head (noncontrast) shows no acute intracranial pathology. -UA positive for nitrites, trace leukocyte esterace, WBC 12, rare bacteria, mucus, epithelial cells. -Urine culture grows lactose fermenting gram negative rods. Await final culture results, specificities. -Depakote 1000mg PO BID -Dilantin 300mg PO HS -Venlafaxine 75mg PO daily -Zyprexa 2.5mg HS -Levaquin 250mg PO daily (day #2) -Neurology consult (Dr. Johnson) appreciated -MRI brain shows dilation of lateral ventricles however no significant changes from 07/2017 study. Parkinson's disease -Begin Sinemet 25/100 0.5tablet TID Auditory hallucinations -Denies suicidal, homicidal ideation -Psychiatry consult (Dr. Calhoun) Right lung base density -Noted incidentally on chest radiography -CT chest, low dose shows no pulmonary nodule. Bibasilar bronchiectasis noted, with pulmonary hypertension -Patient will follow up with outpatient laborer chemical processing for follow up. Hypertension -Norvasc 10mg PO daily -Lisinopril 5mg PO dialy -Lopresor 100mg PO BID -Follow vital signs closely Hypothyroidism -TSH 0.04, Free T4 1.12 -Synthroid decreased to 150mcg PO daily -Prior records note TSH 1.40 in 11/2017 Diabetes Mellitus, non insulin dependent -Holding home Metformin -Insulin sliding scale ACHS -Fingerstick blood glucose monitoring ACHS History of DVT, PE -Confirmed with patient's primary care physician; patient is not on anticoagulation due to history of frequent falls. FEN -No IV fluids. Encourage judicious oral hydration. -Within normal limits, follow CMP -Diabetic diet Prophylaxis -Lovenox 40mg subq daily Disposition -Continue care in medical-surgical floor. Visit type - Emergency Visit Emergency Visit: Yes ED Registration Date: 07/08/18 Care time: The patient presented to the Emergency Department on the above date and was hospitalized for further evaluation of their emergent condition. - New Patient This patient is new to me today: No - Critical Care Critical Care patient: No - Discharge Referral Referred to [facility] No
--- NOTE | 2018-07-10 20:08 | PN ---
Progress Note (short form) - Note Progress Note: NEUROLOGY PROGRESS: Events reviewed and discussed with RN's. Pt much calmer and cooperative today. Better oriented. Off IV antibiotics, on PO Levaquin for UTI. Back on Zyprexa 2.5 mg /d. "Not afraid." On Sinemet with decreased tremor. Ambulated "a little" with PT. MRI of brain (reviewed): Moderate, diffuse, atrophy with ex vacuo hydrocephalus and diffuse microvascular changes. Unchanged from 07/22. EXAM: Neck supple. Awake, alert. [facility], August 2019. Knows me. Masked facies but not "staring." +Glabella. Gag OK. Decreased jaw tremor. Normal strength. Decreased rest tremor. Decreased cogwheeling. IMP: Parkinson's disease- improved on L-Dopa. Psychosis- improved on Zyprexa. Migraine Headaches- improved on Depakote. Seizure disorder TME due to UTI- improved on antibiotics. SUGGEST: Stable for D/C to home assuming 24 hour health aide is available. D/C on Sinemet CR 25/100 TID @ 7, 12, and 5 Zyprexa 2.5 mg qhs Dilantin 300 mg qhs Depakote ER 1000mg q 12 hrs Gabapentin 300 mg q8hrs and oral antibiotics as per ID. Neuro f/u as out patient. Cont PT as out patient. Thank you very much, Edinson Johnson MD
[2018-07-10] MEDS ORDERED: INSULIN (NOVOLOG) ASPART 100 UNITS/ML 10ML VIAL ONE (21:32)
[2018-07-10] MEDS: PHENYTOIN NA EXTENDED 100 MG CAPSULE (FP) PO SCH (22:12)
[2018-07-10] MEDS: OLANZapine 2.5 MG TABLET PO SCH (22:13)
[2018-07-11] MEDS: INSULIN SLIDING SCALE (NOVOLOG) 1 VIAL SQ SCH ×4 (06:23→21:31)
[2018-07-11] MEDS: LEVOTHYROXINE NA 150 MCG TABLET PO SCH (06:23)
[2018-07-11] MEDS ORDERED: LEVOTHYROXINE NA 125 MCG TABLET (FP) PO SCH (07:00)
[2018-07-11] MEDS: VENLAFAXINE HCL 75 MG E.R. CAPSULES (FP) PO SCH (08:29)
[2018-07-11 09:03] LABS: HEMATOCRIT 31.9 % (32.4-45.2); HEMOGLOBIN 10.8 GM/dL (10.7-15.3); MCH 31.5 pg (25.7-33.7); MCHC 33.9 g/dl (32.0-36.0); MEAN PLT VOLUME 8.3 fl (7.5-11.1); PLATELET COUNT 158 K/MM3 (134-434); RBC 3.43 M/mm3 (3.60-5.2); RDW 12.7 % (11.6-15.6); WHITE BLOOD COUNT 5.6 K/mm3 (4.0-10.0)
[2018-07-11 09:38] LABS: ALBUMIN 2.9 g/dl (3.4-5.0); ALK PHOS 50 U/L (45-117); ANION GAP 7 MMOL/L (8-16); BILIRUBIN,TOTAL 0.1 mg/dL (0.2-1); BLOOD UREA NITROGEN 14 mg/dL (7-18); CALCIUM 8.7 mg/dL (8.5-10.1); CHLORIDE 108 mmol/L (98-107); CO2 27 mmol/L (21-32); CREATININE 0.7 mg/dL (0.55-1.3); GLUCOSE,RANDOM 85 mg/dL (74-106); SGOT/AST 17 U/L (15-37); SGPT/ALT 19 U/L (13-61); SODIUM 143 mmol/L (136-145); TOT PROT 6.2 g/dl (6.4-8.2)
[2018-07-11] MEDS: ENOXAPARIN NA (PORCINE) 40 MG/0.4 ML DISP.SYRIN SQ SCH (10:17)
[2018-07-11] MEDS: DIVALPROEX NA *ER* EXTEND REL 500 MG TABLET.SA (FP) PO SCH ×3 (10:18→23:11)
[2018-07-11] MEDS: LISINOPRIL 5 MG TABLET (FP) PO SCH (10:18)
[2018-07-11] MEDS: amLODIPine BESYLATE 10 MG TABLET (FP) PO SCH (10:18)
[2018-07-11] MEDS: METOPROLOL TARTRATE 50 MG TABLET (FP) PO SCH ×2 (10:18→21:31)
--- NOTE | 2018-07-11 11:08 | PN ---
Teaching Attending Note Name of Resident: Pedro Rock ATTENDING PHYSICIAN STATEMENT I saw and evaluated the patient. I reviewed the resident's note and discussed the case with the resident. I agree with the resident's findings and plan as documented. SUBJECTIVE:asymptomatic. denies CP, SOB< fever, chills, N/V/C/D. stated that she has not heard any voices since yesterday OBJECTIVE: Last Vital Signs Temp Pulse Resp BP Pulse Ox 98.8 F 74 20 134/78 96 07/11/18 06:52 07/11/18 06:52 07/11/18 06:52 07/11/18 06:52 07/11/18 04:00 General NAD, A&O x2 (self and location) CV S1 S2 RRR lungs CTA B/L no wheezing/rales/rhonchi Abdomen soft NT/ND no suprapubic tenderness/distention ASSESSMENT AND PLAN: 67yo F wtih PMH parkinson, seizure, HTN, SUSANA on CPAP, DM, COPD, hypothyroid, HCV s/p tx with past hx of MRSA UTI presented to the ER with generalized fatigue with nausea and dysuria. 1. Altered mental status - possible UTI vs drug side effect. clinically improved. as per yesterday she has returned to baseline. states she has heard voices in the past and this is not new. medications adjusted per neuro. recommend to f/u with neuro and psych as outpatient. 2. GNR UTI- will d/c vanco. on levaquin day 4/5. d.c contact precautions 3. R base lung density- not appreciated on CT chest. likely exterior to body 4. Pulmonary HTN- can f/u with cardio as outpatient. 5. Low TSH- last TSH was WNL 6 months ago. will reduce LT4 to 150mcg. will need repeat TSH in 6 weeks. notified PMD to check 6. DM- hold oral agents. iss and BGM 7. hx of DVT- as per PMD was provoked DVT and completed treatment. no indication for chcf anticoagulation. 8. DVT ppx- lovenox 9. medically cleared for discharge. will need repeat TSH in 6 weeks and neuro and psych f/u
--- NOTE | 2018-07-11 15:39 | PN ---
Progress Note (short form) - Note Progress Note: ID CONSULT DICTATED ESBL UTI SUBSTITUTE MACROBID 100MG PO BID X 7D OUTPATIENT FOLLOW UP
--- NOTE | 2018-07-11 15:47 | DS ---
Physical Exam: SUBJECTIVE: Patient seen and examined at bedside this morning. She denies any auditory, visual or tactile hallucinations today. She denies subjective fevers, chills. OBJECTIVE: Vital Signs Period Temp Pulse Resp BP Sys/Thornton Pulse Ox Last 24 Hr 97.9 F-98.8 F 74-80 20-20 132-136/70-78 96-96 PHYSICAL EXAM GENERAL: The patient is awake, alert, and fully oriented, in no acute distress. HEAD: Normal with no signs of trauma. EYES: PERRL, extraocular movements intact, sclera anicteric, conjunctiva clear. ENT: Ears normal, nares patent, oropharynx clear without exudates, moist mucous membranes. NECK: Trachea midline, full range of motion, supple. LUNGS: Breath sounds equal, clear to auscultation bilaterally, no wheezes, no crackles, no accessory muscle use. HEART: Regular rate and rhythm, S1, S2 without murmur, rub or gallop. ABDOMEN: Soft, nontender, nondistended, normoactive bowel sounds, no guarding, no rebound, no hepatosplenomegaly, no masses. EXTREMITIES: 2+ pulses, warm, well-perfused, no edema. NEUROLOGICAL: Cranial nerves II through XII grossly intact. Normal speech, gait not observed. PSYCH: Normal mood, normal affect. SKIN: Warm, dry, normal turgor, no rashes or lesions noted. LABS Laboratory Results - last 24 hr 07/10/18 07/10/18 07/11/18 18:24 22:11 05:51 WBC RBC Hgb Hct MCV MCH MCHC RDW Plt Count MPV Sodium Potassium Chloride Carbon Dioxide Anion Gap BUN Creatinine Creat Clearance w eGFR POC Glucometer 109 147 84 Random Glucose Calcium Total Bilirubin AST ALT Alkaline Phosphatase Total Protein Albumin 07/11/18 07/11/18 07/11/18 07:30 07:30 11:53 WBC 5.6 RBC 3.43 L Hgb 10.8 Hct 31.9 L MCV 93.0 MCH 31.5 MCHC 33.9 RDW 12.7 Plt Count 158 MPV 8.3 Sodium 143 Potassium 4.0 Chloride 108 H Carbon Dioxide 27 Anion Gap 7 L BUN 14 Creatinine 0.7 Creat Clearance w eGFR > 60 POC Glucometer 83 Random Glucose 85 Calcium 8.7 Total Bilirubin 0.1 L AST 17 ALT 19 Alkaline Phosphatase 50 Total Protein 6.2 L Albumin 2.9 L HOSPITAL COURSE: Date of Admission:07/08/18 Date of Discharge: 07/11/18 Patient is a 67 year old female with history of Parkinson's disease, seizure disorder, hypertension, hyperlipidemia, COPD, SUSANA on home CPAP, hypothyroidism, previous DVT and PE presents with complaint of diarrhea, and dysuria. Admitted for acute metabolic encephalopathy likely secondary to urinary tract infection. UA upon admission showed nitrites, trace leukocyte esterace, WBC 12 and was started on Levquin. CT head (noncontrast) showed no acute intracranial pathology. Patient was evaluated by neurology who reinstated Zyprexa. Patient' home Depakote, Dilantin, Venlafaxine continued. Norvasc, Lisinopril, and Lopressor continued for hypertension. MRI brain showed dilation of lateral ventricles however no significant changes from 07/2017 study. Patient was started on Sinemet for Parkinson's disease. Her TSH was noted to be low, and her Synthroid was reduced to 150mcg daily. Urine culture grew ESBL E.coli. Patient was evaluated by infectious disease who discussed treatment with Macrobid for 7 days. Patient endorsed auditory hallucinations described as conversations without suicidal or homicidal ideation. She was evaluated by psychiatry, and cleared for discharge. Patient discharged home with home health care, to continue home medications and begin Sinemet, and lower dose Synthroid. Begin Macrobid for 7 days. Follow up with primary care physician, neurologist, and psychiatrist. Minutes to complete discharge: 35 Discharge Summary Reason For Visit: URINARY TRACT INFECTION Current Active Problems Hypertension (Acute) Diabetes (Chronic) Condition: Stable - Instructions Diet, Activity, Other Instructions: Hospital course: You were admitted to the hospital with complaint of diarrhea, and burning upon urination for which you were started on antibiotics. You were evaluated by the neurologist. You had an MRI of the brain which showed no changes compared to your last MRI You are being discharged home. Medication recommendations: Continue taking your home medications as directed. You will begin taking antibiotic Macrobid 100mg every 12 hours for the next 7 days for your urinary tract infection. Your Synthroid dose has been decreased to 150mcg daily because your thyroid levels were found to be high (TSH 0.04, Free T4 1.12). Discuss this new medication with your primary care physician. You will begin taking Sinement 25/100mg every 8 hours Follow up recommendations: Follow up with your primary care physician (Dr. Esparza) within two- three days of discharge (and repeat bloodwork: TSH). You were found to have increased pressure within your lungs (pulmonary hypertension) and will require follow up with a automation architect. Discuss with your primary care physician at your appointment. Follow up with neurologist (Dr. Johnson) within one week of discharge. Follow up with your psychiatrist (Dr. Calhoun) within one week of discharge. Return to the nearest Emergency Department if you experience any worsening symptoms, falls, loss of consciousness, fevers, chills, shortness of breath, chest pain, palpitations, abdominal pain, nausea, vomiting. If you have increased lethargy please discuss with your psychiatrist as it may be side effect of your Zyprexa. Referrals: Rolly Calhoun MD [Staff Physician] - Reuben Esparza MD [Primary Care Provider] - Edinson Johnson MD [Staff Physician] - Disposition: HOME - Home Medications Comprehensive Discharge Medication List: Ambulatory Orders Phenytoin Na Extended [Dilantin -] 300 mg PO HS 08/08/14 Venlafaxine HCl ER [Effexor Xr -] 75 mg PO DAILY 06/27/17 Gabapentin [Neurontin] 300 mg PO TID 07/13/17 Olanzapine [Zyprexa -] 2.5 mg PO HS 08/10/17 Celecoxib 200 mg PO DAILY 12/10/17 Divalproex *ER* [Depakote *ER* -] 1,000 mg PO BID 02/07/18 Amlodipine Besylate [Norvasc -] 10 mg PO DAILY tablet 02/08/18 Metoprolol Tartrate [Lopressor -] 100 mg PO BID tablet 02/08/18 metFORMIN HCL [Metformin HCl] 500 mg PO BID 02/08/18 Lisinopril [Prinivil] 5 mg PO DAILY tablet 02/11/18 Sennosides/Docusate Sodium [Pericolace -] 2 tablet PO HS PRN tablet 02/11/18 Acetaminophen [Tylenol .Regular Strength -] 650 mg PO Q6H PRN tablet 02/12/18 Carbidopa/Levodopa *Cr* 25/100 [Sinemet *Cr* 25/100 -] 1 combo PO TIDCM 30 Days #90 tablet.er 07/10/18 Levothyroxine [Synthroid -] 150 mcg PO DAILY #30 tablet 07/10/18 Nitrofurantoin Monohyd/M-Cryst [Macrobid -] 100 mg PO BID 7 Days #14 capsule 12/20 This patient is new to me today: No Emergency Visit: Yes ED Registration Date: 07/08/18 Care time: The patient presented to the Emergency Department on the above date and was hospitalized for further evaluation of their emergent condition. Critical Care patient: No - Discharge Referral Referred to [facility] Yes Physician Referral: Reuben Ann MD ([facility])
--- NOTE | 2018-07-11 15:50 | CON.PSY ---
Psychiatry Consult Chief Complaint: 67 year old with Schizo affective Disorder admitted with Bacterial infe tion. Not diplaying any Psych symptoms that are acute. - Previous Psychiatric Treatment Outpatient: Less than 6 mos ago Inpatient: One prior admission - Previous Substance Abuse Treatment Outpatient: None Inpatient: None - Reason for Previous Treatment Reason for Previous Treatment: Major Depression, Psychotic Episode - Current Medications Current Medications: Active Medications Amlodipine Besylate (Norvasc -) 10 mg PO DAILY [facility] Last Admin: 07/11/18 10:18 Dose: 10 mg Carbidopa/Levodopa (Sinemet *Cr* 25/100 -) 0.5 combo PO TIDCM ZENY Stop: 07/12/18 17:31 Last Admin: 07/11/18 12:03 Dose: 0.5 combo Carbidopa/Levodopa (Sinemet *Cr* 25/100 -) 1 combo PO TIDCM [facility] Divalproex Sodium (Depakote *Er* -) 1,000 mg PO BID [facility] Last Admin: 07/11/18 10:18 Dose: 1,000 mg Enoxaparin Sodium (Lovenox -) 40 mg SQ DAILY [facility] Last Admin: 07/11/18 10:17 Dose: 40 mg Insulin Aspart (Novolog Vial Sliding Scale -) 1 vial SQ [facility]; Protocol Last Admin: 07/11/18 12:00 Dose: Not Given Levofloxacin (Levaquin -) 250 mg PO DAILY@0600 [facility] Last Admin: 07/11/18 06:23 Dose: 250 mg Levothyroxine Sodium (Synthroid -) 150 mcg PO DAILY@0700 [facility] Last Admin: 07/11/18 06:23 Dose: 150 mcg Lisinopril (Prinivil) 5 mg PO DAILY [facility] Last Admin: 07/11/18 10:18 Dose: 5 mg Metoprolol Tartrate (Lopressor -) 100 mg PO BID [facility] Last Admin: 07/11/18 10:18 Dose: 100 mg Olanzapine (Zyprexa -) 2.5 mg PO [facility] Last Admin: 07/10/18 22:13 Dose: 2.5 mg Phenytoin Sodium (Dilantin -) 300 mg PO [facility] Last Admin: 07/10/18 22:12 Dose: 300 mg Venlafaxine HCl (Effexor Xr -) 75 mg PO DAILY@0800 [facility] Last Admin: 07/11/18 08:29 Dose: 75 mg - Allergies Allergies: Allergies Allergy/AdvReac Type Severity Reaction Status Date / Time aspirin Allergy Hives Verified 04/25/18 10:33 milk Allergy Verified 04/25/18 10:33 Penicillins Allergy Hives Verified 04/25/18 10:33 procaine Allergy Verified 04/25/18 10:33 Shellfish Allergy Hives Verified 04/25/18 10:33 venom-honey bee Allergy Verified 04/25/18 10:33 [bee venom (honey bee)] egg AdvReac Vomiting Verified 04/25/18 10:33 - Current Living Status Usual Living Arrangement: With Significant Other - Current Mental Status Evaluation Appearance: Well Groomed Attitude: Guarded - Affect Affect: Constrictive Appropriateness: Appropriate to Content - Mood Mood: Euthymic - Speech/Language Expressive: Coherent - Psychomotor Activity Psychomotor Activity: Slowed - Thought Process Thought Process: Intact - Thought Content Hallucinations: Absent Delusions: Absent - Self Perception Self Perception: No Impairment - Cognition Attention: Alert Orientation: Time Memory, Immediate Recall: Intact Memory, Short Term: 2/3 Memory, Remote with Promptin/3 - Concentration Serial Sevens Intact: No Simple Calculations Intact: Yes - Abstraction Proverb Interpretation: Intact Judgement: Minimally Impaired - Insight Insight: Intact - Impulse Control Impulse Control: Good Control - Suicidal Ideation Suicidal Ideation: No - Homicidal Ideation Homicidal Ideation: No Assessment/Plan 1) Discharge Home when medically s table.
--- NOTE | 2018-07-11 16:20 | CONS ---
DATE OF CONSULTATION: DATE OF DICTATION: 07/11/2018 INFECTIOUS DISEASE CONSULTATION Patient is a 67-year-old female who is evaluated for ESBL urinary tract infection. She was admitted to the hospital on July 08, 2018, with reports of altered mentation. She had complaint of dysuria and was found to have pyuria. She was empirically treated with Levaquin. Cultures were obtained. Urine cultures are now positive for ESBL. Despite resistant to Levaquin, patient has clinically improved. She reports resolution of urinary tract symptoms. She has no dysuria. No complaints of urinary retention. She has been afebrile with a normal white blood cell count. PAST MEDICAL HISTORY: Positive for parkinsonism, seizure disorder, hypertension, hyperlipidemia, diabetes mellitus, COPD, obstructive sleep apnea, PE, DVT, hepatitis C. ALLERGIES: PENICILLIN, ASPIRIN, AND PROCAINE. PATIENT DEVELOPS HIVES WITH PENICILLIN AND ASPIRIN. SOCIAL HISTORY: Lives in the community. She is a nonsmoker. LABORATORY DATA: White count 5.6. Creatinine 0.7. Urinalysis 12 white cells. Urine culture: ESBL. PHYSICAL EXAMINATION: General: She is awake and alert and has a flat affect. Vital Signs: Temperature 98.8, blood pressure 134/78, pulse 74 regular, respirations 20 per minute. Eyes: Sclerae anicteric. Heart: Sounds S1, S2. Lungs: Clear. Abdomen: Soft. No suprapubic tenderness. Extremities: Negative for edema. IMPRESSION: 1. Extended spectrum beta-lactamase urinary tract infection. 2. Probable acute exacerbation of parkinsonism secondary to urinary tract infection. PLAN: Substitute Macrobid 100 mg p.o. b.i.d. for 7 days. Outpatient followup. Handwashing reinforced with patient. Thank you for the kind referral. ARMIDA PINK M.D. [id number]
[2018-07-11] MEDS ORDERED: INSULIN (NOVOLOG) ASPART 100 UNITS/ML 10ML VIAL ONE (21:10)
[2018-07-11] MEDS: PHENYTOIN NA EXTENDED 100 MG CAPSULE (FP) PO SCH (21:31)
[2018-07-11] MEDS: OLANZapine 2.5 MG TABLET PO SCH (21:32)
[2018-07-12] MEDS: INSULIN SLIDING SCALE (NOVOLOG) 1 VIAL SQ SCH ×2 (06:20→11:34)
[2018-07-12] MEDS: LEVOTHYROXINE NA 150 MCG TABLET PO SCH (06:20)
[2018-07-12 07:33] VITALS: BP 150/79; PULSE 70; TEMP 98.5
[2018-07-12] MEDS: VENLAFAXINE HCL 75 MG E.R. CAPSULES (FP) PO SCH (08:35)
[2018-07-12] MEDS ORDERED: PT OWN MED DRAWER 7, Y5N ONE (10:46)
[2018-07-12] MEDS: amLODIPine BESYLATE 10 MG TABLET (FP) PO SCH (10:48)
[2018-07-12] MEDS: METOPROLOL TARTRATE 50 MG TABLET (FP) PO SCH (10:48)
[2018-07-12] MEDS: LISINOPRIL 5 MG TABLET (FP) PO SCH (10:49)
[2018-07-12] MEDS: ENOXAPARIN NA (PORCINE) 40 MG/0.4 ML DISP.SYRIN SQ SCH (10:49)
[2018-07-12] MEDS: DIVALPROEX NA *ER* EXTEND REL 500 MG TABLET.SA (FP) PO SCH (10:49)
[2018-07-12] MEDS ORDERED: INSULIN (NOVOLOG) ASPART 100 UNITS/ML 10ML VIAL ONE (11:19)
== END 2018-07-12 14:55 | disposition home or self-care (01) ==
LOC: JER 16:46 → JERBED 22:18 → J6S 07-09 02:25
PROVIDERS: ADMIT Internal Medicine; ATTEND Internal Medicine
PROC: 3E03329 Introduction of Other Anti-infective into Peripheral Vein, Percutaneous Approach (ICD-10-PCS; principal; 2018-07-08)
PROC: 3E0337Z Introduction of Electrolytic and Water Balance Substance into Peripheral Vein, Percutaneous Approach (ICD-10-PCS; 2018-07-08)
PROC: 3E013VG Introduction of Insulin into Subcutaneous Tissue, Percutaneous Approach (ICD-10-PCS; 2018-07-08)
PROC: 3E013GC Introduction of Other Therapeutic Substance into Subcutaneous Tissue, Percutaneous Approach (ICD-10-PCS; 2018-07-08)
DX: N39.0 Urinary tract infection, site not specified (principal); R41.82 Altered mental status, unspecified; I10 Essential (primary) hypertension; E78.5 Hyperlipidemia, unspecified; G40.909 Epilepsy, unspecified, not intractable, without status epilepticus; G20 Parkinson's disease; G93.41 Metabolic encephalopathy; J98.4 Other disorders of lung; E11.42 Type 2 diabetes mellitus with diabetic polyneuropathy; Z79.84 Long term (current) use of oral hypoglycemic drugs; J44.9 Chronic obstructive pulmonary disease, unspecified; G47.33 Obstructive sleep apnea (adult) (pediatric); E03.9 Hypothyroidism, unspecified; B18.2 Chronic viral hepatitis C; F41.9 Anxiety disorder, unspecified; E66.9 Obesity, unspecified; Z68.42 Body mass index [BMI] 45.0-49.9, adult; R44.0 Auditory hallucinations; Z86.14 Personal history of Methicillin resistant Staphylococcus aureus infection; Z91.038 Other insect allergy status; Z91.012 Allergy to eggs; Z88.6 Allergy status to analgesic agent; Z91.011 Allergy to milk products; Z88.0 Allergy status to penicillin; Z86.718 Personal history of other venous thrombosis and embolism; Z99.89 Dependence on other enabling machines and devices; Z91.013 Allergy to seafood
CPT/HCPCS: 36415; 70450-TC; 70551-TC; 71045-TC-FY; 71250-TC; 80053; 80164; 80185; 81003; 81015; 82607; 82962; 83735; 84100; 84439; 84443; 85025; 85027; 86593; 87086; 87186; 93005; 93010; 96365; 96367; 96372; 96375; 97116-GP; 97161-GP; 99283-25; G0378; J7030

== ENCOUNTER 2018-08-05 10:08 | Inpatient (IN) | payer OTHER ==
[2018-08-05 10:55] LABS: BASO % 0.5 % (0-2.0); EOS % 5.8 % (0-4.5); HEMATOCRIT 37.8 % (32.4-45.2); HEMOGLOBIN 12.9 GM/dL (10.7-15.3); LYMPH % 26.6 % (8-40); MCH 31.3 pg (25.7-33.7); MCHC 34.1 g/dl (32.0-36.0); MEAN CELL VOLUME 91.8 fl (80-96); MEAN PLT VOLUME 8.3 fl (7.5-11.1); MONO % 7.8 % (3.8-10.2); NEUT % 59.3 % (42.8-82.8); PLATELET COUNT 143 K/MM3 (134-434); RBC 4.12 M/mm3 (3.60-5.2); RDW 12.8 % (11.6-15.6)
--- NOTE | 2018-08-05 11:02 | PDOC ---
History of Present Illness - General History Source: Care Provider, Family Exam Limitations: No Limitations - History of Present Illness Initial Comments: 08/05/18 11:11 The patient is a 67 year old female with a past medical history of Parkinsons disease, seizure, HTN, HLD, COPD, hypothyroidism, anxiety, diabetes, hep c, and depression brought in by EMS today for evaluation of seizure. The patients aide reports that she found the patient this morning at approximately 8:45 in a confused state and was not responsive. The aide reports that she was at her baseline yesterday and denies her having a fever. The patients family reports that the patient is compliant with her meds and does not ambulate. Allergies: aspirin, milk, penicillins, procaine, shellfish, venom-honey bee, eggs PCP: Reuben Esparza Neurologist: Edinson Johnson <Eddie Fu - Last Filed: 08/05/18 12:06> - General History Source: Patient, Family, Old Records Exam Limitations: No Limitations <Sohan Vasquez - Last Filed: 08/05/18 12:12> - General Chief Complaint: Seizure Stated Complaint: SEIZURE Time Seen by Provider: 08/05/18 10:17 Past History <Eddie Fu - Last Filed: 08/05/18 12:06> - Past Medical History Anemia: No Asthma: No Cancer: No Cardiac Disorders: No CVA: No COPD: Yes CHF: No DVT: Yes (AND PE) Dementia: No Diabetes: Yes (border line) Dialysis: No GI Disorders: No Disorders: No HTN: Yes Hypercholesterolemia: Yes Liver Disease: Yes (HEP C, TREATED NATALYA KELLER, CURED 2017) Psychiatric Problems: Yes (anxiety, tremors) Seizures: Yes (GRAND MAL, LAST SEIZURE 1 YEAR AGO) Thyroid Disease: Yes (HYPOACTIVE) Lung CA: Yes (bipolar, depression) - Surgical History Abdominal Surgery: No Appendectomy: No Cardiac Surgery: No Cholecystectomy: Yes Lung Surgery: No Neurologic Surgery: No Orthopedic Surgery: No - Immunization History Immunization Up to Date: Yes - Suicide/Smoking/Psychosocial Hx Smoking Status: No Smoking History: Never smoked Have you smoked in the past 12 months: No Number of Cigarettes Smoked Daily: 0 If you are a former smoker, when did you quit?: 2003 Information on smoking cessation initiated: No 'Breaking Loose' booklet given: 09/06/13 Hx Alcohol Use: No Drug/Substance Use Hx: No Substance Use Type: None Hx Substance Use Treatment: Yes <Sohan Vasquez - Last Filed: 08/05/18 12:12> - Past Medical History Allergies/Adverse Reactions: Allergies Allergy/AdvReac Type Severity Reaction Status Date / Time aspirin Allergy Hives Verified 08/05/18 10:23 milk Allergy Verified 08/05/18 10:23 Penicillins Allergy Hives Verified 08/05/18 10:23 procaine Allergy Verified 08/05/18 10:23 Shellfish Allergy Hives Verified 08/05/18 10:23 venom-honey bee Allergy Verified 08/05/18 10:23 [bee venom (honey bee)] egg AdvReac Vomiting Verified 08/05/18 10:23 Home Medications: Ambulatory Orders Phenytoin Na Extended [Dilantin -] 300 mg PO HS 08/08/14 Venlafaxine HCl ER [Effexor Xr -] 75 mg PO DAILY 06/27/17 Gabapentin [Neurontin] 300 mg PO TID 07/13/17 Olanzapine [Zyprexa -] 2.5 mg PO HS 08/10/17 Celecoxib 200 mg PO DAILY 12/10/17 Divalproex *ER* [Depakote *ER* -] 1,000 mg PO BID 02/07/18 Amlodipine Besylate [Norvasc -] 10 mg PO DAILY tablet 02/08/18 Metoprolol Tartrate [Lopressor -] 100 mg PO BID tablet 02/08/18 metFORMIN HCL [Metformin HCl] 500 mg PO BID 02/08/18 Lisinopril [Prinivil] 5 mg PO DAILY tablet 02/11/18 Sennosides/Docusate Sodium [Pericolace -] 2 tablet PO HS PRN tablet 02/11/18 Acetaminophen [Tylenol .Regular Strength -] 650 mg PO Q6H PRN tablet 02/12/18 Carbidopa/Levodopa *Cr* 25/100 [Sinemet *Cr* 25/100 -] 1 combo PO TIDCM 30 Days #90 tablet.er 07/10/18 Levothyroxine [Synthroid -] 150 mcg PO DAILY #30 tablet 07/10/18 Nitrofurantoin Monohyd/M-Cryst [Macrobid -] 100 mg PO BID 7 Days #14 capsule 12/20 Review of Systems - Review of Systems Able to Perform ROS?: Yes (ROS obtained from son) Comments:: 08/05/18 11:12 GENERAL/CONSTITUTIONAL: No fever or chills. No weakness. HEAD, EYES, EARS, NOSE AND THROAT: No change in vision. No ear pain or discharge. No sore throat. CARDIOVASCULAR: No chest pain or shortness of breath. RESPIRATORY: No cough, wheezing, or hemoptysis. GASTROINTESTINAL: No nausea, vomiting, diarrhea or constipation. GENITOURINARY: No dysuria, frequency, or change in urination. MUSCULOSKELETAL: No joint or muscle swelling or pain. No neck or back pain. SKIN: No rash NEUROLOGIC: +unresponsiveness. No headache, vertigo, loss of consciousness, or change in strength/sensation. ENDOCRINE: No increased thirst. No abnormal weight change. HEMATOLOGIC/LYMPHATIC: No anemia, easy bleeding, or history of blood clots. ALLERGIC/IMMUNOLOGIC: No hives or skin allergy. <Eddie Fu - Last Filed: 08/05/18 12:06> *Physical Exam - Vital Signs Last Vital Signs Temp Pulse Resp BP Pulse Ox 97.9 F 69 16 153/81 100 08/05/18 10:10 08/05/18 10:10 08/05/18 10:10 08/05/18 10:10 08/05/18 10:10 - Physical Exam Comments: 08/05/18 11:12 GENERAL: Awake, alert, and fully oriented, in no acute distress HEAD: No signs of trauma EYES: PERRLA, EOMI, sclera anicteric, conjunctiva clear ENT: Auricles normal inspection, hearing grossly normal, nares patent, oropharynx clear without exudates. Moist mucosa NECK: Normal ROM, supple, no lymphadenopathy, JVD, or masses LUNGS: Breath sounds equal, clear to auscultation bilaterally. No wheezes, and no crackles HEART: Regular rate and rhythm, normal S1 and S2, no murmurs, rubs or gallops ABDOMEN: Soft, nontender, normoactive bowel sounds. No guarding, no rebound. No masses EXTREMITIES: Normal range of motion, no edema. No clubbing or cyanosis. No cords, erythema, or tenderness NEUROLOGICAL: +chronic lower extremity weakness. Cranial nerves II through XII grossly intact. Normal speech, normal gait. no pronator drift. Sensation intact. Strength in upper extremities intact. SKIN: Warm, Dry, normal turgor, no rashes or lesions noted. <Eddie Fu - Last Filed: 08/05/18 12:06> - Vital Signs Last Vital Signs Temp Pulse Resp BP Pulse Ox 97.9 F 69 16 153/81 100 08/05/18 10:10 08/05/18 10:10 08/05/18 10:10 08/05/18 10:10 08/05/18 10:10 <Sohan Vasquez - Last Filed: 08/05/18 12:12> Moderate Sedation - Procedure Monitoring Vital Signs: Procedure Monitoring Vital Signs Temperature 97.9 F 08/05/18 10:10 Pulse Rate 69 08/05/18 10:10 Respiratory Rate 16 08/05/18 10:10 Blood Pressure 153/81 08/05/18 10:10 O2 Sat by Pulse Oximetry (%) 100 08/05/18 10:10 <Eddie Fu - Last Filed: 08/05/18 12:06> - Procedure Monitoring Vital Signs: Procedure Monitoring Vital Signs Temperature 97.9 F 08/05/18 10:10 Pulse Rate 69 08/05/18 10:10 Respiratory Rate 16 08/05/18 10:10 Blood Pressure 153/81 08/05/18 10:10 O2 Sat by Pulse Oximetry (%) 100 08/05/18 10:10 <Sohan Vasquez - Last Filed: 08/05/18 12:12> Heart Score/ECG Review #1 ECG reviewed & interpreted by me at: 10:40 08/05/18 11:02 NSR 68, LVH, no std/[place], left axis, QTC 421 msec <Sohan Vasquez - Last Filed: 08/05/18 12:12> ED Treatment Course - LABORATORY CBC & Chemistry Diagram: 08/05/18 10:49 08/05/18 10:49 - ADDITIONAL ORDERS Additional order review: 08/05/18 10:49 RBC 4.12 MCV 91.8 MCHC 34.1 RDW 12.8 MPV 8.3 Neutrophils % 59.3 Lymphocytes % 26.6 Monocytes % 7.8 Eosinophils % 5.8 H D Basophils % 0.5 <Eddie Fu - Last Filed: 08/05/18 12:06> - LABORATORY CBC & Chemistry Diagram: 08/05/18 10:49 08/05/18 10:49 - ADDITIONAL ORDERS Additional order review: 08/05/18 10:49 RBC 4.12 MCV 91.8 MCHC 34.1 RDW 12.8 MPV 8.3 Neutrophils % 59.3 Lymphocytes % 26.6 Monocytes % 7.8 Eosinophils % 5.8 H D Basophils % 0.5 <Sohan Vasquez - Last Filed: 08/05/18 12:12> Medical Decision Making - Medical Decision Making 08/05/18 11:02 A portion of this note was documented by scribe services under my direction. I have reviewed the details of the note, within reason, and agree with the documentation with the following case summary and management plan written by me. Patient treated in the ED. Nursing notes are reviewed and incorporated into the medical decision-making. Vital signs reviewed. Peripheral IV access obtained by the nurse, laboratory studies are drawn and sent, reviewed and interpreted by myself. Vital Signs Temp Pulse Resp BP Pulse Ox 97.9 F 69 16 153/81 100 08/05/18 10:10 08/05/18 10:10 08/05/18 10:10 08/05/18 10:10 08/05/18 10:10 67 year old female with past medical history Parkinson's disease, grand mal seizure disorder, hypertension, diabetes, hyperlipidemia, COPD, hypothyroidism, hepatitis C, anxiety brought in by EMS for unwitnessed seizure. The patient lives at home with a home health a. Home health aide reports that yesterday, the patient was in her usual state health. The home health aide than left or to go home. The patient typically is bedbound and only gets around in a wheelchair. Normal they went to check upper this morning and noted that she was postictal and minimally responsive. He called EMS and the patient's family member, Omero, went to check up on the patient. Noted that this was her usual postseizure episode. According to her partner, Omero, the patient is back to her usual self. She reports that she is compliant with her Depakote. Denies any recent illnesses, fevers, chills, cough, vomiting, diarrhea. We'll observe the patient and check some basic labs. We'll also check a urinalysis. If the workup is unremarkable and the patient has been observed with no further seizures, the patient's son feels comfortable taking the patient home. Diagnosis would be epilepsy. 08/05/18 12:09 CBC, BMP 08/05/18 10:49 08/05/18 10:49 CMP Sodium 136 mmol/L (136-145) 08/05/18 10:49 Potassium 4.4 mmol/L (3.5-5.1) 08/05/18 10:49 Chloride 98 mmol/L (98-107) 08/05/18 10:49 Carbon Dioxide 31 mmol/L (21-32) 08/05/18 10:49 Anion Gap 7 MMOL/L (8-16) L 08/05/18 10:49 BUN 14 mg/dL (7-18) 08/05/18 10:49 Creatinine 0.8 mg/dL (0.55-1.3) 08/05/18 10:49 Creat Clearance w eGFR > 60 (>60) 08/05/18 10:49 Random Glucose 79 mg/dL (74-106) 08/05/18 10:49 Calcium 9.1 mg/dL (8.5-10.1) 08/05/18 10:49 Total Bilirubin 0.2 mg/dL (0.2-1) 08/05/18 10:49 AST 16 U/L (15-37) 08/05/18 10:49 ALT 23 U/L (13-61) 08/05/18 10:49 Alkaline Phosphatase 59 U/L (45-117) 08/05/18 10:49 Total Protein 6.9 g/dl (6.4-8.2) 08/05/18 10:49 Albumin 3.1 g/dl (3.4-5.0) L 08/05/18 10:49 Urine Test Results Urine Color Yellow 08/05/18 11:07 Urine Appearance Turbid 08/05/18 11:07 Urine pH 6.0 (5.0-8.0) 08/05/18 11:07 Ur Specific [place] 1.011 (1.010-1.035) 08/05/18 11:07 Urine Protein 2+ (NEGATIVE) H 08/05/18 11:07 Urine Glucose (UA) Negative (NEGATIVE) 08/05/18 11:07 Urine Ketones Trace (NEGATIVE) H 08/05/18 11:07 Urine Blood 1+ (NEGATIVE) H 08/05/18 11:07 Urine Nitrite Positive (NEGATIVE) 08/05/18 11:07 Urine Bilirubin Negative (<2.0 mg/dL) 08/05/18 11:07 Ur Leukocyte Esterase 2+ (NEGATIVE) H 08/05/18 11:07 Ur Epithelial Cells Rare /HPF (FEW) 08/05/18 11:07 Urine Bacteria Rare /hpf (NONE SEEN) 08/05/18 11:07 Pt noted with positive nitrates and leukocytes. Given prior microbiology and resistance, the patient will require IV antibiotics. Will give IV vancomycin and aztreonam (pt has allergies to penicillin). Dr. Perry paged. Awaiting response. [facility] paged. Pt accepted by Dr. Mcallister to med/surg admission. Case discussed in detail with admitting physician including history, physical exam and ancillary studies. Admitting physician has assumed care for the patient, will follow all pending diagnostics and will complete the evaluation and treatment. 08/05/18 12:11 <Sohan Vasquez - Last Filed: 08/05/18 12:12> *DC/Admit/Observation/Transfer - Attestations Scribe Attestion: 08/05/18 11:14 Documentation prepared by JUSTINE Cox, acting as certified medical records coder for Sohan Vasquez MD. <Eddie Fu - Last Filed: 08/05/18 12:06> - Discharge Dispostion Decision to Admit order: Yes <Sohan Vasquez - Last Filed: 08/05/18 12:12> Diagnosis at time of Disposition: UTI (urinary tract infection) Qualifiers: Urinary tract infection type: site unspecified Hematuria presence: without hematuria Qualified Code(s): N39.0 - Urinary tract infection, site not specified - Discharge Dispostion Condition at time of disposition: Stable - Referrals Referrals: Reuben Esparza MD [Primary Care Provider] - - Patient Instructions - Post Discharge Activity
[2018-08-05 11:25] LABS: ALBUMIN 3.1 g/dl (3.4-5.0); ALK PHOS 59 U/L (45-117); ANION GAP 7 MMOL/L (8-16); BILIRUBIN,TOTAL 0.2 mg/dL (0.2-1); BLOOD UREA NITROGEN 14 mg/dL (7-18); CALCIUM 9.1 mg/dL (8.5-10.1); CHLORIDE 98 mmol/L (98-107); CO2 31 mmol/L (21-32); CREATININE 0.8 mg/dL (0.55-1.3); GLUCOSE,RANDOM 79 mg/dL (74-106); POTASSIUM 4.4 mmol/L (3.5-5.1); SGOT/AST 16 U/L (15-37); SGPT/ALT 23 U/L (13-61); SODIUM 136 mmol/L (136-145); TOT PROT 6.9 g/dl (6.4-8.2)
[2018-08-05 11:26] LABS: VALPROIC ACID DEPAKOTE DEPAKAN 65.3 ug/ml (50-100)
[2018-08-05 11:33] LABS: URINE APPEARANCE TURBID; URINE BILIRUBIN NEGATIVE (<2.0 mg/dL); URINE COLOR YELLOW; URINE GLUCOSE (UA) NEGATIVE (NEGATIVE); URINE KETONE TRACE (NEGATIVE); URINE LEUK ESTERASE 2+ (NEGATIVE); URINE NITRITE POSITIVE (NEGATIVE); URINE PROTEIN 2+ (NEGATIVE); URINE UROBILINOGEN NEGATIVE mg/dL (0.2-1.0)
[2018-08-05 11:49] LABS: EPI CELLS RARE /HPF (FEW); URINE BACTERIA RARE /hpf (NONE SEEN)
[2018-08-05] MEDS ORDERED: VANCOMYCIN 1 GM in D5W (PRE-DOCKED) 1,000 MG/250 ML IVPB ONE (12:10)
[2018-08-05] MEDS ORDERED: AZTREONAM 1 GM in DEXTROSE 5%-WATER - 50 ML IVPB ONE (12:10)
[2018-08-05] MEDS ORDERED: VANCOMYCIN 1 GRAM (PRE-DOCKED) 1,000 MG/250 ML BAG IVPB ONE (12:25)
--- NOTE | 2018-08-05 12:48 | HP ---
PCP: Reuben Esparza HISTORY OF PRESENT ILLNESS: This is a 67 year old woman comes to the ED today after having a seizure. The patients home service demonstrator found her at 8:45 this morning confused and not responding. She reports that she had been in her usual state of health until this morning. The patient says "I had a seizure" but cannot provide any further details. She was recently hospitalized 07/08-07/12 for ESBL (+ ) E. coli UTI which was treated with Macrobid x 7 days. She denies dysuria, urinary frequency, fever, chills. PAST MEDICAL HISTORY Hypertension Hyperlipidemia COPD Seizure disorder Parkinson disease Type 2 diabetes mellitus Diabetic peripheral neuropathy Cirrhosis Hepatitis C Alcohol abuse Depression/anxiety Obstructive sleep apnea Pulmonary HTN DVT/PE ESBL, MRSA UTIs PAST SURGICAL HISTORY Cholecystectomy Allergies aspirin Allergy (Verified 08/05/18 10:23) Hives milk Allergy (Verified 08/05/18 10:23) Penicillins Allergy (Verified 08/05/18 10:23) Hives procaine Allergy (Verified 08/05/18 10:23) Shellfish Allergy (Verified 08/05/18 10:23) Hives venom-honey bee [bee venom (honey bee)] Allergy (Verified 08/05/18 10:23) SWELLING egg Adverse Reaction (Verified 08/05/18 10:23) Vomiting Home Medications Medication Instructions Recorded Phenytoin Na Extended [Dilantin -] 300 mg PO HS 08/08/14 Venlafaxine HCl ER [Effexor Xr -] 75 mg PO DAILY 06/27/17 Gabapentin [Neurontin] 300 mg PO TID 07/13/17 Olanzapine [Zyprexa -] 2.5 mg PO HS 08/10/17 Celecoxib 200 mg PO DAILY 12/10/17 Divalproex *ER* [Depakote *ER* -] 1,000 mg PO BID 02/07/18 Amlodipine Besylate [Norvasc -] 10 mg PO DAILY tablet 02/08/18 Metoprolol Tartrate [Lopressor -] 100 mg PO BID tablet 02/08/18 metFORMIN HCL [Metformin HCl] 500 mg PO BID 02/08/18 Lisinopril [Prinivil] 5 mg PO DAILY tablet 02/11/18 Sennosides/Docusate Sodium 2 tablet PO HS PRN tablet 02/11/18 [Pericolace -] Acetaminophen [Tylenol .Regular 650 mg PO Q6H PRN tablet 02/12/18 Strength -] Carbidopa/Levodopa *Cr* 25/100 1 combo PO TIDCM 30 Days #90 07/10/18 [Sinemet *Cr* 25/100 -] tablet.er Levothyroxine [Synthroid -] 150 mcg PO DAILY #30 tablet 07/10/18 Nitrofurantoin Monohyd/M-Cryst 100 mg PO BID 7 Days #14 capsule 07/11/18 [Macrobid -] Social History: Smoking: Quit 2005 Alcohol: Quit ~25 years ago Drugs: Denies Family History: Non-contributory Recent travel: No REVIEW OF SYSTEMS CONSTITUTIONAL: Absent: fever, chills, diaphoresis, generalized weakness, malaise, loss of appetite, weight change HEENT: Absent: rhinorrhea, nasal congestion, throat pain, throat swelling, difficulty swallowing, mouth swelling, ear pain, eye pain, visual changes CARDIOVASCULAR: Absent: chest pain, syncope, palpitations, lightheadedness, peripheral edema RESPIRATORY: Absent: cough, shortness of breath, dyspnea with exertion, orthopnea, wheezing, stridor, hemoptysis GASTROINTESTINAL: Absent: abdominal pain, abdominal distension, nausea, vomiting , diarrhea, constipation, melena, hematochezia GENITOURINARY: Absent: dysuria, frequency, urgency, hesitancy, hematuria, flank pain MUSCULOSKELETAL: Absent: myalgia, arthralgia, joint swelling, back pain, neck pain SKIN: Absent: rash, itching, pallor HEMATOLOGIC/IMMUNOLOGIC: Absent: easy bleeding, easy bruising, lymphadenopathy, frequent infections ENDOCRINE: Absent: unexplained weight gain, unexplained weight loss, heat intolerance, cold intolerance NEUROLOGIC: Absent: headache, focal weakness, paresthesias, dizziness, unsteady gait, seizure, mental status changes, bladder or bowel incontinence PSYCHIATRIC: Absent: anxiety, depression, suicidal or homicidal ideation, hallucinations. PHYSICAL EXAMINATION Vital Signs - 24 hr 08/05/18 08/05/18 10:10 11:17 Temperature 97.9 F Pulse Rate 69 Pulse Rate [ 69 Apical] Respiratory 16 18 Rate Blood Pressure 153/81 Blood Pressure 127/74 [Right Arm] O2 Sat by Pulse 100 100 Oximetry (%) GENERAL: Awake, alert, and fully oriented, in no acute distress. HEAD: Normal with no signs of trauma. EYES: Pupils equal, round and reactive to light, extraocular movements intact, sclerae anicteric, conjunctivae clear. EARS, NOSE, THROAT: Ears normal, nares patent, oropharynx clear without exudates. Moist mucous membranes. NECK: Normal range of motion, supple without lymphadenopathy, JVD, or masses. LUNGS: Breath sounds equal, clear to auscultation bilaterally. No wheezes, and no crackles. No accessory muscle use. HEART: Regular rate and rhythm, normal S1 and S2 without murmur, rub or gallop. ABDOMEN: Soft, nontender, not distended, normoactive bowel sounds, no guarding, no rebound, no masses. No hepatomegaly or splenomegaly. MUSCULOSKELETAL: Normal range of motion at all joints. No bony deformities or tenderness. No CVA tenderness. UPPER EXTREMITIES: 2+ pulses, warm, well-perfused. No cyanosis. No clubbing. No peripheral edema. LOWER EXTREMITIES: 2+ pulses, warm, well-perfused. No calf tenderness. No peripheral edema. NEUROLOGICAL: Slow to respond. Cranial nerves II-XII intact. Normal speech. PSYCHIATRIC: Cooperative. Good eye contact. Appropriate mood and affect. SKIN: Warm, dry, normal turgor, no rashes or lesions noted, normal capillary refill. Laboratory Results - last 24 hr 08/05/18 08/05/18 08/05/18 10:49 10:49 10:49 WBC 7.0 RBC 4.12 Hgb 12.9 Hct 37.8 D MCV 91.8 MCH 31.3 MCHC 34.1 RDW 12.8 Plt Count 143 MPV 8.3 Absolute Neuts (auto) 4.2 Neutrophils % 59.3 Lymphocytes % 26.6 Monocytes % 7.8 Eosinophils % 5.8 H D Basophils % 0.5 Nucleated RBC % 0 Sodium 136 Potassium 4.4 Chloride 98 Carbon Dioxide 31 Anion Gap 7 L BUN 14 Creatinine 0.8 Creat Clearance w eGFR > 60 Random Glucose 79 Calcium 9.1 Total Bilirubin 0.2 AST 16 ALT 23 Alkaline Phosphatase 59 Total Protein 6.9 Albumin 3.1 L Urine Color Urine Appearance Urine pH Ur Specific [place] Urine Protein Urine Glucose (UA) Urine Ketones Urine Blood Urine Nitrite Urine Bilirubin Urine Urobilinogen Ur Leukocyte Esterase Urine WBC (Auto) Urine RBC (Auto) Ur Epithelial Cells Urine Bacteria Valproic Acid 65.3 03/04/19 11:07 WBC RBC Hgb Hct MCV MCH MCHC RDW Plt Count MPV Absolute Neuts (auto) Neutrophils % Lymphocytes % Monocytes % Eosinophils % Basophils % Nucleated RBC % Sodium Potassium Chloride Carbon Dioxide Anion Gap BUN Creatinine Creat Clearance w eGFR Random Glucose Calcium Total Bilirubin AST ALT Alkaline Phosphatase Total Protein Albumin Urine Color Yellow Urine Appearance Turbid Urine pH 6.0 Ur Specific [place] 1.011 Urine Protein 2+ H Urine Glucose (UA) Negative Urine Ketones Trace H Urine Blood 1+ H Urine Nitrite Positive Urine Bilirubin Negative Urine Urobilinogen Negative Ur Leukocyte Esterase 2+ H Urine WBC (Auto) 3473 Urine RBC (Auto) 19 Ur Epithelial Cells Rare Urine Bacteria Rare Valproic Acid Home Medications Medication Instructions Recorded Phenytoin Na Extended [Dilantin -] 300 mg PO HS 08/08/14 Gabapentin [Neurontin] 300 mg PO TID 07/13/17 Olanzapine [Zyprexa -] 2.5 mg PO HS 08/10/17 Divalproex *ER* [Depakote *ER* -] 1,000 mg PO BID 02/07/18 Amlodipine Besylate [Norvasc -] 10 mg PO DAILY tablet 02/08/18 Metoprolol Tartrate [Lopressor -] 100 mg PO BID tablet 02/08/18 metFORMIN HCL [Metformin HCl] 500 mg PO BID 02/08/18 Sennosides/Docusate Sodium 2 tablet PO HS PRN tablet 02/11/18 [Pericolace -] Acetaminophen [Tylenol .Regular 650 mg PO Q6H PRN tablet 02/12/18 Strength -] Carbidopa/Levodopa *Cr* 25/100 1 combo PO TIDCM 30 Days #90 07/10/18 [Sinemet *Cr* 25/100 -] tablet.er Nitrofurantoin Monohyd/M-Cryst 100 mg PO BID 7 Days #14 capsule 07/11/18 [Macrobid -] Lisinopril 10 mg PO DAILY 08/05/18 ASSESSMENT/PLAN: This is a 67 year old woman with a history of HTN, hyperlipidemia, COPD, seizure disorder, Parkinson disease, type 2 DM, peripheral neuropathy, cirrhosis , hepatitis C, alcohol abuse, depression, anxiety, SUSANA, pulm HTN, DVT/PE, MRSA UTI, recent ESBL UTI who presented to the ED after having a seizure. 1. Seizure - Possibly induced by infection - Continue home regimen of Dilantin, Depakote - Neurology consult 2. UTI - Has history of MRSA and recent ESBL (+) E. coli - Given aztreonam, vancomycin in ED - Follow up urine culture - ID consult 3. Hypertension - Continue lisinopril, Norvasc, Lopressor 4. Hyperlipidemia 5. COPD - Stable 6. Parkinson disease - Continue Sinemet 7. Type 2 diabetes mellitus with peripheral neuropathy - Hold metformin - Fingersticks with Novolog sliding scale - Continue Neurontin 8. Hepatitis C - Previously treated 9. Cirrhosis 10. History of alcohol abuse 11. Depression/anxiety 12. Obstructive sleep apnea 13. Pulmonary HTN 14. History of DVT/PE Visit type - Emergency Visit Emergency Visit: Yes ED Registration Date: 08/05/18 Care time: The patient presented to the Emergency Department on the above date and was hospitalized for further evaluation of their emergent condition. - New Patient This patient is new to me today: Yes Date on this admission: 08/05/18 - Critical Care Critical Care patient: No
[2018-08-05] MEDS ORDERED: ACETAMINOPHEN 325 MG TABLET (FP) PO PRN (13:31)
[2018-08-05] MEDS ORDERED: SENNOSIDES/DOCUSATE COMBO (SENNA PLUS) TABLET (UD) PO PRN (13:31)
[2018-08-05] MEDS: GABAPENTIN 300 MG CAPSULE (FP) PO SCH ×2 (15:32→22:24)
--- NOTE | 2018-08-05 16:31 | PN ---
Progress Note (short form) - Note Progress Note: ID CONSULT DICTATED RECURENT UTI R/O TOXIC METABOLIC ENCEPHALOPATHY PARKINSONISM PCN ALLERGY HX ESBL, URINE OBTAIN BC EMPIRIC GENTAMICIN ( WILL AVOID CARBEPENEMS IN LIGHT OF POSSIBLE SZ) CONTACT PRECAUTIONS
[2018-08-05 17:26] VITALS: BMI 26.6
--- NOTE | 2018-08-05 17:28 | CONSULT ---
Consult - text type - Consultation Consultation Note: NEUROLOGY CONSULTATION is greatly appreciated: This 67 yo RH woman lives with her son. Has MAINTENANCE OF WAY CLERK 3x/week to help with med administration, etc. Ambulates with walker. PMH sig for Hypothyroidism, HTN, DM, OA, DM and Chronic paranoid Schizophrenia. 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 Also Seizure disorder and migraine headaches well controlled on Dilantin 300 qd , depakote ER 1000 q 12 hrs and Gabapentin 300 TID Other meds include: lisinopril, amlodipine, metoprolol 100 mg BID (also for migraines) , Venlafaxine, levothyroxine, metformin, zyprexa 2.5 mg qhs. Now admitted after "seizure" per patient. Cannot recall events surrounding event. Denies hallucinations at this time. Recently discharged with recurrent UTI on macrobid. 07/10/18 Labs: RPR nonreactive, TSH 0.07, B12 1437 Now with UA Pos nitrates, LE and 3473 WBC. VPA 65.3. DPH=11.7 ug% Now on Gentamicin. Exam: Neck supple. No bruits. Cor reg. NEURO: Periods of staring. Ox [place]. 2012. No president. CN: Masked facies, Rhythmic jaw tremor. + glabella, grasps Motor: Normal strength. Rhythmic tremors of feet +/-Dystonic mov'ts. Min Cogwheeling. Decreased BARAK. Reflexes reduced at the knees and absent at the ankles. Toes downgoing. Coord: No FTN dystaxia, but slowed Sensory: Reduced vibration in feet. Gait: Deferred. IMP: 1. Toxic-Metabolic Encephalopathy (TME- Urosepsis) 2. Seizure disorder - worsened by TME 3. Parkinson's Disease 4. Migraine Headaches 5. Peripheral Neuropathy (c/w diabetes) SUGGEST: Cont abx and hydration for UTI. Continue Depakote ER 1 gm q 12 hrs and Dilantin 300 hs. Continue Sinemet CR 25/100 PO TID @ 7, 12 and 5 Begin bedside PT then PT for gait with walker. Thank you very much, Edinson Johnson MD
--- NOTE | 2018-08-05 18:37 | CONS ---
DATE OF CONSULTATION: DATE OF DICTATION: 08/05/2018 INFECTIOUS DISEASE CONSULTATION HISTORY OF PRESENT ILLNESS: The patient is a 67-year-old female with a history of Parkinsonism, history of recurrent urinary tract infections, now evaluated for UTI. History was obtained from the chart as well as the patient's , who was present. She was recently hospitalized at [facility] from July 08 through July 12 for urinary tract infection. A urine culture at that time was positive for ESBL. She was discharged home on Macrobid. According to the , she did well until just prior to this present admission. She was noted to be poorly responsive by the home health aid. The feeling was that she was postictal, as the reports that she has similar presentation after a seizure. She was evaluated in the emergency room, where urinalysis showed many white cells. She complained of urinary frequency and dysuria, as well as suprapubic pain. She denies any flank pain. No associated fever or chills. The patient and deny any history of neurogenic bladder. She does not catheterize herself. She does have frequent bladder infections. Last urine culture was positive for ESBL. Positive for Parkinsonism, recurrent urinary tract infection, seizure disorder, hypertension, hyperlipidemia, COPD, hypothyroidism, depression, diabetes mellitus, history of hepatitis C treated in the past. ALLERGIES: ASPIRIN, PENICILLIN, and PROCAINE. Patient reports hives with PENICILLIN and ASPIRIN. Questionable history of throat swelling. MEDICATION: Include Sinemet, metformin, Prinivil, Dilantin, Effexor, Neurontin, Depakote, Norvasc, Lopressor. PAST SURGICAL HISTORY: Status post hysterectomy and thyroidectomy. SOCIAL HISTORY: Lives at home. Has a home health aid. SYSTEMS REVIEW: Neurologic: Positive for Parkinsonism and seizure disorder. Cardiac: Negative for chest pain or palpitations. Respiratory: Negative for cough or sputum production. Gastrointestinal: Negative vomiting or diarrhea. Genitourinary: As per HPI. LABORATORY DATA: White count 7.0, hematocrit 37.8, platelet count 143, creatinine 0.8. Urinalysis: 3473 white cells. PHYSICAL EXAMINATION: General: On exam, the patient is awake, slow mentation, awake and alert, responds appropriately. Vital signs: Temperature 97.8, blood pressure 127/65, pulse 78 regular, respirations 18 per minute. HEENT: Sclerae anicteric. Cardiovascular: Heart sounds S1, S2. Lungs: Grossly clear, poor inspiratory effort. Abdomen: Soft. Mild suprapubic tenderness to palpation. No mass, rebound, or rigidity. Extremities: 1+ edema. Negative Homans sign. IMPRESSION: 1. Altered mental status rule out toxic metabolic encephalopathy. 2. Urinary tract infection, rule out sepsis secondary to urinary tract infection. 3. History of Parkinsonism. 4. PENICILLIN allergy. 5. History of extended-spectrum beta-lactamases. Will obtain blood culture to rule out secondary bacteremia. Will treat with gentamicin 4 mg per kg every 24 hours for possible recurrent ESBL UTI. Will avoid use of carbapenems in light of recent seizure activity. Contact precautions. Will follow. Thank you for the kind referral. ARMIDA PINK M.D. [id number]
[2018-08-05 18:40] LABS: PHENYTOIN (DILANTIN) 11.7 ug/ml (10.0-20.0)
[2018-08-05] MEDS: GENTAMICIN INJECTION 300 MG in DEXTROSE 5%-WATER - 250 ML IVPB SCH (18:53)
[2018-08-05] MEDS ORDERED: OLANZapine 7.5 MG TABLET PO SCH (22:00)
[2018-08-05] MEDS ORDERED: PT OWN MED DRAWER 7, Y5N ONE (22:04)
[2018-08-05] MEDS: METOPROLOL TARTRATE 50 MG TABLET (FP) PO SCH (22:24)
[2018-08-05] MEDS: PHENYTOIN NA EXTENDED 100 MG CAPSULE (FP) PO SCH (22:24)
[2018-08-05] MEDS: DIVALPROEX NA *ER* EXTEND REL 500 MG TABLET.SA (FP) PO SCH (23:09)
[2018-08-05] MEDS: OLANZapine 2.5 MG TABLET PO SCH (23:09)
[2018-08-06] MEDS: GABAPENTIN 300 MG CAPSULE (FP) PO SCH ×3 (05:21→21:30)
[2018-08-06] MEDS ORDERED: LEVOTHYROXINE NA 75 MCG TABLET (FP) PO SCH (07:00)
[2018-08-06 07:32] LABS: BASO % 0.3 % (0-2.0); EOS % 6.5 % (0-4.5); HEMATOCRIT 31.7 % (32.4-45.2); HEMOGLOBIN 10.8 GM/dL (10.7-15.3); LYMPH % 47.2 % (8-40); MCH 31.2 pg (25.7-33.7); MEAN CELL VOLUME 91.6 fl (80-96); MEAN PLT VOLUME 8.8 fl (7.5-11.1); MONO % 7.3 % (3.8-10.2); NEUT % 38.7 % (42.8-82.8); PLATELET COUNT 110 K/MM3 (134-434); RBC 3.46 M/mm3 (3.60-5.2); RDW 12.9 % (11.6-15.6); WHITE BLOOD COUNT 5.8 K/mm3 (4.0-10.0)
[2018-08-06 08:21] LABS: ANION GAP 10 MMOL/L (8-16); BLOOD UREA NITROGEN 15 mg/dL (7-18); CALCIUM 8.3 mg/dL (8.5-10.1); CHLORIDE 100 mmol/L (98-107); CO2 26 mmol/L (21-32); CREATININE 0.8 mg/dL (0.55-1.3); GLUCOSE,RANDOM 75 mg/dL (74-106); POTASSIUM 4.5 mmol/L (3.5-5.1); SODIUM 137 mmol/L (136-145)
[2018-08-06] MEDS ORDERED: LISINOPRIL 5 MG TABLET (FP) PO SCH (10:00)
[2018-08-06] MEDS: ENOXAPARIN NA (PORCINE) 40 MG/0.4 ML DISP.SYRIN SQ SCH (11:25)
[2018-08-06] MEDS: amLODIPine BESYLATE 10 MG TABLET (FP) PO SCH (11:27)
[2018-08-06] MEDS: METOPROLOL TARTRATE 50 MG TABLET (FP) PO SCH ×2 (11:27→21:30)
[2018-08-06] MEDS: LISINOPRIL 10 MG TABLET (FP) PO SCH (11:27)
[2018-08-06] MEDS: CELECOXIB 200 MG CAPSULE PO SCH (11:30)
[2018-08-06] MEDS: DIVALPROEX NA *ER* EXTEND REL 500 MG TABLET.SA (FP) PO SCH ×2 (11:31→21:32)
[2018-08-06] MEDS: VENLAFAXINE HCL 75 MG E.R. CAPSULES (FP) PO SCH (11:31)
[2018-08-06] MEDS: INSULIN SLIDING SCALE (NOVOLOG) 1 VIAL SQ SCH ×3 (11:40→23:27)
--- NOTE | 2018-08-06 13:50 | EKG ---
Test Reason : Blood Pressure : / mmHG Vent. Rate : 068 BPM Atrial Rate : 068 BPM P-R Int : 174 ms QRS Dur : 078 ms QT Int : 396 ms P-R-T Axes : 059 -14 020 degrees QTc Int : 421 ms NORMAL SINUS RHYTHM MODERATE VOLTAGE CRITERIA FOR LVH, MAY BE NORMAL VARIANT BORDERLINE ECG WHEN COMPARED WITH ECG OF 08-JUL-2018 21:06, NO SIGNIFICANT CHANGE WAS FOUND Confirmed by MD Magdaleno, Eddie ([id number]) on 08/06/2018 1:50:37 PM Referred By: Confirmed By:Eddie Dolan MD
[2018-08-06] MEDS: GENTAMICIN INJECTION 300 MG in DEXTROSE 5%-WATER - 250 ML IVPB SCH (15:17)
[2018-08-06] MEDS ORDERED: PT OWN MED DRAWER 7, Y5N ONE ×2 (17:59→21:25)
--- NOTE | 2018-08-06 20:45 | PN ---
Physical Exam: SUBJECTIVE: Patient seen and examined at the bedside. OBJECTIVE: Vital Signs Period Temp Pulse Resp BP Sys/Thornton Pulse Ox Last 24 Hr 97.0 F-98.1 F 66-75 17-22 120-158/61-72 98-98 GENERAL: The patient is awake, in no acute distress. HEAD: Normal with no signs of trauma. EYES: PERRL, extraocular movements intact, sclera anicteric, conjunctiva clear. No ptosis. ENT: Ears normal, nares patent, oropharynx clear without exudates, moist mucous membranes. NECK: Trachea midline, full range of motion, supple. LUNGS: Breath sounds equal, clear to auscultation bilaterally, no wheezes HEART: Regular rate and rhythm ABDOMEN: obese abdomen + bowel sounds EXTREMITIES: 2+ pulses, warm, well-perfused, no edema. NEUROLOGICAL: Normal speech, gait not observed. PSYCH: Normal mood, normal affect. SKIN: Warm, dry, normal turgor, no rashes or lesions noted Laboratory Results - last 24 hr 08/06/18 08/06/18 08/06/18 01:34 05:30 05:30 WBC 5.8 RBC 3.46 L Hgb 10.8 Hct 31.7 L D MCV 91.6 MCH 31.2 MCHC 34.0 RDW 12.9 Plt Count 110 L D MPV 8.8 Absolute Neuts (auto) 2.3 Neutrophils % 38.7 L D Lymphocytes % 47.2 H D Monocytes % 7.3 Eosinophils % 6.5 H Basophils % 0.3 Nucleated RBC % 0 Sodium Potassium Chloride Carbon Dioxide Anion Gap BUN Creatinine Creat Clearance w eGFR POC Glucometer 76 Random Glucose Calcium TSH Gentamicin Trough 3.9 L 08/06/18 08/06/18 08/06/18 05:30 07:12 11:36 WBC RBC Hgb Hct MCV MCH MCHC RDW Plt Count MPV Absolute Neuts (auto) Neutrophils % Lymphocytes % Monocytes % Eosinophils % Basophils % Nucleated RBC % Sodium 137 Potassium 4.5 Chloride 100 Carbon Dioxide 26 Anion Gap 10 BUN 15 Creatinine 0.8 Creat Clearance w eGFR > 60 POC Glucometer 86 94 Random Glucose 75 Calcium 8.3 L TSH 0.37 Gentamicin Trough 08/06/18 17:34 WBC RBC Hgb Hct MCV MCH MCHC RDW Plt Count MPV Absolute Neuts (auto) Neutrophils % Lymphocytes % Monocytes % Eosinophils % Basophils % Nucleated RBC % Sodium Potassium Chloride Carbon Dioxide Anion Gap BUN Creatinine Creat Clearance w eGFR POC Glucometer 113 Random Glucose Calcium TSH Gentamicin Trough Active Medications Generic Name Dose Route Start Last Admin Trade Name Jim PRN Reason Stop Dose Admin Acetaminophen 650 mg 08/05/18 13:31 Tylenol - PO Q6H PRN PAIN Amlodipine Besylate 10 mg 08/06/18 10:00 08/06/18 11:27 Norvasc - PO 10 mg DAILY ZENY Administration Carbidopa/Levodopa 1 combo 08/05/18 17:30 08/06/18 18:40 Sinemet *Cr* 25/100 - PO 1 combo TIDCM ZENY Administration Celecoxib 200 mg 08/06/18 10:00 08/06/18 11:30 Celebrex - PO 200 mg DAILY ZENY Administration Divalproex Sodium 1,000 mg 08/05/18 22:00 08/06/18 11:31 Depakote *Er* - PO 1,000 mg BID ZENY Administration Enoxaparin Sodium 40 mg 08/06/18 10:00 08/06/18 11:25 Lovenox - SQ 40 mg DAILY ZENY Administration Gabapentin 300 mg 08/05/18 14:00 08/06/18 15:17 Neurontin - PO 300 mg TID ZENY Administration Gentamicin Sulfate 300 mg/ 257.5 mls @ 257.5 mls/hr 08/05/18 16:45 08/06/18 15:17 Dextrose IVPB 257.5 mls/hr DAILY ZENY Administration Insulin Aspart 1 vial 08/06/18 11:00 08/06/18 17:48 Novolog Vial Sliding Scale - SQ Not Given ACHS [facility] Protocol Levothyroxine Sodium 150 mcg 08/07/18 07:00 Synthroid - PO 0700 ZENY Lisinopril 10 mg 08/06/18 10:00 08/06/18 11:27 Prinivil PO 10 mg DAILY ZENY Administration Metoprolol Tartrate 100 mg 08/05/18 22:00 08/06/18 11:27 Lopressor - PO 100 mg BID ZENY Administration Olanzapine 2.5 mg 08/05/18 22:45 08/05/18 23:09 Zyprexa - PO 2.5 mg HS ZENY Administration Phenytoin Sodium 300 mg 08/05/18 22:00 08/05/18 22:24 Dilantin - PO 300 mg HS ZENY Administration Senna/Docusate Sodium 2 tablet 08/05/18 13:31 Pericolace - PO HS PRN CONSTIPATION Venlafaxine HCl 75 mg 08/06/18 10:00 08/06/18 11:31 Effexor Xr - PO 75 mg DAILY ZENY Administration ASSESSMENT/PLAN: Patient is a 67 year old female with a significant past medical history of hypertension, hyperlipidemia, copd, seizure disorder, parkinson disease, type 2 DM, peripheral neuropathy, cirrhosis, hepatitis C, alcohol abuse, depression, anxiety, SUSANA, pulm HTN, DVT/PE, MRSA UTI, recent ESBL UTI who presented to the ED after having a seizure. Neuro: Acute metabolic encephalopathy in the setting of recent seizure and acute infection/Seizure Continue home anti seizure medications of dilantin 300mg @ hs, depakote 1000mg bid Maintain on seizure precautions Neurology consulted and following. Parkinson disease. on sinemet. will order PT ID: Acute UTI Has past medical hx of MRSA uti and recent esbl ecoli Follow up on urine culture Seen by ID and gentamicin ordered Card: Hypertension. controlled. On Norvasc, lisinopril, lopressor Endocrine diabetes. on novolog. monitor bgms and adjust accordingly to maintain fasting bgm <180 fen tolerating po monitor electrolytes low salt diet prophy seizure precautions full code Visit type - Emergency Visit Emergency Visit: Yes ED Registration Date: 08/05/18 Care time: The patient presented to the Emergency Department on the above date and was hospitalized for further evaluation of their emergent condition. - New Patient This patient is new to me today: Yes Date on this admission: 08/06/18 - Critical Care Critical Care patient: No - Discharge Referral [facility]erred to [facility] Med P.C.: No
[2018-08-06] MEDS: PHENYTOIN NA EXTENDED 100 MG CAPSULE (FP) PO SCH (21:30)
[2018-08-06] MEDS: OLANZapine 2.5 MG TABLET PO SCH (21:31)
--- NOTE | 2018-08-06 21:50 | PN ---
Progress Note, Physician History of Present Illness: MORE AWAKE AND ALERT OFFERS NO COMPLAINTS AFEBRILE BC (-) URINE C/S GNR - Current Medication List Current Medications: Active Medications Acetaminophen (Tylenol -) 650 mg PO Q6H PRN PRN Reason: PAIN Amlodipine Besylate (Norvasc -) 10 mg PO DAILY [facility] Last Admin: 08/06/18 11:27 Dose: 10 mg Carbidopa/Levodopa (Sinemet *Cr* 25/100 -) 1 combo PO TIDCM [facility] Last Admin: 08/06/18 18:40 Dose: 1 combo Celecoxib (Celebrex -) 200 mg PO DAILY [facility] Last Admin: 08/06/18 11:30 Dose: 200 mg Divalproex Sodium (Depakote *Er* -) 1,000 mg PO BID [facility] Last Admin: 08/06/18 21:32 Dose: 1,000 mg Enoxaparin Sodium (Lovenox -) 40 mg SQ DAILY [facility] Last Admin: 08/06/18 11:25 Dose: 40 mg Gabapentin (Neurontin -) 300 mg PO TID [facility] Last Admin: 08/06/18 21:30 Dose: 300 mg Gentamicin Sulfate 300 mg/ (Dextrose) 257.5 mls @ 257.5 mls/hr IVPB DAILY [facility] Last Admin: 08/06/18 15:17 Dose: 257.5 mls/hr Insulin Aspart (Novolog Vial Sliding Scale -) 1 vial SQ ACHS [facility]; Protocol Last Admin: 08/06/18 17:48 Dose: Not Given Levothyroxine Sodium (Synthroid -) 150 mcg PO 0700 [facility] Lisinopril (Prinivil) 10 mg PO DAILY [facility] Last Admin: 08/06/18 11:27 Dose: 10 mg Metoprolol Tartrate (Lopressor -) 100 mg PO BID [facility] Last Admin: 08/06/18 21:30 Dose: 100 mg Olanzapine (Zyprexa -) 2.5 mg PO HS [facility] Last Admin: 08/06/18 21:31 Dose: 2.5 mg Phenytoin Sodium (Dilantin -) 300 mg PO HS [facility] Last Admin: 08/06/18 21:30 Dose: 300 mg Senna/Docusate Sodium (Pericolace -) 2 tablet PO HS PRN PRN Reason: CONSTIPATION Venlafaxine HCl (Effexor Xr -) 75 mg PO DAILY [facility] Last Admin: 03/05/19 11:31 Dose: 75 mg - Objective Vital Signs: Vital Signs Temperature 97.9 F 08/06/18 21:29 Pulse Rate 77 08/06/18 21:29 Respiratory Rate 18 08/06/18 21:29 Blood Pressure 138/66 08/06/18 21:29 O2 Sat by Pulse Oximetry (%) 98 08/06/18 09:00 Constitutional: Yes: No Distress Cardiovascular: Yes: Regular Rate and Rhythm, S1, S2 Respiratory: Yes: CTA Bilaterally Gastrointestinal: Yes: Normal Bowel Sounds, Soft Labs: CBC, BMP 08/06/18 05:30 08/06/18 05:30 Assessment/Plan UTI ? S/P SEIZURE TOXIC METABOLIC ENCEPHALOPATHY- IMPROVED EXACERBATION PARKINSONISM PCN ALLERGY HX ESBL CHECK GENTAMICIN LEVEL PENDING NEXT DOSE
[2018-08-07] MEDS: GABAPENTIN 300 MG CAPSULE (FP) PO SCH ×3 (05:32→21:21)
[2018-08-07] MEDS: INSULIN SLIDING SCALE (NOVOLOG) 1 VIAL SQ SCH ×4 (06:12→21:22)
[2018-08-07] MEDS ORDERED: PT OWN MED DRAWER 7, Y5N ONE ×3 (06:14→17:47)
[2018-08-07] MEDS: LEVOTHYROXINE NA 150 MCG TABLET PO SCH (06:17)
[2018-08-07 07:28] LABS: BASO % 0.2 % (0-2.0); EOS % 9.9 % (0-4.5); HEMATOCRIT 33.7 % (32.4-45.2); HEMOGLOBIN 11.4 GM/dL (10.7-15.3); LYMPH % 54.1 % (8-40); MCH 30.9 pg (25.7-33.7); MCHC 33.7 g/dl (32.0-36.0); MEAN CELL VOLUME 91.7 fl (80-96); MEAN PLT VOLUME 8.1 fl (7.5-11.1); MONO % 7.6 % (3.8-10.2); NEUT % 28.2 % (42.8-82.8); PLATELET COUNT 137 K/MM3 (134-434); RBC 3.68 M/mm3 (3.60-5.2); RDW 12.6 % (11.6-15.6); WHITE BLOOD COUNT 4.4 K/mm3 (4.0-10.0)
[2018-08-07 08:20] LABS: ALBUMIN 2.6 g/dl (3.4-5.0); ALK PHOS 52 U/L (45-117); ANION GAP 8 MMOL/L (8-16); BILIRUBIN,TOTAL 0.2 mg/dL (0.2-1); BLOOD UREA NITROGEN 14 mg/dL (7-18); CALCIUM 8.9 mg/dL (8.5-10.1); CHLORIDE 100 mmol/L (98-107); CO2 28 mmol/L (21-32); CREATININE 0.8 mg/dL (0.55-1.3); GLUCOSE,RANDOM 80 mg/dL (74-106); POTASSIUM 4.2 mmol/L (3.5-5.1); SGOT/AST 22 U/L (15-37); SGPT/ALT 20 U/L (13-61); SODIUM 136 mmol/L (136-145); TOT PROT 5.8 g/dl (6.4-8.2)
[2018-08-07] MEDS: ENOXAPARIN NA (PORCINE) 40 MG/0.4 ML DISP.SYRIN SQ SCH (10:28)
[2018-08-07] MEDS: LISINOPRIL 10 MG TABLET (FP) PO SCH (10:29)
[2018-08-07] MEDS: METOPROLOL TARTRATE 50 MG TABLET (FP) PO SCH ×2 (10:29→21:20)
[2018-08-07] MEDS: amLODIPine BESYLATE 10 MG TABLET (FP) PO SCH (10:29)
[2018-08-07] MEDS: DIVALPROEX NA *ER* EXTEND REL 500 MG TABLET.SA (FP) PO SCH ×2 (10:30→21:21)
[2018-08-07] MEDS: VENLAFAXINE HCL 75 MG E.R. CAPSULES (FP) PO SCH (10:30)
[2018-08-07] MEDS: CELECOXIB 200 MG CAPSULE PO SCH (10:30)
--- NOTE | 2018-08-07 11:06 | PN ---
Progress Note, Physician History of Present Illness: MORE AWAKE AND ALERT OFFERS NO COMPLAINTS AFEBRILE BC (-) URINE C/S ESBL - Current Medication List Current Medications: Active Medications Acetaminophen (Tylenol -) 650 mg PO Q6H PRN PRN Reason: PAIN Amlodipine Besylate (Norvasc -) 10 mg PO DAILY [facility] Last Admin: 08/07/18 10:29 Dose: 10 mg Carbidopa/Levodopa (Sinemet *Cr* 25/100 -) 1 combo PO TIDCM [facility] Last Admin: 08/07/18 10:30 Dose: 1 combo Celecoxib (Celebrex -) 200 mg PO DAILY [facility] Last Admin: 08/07/18 10:30 Dose: 200 mg Divalproex Sodium (Depakote *Er* -) 1,000 mg PO BID [facility] Last Admin: 08/07/18 10:30 Dose: 1,000 mg Enoxaparin Sodium (Lovenox -) 40 mg SQ DAILY [facility] Last Admin: 08/07/18 10:28 Dose: 40 mg Gabapentin (Neurontin -) 300 mg PO TID [facility] Last Admin: 08/07/18 05:32 Dose: 300 mg Insulin Aspart (Novolog Vial Sliding Scale -) 1 vial SQ [facility]; Protocol Last Admin: 08/07/18 10:43 Dose: Not Given Levothyroxine Sodium (Synthroid -) 150 mcg PO 0700 [facility] Last Admin: 08/07/18 06:17 Dose: 150 mcg Lisinopril (Prinivil) 10 mg PO DAILY [facility] Last Admin: 08/07/18 10:29 Dose: 10 mg Metoprolol Tartrate (Lopressor -) 100 mg PO BID [facility] Last Admin: 08/07/18 10:29 Dose: 100 mg Olanzapine (Zyprexa -) 2.5 mg PO HS [facility] Last Admin: 08/06/18 21:31 Dose: 2.5 mg Phenytoin Sodium (Dilantin -) 300 mg PO HS [facility] Last Admin: 08/06/18 21:30 Dose: 300 mg Senna/Docusate Sodium (Pericolace -) 2 tablet PO HS PRN PRN Reason: CONSTIPATION Venlafaxine HCl (Effexor Xr -) 75 mg PO DAILY [facility] Last Admin: 08/07/18 10:30 Dose: 75 mg - Objective Vital Signs: Vital Signs Temperature 97.3 F L 08/07/18 10:36 Pulse Rate 69 08/07/18 10:36 Respiratory Rate 18 08/07/18 10:36 Blood Pressure 171/73 H 08/07/18 10:36 O2 Sat by Pulse Oximetry (%) 98 08/06/18 09:00 Constitutional: Yes: No Distress Eyes: Yes: Conjunctiva Clear Cardiovascular: Yes: Regular Rate and Rhythm, S1, S2 Respiratory: Yes: CTA Bilaterally Gastrointestinal: Yes: Normal Bowel Sounds, Soft. No: Tenderness Labs: CBC, BMP 08/07/18 06:00 08/07/18 06:00 Assessment/Plan UTI ESBL ? S/P SEIZURE TOXIC METABOLIC ENCEPHALOPATHY- IMPROVED EXACERBATION PARKINSONISM PCN ALLERGY MACROBID 100MG PO BID X 7D
[2018-08-07] MEDS: NITROFURANTOIN MACROCRYSTAL 50 MG CAPSULE (FP) PO SCH ×2 (15:36→18:22)
--- NOTE | 2018-08-07 17:58 | PN ---
Physical Exam: SUBJECTIVE: Patient seen and examined at the bedside. OBJECTIVE: reports of possible seizure activity this morning. more awake and alert on exam discharge planning Vital Signs Period Temp Pulse Resp BP Sys/Thornton Pulse Ox Last 24 Hr 97.3 F-98.2 F 64-77 18-20 134-171/59-75 GENERAL: The patient is awake, in no acute distress. HEAD: Normal with no signs of trauma. EYES: PERRL, extraocular movements intact, sclera anicteric, conjunctiva clear. No ptosis. ENT: Ears normal, nares patent, oropharynx clear without exudates, moist mucous membranes. NECK: Trachea midline, full range of motion, supple. LUNGS: Breath sounds equal, clear to auscultation bilaterally, no wheezes HEART: Regular rate and rhythm ABDOMEN: obese abdomen + bowel sounds EXTREMITIES: 2+ pulses, warm, well-perfused, no edema. NEUROLOGICAL: Normal speech, gait not observed. PSYCH: Normal mood, normal affect. SKIN: Warm, dry, normal turgor, no rashes or lesions noted Laboratory Results - last 24 hr 08/06/18 08/07/18 08/07/18 22:36 06:00 06:00 WBC 4.4 RBC 3.68 Hgb 11.4 Hct 33.7 MCV 91.7 MCH 30.9 MCHC 33.7 RDW 12.6 Plt Count 137 D MPV 8.1 Absolute Neuts (auto) 1.2 L Neutrophils % 28.2 L D Lymphocytes % 54.1 H Monocytes % 7.6 Eosinophils % 9.9 H Basophils % 0.2 Nucleated RBC % 0 Sodium Potassium Chloride Carbon Dioxide Anion Gap BUN Creatinine Creat Clearance w eGFR POC Glucometer 85 Random Glucose Calcium Magnesium Total Bilirubin AST ALT Alkaline Phosphatase Total Protein Albumin Gentamicin Trough 2.7 L 08/07/18 08/07/18 08/07/18 06:00 06:11 10:42 WBC RBC Hgb Hct MCV MCH MCHC RDW Plt Count MPV Absolute Neuts (auto) Neutrophils % Lymphocytes % Monocytes % Eosinophils % Basophils % Nucleated RBC % Sodium 136 Potassium 4.2 Chloride 100 Carbon Dioxide 28 Anion Gap 8 BUN 14 Creatinine 0.8 Creat Clearance w eGFR > 60 POC Glucometer 92 105 Random Glucose 80 Calcium 8.9 Magnesium 2.0 Total Bilirubin 0.2 AST 22 ALT 20 Alkaline Phosphatase 52 Total Protein 5.8 L Albumin 2.6 L Gentamicin Trough 08/07/18 17:04 WBC RBC Hgb Hct MCV MCH MCHC RDW Plt Count MPV Absolute Neuts (auto) Neutrophils % Lymphocytes % Monocytes % Eosinophils % Basophils % Nucleated RBC % Sodium Potassium Chloride Carbon Dioxide Anion Gap BUN Creatinine Creat Clearance w eGFR POC Glucometer 171 Random Glucose Calcium Magnesium Total Bilirubin AST ALT Alkaline Phosphatase Total Protein Albumin Gentamicin Trough Active Medications Generic Name Dose Route Start Last Admin Trade Name Freq PRN Reason Stop Dose Admin Acetaminophen 650 mg 08/05/18 13:31 Tylenol - PO Q6H PRN PAIN Amlodipine Besylate 10 mg 08/06/18 10:00 08/07/18 10:29 Norvasc - PO 10 mg DAILY ZENY Administration Carbidopa/Levodopa 1 combo 08/05/18 17:30 08/07/18 15:36 Sinemet *Cr* 25/100 - PO 1 combo TIDCM ZENY Administration Celecoxib 200 mg 08/06/18 10:00 08/07/18 10:30 Celebrex - PO 200 mg DAILY [facility]ENY Administration Divalproex Sodium 1,000 mg 08/05/18 22:00 08/07/18 10:30 Depakote *Er* - PO 1,000 mg BID ZENY Administration Enoxaparin Sodium 40 mg 08/06/18 10:00 08/07/18 10:28 Lovenox - SQ 40 mg DAILY ZENY Administration Gabapentin 300 mg 08/05/18 14:00 08/07/18 15:36 Neurontin - PO 300 mg TID ZENY Administration Insulin Aspart 1 vial 08/06/18 11:00 08/07/18 10:43 Novolog Vial Sliding Scale - SQ Not Given ACHS [facility] Protocol Levothyroxine Sodium 150 mcg 08/07/18 07:00 08/07/18 06:17 Synthroid - PO 150 mcg 0700 [facility]ENY Administration Lisinopril 10 mg 08/06/18 10:00 08/07/18 10:29 Prinivil PO 10 mg DAILY [facility]ENY Administration Metoprolol Tartrate 100 mg 08/05/18 22:00 08/07/18 10:29 Lopressor - PO 100 mg BID ZENY Administration Nitrofurantoin Macrocrystals 50 mg 08/07/18 12:00 08/07/18 15:36 Macrodantin - PO 50 mg Q6HPO ZENY Administration Olanzapine 2.5 mg 08/05/18 22:45 08/06/18 21:31 Zyprexa - PO 2.5 mg HS ZENY Administration Phenytoin Sodium 300 mg 08/05/18 22:00 08/06/18 21:30 Dilantin - PO 300 mg HS EZNY Administration Senna/Docusate Sodium 2 tablet 08/05/18 13:31 Pericolace - PO HS PRN CONSTIPATION Venlafaxine HCl 75 mg 08/06/18 10:00 08/07/18 10:30 Effexor Xr - PO 75 mg DAILY ZENY Administration ASSESSMENT/PLAN: Patient is a 67 year old female with a significant past medical history of hypertension, hyperlipidemia, copd, seizure disorder, parkinson disease, type 2 DM, peripheral neuropathy, cirrhosis, hepatitis C, alcohol abuse, depression, anxiety, SUSANA, pulm HTN, DVT/PE, MRSA UTI, recent ESBL UTI who presented to the ED after having a seizure. Neuro: Acute metabolic encephalopathy in the setting of recent seizure and acute UTI infection/Seizure Continue home anti seizure medications of dilantin 300mg @ hs, depakote 1000mg bid Maintain on seizure precautions Neurology consulted and recommendations appreciated seizures in the setting of acute infection. Has been treated with two days of gentamycin and will be converted to PO x 7 more days per ID. Parkinson disease. on sinemet. Card: Hypertension. controlled. On Norvasc, lisinopril, lopressor Endocrine diabetes. on novolog. monitor bgms and adjust accordingly to maintain fasting bgm <180 fen tolerating po monitor electrolytes low salt diet prophy seizure precautions full code Discharge home tomorrow. Visit type - Emergency Visit Emergency Visit: Yes ED Registration Date: 08/05/18 Care time: The patient presented to the Emergency Department on the above date and was hospitalized for further evaluation of their emergent condition. - New Patient This patient is new to me today: No - Critical Care Critical Care patient: No - Discharge Referral Referred to [facility] Med P.C.: No
[2018-08-07] MEDS: PHENYTOIN NA EXTENDED 100 MG CAPSULE (FP) PO SCH (21:21)
[2018-08-07] MEDS: OLANZapine 2.5 MG TABLET PO SCH (21:22)
[2018-08-08] MEDS: NITROFURANTOIN MACROCRYSTAL 50 MG CAPSULE (FP) PO SCH ×2 (00:34→06:19)
[2018-08-08] MEDS: INSULIN SLIDING SCALE (NOVOLOG) 1 VIAL SQ SCH ×2 (06:15→12:23)
[2018-08-08] MEDS: LEVOTHYROXINE NA 150 MCG TABLET PO SCH (06:19)
[2018-08-08] MEDS: GABAPENTIN 300 MG CAPSULE (FP) PO SCH (06:19)
[2018-08-08 06:48] VITALS: BP 156/78; PULSE 67; TEMP 97.5
[2018-08-08] MEDS ORDERED: PT OWN MED DRAWER 7, Y5N ONE ×2 (07:51→10:22)
[2018-08-08] MEDS: LISINOPRIL 10 MG TABLET (FP) PO SCH (10:24)
[2018-08-08] MEDS: METOPROLOL TARTRATE 50 MG TABLET (FP) PO SCH (10:24)
[2018-08-08] MEDS: amLODIPine BESYLATE 10 MG TABLET (FP) PO SCH (10:24)
[2018-08-08] MEDS: ENOXAPARIN NA (PORCINE) 40 MG/0.4 ML DISP.SYRIN SQ SCH (10:25)
[2018-08-08] MEDS: DIVALPROEX NA *ER* EXTEND REL 500 MG TABLET.SA (FP) PO SCH (10:25)
[2018-08-08] MEDS: CELECOXIB 200 MG CAPSULE PO SCH (10:25)
[2018-08-08] MEDS: VENLAFAXINE HCL 75 MG E.R. CAPSULES (FP) PO SCH (10:26)
--- NOTE | 2018-08-08 10:27 | DS ---
Physical Exam: SUBJECTIVE: Patient seen and examined OBJECTIVE: Vital Signs Period Temp Pulse Resp BP Sys/Thornton Pulse Ox Last 24 Hr 97.3 F-98.3 F 67-69 18-18 141-171/73-78 PHYSICAL EXAM GENERAL: The patient is awake, alert, and fully oriented, in no acute distress. HEAD: Normal with no signs of trauma. EYES: PERRL, extraocular movements intact, sclera anicteric, conjunctiva clear. ENT: Ears normal, nares patent, oropharynx clear without exudates, moist mucous membranes. NECK: Trachea midline, full range of motion, supple. LUNGS: Breath sounds equal, clear to auscultation bilaterally, no wheezes, no crackles, no accessory muscle use. HEART: Regular rate and rhythm, S1, S2 without murmur, rub or gallop. ABDOMEN: Soft, nontender, nondistended, normoactive bowel sounds, no guarding, no rebound, no hepatosplenomegaly, no masses. EXTREMITIES: 2+ pulses, warm, well-perfused, no edema. NEUROLOGICAL: Cranial nerves II through XII grossly intact. Normal speech, gait not observed. PSYCH: Normal mood, normal affect. SKIN: Warm, dry, normal turgor, no rashes or lesions noted. LABS Laboratory Results - last 24 hr 08/07/18 08/07/18 08/07/18 10:42 17:04 20:53 POC Glucometer 105 171 118 08/08/18 05:48 POC Glucometer 83 HOSPITAL COURSE: Date of Admission:08/05/18 Date of Discharge: 08/08/18 Discharge Summary Reason For Visit: URINARY TRACT INFECTION Current Active Problems UTI (urinary tract infection) (Acute) Condition: Stable - Instructions Diet, Activity, Other Instructions: Mrs Gibson: You were admitted to [facility] for acute mental status changes and we noted that you had a urinary tract infection ESBL. You were seen by neurology and ID specialist and we will be sending you home with the following recommendations: Seizure: Continue home anti seizure medications of dilantin 300mg at bedtime and Depakote twice per day. You were seen by a neurologist and they recommend that you continue your current anti seizure medications as you are and follow up with them as an outpatient. Their information is enclosed in your discharge packet. You will have to call and make an appointment. Acute UTI You were treated with IV Gentamycin and will be sent home with Macrodantin 50mg every 6 hours for 6 more days. Take at 6am, 12pm, 6pm and 12 a.m. for 7 more days (from 08/07/2018 through 08/13/2018). Please have your urine culture repeated with your primary care doctor once your complete the antibiotics. Please return to the ER if your symptoms worsen or do not improve. Thank you for allowing us to care for you. Referrals: Reuben Esparza MD [Primary Care Provider] - Disposition: HOME - Home Medications Comprehensive Discharge Medication List: Ambulatory Orders Phenytoin Na Extended [Dilantin -] 300 mg PO HS 08/08/14 Gabapentin [Neurontin] 300 mg PO TID 07/13/17 Olanzapine [Zyprexa -] 2.5 mg PO HS 08/10/17 Divalproex *ER* [Depakote *ER* -] 1,000 mg PO BID 02/07/18 Amlodipine Besylate [Norvasc -] 10 mg PO DAILY tablet 02/08/18 Metoprolol Tartrate [Lopressor -] 100 mg PO BID tablet 02/08/18 metFORMIN HCL [Metformin HCl] 500 mg PO BID 02/08/18 Sennosides/Docusate Sodium [Pericolace -] 2 tablet PO HS PRN tablet 02/11/18 Acetaminophen [Tylenol .Regular Strength -] 650 mg PO Q6H PRN tablet 02/12/18 Carbidopa/Levodopa *Cr* 25/100 [Sinemet *Cr* 25/100 -] 1 combo PO TIDCM 30 Days #90 tablet.er 07/10/18 Lisinopril 10 mg PO DAILY 08/05/18 Celecoxib [CeleBREX -] 200 mg PO DAILY capsule 08/07/18 Levothyroxine [Synthroid -] 150 mcg PO 0700 tablet 08/07/18 Levothyroxine [Synthroid -] 150 mcg PO DAILY@0700 tablet 08/07/18 Nitrofurantoin Macrocrystal [Macrodantin -] 50 mg PO Q6HPO capsule 08/07/18 Nitrofurantoin Macrocrystal [Macrodantin] 50 mg PO QID #30 capsule 08/07/18 Venlafaxine HCl ER [Effexor Xr -] 75 mg PO DAILY cap.er.24h 08/07/18 - Discharge Referral Referred to [facility] Med P.C.: No
== END 2018-08-08 11:12 | disposition home or self-care (01) | DRG 463 ==
LOC: JER 10:08 → JERBED 12:12 → J8W 16:00
PROVIDERS: ADMIT Internal Medicine; ATTEND Nurse Practitioner Family
DX: N39.0 Urinary tract infection, site not specified (principal); G92 Toxic encephalopathy; G40.909 Epilepsy, unspecified, not intractable, without status epilepticus; G20 Parkinson's disease; J44.9 Chronic obstructive pulmonary disease, unspecified; E11.42 Type 2 diabetes mellitus with diabetic polyneuropathy; I27.20 Pulmonary hypertension, unspecified; E03.9 Hypothyroidism, unspecified; F32.9 Major depressive disorder, single episode, unspecified; B19.20 Unspecified viral hepatitis C without hepatic coma; G47.33 Obstructive sleep apnea (adult) (pediatric); Z86.718 Personal history of other venous thrombosis and embolism; Z86.711 Personal history of pulmonary embolism; Z88.0 Allergy status to penicillin; E78.5 Hyperlipidemia, unspecified; I10 Essential (primary) hypertension; K70.30 Alcoholic cirrhosis of liver without ascites; F10.10 Alcohol abuse, uncomplicated; Z79.84 Long term (current) use of oral hypoglycemic drugs; G43.909 Migraine, unspecified, not intractable, without status migrainosus
CPT/HCPCS: 36415; 80048; 80053; 80164; 80185; 81003; 81015; 82962; 83735; 84443; 85025; 87040; 87086; 87186; 93005; 93010; 97161-GP; 99283-25

== ENCOUNTER 2018-10-08 18:35 | Emergency (ER) | payer OTHER ==
[2018-10-08 19:00] VITALS: BMI 27.6
--- NOTE | 2018-10-08 19:39 | PDOC ---
History of Present Illness - General Chief Complaint: Pain Stated Complaint: ABDOMINAL PAIN Time Seen by Provider: 10/08/18 19:24 History Source: Patient Exam Limitations: No Limitations - History of Present Illness Initial Comments: 10/08/18 19:39 68 year old woman with a past medical history of Parkinsons disease, seizure, HTN, HLD, COPD, hypothyroidism, anxiety, diabetes, hep c, and depression presents with constipation for 4 days. Has been passing gas, some abdominal distention and eating, but has had some nausea today. No prior abdominal surgeries. No fevers. Has some headahches from [employer]. Takes colace regularly. baseline urinaru and fecal incontinence. wears diapers/ has 24 hour home nursing bedbound at baseline 10/08/18 21:30 Past History - Past Medical History Allergies/Adverse Reactions: Allergies Allergy/AdvReac Type Severity Reaction Status Date / Time aspirin Allergy Hives Verified 10/08/18 18:42 milk Allergy Verified 10/08/18 18:42 Penicillins Allergy Hives Verified 10/08/18 18:42 procaine Allergy Verified 10/08/18 18:42 Shellfish Allergy Hives Verified 10/08/18 18:42 venom-honey bee Allergy Verified 10/08/18 18:42 [bee venom (honey bee)] egg AdvReac Vomiting Verified 10/08/18 18:42 Home Medications: Ambulatory Orders Phenytoin Na Extended [Dilantin -] 300 mg PO HS 08/08/14 Gabapentin [Neurontin] 300 mg PO TID 07/13/17 Olanzapine [Zyprexa -] 2.5 mg PO HS 08/10/17 Divalproex *ER* [Depakote *ER* -] 1,000 mg PO BID 02/07/18 Amlodipine Besylate [Norvasc -] 10 mg PO DAILY tablet 02/08/18 Metoprolol Tartrate [Lopressor -] 100 mg PO BID tablet 02/08/18 metFORMIN HCL [Metformin HCl] 500 mg PO BID 02/08/18 Sennosides/Docusate Sodium [Pericolace -] 2 tablet PO HS PRN tablet 02/11/18 Acetaminophen [Tylenol .Regular Strength -] 650 mg PO Q6H PRN tablet 02/12/18 Carbidopa/Levodopa *Cr* 25/100 [Sinemet *Cr* 25/100 -] 1 combo PO TIDCM 30 Days #90 tablet.er 07/10/18 Lisinopril 10 mg PO DAILY 08/05/18 Celecoxib [CeleBREX -] 200 mg PO DAILY capsule 08/07/18 Levothyroxine [Synthroid -] 150 mcg PO 0700 tablet 08/07/18 Levothyroxine [Synthroid -] 150 mcg PO DAILY@0700 tablet 08/07/18 Nitrofurantoin Macrocrystal [Macrodantin -] 50 mg PO Q6HPO capsule 08/07/18 Nitrofurantoin Macrocrystal [Macrodantin] 50 mg PO QID #30 capsule 08/07/18 Venlafaxine HCl ER [Effexor Xr -] 75 mg PO DAILY cap.er.24h 08/07/18 Anemia: No Asthma: No Cancer: No Cardiac Disorders: No CVA: No COPD: Yes CHF: No DVT: Yes (AND PE) Dementia: No Diabetes: Yes (border line) Dialysis: No GI Disorders: No Disorders: No HTN: Yes Hypercholesterolemia: Yes Liver Disease: Yes (HEP C, TREATED NATALYA KELLER, CURED 2017) Psychiatric Problems: Yes (anxiety, tremors) Seizures: Yes (GRAND MAL, LAST SEIZURE 1 YEAR AGO) Thyroid Disease: Yes (HYPOACTIVE) Lung CA: Yes (bipolar, depression) - Surgical History Abdominal Surgery: No Appendectomy: No Cardiac Surgery: No Cholecystectomy: Yes Lung Surgery: No Neurologic Surgery: No Orthopedic Surgery: No - Immunization History Immunization Up to Date: Yes - Suicide/Smoking/Psychosocial Hx Smoking Status: No Smoking History: Former smoker Have you smoked in the past 12 months: No Number of Cigarettes Smoked Daily: 0 If you are a former smoker, when did you quit?: 2012 Information on smoking cessation initiated: No 'Breaking Loose' booklet given: 09/06/13 Hx Alcohol Use: No (hx 2012) Drug/Substance Use Hx: No (hx 2012) Substance Use Type: None Hx Substance Use Treatment: Yes Review of Systems - Review of Systems Able to Perform ROS?: Yes Comments:: 10/08/18 20:52 GENERAL/CONSTITUTIONAL: No fever or chills. No weakness. HEAD, EYES, EARS, NOSE AND THROAT: No change in vision. No ear pain or discharge. No sore throat. CARDIOVASCULAR: No chest pain or shortness of breath RESPIRATORY: No cough, wheezing, or hemoptysis. GASTROINTESTINAL: No nausea, vomiting, diarrhea + constipation. GENITOURINARY: No dysuria, frequency, or change in urination. MUSCULOSKELETAL: No joint or muscle swelling or pain. No neck or back pain. SKIN: No rash NEUROLOGIC: No headache, vertigo, loss of consciousness, or change in strength/ sensation. ENDOCRINE: No increased thirst. No abnormal weight change HEMATOLOGIC/LYMPHATIC: No anemia, easy bleeding, or history of blood clots. ALLERGIC/IMMUNOLOGIC: No hives or skin allergy. Is the patient limited Citizen [place] proficient: No *Physical Exam - Vital Signs Last Vital Signs Temp Pulse Resp BP Pulse Ox 97 F L 73 16 122/80 100 10/08/18 18:56 10/08/18 18:56 10/08/18 18:56 10/08/18 18:56 10/08/18 18:56 - Physical Exam Comments: 10/08/18 20:53 GENERAL: Awake, alert, and fully oriented, in no acute distress HEAD: No signs of trauma, normocephalic, atraumatic EYES: PERRLA, EOMI, sclera anicteric, conjunctiva clear ENT: oropharynx clear without exudates. Moist mucosa NECK: Normal ROM, supple LUNGS: No distress, speaks full sentences, clear to auscultation bilaterally HEART: Regular rate and rhythm, normal S1 and S2, no murmurs, rubs or gallops, peripheral pulses normal and equal bilaterally. ABDOMEN: Soft, nontender, normoactive bowel sounds + distention. No guarding, no rebound. No masses EXTREMITIES : Normal inspection, Normal range of motion, no edema. No clubbing or cyanosis. NEUROLOGICAL: Cranial nerves II through XII grossly intact. Normal speech, no focal sensorimotor deficits SKIN: Warm, Dry, normal turgor, no rashes or lesions noted RECTAL: soft stool in the rectal vault, normal rectal tone Medical Decision Making - Medical Decision Making 10/08/18 20:53 10/08/18 19:39 68 year old woman with a past medical history of Parkinsons disease, seizure, HTN, HLD, COPD, hypothyroidism, anxiety, diabetes, hep c, and depression presents with constipation for 4 days. Has been passing gas, some abdominal distention and eating, but has had some nausea today. No prior abdominal surgeries. No fevers. Has some headahches from [employer]. Takes colace regularly. ED Course: ddx ibnlt: csontipation vs sbo less likely diverticular dz as patient without hx of blodo in stool, abdominal pain, fever, diarrhea less likely ami, no risk factors, inconsistent with history symptoms and pmhx most consistent with constipation 2/2 parkinsonism possibly contributed by hypothyroidism and diet will eval with ua, abd xr 10/08/18 21:34 abd XR: with some stool retention no signed of acute voluvlus or sbo *DC/Admit/Observation/Transfer Diagnosis at time of Disposition: Constipation - Discharge Dispostion Disposition: HOME Condition at time of disposition: Stable Decision to Admit order: No - Referrals - Patient Instructions Printed Discharge Instructions: DI for Constipation Additional Instructions: You were seen in the ED for complaints of constipation. In the ED you were evaluated with imaging and treated symptomatically. Your showed improvement in the ED. There does not appear to be an acute need for immediate hospitalization. You are advised to follow up with your Primary Care Physician within 1 week. You were given a prescription for Return to the ED immediately if you experience worsening abdominal distention and constipation, if you experience nausea, vomiting, fevers or abdominal pain. - Post Discharge Activity
[2018-10-08] MEDS ORDERED: PEG 3350/NA SULF BICARB CL/KCL 4000 ML SOLN.RECON PO ONE (19:48)
[2018-10-08 21:14] LABS: URINE APPEARANCE CLEAR; URINE BILIRUBIN NEGATIVE (NEGATIVE); URINE COLOR YELLOW; URINE GLUCOSE (UA) NEGATIVE (NEGATIVE); URINE KETONE NEGATIVE (NEGATIVE); URINE LEUK ESTERASE NEGATIVE (NEGATIVE); URINE NITRITE NEGATIVE (NEGATIVE); URINE PROTEIN NEGATIVE (NEGATIVE); URINE UROBILINOGEN 0.2 mg/dL (0.2-1.0)
[2018-10-08] MEDS ORDERED: SODIUM PHOSPHATE/NA BIPHOS 133 ML ENEMA PR ONE (21:34)
--- NOTE | 2018-10-08 21:50 | PDOC ---
*Physical Exam - Vital Signs Last Vital Signs Temp Pulse Resp BP Pulse Ox 97 F L 73 16 122/80 100 10/08/18 18:56 10/08/18 18:56 10/08/18 18:56 10/08/18 18:56 10/08/18 18:56 Medical Decision Making - Medical Decision Making 10/08/18 21:50 Pt signed out to me by Dr. Gannon. 68F who presents with constipation. XR negative for SBO. Pt receiving enema and will reassess. 10/09/18 01:29 Pt had BM at 2330 and has not since. Sister at bedside, Loretta [phone]. Home health aide ([facility] Danna, , who will be at the pt's house at 8 am. Will microblog for short stay. 10/09/18 06:42 Danna states that the patient's aide will be there at 8 am. Will inform incoming attending. *DC/Admit/Observation/Transfer Diagnosis at time of Disposition: Constipation Qualifiers: Constipation type: unspecified constipation type Qualified Code(s): K59.00 - Constipation, unspecified - Discharge Dispostion Disposition: HOME Condition at time of disposition: Stable Decision to Admit order: Yes - Referrals - Patient Instructions - Post Discharge Activity
--- NOTE | 2018-10-08 22:23 | PDOC ---
Documentation entered by Philly Cisse SCRIBE, acting as scribe for Angelica Valdovinos MD. Angelica Valdovinos MD: This documentation has been prepared by the Betito loera Renju, SCRIBE, under my direction and personally reviewed by me in its entirety. I confirm that the documentation accurately reflects all work, treatment, procedures, and medical decision making performed by me. Attending Attestation - Resident Resident Name: Neena Gannon - ED Attending Attestation I have performed the following: I have examined & evaluated the patient, The case was reviewed & discussed with the resident, I agree w/resident's findings & plan, Exceptions are as noted - HPI HPI: 10/08/18 20:00 The patient is a 68 year old woman with a past medical history of Parkinsons disease, seizure HTN, COPD, hypothyroidism, diabetes, HCV, HLD, anxiety, and depression who presents to the emergency department for evaluation of a 4 day history of constipation. Per aid at bedside, patient has had flatus, abdominal distention, and nausea today. Patient has baseline urinary and fecal incontinence. Patient takes colace regularly. Per aid, no fevers, chills, or blood noted in diaper. - Physicial Exam PE: 10/08/18 21:36 wnwd 68 yo female in no acute distress head ncat neck supple lungs cta b/l cvs [id number] abd soft,+distended,+bs rectal exam normal rectal tone,soft stool in the rectal vault ext no deformities skn warm and dry neuro alert, bed bound with chronic fecal and urinary incontinence 68 yo female with Parkinson's disease who is essentially bed bound p/w no BM for 4 days. She is passing gas and has a soft,abdomen -no fever,chills,nausea,vomiting,diarrhea 10/08/18 21:38 - Medical Decision Making 10/08/18 22:22 plan enema/discharge home with stool softeners
[2018-10-08] MEDS ORDERED: BISACODYL 5 MG TABLET.DR (FP) PO ONE (22:42)
[2018-10-08] MEDS ORDERED: MAGNESIUM CITRATE 300 ML BOTTLE PO ONE (23:06)
[2018-10-08] MEDS ORDERED: MAGNESIUM CITRATE 300 ML BOTTLE ONE (23:08)
[2018-10-09 07:01] VITALS: BP 159/71; PULSE 78; TEMP 97.9
--- NOTE | 2018-10-09 08:29 | PDOC ---
*Physical Exam - Vital Signs Last Vital Signs Temp Pulse Resp BP Pulse Ox 97.9 F 78 20 159/71 95 10/09/18 07:00 10/09/18 07:00 10/09/18 07:00 10/09/18 07:00 10/09/18 07:00 - Physical Exam Comments: 10/09/18 07:47 Care received at [address] Silva/Janeth Pt pending DC at 8am as that is when [employer] will be at pt's home Ambulance arranged by overnight team On re-evaluation, pt is well appearing, clinically stable with no abd ttp Vitals stable I discussed the physical exam findings, ancillary test results and final diagnoses with the patient. I answered all of the patient's questions. The patient was satisfied with the care received and felt comfortable with the discharge plan and treatment plan. The patient will call their primary care physician within 24 hours to arrange follow-up and will return to the Emergency Department with any new, persistent or worsening symptoms. ED Treatment Course - ADDITIONAL ORDERS Additional order review: Laboratory Results 10/08/18 21:09 Urine Color Yellow Urine Appearance Clear Urine pH 7.0 Ur Specific [place] 1.012 Urine Protein Negative Urine Glucose (UA) Negative Urine Ketones Negative Urine Blood Negative Urine Nitrite Negative Urine Bilirubin Negative Urine Urobilinogen 0.2 Ur Leukocyte Esterase Negative - Medications Given in the ED: ED Medications Discontinued Medications Generic Name Dose Route Start Last Admin Trade Name Freq PRN Reason Stop Dose Admin Bisacodyl 10 mg 10/08/18 22:42 10/08/18 23:15 Dulcolax - PO 10/08/18 22:43 Not Given ONCE ONE Magnesium Citrate 300 ml 10/08/18 23:06 10/08/18 23:15 Citroma - PO 10/08/18 23:07 Not Given ONCE ONE Polyethylene Glycol/Electrolytes 4,000 ml 10/08/18 19:48 10/08/18 22:58 Golytely Solution - PO 10/08/18 19:49 Not Given ONCE ONE Sodium Phosphate 133 ml 10/08/18 21:34 10/08/18 22:59 Fleet Adult Rectal Enema - [place] 10/08/18 21:35 133 ml ONCE ONE Administration *DC/Admit/Observation/Transfer Diagnosis at time of Disposition: Constipation Qualifiers: Constipation type: unspecified constipation type Qualified Code(s): K59.00 - Constipation, unspecified - Discharge Dispostion Disposition: HOME Condition at time of disposition: Stable - Referrals - Patient Instructions Printed Discharge Instructions: DI for Constipation Additional Instructions: You were seen in the ED for complaints of constipation. In the ED you were evaluated with imaging and treated symptomatically. Your showed improvement in the ED. There does not appear to be an acute need for immediate hospitalization. You are advised to follow up with your Primary Care Physician within 1 week. Return to the ED immediately if you experience worsening abdominal distention and constipation, if you experience nausea, vomiting, fevers, abdominal pain, or any new or concerning symptoms. - Post Discharge Activity
== END 2018-10-09 08:39 | disposition home or self-care (01) ==
LOC: JER 18:35 → JERBED 10-09 01:31 → UNDOADMOB 10-09 01:31 → JER 10-09 08:39
DX: K59.00 Constipation, unspecified (principal); I10 Essential (primary) hypertension; E11.9 Type 2 diabetes mellitus without complications; E78.00 Pure hypercholesterolemia, unspecified; E03.9 Hypothyroidism, unspecified; Z86.711 Personal history of pulmonary embolism; Z86.718 Personal history of other venous thrombosis and embolism; J44.9 Chronic obstructive pulmonary disease, unspecified; F31.9 Bipolar disorder, unspecified; Z86.19 Personal history of other infectious and parasitic diseases; Z86.69 Personal history of other diseases of the nervous system and sense organs
CPT/HCPCS: 74019-TC-FY; 81003; 87086; 99282-25

== ENCOUNTER 2018-11-11 12:21 | Inpatient (IN) | payer OTHER | END 2018-11-15 16:36 | disposition home or self-care (01) | LOC: JER 12:21 → J6S 11-12 14:41 → J4S 11-13 08:55 → JERBED 16:41 ==